=== PATIENT | male | born 1970 | race African-American/Black ===

== ENCOUNTER 2021-02-01 13:49 | Inpatient (IN) | payer MEDICARE, SELFPAY ==
[2021-02-01 13:54] VITALS: BP 164/94; PULSE 62; RESP 18; TEMP 36.7; O2SAT 99; BMI 28.0
--- NOTE | 2021-02-01 14:12 | ED_ITS ---
HPI - Psych General Chief Complaint: Psychiatric Symptoms Stated Complaint: Crisis Time Seen by Provider: 02/01/21 14:10 Source: patient Mode of arrival: ambulatory Limitations: no limitations History of Present Illness HPI Narrative: 50 y/o male with history of anxiety, depression and PTSD who is presenting to the ED from home with suicidal thoughts. He states for the last 2+ weeks his depression has been worsening and he has not been taking any of his medications. He is overwhelmed at home and has been declining. He has been seeing his therapist and told her today about his decline and suicidal thoughts. He was thinking about slitting his wrists. He reports prior hospitalization for similar about 3 years ago. He has been stable but remains on disability for his mental health and cannot hold a 9-5 job. His is as supportive as she can be. He denies substnace use and only very occasionally drinks small amounts of alcohol. No hallucinations or delusions. MD complaint: suicidal ideation and feels depressed Onset (ago): week(s) (2) Duration: constant History of same: Yes Relieving factors: none Exacerbating factors: none Context: not taking psychiatric medications Associated psychiatric symptoms: depression and suicidal ideation Associated symptoms: denies other symptoms Treatments prior to arrival: none If self harm: admits thoughts of self harm and has plan Details of plan: slit wrists Related Data Home Medications Medication Instructions Recorded Confirmed amlodipine 1 tab PO DAILY 02/01/21 02/01/21 benazepril 1 tab PO DAILY 02/01/21 02/01/21 dapagliflozin [Farxiga] 1 tab PO DAILY 02/01/21 02/01/21 doxazosin 1 tab PO DAILY 02/01/21 02/01/21 insulin glargine [Lantus Solostar 25 unit SUBCUT DAILY 02/01/21 02/01/21 U-100 Insulin] lorazepam 1 tab PO BID PRN 02/01/21 02/01/21 rosuvastatin 1 tab PO BEDTIME 02/01/21 02/01/21 Allergies Allergy/AdvReac Type Severity Reaction Status Date / Time bupropion [From WELLBUTRIN] Allergy Severe Seizure Verified 02/01/21 13:53 aripiprazole [From ABILIFY] Allergy Intermediate FACIAL Unverified 02/01/21 13:53 TREMORS honey [HONEY] Allergy Intermediate HEADACHES Unverified 02/01/21 13:53 lurasidone [From LATUDA] AdvReac Intermediate GETS Unverified 02/01/21 13:53 REALLY SICK mirtazapine [MIRTAZAPINE] AdvReac Intermediate BP GOES Unverified 02/01/21 13:53 HIGH Review of Systems Review of Systems: Constitutional: No Fever, No Chills Cardiovascular: No Chest Pain, No SOB Respiratory: No Cough, No Sputum Gastrointestinal: No Nausea, No Vomiting, No Diarrhea, No abdominal Pain Musculoskeletal: + joint pain, No Myalgias Skin: No Skin Lesions, No rash Neuro: No Weakness, No Numbness, No Dizziness, No Headache Psych: + Anxiety/Panic, + Depression, +SI, No HI, No AH, No VH Heme/Lymph: No Bruising, No Lymphadenopathy Endocrine: No Polyuria, No Polydipsia PMFSH Past Medical History Attestation statement: The following information was validated with the patient. Medical History Anxiety Depression Diabetes Hypertension PTSD (post-traumatic stress disorder) Social History Social History Smoked in Last 30 Days: No Use of substances other than those prescribed or required for medical reasons: No Advance Directives: No Advance Directives Information Provided: No Physical Exam Vital Signs: Vital Signs: Last Vital Signs Temp 98.0 F 02/01/21 13:54 Pulse 62 02/01/21 13:54 Resp 16 02/01/21 16:00 BP 164/94 H 02/01/21 13:54 Pulse Ox 99 02/01/21 13:54 Body Mass Index 28.0 Appearance: Alert. Oriented X3. No acute distress. Eyes: Pupils equal, round and reactive to light. ENT: Pharynx normal. Neck: Normal inspection. Neck supple. CVS: Normal heart rate and rhythm. Pulses normal. Respiratory: No respiratory distress. Breath sounds normal. Abdomen: Soft and nontender. +BS x4 Skin: Skin warm and dry. Normal skin color. Normal skin turgor. No rashes. Extremities: No lower extremity edema. Neuro: Oriented X 3. No motor deficit. No sensory deficit. Speaks in complete sentences, normal thought process with good insight +SI Course Course Course Narrative: 50 y/o male presenting with SI in the setting of worsening depression and non-compliance with medication. Will get metabolic workup and BHN evaluation. Reevaluation(s) Reevaluation #1: 16:30 - Lab workup and Utox are normal. Medically cleared at this time. Physician observation started at 4:30pm. Patient placed in physician observation because patient is awaiting BHN evaluation for the possible need of inpatient psych admission. At the time observation was started patient's vital signs were stable. Patient is alert and oriented. Neuro exam is non-focal. CV: RRR and lungs are clear. Will continue to monitor. Reevaluation #2: CARE team recommending inpatient psych admission - hopeful to place on M5 today/ Home meds restarted. MDM - Psych Lab Data Result diagrams: 02/01/21 14:50 02/01/21 14:50 Labs: Lab Results 02/01/21 02/01/21 02/01/21 Range/Units 14:29 14:29 14:50 WBC 3.8 L (4.8-10.8) X10*3/uL RBC 4.67 (4.60-5.80) X10*6/uL Hgb 13.0 L (14.0-18.0) g/dl Hct 39.0 L (42-52) % MCV 83.5 (80-98) fL MCH 27.8 (27.0-33.0) pg MCHC 33.3 (31.0-36.0) g/dl RDW 12.3 (11.0-16.0) % Plt Count 267 (160-400) X10*3/uL MPV 9.3 L (9.4-12.4) fL Immature Gran % (Auto) 0.3 (0.0-0.4) % Neut % (Auto) 46.2 (45-73) % Lymph % (Auto) 42.3 H (20-40) % [place] % (Auto) 9.7 (2-11) % Eos % (Auto) 1.0 (0-4) % Baso % (Auto) 0.5 (0-2) % Lymph # (Auto) 1.6 (1.2-4.9) X10*3/uL [place] # (Auto) 0.4 (0.1-1.2) X10*3/uL Eos # (Auto) 0.0 (0.0-0.4) X10*3/uL Baso # (Auto) 0.0 (0.0-0.2) X10*3/uL Abs Immat Gran (auto) 0.01 (0.00-0.03) X10*3/uL Absolute Neuts (auto) 1.8 L (2.0-8.3) X10*3/uL Absolute Nucleated RBC 0.000 (0.0-0.012) X10*3/uL Nucleated RBC % (auto) 0.0 (0.0-0.2) /100WBC Sodium (135-145) mmol/L Potassium (3.3-5.1) mmol/L Chloride (96-108) mmol/L Carbon Dioxide (22-29) mmol/L Anion Gap (12-20) BUN (9-16) mg/dL Creatinine (0.5-1.4) mg/dL Estim Creat Clear Calc Estimated GFR Random Glucose (60-115) mg/dL Calcium (8.4-10.2) mg/dL Magnesium (1.6-2.6) mg/dL Total Bilirubin (0.0-1.0) mg/dL Direct Bilirubin (0.0-0.5) mg/dL AST (5-37) U/L ALT (0-40) U/L Alkaline Phosphatase (39-117) U/L Total Protein (6.5-8.0) g/dL Albumin (3.5-5.0) g/dL Urine Color YELLOW Urine Appearance CLEAR Urine pH 6.0 (5.0-8.0) Ur Specific [place] >= 1.030 H (1.005-1.025) Urine Protein NEG (NEG-TRACE) MG/DL Urine Glucose (UA) NEG (NEG) MG/DL Urine Ketones NEG (NEG) MG/DL Urine Blood NEG (NEG) Urine Nitrite NEG (NEG) Ur Leukocyte Esterase NEG (NEG) Salicylates (15-30) mg/dL Urine Opiates Screen Not Detected (Not Detect) Acetaminophen (<30) mcg/mL Ur Barbiturates Screen Not Detected (Not Detect) Ur Phencyclidine Scrn Not Detected (Not Detect) Ur Amphetamines Screen Not Detected (Not Detect) U Benzodiazepines Scrn Not Detected (Not Detect) Urine Cocaine Screen Not Detected (Not Detect) U Marijuana (THC) Screen Not Detected (Not Detect) Ethyl Alcohol mg/dL COVID-19 (PAUL) (Negative) COVID-19 Clin Com 02/01/21 02/01/21 02/01/21 Range/Units 14:50 14:50 14:51 WBC (4.8-10.8) X10*3/uL RBC (4.60-5.80) X10*6/uL Hgb (14.0-18.0) g/dl Hct (42-52) % MCV (80-98) fL MCH (27.0-33.0) pg MCHC (31.0-36.0) g/dl RDW (11.0-16.0) % Plt Count (160-400) X10*3/uL MPV (9.4-12.4) fL Immature Gran % (Auto) (0.0-0.4) % Neut % (Auto) (45-73) % Lymph % (Auto) (20-40) % [place] % (Auto) (2-11) % Eos % (Auto) (0-4) % Baso % (Auto) (0-2) % Lymph # (Auto) (1.2-4.9) X10*3/uL [place] # (Auto) (0.1-1.2) X10*3/uL Eos # (Auto) (0.0-0.4) X10*3/uL Baso # (Auto) (0.0-0.2) X10*3/uL Abs Immat Gran (auto) (0.00-0.03) X10*3/uL Absolute Neuts (auto) (2.0-8.3) X10*3/uL Absolute Nucleated RBC (0.0-0.012) X10*3/uL Nucleated RBC % (auto) (0.0-0.2) /100WBC Sodium 139 (135-145) mmol/L Potassium 4.2 (3.3-5.1) mmol/L Chloride 105 (96-108) mmol/L Carbon Dioxide 27 (22-29) mmol/L Anion Gap 11 L (12-20) BUN 16 (9-16) mg/dL Creatinine 0.90 (0.5-1.4) mg/dL Estim Creat Clear Calc 119.4 Estimated GFR > 60 Random Glucose 87 (60-115) mg/dL Calcium 9.7 (8.4-10.2) mg/dL Magnesium 2.0 (1.6-2.6) mg/dL Total Bilirubin 0.5 (0.0-1.0) mg/dL Direct Bilirubin < 0.2 (0.0-0.5) mg/dL AST 23 (5-37) U/L ALT 25 (0-40) U/L Alkaline Phosphatase 111 (39-117) U/L Total Protein 7.4 (6.5-8.0) g/dL Albumin 4.5 (3.5-5.0) g/dL Urine Color Urine Appearance Urine pH (5.0-8.0) Ur Specific [place] (1.005-1.025) Urine Protein (NEG-TRACE) MG/DL Urine Glucose (UA) (NEG) MG/DL Urine Ketones (NEG) MG/DL Urine Blood (NEG) Urine Nitrite (NEG) Ur Leukocyte Esterase (NEG) Salicylates < 5.0 L (15-30) mg/dL Urine Opiates Screen (Not Detect) Acetaminophen < 1 (<30) mcg/mL Ur Barbiturates Screen (Not Detect) Ur Phencyclidine Scrn (Not Detect) Ur Amphetamines Screen (Not Detect) U Benzodiazepines Scrn (Not Detect) Urine Cocaine Screen (Not Detect) U Marijuana (THC) Screen (Not Detect) Ethyl Alcohol < 10 mg/dL COVID-19 (PAUL) Negative (Negative) COVID-19 Clin Com See Note Discharge Plan Discharge Clinical Impression: PTSD (post-traumatic stress disorder), Depression, Suicidal ideation Patient Disposition: Admitted As Inpatient Prescriptions: No Action lorazepam 0.5 mg tablet 1 tab PO BID PRN (Reason: Anxiety) RF: 0 amlodipine 10 mg tablet 1 tab PO DAILY RF: 0 doxazosin 4 mg tablet 1 tab PO DAILY RF: 0 benazepril 40 mg tablet 1 tab PO DAILY RF: 0 rosuvastatin 40 mg tablet 1 tab PO BEDTIME RF: 0 Lantus Solostar U-100 Insulin 100 unit/mL (3 mL) insulin pen 25 unit subcut DAILY RF: 0 Farxiga 10 mg tablet 1 tab PO DAILY RF: 0
[2021-02-01 14:36] LABS: Appearance Urine CLEAR; Color Urine YELLOW; Glucose Urine UA NEG (NEG); Leukocyte Esterase Urine NEG (NEG); Nitrite Urine NEG (NEG); Specific Gravity - Urine >= 1.030 (1.005-1.025); Urine Blood NEG (NEG); Urine Ketones NEG (NEG); Urine Protein NEG (NEG-TRACE)
[2021-02-01 14:56] LABS: MANUAL DIFF FLAG NO
[2021-02-01 14:59] LABS: Amphetamine Screen Urine Not Detected (Not Detect); Barbiturates, Urine Not Detected (Not Detect); Benzodiazepines Screen Urine Not Detected (Not Detect); Cannabinoid Screen Urine Not Detected (Not Detect); Cocaine Screen Urine Not Detected (Not Detect); Opiate Screen Urine Not Detected (Not Detect); Phencyclidine Screen Urine Not Detected (Not Detect)
[2021-02-01 14:59] LABS: Basophils Percent Auto 0.5 % (0-2); Imm Gran Abs Auto 0.01 X10*3/uL (0.00-0.03); Imm Gran Pct Auto 0.3 % (0.0-0.4); Lymphocytes Absolute Auto 1.6 X10*3/uL (1.2-4.9); Lymphocytes Percent Auto 42.3 % (20-40); Mean Corpuscular HGB Conc 33.3 g/dl (31.0-36.0); Mean Corpuscular Hemoglobin 27.8 pg (27.0-33.0); Mean Corpuscular Volume 83.5 fL (80-98); Mean Platelet Volume 9.3 fL (9.4-12.4); Monocytes Absolute Auto 0.4 X10*3/uL (0.1-1.2); Monocytes Percent Auto 9.7 % (2-11); Neutrophils Absolute Auto 1.8 X10*3/uL (2.0-8.3); Neutrophils Percent Auto 46.2 % (45-73); Platelet Count 267 X10*3/uL (160-400); Red Blood Count 4.67 X10*6/uL (4.60-5.80); Red Cell Distribution Width 12.3 % (11.0-16.0); White Blood Count 3.8 X10*3/uL (4.8-10.8)
[2021-02-01 15:12] LABS: COVID-19 Test Negative (Negative); IDNOW Serial# 9DD0AD1C
--- NOTE | 2021-02-01 15:13 | PC.NURSE ---
per at bedside-pt has not been med compliant in two weeks.
[2021-02-01 15:18] LABS: Ethanol < 10 mg/dL
[2021-02-01 15:23] LABS: Acetaminophen LAB < 1 mcg/mL (<30); Alanine Aminotransferase 25 U/L (0-40); Albumin Level 4.5 g/dL (3.5-5.0); Alkaline Phosphatase 111 U/L (39-117); Anion Gap 11 (12-20); Aspartate Amino Transferase 23 U/L (5-37); Bilirubin Direct < 0.2 mg/dL (0.0-0.5); Bilirubin Total 0.5 mg/dL (0.0-1.0); Blood Urea Nitrogen 16 mg/dL (9-16); Calcium 9.7 mg/dL (8.4-10.2); Carbon Dioxide 27 mmol/L (22-29); Chloride 105 mmol/L (96-108); Creatinine Clr Calc Pharmacy 119.4; Estimated Glomerular Filt Rate > 60; Glucose Random 87 mg/dL (60-115); Potassium 4.2 mmol/L (3.3-5.1); Salicylate < 5.0 mg/dL (15-30); Sodium 139 mmol/L (135-145); Total Protein 7.4 g/dL (6.5-8.0)
[2021-02-01 16:00] VITALS: RESP 16
[2021-02-01 18:31] VITALS: BP 149/92
[2021-02-01] MEDS: Doxazosin Mesylate 2 MG TABLET 4 MG PO (18:31)
[2021-02-01 18:32] VITALS: BP 149/92; PULSE 68
[2021-02-01] MEDS: amLODIPine Besylate 10 MG TABLET PO (18:32)
[2021-02-01] MEDS: Insulin Glargine,Hum.rec.anlog 100 UNIT/ML 10 ML VIAL 25 UNIT SUBCUT (20:19)
[2021-02-01] MEDS: Atorvastatin Calcium 80 MG TABLET PO (20:20)
[2021-02-01 20:21] LABS: Glucose, Whole Blood 170 mg/dL (60-115)
[2021-02-01 21:53] VITALS: BP 139/77; PULSE 60; TEMP 36.3
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
[2021-02-01] MEDS: LORazepam 0.5 MG TABLET PO (23:05)
[2021-02-02 06:00] VITALS: BP 134/76; PULSE 86; RESP 18; TEMP 36.2; O2SAT 97
[2021-02-02 06:23] LABS: Glucose, Whole Blood 116 mg/dL (60-115)
[2021-02-02 07:00] VITALS: BMI 28.0
[2021-02-02 08:19] VITALS: BP 127/85; PULSE 63
[2021-02-02] MEDS: lisinopriL 40 MG TABLET PO (08:19)
[2021-02-02 08:20] VITALS: BP 127/85; PULSE 63
[2021-02-02] MEDS: amLODIPine Besylate 10 MG TABLET PO (08:20)
[2021-02-02] MEDS: Insulin Glargine,Hum.rec.anlog 100 UNIT/ML 10 ML VIAL 25 UNIT SUBCUT (08:22)
[2021-02-02 08:47] LABS: Cholesterol 165 mg/dL; HDL Cholesterol 45 mg/dL; LDL Cholesterol Calculated 105 mg/dl; Triglycerides 79 mg/dL
[2021-02-02 08:51] LABS: Estimated Average Glucose 143 mg/dL; Hemoglobin A1c % 6.6 %
[2021-02-02 09:07] LABS: Thyroid Stimulating Hormone 0.41 uIU/mL (0.32-4.0)
[2021-02-02 09:59] LABS: Folate 10.2 ng/mL (> or = 4.0); Vitamin B12 294 pg/mL (200-900)
[2021-02-02] MEDS: Acetaminophen 325 MG TABLET 650 MG PO (10:41)
--- NOTE | 2021-02-02 12:25 | HO.PSYADMNOT ---
HPI Chief Complaint: SI, Depression, Anxiety, PTSD Sources of Information: patient interviewed, chart reviewed and crisis/core team assessment reviewed Additional Sources of Information: Valeria Bey [phone]. longterm pt who is very cautious about meds and changes. Dx. Depn, PTSD, Insomnia. Main sx are poor concentraion, motivation and focus. Hx of ? seizure on Wellbutrin, Prazosin just changed to Doxazocin, just stopped Nortriptyline low dose, Buspirone caused intense dreams, night sweats and had no real benefits. Pt is quite medication sensitive. 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 Reports a hx of trauma and related sx. Describes sx a poor focus, recall, poor task performance, several environmental triggers, loss of elements of time and often going back to the past. This has precipitated poor self care and increased sx of depression. States he has felt decompensated for several months with varying levels of triggers. Past Psychiatric History: IP: at least 6 -[facility] [place] OP: [facility]- EMDR and psychotherapy. Valeria Bey-psychopharm PHP: several admits Trials: Abilify-facial tremor Latuda-made pt ill Wellbutrin-seizure Remeron-increase in blood sugar, anxiety Medical Evaluation Reviewed: Yes [facility] Medical History (Updated 02/02/21 @ 18:34 by Melissa Ngo, RODOLFO) Anxiety Depression Diabetes Hypertension DALE (obstructive sleep apnea) PTSD (post-traumatic stress disorder) Seizure Narrative: Seizure s/p Wellbutrin dosing, no epilepsy per pt. Family History: Yes, not documented. 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 One dog, a Jaime Poodle Mix, age 15. Substance History: Alcohol use is rare. Denies nicotine, cannabis, drug use Caffeine-iced tea on occasion Trauma History: Affirms. Struggles from his youth are still present, states he has a good reputation as an adult but is somehow stuck in childhood. Diagnostics Vital Signs (24Hr): Vital Signs - 24 hr 02/01/21 13:54 02/01/21 16:00 02/01/21 18:31 Temperature 98.0 F Pulse Rate 62 Respiratory Rate 18 16 Blood Pressure 164/94 H 149/92 H Pulse Oximetry 99 02/01/21 18:32 02/01/21 21:53 02/02/21 06:00 Temperature 97.3 F 97.1 F Pulse Rate 68 60 86 Respiratory Rate 18 Blood Pressure 149/92 H 139/77 134/76 Pulse Oximetry 97 02/02/21 08:19 02/02/21 08:20 Temperature Pulse Rate 63 63 Respiratory Rate Blood Pressure 127/85 127/85 Pulse Oximetry Body Mass Index 28.0 Labs Results: 02/01/21 14:50 02/01/21 14:50 Labs: Laboratory Results - last 48 hr 02/01/21 02/01/21 02/01/21 14:29 14:29 14:50 WBC 3.8 L RBC 4.67 Hgb 13.0 L Hct 39.0 L MCV 83.5 MCH 27.8 MCHC 33.3 RDW 12.3 Plt Count 267 MPV 9.3 L Immature Gran % (Auto) 0.3 Neut % (Auto) 46.2 Lymph % (Auto) 42.3 H [place] % (Auto) 9.7 Eos % (Auto) 1.0 Baso % (Auto) 0.5 Lymph # (Auto) 1.6 [place] # (Auto) 0.4 Eos # (Auto) 0.0 Baso # (Auto) 0.0 Abs Immat Gran (auto) 0.01 Absolute Neuts (auto) 1.8 L Absolute Nucleated RBC 0.000 Nucleated RBC % (auto) 0.0 Sodium Potassium Chloride Carbon Dioxide Anion Gap BUN Creatinine Estim Creat Clear Calc Estimated GFR POC Glucose Random Glucose Estimat Average Glucose Hemoglobin A1c % Calcium Magnesium Total Bilirubin Direct Bilirubin AST ALT Alkaline Phosphatase Total Protein Albumin Triglycerides Cholesterol LDL Cholesterol, Calc HDL Cholesterol Vitamin B12 Folate TSH Urine Color YELLOW Urine Appearance CLEAR Urine pH 6.0 Ur Specific [place] >= 1.030 H Urine Protein NEG Urine Glucose (UA) NEG Urine Ketones NEG Urine Blood NEG Urine Nitrite NEG Ur Leukocyte Esterase NEG Salicylates Urine Opiates Screen Not Detected Acetaminophen Ur Barbiturates Screen Not Detected Ur Phencyclidine Scrn Not Detected Ur Amphetamines Screen Not Detected U Benzodiazepines Scrn Not Detected Urine Cocaine Screen Not Detected U Marijuana (THC) Screen Not Detected Ethyl Alcohol COVID-19 (PAUL) COVID-19 Clin Com 02/01/21 02/01/21 02/01/21 14:50 14:50 14:51 WBC RBC Hgb Hct MCV MCH MCHC RDW Plt Count MPV Immature Gran % (Auto) Neut % (Auto) Lymph % (Auto) [place] % (Auto) Eos % (Auto) Baso % (Auto) Lymph # (Auto) [place] # (Auto) Eos # (Auto) Baso # (Auto) Abs Immat Gran (auto) Absolute Neuts (auto) Absolute Nucleated RBC Nucleated RBC % (auto) Sodium 139 Potassium 4.2 Chloride 105 Carbon Dioxide 27 Anion Gap 11 L BUN 16 Creatinine 0.90 Estim Creat Clear Calc 119.4 Estimated GFR > 60 POC Glucose Random Glucose 87 Estimat Average Glucose Hemoglobin A1c % Calcium 9.7 Magnesium 2.0 Total Bilirubin 0.5 Direct Bilirubin < 0.2 AST 23 ALT 25 Alkaline Phosphatase 111 Total Protein 7.4 Albumin 4.5 Triglycerides Cholesterol LDL Cholesterol, Calc HDL Cholesterol Vitamin B12 Folate TSH Urine Color Urine Appearance Urine pH Ur Specific [place] Urine Protein Urine Glucose (UA) Urine Ketones Urine Blood Urine Nitrite Ur Leukocyte Esterase Salicylates < 5.0 L Urine Opiates Screen Acetaminophen < 1 Ur Barbiturates Screen Ur Phencyclidine Scrn Ur Amphetamines Screen U Benzodiazepines Scrn Urine Cocaine Screen U Marijuana (THC) Screen Ethyl Alcohol < 10 COVID-19 (PAUL) Negative COVID-19 Clin Com See Note 02/01/21 02/02/21 02/02/21 20:16 06:09 08:00 WBC RBC Hgb Hct MCV MCH MCHC RDW Plt Count MPV Immature Gran % (Auto) Neut % (Auto) Lymph % (Auto) [place] % (Auto) Eos % (Auto) Baso % (Auto) Lymph # (Auto) [place] # (Auto) Eos # (Auto) Baso # (Auto) Abs Immat Gran (auto) Absolute Neuts (auto) Absolute Nucleated RBC Nucleated RBC % (auto) Sodium Potassium Chloride Carbon Dioxide Anion Gap BUN Creatinine Estim Creat Clear Calc Estimated GFR POC Glucose 170 H 116 H Random Glucose Estimat Average Glucose 143 Hemoglobin A1c % 6.6 Calcium Magnesium Total Bilirubin Direct Bilirubin AST ALT Alkaline Phosphatase Total Protein Albumin Triglycerides Cholesterol LDL Cholesterol, Calc HDL Cholesterol Vitamin B12 Folate TSH Urine Color Urine Appearance Urine pH Ur Specific [place] Urine Protein Urine Glucose (UA) Urine Ketones Urine Blood Urine Nitrite Ur Leukocyte Esterase Salicylates Urine Opiates Screen Acetaminophen Ur Barbiturates Screen Ur Phencyclidine Scrn Ur Amphetamines Screen U Benzodiazepines Scrn Urine Cocaine Screen U Marijuana (THC) Screen Ethyl Alcohol COVID-19 (PAUL) COVID-19 Clin Com 02/02/21 02/02/21 08:00 08:00 WBC RBC Hgb Hct MCV MCH MCHC RDW Plt Count MPV Immature Gran % (Auto) Neut % (Auto) Lymph % (Auto) [place] % (Auto) Eos % (Auto) Baso % (Auto) Lymph # (Auto) [place] # (Auto) Eos # (Auto) Baso # (Auto) Abs Immat Gran (auto) Absolute Neuts (auto) Absolute Nucleated RBC Nucleated RBC % (auto) Sodium Potassium Chloride Carbon Dioxide Anion Gap BUN Creatinine Estim Creat Clear Calc Estimated GFR POC Glucose Random Glucose Estimat Average Glucose Hemoglobin A1c % Calcium Magnesium Total Bilirubin Direct Bilirubin AST ALT Alkaline Phosphatase Total Protein Albumin Triglycerides 79 Cholesterol 165 LDL Cholesterol, Calc 105 HDL Cholesterol 45 Vitamin B12 294 Folate 10.2 TSH 0.41 Urine Color Urine Appearance Urine pH Ur Specific [place] Urine Protein Urine Glucose (UA) Urine Ketones Urine Blood Urine Nitrite Ur Leukocyte Esterase Salicylates Urine Opiates Screen Acetaminophen Ur Barbiturates Screen Ur Phencyclidine Scrn Ur Amphetamines Screen U Benzodiazepines Scrn Urine Cocaine Screen U Marijuana (THC) Screen Ethyl Alcohol COVID-19 (PAUL) COVID-19 Clin Com Meds/Allergies Meds Home Medications Acetaminophen (Acetaminophen 325 Mg Tablet) 650 mg PO Q6H PRN PRN Reason: Headache/Pain Mild Scale (1-3) Last Admin: 02/02/21 10:41 Dose: 650 mg Documented by: Al Hydroxide/Mg Hydroxide (Magnesium Hydrox/Alum Hydrox 30 Ml Oral.Susp) 30 ml PO Q6H PRN PRN Reason: Heartburn/Nausea Amlodipine Besylate (Amlodipine Besylate 10 Mg Tablet) 10 mg PO DAILY [facility]; Protocol Last Admin: 02/02/21 08:20 Dose: 10 mg Documented by: Atorvastatin Calcium (Atorvastatin Calcium 80 Mg Tablet) 80 mg PO BEDTIME MIGEL Last Admin: 02/01/21 20:20 Dose: 80 mg Documented by: Doxazosin Mesylate (Doxazosin Mesylate 2 Mg Tablet) 4 mg PO BEDTIME MIGEL; Protocol Hydroxyzine HCl (Hydroxyzine Hcl 25 Mg Tablet) 25 mg PO BEDTIME PRN PRN Reason: Anxiety Insulin Glargine (Insulin Glargine,Hum.Rec.Anlog 100 Unit/Ml 10 Ml Vial) 25 unit SUBCUT DAILY [facility] Last Admin: 02/02/21 08:22 Dose: 25 unit Documented by: Lisinopril (Lisinopril 40 Mg Tablet) 40 mg PO DAILY [facility] Last Admin: 02/02/21 08:19 Dose: 40 mg Documented by: Lorazepam (Lorazepam 0.5 Mg Tablet) 0.5 mg PO BID PRN PRN Reason: Anxiety Last Admin: 02/01/21 23:05 Dose: 0.5 mg Documented by: Magnesium Hydroxide (Milk Of Magnesia 30 Ml Oral.Susp) 30 ml PO DAILY PRN PRN Reason: Constipation Non-Formulary Medication (Dapagliflozin [Farxiga]) 1 tab PO DAILY [facility] Pharmacy Consult (Consult Rx Perform Med Rec) 1 each MISCELLANE ONCE PRN PRN Reason: Consult order Trazodone HCl (Trazodone Hcl 50 Mg Tablet) 50 mg PO BEDTIME PRN PRN Reason: Insomnia Allergies Allergies Allergy/AdvReac Type Severity Reaction Status Date / Time bupropion [From WELLBUTRIN] Allergy Severe Seizure Verified 02/01/21 13:53 aripiprazole [From ABILIFY] Allergy Intermediate FACIAL Unverified 02/01/21 13:53 TREMORS honey [HONEY] Allergy Intermediate HEADACHES Unverified 02/01/21 13:53 lurasidone [From LATUDA] AdvReac Intermediate GETS Unverified 02/01/21 13:53 REALLY SICK mirtazapine [MIRTAZAPINE] AdvReac Intermediate BP GOES Unverified 02/01/21 13:53 HIGH Mental Status Exam Mental Status Exam Patient Appearance: Appropriate Patient Orientation: Person, Place, Time and Situation Level of Consciousness: Alert Patient Behavior: Appropriate, Talkative, Fatigued and Good Eye Contact Mood Description: Depressed and Anxious Affect Description: Flat Patient Cognition Impaired: No Ability to Follow Directions: Good Speech Pattern: Clear, Appropriate, Spontaneous Speech and Coherent Memory Description: Remote Impaired and Episodic Impaired Hallucinations: None Delusions: Not Present Thought Process: Distracted and Rumination Thought Content: positive for Perseveration and positive for Suicidal Ideation Depressive Symptoms: Increased Anxiety, Insomnia, Diff. Making Decisions, Increased Irritability, Difficulty Sleeping, Changes in Appetite, Loss of Int. in Activity, Feelings of Worthlessness, Hopelessness, Isolating-Friends/Family, Unhappiness, Increased Fatigue, Thoughts of /Suicide, Low Self Esteem, Loss of Energy and Difficulty Concentrating Judgement: Fair Assessment & Plan Assessment & Plan (1) PTSD (post-traumatic stress disorder): Status: Acute Code(s): F43.10 - Post-traumatic stress disorder, unspecified Assessment and Plan: 50 yo male with a hx of trauma beginning in childhood. Pt reports sx of SI, poor focus, recall, task performance, easily triggered and often triggered with several months of decompensation. Plan: Collateral contact. Continue med review with pt. consider possible lexapro trial, risperdal to assist in grounding. will discuss further with pt. (2) Recurrent major depression-severe: Status: Acute Code(s): F33.2 - Major depressive disorder, recurrent severe without psychotic features Informed Consent: further education needed Reason for continued inpatient stay Substantial Risk for: harm to self, inability to function, rapid decompensation and med/psych decompensation
[2021-02-02 18:00] VITALS: BP 128/77; PULSE 66; TEMP 36.2
[2021-02-02 21:10] VITALS: BP 128/77; PULSE 66
[2021-02-02] MEDS: Atorvastatin Calcium 80 MG TABLET PO (21:10)
[2021-02-02] MEDS: Doxazosin Mesylate 2 MG TABLET 4 MG PO (21:10)
[2021-02-03 06:00] VITALS: BP 123/81; PULSE 107; RESP 16; TEMP 36.3; O2SAT 98
[2021-02-03 06:30] LABS: Glucose, Whole Blood 99 mg/dL (60-115)
[2021-02-03 08:29] VITALS: BP 110/71; PULSE 71; RESP 16; TEMP 36.2
[2021-02-03 08:40] VITALS: BP 110/71; PULSE 71
[2021-02-03] MEDS: lisinopriL 40 MG TABLET PO (08:40)
[2021-02-03] MEDS: amLODIPine Besylate 10 MG TABLET PO (08:40)
[2021-02-03] MEDS: Insulin Glargine,Hum.rec.anlog 100 UNIT/ML 10 ML VIAL 25 UNIT SUBCUT (08:41)
--- NOTE | 2021-02-03 16:32 | HO.PSYCHPN ---
Subjective Subjective Date of Service: 02/03/21 Reason For Visit: SI, Depression, Anxiety, PTSD Subjective Notes: Conditional Voluntary Healthcare Proxy: No Guardianship: No Medical Problems Affecting Mental Status: No Interim History: Discussed TW message from prescriber Valeria Bey and her noting pt's sensitivity to medication and hx of adverse effects. Pt concurs. Review of current sx, appearing PTSD-like in origin and options to address them. Discussed current mood. Pt believes there is a hx of hypomania in his sx presentation, with current periods of feeling not grounded, very dissociative. Review of previous trials along with Celexa, Lexapro, Sertraline, Prozac, Luvox, Rexulti, Olanzapine, Invega, Geodon. Recalls gynecomastia from Risperdal. Agreed to trial low dose Olanzapine to target dissociative periods, mood lability, assist in grounding. Feels he needs an agent with some sedative properties to asssit with anxiety mgt. Discussed concerns about marriage, sx and moving forward. Medication Compliance: Yes Side effects from medications: No Attending Groups: Yes Review of Systems Reports behavioral changes Psychiatric: Reports abnormal sleep pattern, Reports anxiety, Reports behavioral changes, Reports change in appetite, Reports depression, Reports difficulty concentrating, Reports hopelessness, Reports irritability, Reports anhedonia and Reports suicidal ideation Mental Status Exam Mental Status Exam Patient Appearance: Appropriate Patient Orientation: Person, Place, Time and Situation Level of Consciousness: Alert Patient Behavior: Appropriate, Talkative, Cooperative, Anxious, Fatigued and Good Eye Contact Diagnostics Vital Signs (24Hr): Vital Signs - 24 hr 02/02/21 18:00 02/02/21 21:10 02/03/21 06:00 Temperature 97.2 F 97.3 F Pulse Rate 66 66 107 H Respiratory Rate 16 Blood Pressure 128/77 128/77 123/81 Pulse Oximetry 98 02/03/21 08:29 02/03/21 08:40 Temperature 97.2 F Pulse Rate 71 71 Respiratory Rate 16 Blood Pressure 110/71 110/71 Pulse Oximetry Body Mass Index 28.0 Labs Results: 02/01/21 14:50 02/01/21 14:50 Labs: Laboratory Results - last 48 hr 02/01/21 02/02/21 02/02/21 20:16 06:09 08:00 POC Glucose 170 H 116 H Estimat Average Glucose 143 Hemoglobin A1c % 6.6 Triglycerides Cholesterol LDL Cholesterol, Calc HDL Cholesterol Vitamin B12 Folate TSH 02/02/21 02/02/21 02/03/21 08:00 08:00 06:16 POC Glucose 99 Estimat Average Glucose Hemoglobin A1c % Triglycerides 79 Cholesterol 165 LDL Cholesterol, Calc 105 HDL Cholesterol 45 Vitamin B12 294 Folate 10.2 TSH 0.41 Medications Medications Current Medications Generic Name Dose Route Start Last Admin Trade Name Freq PRN Reason Stop Dose Admin Acetaminophen 650 mg 02/01/21 20:02 02/02/21 10:41 Acetaminophen 325 Mg Tablet PO 650 mg Q6H PRN Administration Headache/Pain Mild Scale (1-3) Al Hydroxide/Mg Hydroxide 30 ml 02/01/21 20:02 Magnesium Hydrox/Alum Hydrox 30 Ml Oral.Susp PO Q6H PRN Heartburn/Nausea Amlodipine Besylate 10 mg 02/01/21 17:30 02/03/21 08:40 Amlodipine Besylate 10 Mg Tablet PO 10 mg DAILY MIGEL Administration Protocol Atorvastatin Calcium 80 mg 02/01/21 21:00 02/02/21 21:10 Atorvastatin Calcium 80 Mg Tablet PO 80 mg BEDTIME MIGEL Administration Doxazosin Mesylate 4 mg 02/02/21 21:00 02/02/21 21:10 Doxazosin Mesylate 2 Mg Tablet PO 4 mg BEDTIME MIGEL Administration Protocol Hydroxyzine HCl 25 mg 02/01/21 20:02 Hydroxyzine Hcl 25 Mg Tablet PO BEDTIME PRN Anxiety Insulin Glargine 25 unit 02/01/21 20:00 02/03/21 08:41 Insulin Glargine,Hum.Rec.Anlog 100 Unit/Ml 10 Ml Vial SUBCUT 25 unit DAILY MIGEL Administration Lisinopril 40 mg 02/02/21 09:00 02/03/21 08:40 Lisinopril 40 Mg Tablet PO 40 mg DAILY MIGEL Administration Lorazepam 0.5 mg 02/01/21 17:25 02/01/21 23:05 Lorazepam 0.5 Mg Tablet PO 0.5 mg BID PRN Administration Anxiety Magnesium Hydroxide 30 ml 02/01/21 20:02 Milk Of Magnesia 30 Ml Oral.Susp PO DAILY PRN Constipation Non-Formulary Medication 1 tab 02/01/21 17:30 Dapagliflozin [Farxiga] PO DAILY [facility] Pharmacy Consult 1 each 02/01/21 14:11 Consult Rx Perform Med Rec MISCELLANE ONCE PRN Consult order Trazodone HCl 50 mg 02/01/21 20:02 Trazodone Hcl 50 Mg Tablet PO BEDTIME PRN Insomnia Allergies Allergies Allergy/AdvReac Type Severity Reaction Status Date / Time bupropion [From WELLBUTRIN] Allergy Severe Seizure Verified 02/01/21 13:53 aripiprazole [From ABILIFY] Allergy Intermediate FACIAL Unverified 02/01/21 13:53 TREMORS honey [HONEY] Allergy Intermediate HEADACHES Unverified 02/01/21 13:53 lurasidone [From LATUDA] AdvReac Intermediate GETS Unverified 02/01/21 13:53 REALLY SICK mirtazapine [MIRTAZAPINE] AdvReac Intermediate BP GOES Unverified 02/01/21 13:53 HIGH Assessment & Plan Assessment & Plan (1) PTSD (post-traumatic stress disorder): Status: Acute Code(s): F43.10 - Post-traumatic stress disorder, unspecified Assessment and Plan: 50 yo male with a hx of trauma beginning in childhood. Pt reports sx of SI, poor focus, recall, task performance, easily triggered and often triggered with several months of decompensation. Plan: Olanzapine 1.25 mg hs and 1.25 mg bid prn sx of dissociation, agitation. Very low doses as by hx pt is very prone to adverse effects. If tolerated, possible Sertraline trial on 02/06. Discussed referral to DBT, return to [facility] which he will consider. (2) Recurrent major depression-severe: Status: Acute Code(s): F33.2 - Major depressive disorder, recurrent severe without psychotic features Greater than 50% of the session was spent on counseling and/or coordination of care Reason for contiued inpatient stay Substantial Risk for: harm to self, inability to function and rapid decompensation
[2021-02-03 18:00] VITALS: BP 124/74; PULSE 65; TEMP 35.8
[2021-02-03 20:14] VITALS: BP 124/74; PULSE 65
[2021-02-03] MEDS: Atorvastatin Calcium 80 MG TABLET PO (20:14)
[2021-02-03] MEDS: Doxazosin Mesylate 2 MG TABLET 4 MG PO (20:14)
[2021-02-03] MEDS: OLANZapine 2.5 MG TABLET 1.25 MG PO (20:14)
[2021-02-04 06:00] VITALS: BP 127/77; PULSE 64; RESP 12; TEMP 36.3; O2SAT 99
[2021-02-04 07:20] LABS: Glucose, Whole Blood 106 mg/dL (60-115)
[2021-02-04 08:01] VITALS: BP 121/75; PULSE 75; RESP 18; TEMP 36.3; O2SAT 100
[2021-02-04 08:04] VITALS: BP 121/75; PULSE 75
[2021-02-04] MEDS: amLODIPine Besylate 10 MG TABLET PO (08:04)
[2021-02-04] MEDS: lisinopriL 40 MG TABLET PO (08:04)
[2021-02-04] MEDS: Insulin Glargine,Hum.rec.anlog 100 UNIT/ML 10 ML VIAL 25 UNIT SUBCUT (08:05)
--- NOTE | 2021-02-04 08:13 | HO.PSYCHPN ---
Subjective Subjective Date of Service: 02/04/21 Reason For Visit: SI, Depression, Anxiety, PTSD Subjective Notes: Conditional Voluntary Medical Problems Affecting Mental Status: No Interim History: Patient was seen in rounds today. He is slowly settling in. He has been started on low-dose olanzapine which he is tolerating. He denies any side effects. Eating and sleeping adequately. No complaints. No changes were made today. Antidepressants are going to be considered on 02/06. Medication Compliance: Yes Side effects from medications: No Attending Groups: Yes Review of Systems Reports behavioral changes Psychiatric: Reports abnormal sleep pattern, Reports anxiety, Reports behavioral changes, Reports change in appetite, Reports depression, Reports difficulty concentrating, Reports hopelessness, Reports irritability, Reports anhedonia and Reports suicidal ideation Mental Status Exam Mental Status Exam Narrative: In today's visit patient was seen in rounds. He is alert, oriented and pleasant. He was sitting comfortably in his room. Normal speech. Good eye contact. Affect is appropriate and contained. No signs of psychosis. No SI. Cognitively he is intact. Judgment is intact Diagnostics Vital Signs (24Hr): Vital Signs - 24 hr 02/03/21 08:29 02/03/21 08:40 02/03/21 18:00 Temperature 97.2 F 96.5 F L Pulse Rate 71 71 65 Respiratory Rate 16 Blood Pressure 110/71 110/71 124/74 Pulse Oximetry 02/03/21 20:14 02/04/21 06:00 02/04/21 08:01 Temperature 97.4 F 97.3 F Pulse Rate 65 64 75 Respiratory Rate 12 18 Blood Pressure 124/74 127/77 121/75 Pulse Oximetry 99 100 02/04/21 08:04 Temperature Pulse Rate 75 Respiratory Rate Blood Pressure 121/75 Pulse Oximetry Body Mass Index 28.0 Labs Results: 02/01/21 14:50 02/01/21 14:50 Labs: Laboratory Results - last 48 hr 02/02/21 02/02/21 02/02/21 08:00 08:00 08:00 POC Glucose Estimat Average Glucose 143 Hemoglobin A1c % 6.6 Triglycerides 79 Cholesterol 165 LDL Cholesterol, Calc 105 HDL Cholesterol 45 Vitamin B12 294 Folate 10.2 TSH 0.41 02/03/21 02/04/21 06:16 06:36 POC Glucose 99 106 Estimat Average Glucose Hemoglobin A1c % Triglycerides Cholesterol LDL Cholesterol, Calc HDL Cholesterol Vitamin B12 Folate TSH Medications Medications Current Medications Generic Name Dose Route Start Last Admin Trade Name Freq PRN Reason Stop Dose Admin Acetaminophen 650 mg 02/01/21 20:02 02/02/21 10:41 Acetaminophen 325 Mg Tablet PO 650 mg Q6H PRN Administration Headache/Pain Mild Scale (1-3) Al Hydroxide/Mg Hydroxide 30 ml 02/01/21 20:02 Magnesium Hydrox/Alum Hydrox 30 Ml Oral.Susp PO Q6H PRN Heartburn/Nausea Amlodipine Besylate 10 mg 02/01/21 17:30 02/04/21 08:04 Amlodipine Besylate 10 Mg Tablet PO 10 mg DAILY MIGEL Administration Protocol Atorvastatin Calcium 80 mg 02/01/21 21:00 02/03/21 20:14 Atorvastatin Calcium 80 Mg Tablet PO 80 mg BEDTIME MIGEL Administration Doxazosin Mesylate 4 mg 02/02/21 21:00 02/03/21 20:14 Doxazosin Mesylate 2 Mg Tablet PO 4 mg BEDTIME MIGEL Administration Protocol Hydroxyzine HCl 25 mg 02/01/21 20:02 Hydroxyzine Hcl 25 Mg Tablet PO BEDTIME PRN Anxiety Insulin Glargine 25 unit 02/01/21 20:00 02/04/21 08:05 Insulin Glargine,Hum.Rec.Anlog 100 Unit/Ml 10 Ml Vial SUBCUT 25 unit DAILY MIGEL Administration Lisinopril 40 mg 02/02/21 09:00 02/04/21 08:04 Lisinopril 40 Mg Tablet PO 40 mg DAILY MIGEL Administration Lorazepam 0.5 mg 02/01/21 17:25 02/01/21 23:05 Lorazepam 0.5 Mg Tablet PO 0.5 mg BID PRN Administration Anxiety Magnesium Hydroxide 30 ml 02/01/21 20:02 Milk Of Magnesia 30 Ml Oral.Susp PO DAILY PRN Constipation Non-Formulary Medication 1 tab 02/01/21 17:30 Dapagliflozin [Farxiga] PO DAILY MIGEL Olanzapine 1.25 mg 02/03/21 21:00 02/03/21 20:14 Olanzapine 2.5 Mg Tablet PO 1.25 mg BEDTIME MIGEL Administration Olanzapine 1.25 mg 02/03/21 16:30 Olanzapine 2.5 Mg Tablet PO BID PRN dissociation, agitation Pharmacy Consult 1 each 02/01/21 14:11 Consult Rx Perform Med Rec MISCELLANE ONCE PRN Consult order Trazodone HCl 50 mg 02/01/21 20:02 Trazodone Hcl 50 Mg Tablet PO BEDTIME PRN Insomnia Allergies Allergies Allergy/AdvReac Type Severity Reaction Status Date / Time bupropion [From WELLBUTRIN] Allergy Severe Seizure Verified 02/01/21 13:53 aripiprazole [From ABILIFY] Allergy Intermediate FACIAL Unverified 02/01/21 13:53 TREMORS honey [HONEY] Allergy Intermediate HEADACHES Unverified 02/01/21 13:53 lurasidone [From LATUDA] AdvReac Intermediate GETS Unverified 02/01/21 13:53 REALLY SICK mirtazapine [MIRTAZAPINE] AdvReac Intermediate BP GOES Unverified 02/01/21 13:53 HIGH Assessment & Plan Assessment & Plan (1) PTSD (post-traumatic stress disorder): Status: Acute Code(s): F43.10 - Post-traumatic stress disorder, unspecified Assessment and Plan: 50 yo male with a hx of trauma beginning in childhood. Pt reports sx of SI, poor focus, recall, task performance, easily triggered and often triggered with several months of decompensation. Plan: Olanzapine 1.25 mg hs and 1.25 mg bid prn sx of dissociation, agitation. Very low doses as by hx pt is very prone to adverse effects. If tolerated, possible Sertraline trial on 02/06. Discussed referral to DBT, return to [facility] which he will consider. (2) Recurrent major depression-severe: Status: Acute Code(s): F33.2 - Major depressive disorder, recurrent severe without psychotic features Greater than 50% of the session was spent on counseling and/or coordination of care Reason for contiued inpatient stay Substantial Risk for: harm to self
[2021-02-04 12:55] LABS: Glucose, Whole Blood 78 mg/dL (60-115)
[2021-02-04 13:33] LABS: Glucose, Whole Blood 118 mg/dL (60-115)
[2021-02-04] MEDS: OLANZapine 2.5 MG TABLET 1.25 MG PO (20:44)
[2021-02-04] MEDS: Atorvastatin Calcium 80 MG TABLET PO (20:44)
[2021-02-04 20:45] VITALS: BP 128/85; PULSE 63
[2021-02-04] MEDS: Doxazosin Mesylate 2 MG TABLET 4 MG PO (20:45)
[2021-02-05 06:00] VITALS: BP 121/86; PULSE 83; TEMP 36.8
[2021-02-05 06:27] LABS: Glucose, Whole Blood 102 mg/dL (60-115)
--- NOTE | 2021-02-05 08:00 | HO.PSYCHPN ---
Subjective Subjective Date of Service: 02/05/21 Reason For Visit: SI, Depression, Anxiety, PTSD Interim History: Patient was seen and discussed in rounds today. He has been having some anxiety. He states that his blood sugars have been much more stable. He denies any side effects to the Zyprexa. I did increase it to 2.5 mg. He also continues to complain of having night terrors even though he cannot remember the details. He is on doxazosin 4 mg. No other changes were made. Eating and sleeping adequately except for the night terrors or Medication Compliance: Yes Side effects from medications: No Attending Groups: Yes Mental Status Exam Mental Status Exam Narrative: In today's visit patient was seen in rounds. He is alert, oriented and pleasant. He was sitting comfortably in his room. Normal speech. Good eye contact. Affect is appropriate and contained. No signs of psychosis. No SI. Cognitively he is intact. Judgment is intact Diagnostics Vital Signs (24Hr): Vital Signs - 24 hr 02/04/21 08:01 02/04/21 08:04 02/04/21 20:45 Temperature 97.3 F Pulse Rate 75 75 63 Respiratory Rate 18 Blood Pressure 121/75 121/75 128/85 Pulse Oximetry 100 02/05/21 06:00 Temperature 98.3 F Pulse Rate 83 Respiratory Rate Blood Pressure 121/86 Pulse Oximetry Body Mass Index 28.0 Labs Results: 02/01/21 14:50 02/01/21 14:50 Labs: Laboratory Results - last 48 hr 02/04/21 02/04/21 02/04/21 06:36 12:52 13:29 POC Glucose 106 78 118 H 02/05/21 06:15 POC Glucose 102 Medications Medications Current Medications Generic Name Dose Route Start Last Admin Trade Name Freq PRN Reason Stop Dose Admin Acetaminophen 650 mg 02/01/21 20:02 02/02/21 10:41 Acetaminophen 325 Mg Tablet PO 650 mg Q6H PRN Administration Headache/Pain Mild Scale (1-3) Al Hydroxide/Mg Hydroxide 30 ml 02/01/21 20:02 Magnesium Hydrox/Alum Hydrox 30 Ml Oral.Susp PO Q6H PRN Heartburn/Nausea Amlodipine Besylate 10 mg 02/01/21 17:30 02/04/21 08:04 Amlodipine Besylate 10 Mg Tablet PO 10 mg DAILY MIGEL Administration Protocol Atorvastatin Calcium 80 mg 02/01/21 21:00 02/04/21 20:44 Atorvastatin Calcium 80 Mg Tablet PO 80 mg BEDTIME MIGEL Administration Doxazosin Mesylate 4 mg 02/02/21 21:00 02/04/21 20:45 Doxazosin Mesylate 2 Mg Tablet PO 4 mg BEDTIME MIGEL Administration Protocol Hydroxyzine HCl 25 mg 02/01/21 20:02 Hydroxyzine Hcl 25 Mg Tablet PO BEDTIME PRN Anxiety Insulin Glargine 25 unit 02/01/21 20:00 02/04/21 08:05 Insulin Glargine,Hum.Rec.Anlog 100 Unit/Ml 10 Ml Vial SUBCUT 25 unit DAILY MIGEL Administration Lisinopril 40 mg 02/02/21 09:00 02/04/21 08:04 Lisinopril 40 Mg Tablet PO 40 mg DAILY MIGEL Administration Lorazepam 0.5 mg 02/01/21 17:25 02/01/21 23:05 Lorazepam 0.5 Mg Tablet PO 0.5 mg BID PRN Administration Anxiety Magnesium Hydroxide 30 ml 02/01/21 20:02 Milk Of Magnesia 30 Ml Oral.Susp PO DAILY PRN Constipation Non-Formulary Medication 1 tab 02/01/21 17:30 Dapagliflozin [Farxiga] PO DAILY MIGEL Olanzapine 1.25 mg 02/03/21 21:00 02/04/21 20:44 Olanzapine 2.5 Mg Tablet PO 1.25 mg BEDTIME MIGEL Administration Olanzapine 1.25 mg 02/03/21 16:30 Olanzapine 2.5 Mg Tablet PO BID PRN dissociation, agitation Pharmacy Consult 1 each 02/01/21 14:11 Consult Rx Perform Med Rec MISCELLANE ONCE PRN Consult order Trazodone HCl 50 mg 02/01/21 20:02 Trazodone Hcl 50 Mg Tablet PO BEDTIME PRN Insomnia Allergies Allergies Allergy/AdvReac Type Severity Reaction Status Date / Time bupropion [From WELLBUTRIN] Allergy Severe Seizure Verified 02/01/21 13:53 aripiprazole [From ABILIFY] Allergy Intermediate FACIAL Unverified 02/01/21 13:53 TREMORS honey [HONEY] Allergy Intermediate HEADACHES Unverified 02/01/21 13:53 lurasidone [From LATUDA] AdvReac Intermediate GETS Unverified 02/01/21 13:53 REALLY SICK mirtazapine [MIRTAZAPINE] AdvReac Intermediate BP GOES Unverified 02/01/21 13:53 HIGH Assessment & Plan Assessment & Plan (1) PTSD (post-traumatic stress disorder): Status: Acute Code(s): F43.10 - Post-traumatic stress disorder, unspecified Assessment and Plan: 50 yo male with a hx of trauma beginning in childhood. Pt reports sx of SI, poor focus, recall, task performance, easily triggered and often triggered with several months of decompensation. Plan: Olanzapine 1.25 mg hs and 1.25 mg bid prn sx of dissociation, agitation. Very low doses as by hx pt is very prone to adverse effects. If tolerated, possible Sertraline trial on 02/06. Discussed referral to DBT, return to [facility] which he will consider. (2) Recurrent major depression-severe: Status: Acute Code(s): F33.2 - Major depressive disorder, recurrent severe without psychotic features Greater than 50% of the session was spent on counseling and/or coordination of care Reason for contiued inpatient stay Substantial Risk for: other
[2021-02-05] MEDS: Insulin Glargine,Hum.rec.anlog 100 UNIT/ML 10 ML VIAL 25 UNIT SUBCUT (08:46)
[2021-02-05 08:53] VITALS: BP 129/78; PULSE 68
[2021-02-05] MEDS: amLODIPine Besylate 10 MG TABLET PO (08:53)
[2021-02-05 08:54] VITALS: BP 129/78; PULSE 68
[2021-02-05] MEDS: lisinopriL 40 MG TABLET PO (08:54)
[2021-02-05] MEDS: LORazepam 0.5 MG TABLET PO (11:43)
[2021-02-05] MEDS: Acetaminophen 325 MG TABLET 650 MG PO (11:43)
[2021-02-05 11:55] LABS: Glucose, Whole Blood 154 mg/dL (60-115)
[2021-02-05 18:00] VITALS: BP 114/80; PULSE 82; RESP 16; O2SAT 98
[2021-02-05] MEDS: OLANZapine 2.5 MG TABLET PO (20:31)
[2021-02-05] MEDS: Atorvastatin Calcium 80 MG TABLET PO (20:31)
[2021-02-05] MEDS: Doxazosin Mesylate 2 MG TABLET 4 MG PO (20:31)
[2021-02-06 06:00] VITALS: BP 112/75; PULSE 80; RESP 16; TEMP 36.6; O2SAT 99
[2021-02-06 07:39] LABS: Glucose, Whole Blood 120 mg/dL (60-115)
[2021-02-06 08:28] VITALS: BP 117/79; PULSE 74
[2021-02-06] MEDS: amLODIPine Besylate 10 MG TABLET PO (08:28)
[2021-02-06 08:29] VITALS: BP 117/79; PULSE 74
[2021-02-06] MEDS: lisinopriL 40 MG TABLET PO (08:29)
[2021-02-06] MEDS: Insulin Glargine,Hum.rec.anlog 100 UNIT/ML 10 ML VIAL 25 UNIT SUBCUT (08:29)
--- NOTE | 2021-02-06 12:48 | HO.PSYCHPN ---
Subjective Subjective Date of Service: 02/06/21 Reason For Visit: SI, Depression, Anxiety, PTSD Subjective Notes: Conditional Voluntary Healthcare Proxy: No Guardianship: No Medical Problems Affecting Mental Status: No Interim History: Reports improving sleep as the weekend progressed. Some mid-day weakness on Saturday-BS was low~78 at lunchtime. Pt asks if anxiety may have contributed to this. Recall is inconsistent. Pt continues to feel anxious and depressed. Did increase Olanzapine to 2.5 mg and believes he is tolerating this. Medication Compliance: Yes Side effects from medications: No Attending Groups: Yes Review of Systems Reports behavioral changes and Reports memory loss Psychiatric: Reports abnormal sleep pattern, Reports anxiety, Reports behavioral changes, Reports depression, Reports difficulty concentrating and Reports memory loss Mental Status Exam Mental Status Exam Patient Appearance: Appropriate Patient Orientation: Person, Place, Time and Situation Level of Consciousness: Alert Patient Behavior: Appropriate, Talkative, Cooperative, Anxious, Fearful and Good Eye Contact Mood Description: Depressed and Anxious Affect Description: Flat Patient Cognition Impaired: No Ability to Follow Directions: Good Speech Pattern: Spontaneous Speech Memory Description: Remote Impaired and Episodic Impaired Hallucinations: None Delusions: Not Present Perceptual Disturbances: Depersonalization Thought Process: Distracted Thought Content: positive for Perseveration and positive for Preoccupation Depressive Symptoms: Increased Anxiety, Diff. Making Decisions, Difficulty Sleeping and Loss of Int. in Activity Judgement: Good Diagnostics Vital Signs (24Hr): Vital Signs - 24 hr 02/05/21 18:00 02/06/21 06:00 02/06/21 08:28 Temperature 98 F Pulse Rate 82 80 74 Respiratory Rate 16 16 Blood Pressure 114/80 112/75 117/79 Pulse Oximetry 98 99 02/06/21 08:29 Temperature Pulse Rate 74 Respiratory Rate Blood Pressure 117/79 Pulse Oximetry Body Mass Index 28.0 Labs Results: 02/01/21 14:50 02/01/21 14:50 Labs: Laboratory Results - last 48 hr 02/04/21 02/04/21 02/05/21 12:52 13:29 06:15 POC Glucose 78 118 H 102 02/05/21 02/06/21 11:37 06:33 POC Glucose 154 H 120 H Medications Medications Current Medications Generic Name Dose Route Start Last Admin Trade Name Freq PRN Reason Stop Dose Admin Acetaminophen 650 mg 02/01/21 20:02 02/05/21 11:43 Acetaminophen 325 Mg Tablet PO 650 mg Q6H PRN Administration Headache/Pain Mild Scale (1-3) Al Hydroxide/Mg Hydroxide 30 ml 02/01/21 20:02 Magnesium Hydrox/Alum Hydrox 30 Ml Oral.Susp PO Q6H PRN Heartburn/Nausea Amlodipine Besylate 10 mg 02/01/21 17:30 02/06/21 08:28 Amlodipine Besylate 10 Mg Tablet PO 10 mg DAILY MIGEL Administration Protocol Atorvastatin Calcium 80 mg 02/01/21 21:00 02/05/21 20:31 Atorvastatin Calcium 80 Mg Tablet PO 80 mg BEDTIME MIGEL Administration Doxazosin Mesylate 4 mg 02/02/21 21:00 02/05/21 20:31 Doxazosin Mesylate 2 Mg Tablet PO 4 mg BEDTIME MIGEL Administration Protocol Hydroxyzine HCl 25 mg 02/01/21 20:02 Hydroxyzine Hcl 25 Mg Tablet PO BEDTIME PRN Anxiety Insulin Glargine 25 unit 02/01/21 20:00 02/06/21 08:29 Insulin Glargine,Hum.Rec.Anlog 100 Unit/Ml 10 Ml Vial SUBCUT 25 unit DAILY MIGEL Administration Lisinopril 40 mg 02/02/21 09:00 02/06/21 08:29 Lisinopril 40 Mg Tablet PO 40 mg DAILY MIGEL Administration Lorazepam 0.5 mg 02/01/21 17:25 02/05/21 11:43 Lorazepam 0.5 Mg Tablet PO 0.5 mg BID PRN Administration Anxiety Magnesium Hydroxide 30 ml 02/01/21 20:02 Milk Of Magnesia 30 Ml Oral.Susp PO DAILY PRN Constipation Non-Formulary Medication 1 tab 02/01/21 17:30 Dapagliflozin [Farxiga] PO DAILY MIGEL Olanzapine 1.25 mg 02/03/21 16:30 Olanzapine 2.5 Mg Tablet PO BID PRN dissociation, agitation Olanzapine 2.5 mg 02/05/21 21:00 02/05/21 20:31 Olanzapine 2.5 Mg Tablet PO 2.5 mg BEDTIME MIGEL Administration Pharmacy Consult 1 each 02/01/21 14:11 Consult Rx Perform Med Rec MISCELLANE ONCE PRN Consult order Trazodone HCl 50 mg 02/01/21 20:02 Trazodone Hcl 50 Mg Tablet PO BEDTIME PRN Insomnia Allergies Allergies Allergy/AdvReac Type Severity Reaction Status Date / Time bupropion [From WELLBUTRIN] Allergy Severe Seizure Verified 02/01/21 13:53 aripiprazole [From ABILIFY] Allergy Intermediate FACIAL Unverified 02/01/21 13:53 TREMORS honey [HONEY] Allergy Intermediate HEADACHES Unverified 02/01/21 13:53 lurasidone [From LATUDA] AdvReac Intermediate GETS Unverified 02/01/21 13:53 REALLY SICK mirtazapine [MIRTAZAPINE] AdvReac Intermediate BP GOES Unverified 02/01/21 13:53 HIGH Assessment & Plan Assessment & Plan (1) PTSD (post-traumatic stress disorder): Status: Acute Code(s): F43.10 - Post-traumatic stress disorder, unspecified Assessment and Plan: 50 yo male with a hx of trauma beginning in childhood. Pt reports sx of SI, poor focus, recall, task performance, easily triggered and often triggered with several months of decompensation. Plan: Continue Olanzapine at 2.5 mg HS Discussed referral to DBT, return to [facility] which he will consider. (2) Recurrent major depression-severe: Status: Acute Code(s): F33.2 - Major depressive disorder, recurrent severe without psychotic features Greater than 50% of the session was spent on counseling and/or coordination of care Reason for contiued inpatient stay Substantial Risk for: harm to self, inability to function, rapid decompensation and med/psych decompensation
[2021-02-06 14:42] LABS: Glucose, Whole Blood 145 mg/dL (60-115)
[2021-02-06] MEDS: LORazepam 0.5 MG TABLET PO (14:47)
[2021-02-06 18:00] VITALS: BP 138/79; PULSE 78; RESP 18; TEMP 36.6; O2SAT 98
[2021-02-06] MEDS: Atorvastatin Calcium 80 MG TABLET PO (21:08)
[2021-02-06 21:09] VITALS: BP 146/92; PULSE 79
[2021-02-06] MEDS: OLANZapine 2.5 MG TABLET PO (21:09)
[2021-02-06] MEDS: Doxazosin Mesylate 2 MG TABLET 4 MG PO (21:09)
[2021-02-06 21:33] LABS: Glucose, Whole Blood 93 mg/dL (60-115)
[2021-02-06 22:00] VITALS: BP 146/92; PULSE 79; RESP 18; TEMP 36.9
[2021-02-07 06:00] VITALS: BP 122/68; PULSE 80; RESP 16; TEMP 36.2; O2SAT 97
[2021-02-07 06:13] LABS: Glucose, Whole Blood 107 mg/dL (60-115)
[2021-02-07 08:27] VITALS: BP 136/85; PULSE 79
[2021-02-07] MEDS: amLODIPine Besylate 10 MG TABLET PO (08:27)
[2021-02-07 08:28] VITALS: BP 136/85; PULSE 75
[2021-02-07] MEDS: Insulin Glargine,Hum.rec.anlog 100 UNIT/ML 10 ML VIAL 25 UNIT SUBCUT (08:28)
[2021-02-07] MEDS: lisinopriL 40 MG TABLET PO (08:28)
--- NOTE | 2021-02-07 09:48 | HE.PHANOTE ---
Spoke to Armani taking care of the patient and he said he will see if someone can bring in the Farxiga. I will follow up later today to see when the family plans on bringing in the medication. -Gisel Stevens, PharmD [phone]
[2021-02-07] MEDS: Magnesium Hydrox/Alum Hydrox 30 ML ORAL.SUSP PO (11:54)
[2021-02-07] MEDS: Loperamide HCl 2 MG CAPSULE 4 MG PO (13:54)
--- NOTE | 2021-02-07 16:43 | HO.PSYCHPN ---
Subjective Subjective Date of Service: 02/07/21 Reason For Visit: SI, Depression, Anxiety, PTSD Subjective Notes: Conditional Voluntary Healthcare Proxy: No Guardianship: No Medical Problems Affecting Mental Status: Yes (GI sx) Interim History: Pt reports experiencing diarrhea, GI sx today. Possible med SE vs gastroenteritis. Reports anxiety is 5/10, depression 4/10. Brief discussion of antidepressants. Given literature on profiles of Olanzapine and Escitalopram. Pt will review, however, wanted to rest as GI sx are predominent. Medication Compliance: Yes Side effects from medications: Yes (possibly) Attending Groups: Yes Review of Systems Gastrointestinal: Reports heartburn (GERD by history) and Reports diarrhea Psychiatric: Reports anxiety, Reports depression, Reports difficulty concentrating, Reports hopelessness, Reports anhedonia and Reports suicidal ideation Mental Status Exam Mental Status Exam Patient Appearance: Appropriate Patient Orientation: Person, Place, Time and Situation Level of Consciousness: Alert Patient Behavior: Appropriate, Talkative, Cooperative, Anxious, Fatigued, Distractible and Good Eye Contact Mood Description: Depressed Affect Description: Flat Patient Cognition Impaired: No Ability to Follow Directions: Good Speech Pattern: Clear, Appropriate, Spontaneous Speech and Soft-Spoken Memory Description: Intact Hallucinations: None Delusions: Not Present Perceptual Disturbances: Depersonalization Thought Process: Intact and Goal Oriented Thought Content: positive for Intact, positive for Goal Oriented and positive for Suicidal Ideation Depressive Symptoms: Increased Anxiety, Diff. Making Decisions, Feelings of Worthlessness, Hopelessness, Feelings of Guilt, Unhappiness, Increased Fatigue, Thoughts of /Suicide, Low Self Esteem, Loss of Energy and Difficulty Concentrating Judgement: Fair Diagnostics Vital Signs (24Hr): Vital Signs - 24 hr 02/06/21 18:00 02/06/21 21:09 02/06/21 22:00 Temperature 98 F 98.5 F Pulse Rate 78 79 79 Respiratory Rate 18 18 Blood Pressure 138/79 146/92 H 146/92 H Pulse Oximetry 98 02/07/21 06:00 02/07/21 08:27 02/07/21 08:28 Temperature 97.1 F Pulse Rate 80 79 75 Respiratory Rate 16 Blood Pressure 122/68 136/85 136/85 Pulse Oximetry 97 Body Mass Index 28.0 Labs Results: 02/01/21 14:50 02/01/21 14:50 Labs: Laboratory Results - last 48 hr 02/06/21 02/06/2121 06:33 14:38 20:59 POC Glucose 120 H 145 H 93 02/07/21 06:05 POC Glucose 107 Medications Medications Current Medications Generic Name Dose Route Start Last Admin Trade Name Freq PRN Reason Stop Dose Admin Acetaminophen 650 mg 02/01/21 20:02 02/05/21 11:43 Acetaminophen 325 Mg Tablet PO 650 mg Q6H PRN Administration Headache/Pain Mild Scale (1-3) Al Hydroxide/Mg Hydroxide 30 ml 02/01/21 20:02 02/07/21 11:54 Magnesium Hydrox/Alum Hydrox 30 Ml Oral.Susp PO 30 ml Q6H PRN Administration Heartburn/Nausea Amlodipine Besylate 10 mg 02/01/21 17:30 02/07/21 08:27 Amlodipine Besylate 10 Mg Tablet PO 10 mg DAILY MIGEL Administration Protocol Atorvastatin Calcium 80 mg 02/01/21 21:00 02/06/21 21:08 Atorvastatin Calcium 80 Mg Tablet PO 80 mg BEDTIME MIGEL Administration Doxazosin Mesylate 4 mg 02/02/21 21:00 02/06/21 21:09 Doxazosin Mesylate 2 Mg Tablet PO 4 mg BEDTIME MIGEL Administration Protocol Hydroxyzine HCl 25 mg 02/01/21 20:02 Hydroxyzine Hcl 25 Mg Tablet PO BEDTIME PRN Anxiety Insulin Glargine 25 unit 02/01/21 20:00 02/07/21 08:28 Insulin Glargine,Hum.Rec.Anlog 100 Unit/Ml 10 Ml Vial SUBCUT 25 unit DAILY MIGEL Administration Lisinopril 40 mg 02/02/21 09:00 02/07/21 08:28 Lisinopril 40 Mg Tablet PO 40 mg DAILY MIGEL Administration Loperamide HCl 4 mg 02/07/21 13:36 02/07/21 13:54 Loperamide Hcl 2 Mg Capsule PO 4 mg Q6H PRN Administration Diarrhea Lorazepam 0.5 mg 02/01/21 17:25 02/06/21 14:47 Lorazepam 0.5 Mg Tablet PO 0.5 mg BID PRN Administration Anxiety Magnesium Hydroxide 30 ml 02/01/21 20:02 Milk Of Magnesia 30 Ml Oral.Susp PO DAILY PRN Constipation Non-Formulary Medication 1 tab 02/01/21 17:30 Dapagliflozin [Farxiga] PO DAILY MIGEL Olanzapine 1.25 mg 02/03/21 16:30 Olanzapine 2.5 Mg Tablet PO BID PRN dissociation, agitation Olanzapine 2.5 mg 02/05/21 21:00 02/06/21 21:09 Olanzapine 2.5 Mg Tablet PO 2.5 mg BEDTIME MIGEL Administration Pharmacy Consult 1 each 02/01/21 14:11 Consult Rx Perform Med Rec MISCELLANE ONCE PRN Consult order Trazodone HCl 50 mg 02/01/21 20:02 Trazodone Hcl 50 Mg Tablet PO BEDTIME PRN Insomnia Allergies Allergies Allergy/AdvReac Type Severity Reaction Status Date / Time bupropion [From WELLBUTRIN] Allergy Severe Seizure Verified 02/01/21 13:53 aripiprazole [From ABILIFY] Allergy Intermediate FACIAL Unverified 02/01/21 13:53 TREMORS honey [HONEY] Allergy Intermediate HEADACHES Unverified 02/01/21 13:53 lurasidone [From LATUDA] AdvReac Intermediate GETS Unverified 02/01/21 13:53 REALLY SICK mirtazapine [MIRTAZAPINE] AdvReac Intermediate BP GOES Unverified 02/01/21 13:53 HIGH Assessment & Plan Assessment & Plan (1) PTSD (post-traumatic stress disorder): Status: Acute Code(s): F43.10 - Post-traumatic stress disorder, unspecified Assessment and Plan: 50 yo male with a hx of trauma beginning in childhood. Pt reports sx of SI, poor focus, recall, task performance, easily triggered and often triggered with several months of decompensation. Plan: Continue Olanzapine at 2.5 mg HS Discussed referral to DBT, return to [facility] which he will consider. Provided literature for review on Olanzapine and Escitalopram. (2) Recurrent major depression-severe: Status: Acute Code(s): F33.2 - Major depressive disorder, recurrent severe without psychotic features Greater than 50% of the session was spent on counseling and/or coordination of care Reason for contiued inpatient stay Substantial Risk for: harm to self, inability to function and rapid decompensation
[2021-02-07 16:50] LABS: Glucose, Whole Blood 88 mg/dL (60-115)
[2021-02-07 18:00] VITALS: BP 139/72; PULSE 85; TEMP 37.2
[2021-02-07] MEDS: Atorvastatin Calcium 80 MG TABLET PO (20:45)
[2021-02-07 20:46] VITALS: BP 135/78; PULSE 85
[2021-02-07] MEDS: OLANZapine 2.5 MG TABLET PO (20:46)
[2021-02-07] MEDS: Doxazosin Mesylate 2 MG TABLET 4 MG PO (20:46)
[2021-02-08 06:00] VITALS: BP 116/66; PULSE 110; RESP 18; TEMP 36.3; O2SAT 97
[2021-02-08 06:52] LABS: Glucose, Whole Blood 107 mg/dL (60-115)
[2021-02-08] MEDS: Insulin Glargine,Hum.rec.anlog 100 UNIT/ML 10 ML VIAL 25 UNIT SUBCUT (08:09)
[2021-02-08 08:10] VITALS: BP 120/78; PULSE 85
[2021-02-08] MEDS: lisinopriL 40 MG TABLET PO (08:10)
[2021-02-08] MEDS: amLODIPine Besylate 10 MG TABLET PO (08:10)
--- NOTE | 2021-02-08 14:30 | P.PNPSI_ITS ---
Subjective Subjective Date of Service: 02/08/21 Reason For Visit: SI, Depression, Anxiety, PTSD Subjective Notes: Conditional Voluntary Healthcare Proxy: No Guardianship: No Medical Problems Affecting Mental Status: No Interim History: Reports GI sx are improved today. Discussed PTSD sx, pt's evaluation of sx and actions in childhood. Discussed evaluating based upon his age then vs what he knows/believes today. Discussed his feelings of being not adequate when around others-especially 's peers and his feeling that they attempt to create conflict in their relationship. The couple are taking steps to make their partnership more protected and solidified he reports. Discussed process of healing, contributions of medication, group and individual treatment and living in community. Medication Compliance: Yes Side effects from medications: No Attending Groups: Yes Review of Systems Reports behavioral changes and Reports memory loss Psychiatric: Reports behavioral changes, Reports depression, Reports difficulty concentrating, Reports hopelessness, Reports anhedonia, Reports memory loss, Reports panic attacks and Reports suicidal ideation Mental Status Exam Mental Status Exam Patient Appearance: Appropriate Patient Orientation: Person, Place, Time and Situation Level of Consciousness: Alert Patient Behavior: Appropriate, Talkative, Cooperative, Anxious, Fearful, Fatigued, Distractible and Good Eye Contact Mood Description: Depressed and Anxious Affect Description: Flat Patient Cognition Impaired: No Ability to Follow Directions: Good Speech Pattern: Spontaneous Speech and Soft-Spoken Memory Description: Temporary 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 Making Decisions, Loss of Int. in Activity, Feelings of Worthlessness, Hopelessness, Isolating-Friends/Family, Feelings of Guilt, Unhappiness, Increased Fatigue, Thoughts of /Suicide, Low Self Esteem, Loss of Energy and Difficulty Concentrating Judgement: Fair Diagnostics Vital Signs (24Hr): Vital Signs - 24 hr 02/07/21 18:00 02/07/21 20:46 02/08/21 06:00 Temperature 98.9 F 97.3 F Pulse Rate 85 85 110 H Respiratory Rate 18 Blood Pressure 139/72 135/78 116/66 Pulse Oximetry 97 02/08/21 08:10 Temperature Pulse Rate 85 Respiratory Rate Blood Pressure 120/78 Pulse Oximetry Body Mass Index 28.0 Labs Results: 02/01/21 14:50 02/01/21 14:50 Labs: Laboratory Results - last 48 hr 02/06/21 02/06/21 02/07/21 14:38 20:59 06:05 POC Glucose 145 H 93 107 02/07/21 02/08/21 16:46 05:40 POC Glucose 88 107 Medications Medications Current Medications Generic Name Dose Route Start Last Admin Trade Name Alexey PRN Reason Stop Dose Admin Acetaminophen 650 mg 02/01/21 20:02 02/05/21 11:43 Acetaminophen 325 Mg Tablet PO 650 mg Q6H PRN Administration Headache/Pain Mild Scale (1-3) Al Hydroxide/Mg Hydroxide 30 ml 02/01/21 20:02 02/07/21 11:54 Magnesium Hydrox/Alum Hydrox 30 Ml Oral.Susp PO 30 ml Q6H PRN Administration Heartburn/Nausea Amlodipine Besylate 10 mg 02/01/21 17:30 02/08/21 08:10 Amlodipine Besylate 10 Mg Tablet PO 10 mg DAILY MIGEL Administration Protocol Atorvastatin Calcium 80 mg 02/01/21 21:00 02/07/21 20:45 Atorvastatin Calcium 80 Mg Tablet PO 80 mg BEDTIME MIGEL Administration Doxazosin Mesylate 4 mg 02/02/21 21:00 02/07/21 20:46 Doxazosin Mesylate 2 Mg Tablet PO 4 mg BEDTIME MIGEL Administration Protocol Hydroxyzine HCl 25 mg 02/01/21 20:02 Hydroxyzine Hcl 25 Mg Tablet PO BEDTIME PRN Anxiety Insulin Glargine 25 unit 02/01/21 20:00 02/08/21 08:09 Insulin Glargine,Hum.Rec.Anlog 100 Unit/Ml 10 Ml Vial SUBCUT 25 unit DAILY MIGEL Administration Lisinopril 40 mg 02/02/21 09:00 02/08/21 08:10 Lisinopril 40 Mg Tablet PO 40 mg DAILY MIGEL Administration Loperamide HCl 4 mg 02/07/21 13:36 02/07/21 13:54 Loperamide Hcl 2 Mg Capsule PO 4 mg Q6H PRN Administration Diarrhea Lorazepam 0.5 mg 02/01/21 17:25 02/06/21 14:47 Lorazepam 0.5 Mg Tablet PO 0.5 mg BID PRN Administration Anxiety Magnesium Hydroxide 30 ml 02/01/21 20:02 Milk Of Magnesia 30 Ml Oral.Susp PO DAILY PRN Constipation Non-Formulary Medication 1 tab 02/01/21 17:30 Dapagliflozin [Farxiga] PO DAILY MIGEL Olanzapine 1.25 mg 02/03/21 16:30 Olanzapine 2.5 Mg Tablet PO BID PRN dissociation, agitation Olanzapine 2.5 mg 02/05/21 21:00 02/07/21 20:46 Olanzapine 2.5 Mg Tablet PO 2.5 mg BEDTIME [facility] Administration Pharmacy Consult 1 each 02/01/21 14:11 Consult Rx Perform Med Rec MISCELLANE ONCE PRN Consult order Trazodone HCl 50 mg 02/01/21 20:02 Trazodone Hcl 50 Mg Tablet PO BEDTIME PRN Insomnia Allergies Allergies Allergy/AdvReac Type Severity Reaction Status Date / Time bupropion [From WELLBUTRIN] Allergy Severe Seizure Verified 02/01/21 13:53 aripiprazole [From ABILIFY] Allergy Intermediate FACIAL Unverified 02/01/21 13:53 TREMORS honey [HONEY] Allergy Intermediate HEADACHES Unverified 02/01/21 13:53 lurasidone [From LATUDA] AdvReac Intermediate GETS Unverified 02/01/21 13:53 REALLY SICK mirtazapine [MIRTAZAPINE] AdvReac Intermediate BP GOES Unverified 02/01/21 13:53 HIGH Assessment & Plan Assessment & Plan (1) PTSD (post-traumatic stress disorder): Status: Acute Code(s): F43.10 - Post-traumatic stress disorder, unspecified Assessment and Plan: 50 yo male with a hx of trauma beginning in childhood. Pt reports sx of SI, poor focus, recall, task performance, easily triggered and often triggered with several months of decompensation. Plan: Continue Olanzapine at 2.5 mg HS Discussed referral to DBT, return to [facility] which he will consider. Provided literature for review on Olanzapine and Escitalopram. (2) Recurrent major depression-severe: Status: Acute Code(s): F33.2 - Major depressive disorder, recurrent severe without psychotic features Greater than 50% of the session was spent on counseling and/or coordination of care Reason for contiued inpatient stay Substantial Risk for: harm to self, inability to function, rapid decompensation and med/psych decompensation
[2021-02-08] MEDS: Acetaminophen 325 MG TABLET 650 MG PO (17:17)
[2021-02-08 21:45] VITALS: BP 140/86; PULSE 65; TEMP 36.5
[2021-02-08] MEDS: Atorvastatin Calcium 80 MG TABLET PO (22:24)
[2021-02-08 22:25] VITALS: BP 140/86; PULSE 65
[2021-02-08] MEDS: Doxazosin Mesylate 2 MG TABLET 4 MG PO (22:25)
[2021-02-08] MEDS: OLANZapine 2.5 MG TABLET PO (22:25)
[2021-02-08 22:50] LABS: Glucose, Whole Blood 115 mg/dL (60-115)
--- NOTE | 2021-02-09 | ECG_ITS ---
Test Reason : ANXIETY Blood Pressure : / mmHG Vent. Rate : 059 BPM Atrial Rate : 059 BPM P-R Int : 180 ms QRS Dur : 090 ms QT Int : 418 ms P-R-T Axes : 014 -24 042 degrees QTc Int : 413 ms Sinus bradycardia Otherwise normal ECG When compared with ECG of 29-FEB-2016 09:37, No significant change was found Referred By: Melissa Ngo Electronically Signed By:ASHLI MENDOZA MD
[2021-02-09 06:39] LABS: Glucose, Whole Blood 114 mg/dL (60-115)
[2021-02-09 07:00] VITALS: BMI 27.8
[2021-02-09 08:02] VITALS: BP 120/66; PULSE 86
[2021-02-09] MEDS: lisinopriL 40 MG TABLET PO (08:02)
[2021-02-09] MEDS: amLODIPine Besylate 10 MG TABLET PO (08:02)
[2021-02-09] MEDS: Insulin Glargine,Hum.rec.anlog 100 UNIT/ML 10 ML VIAL 25 UNIT SUBCUT (08:03)
[2021-02-09] MEDS: OLANZapine 2.5 MG TABLET 1.25 MG PO (09:06)
--- NOTE | 2021-02-09 15:38 | P.PNPSI_ITS ---
Subjective Subjective Date of Service: 02/09/21 Reason For Visit: SI, Depression, Anxiety, PTSD Subjective Notes: Conditional Voluntary Healthcare Proxy: No Guardianship: No Medical Problems Affecting Mental Status: No Interim History: GI sx resolved. Reports anxiety in the a.m. prior to breakfast. Used prn Olanzapine today with good effect. Discussed overall experience of anxiety-a heavy weight on his chest. Discussed very low dose Lexapro and Klonopin trials Medication Compliance: Yes Side effects from medications: No Attending Groups: Yes Review of Systems Psychiatric: Reports anxiety, Reports depression, Reports difficulty concentrating, Reports hopelessness, Reports anhedonia and Reports suicidal ideation Mental Status Exam Mental Status Exam Patient Appearance: Appropriate Patient Orientation: Person, Place, Time and Situation Level of Consciousness: Alert Patient Behavior: Appropriate, Talkative and Cooperative Mood Description: Withdrawn, Depressed and Anxious Affect Description: Flat Patient Cognition Impaired: No Ability to Follow Directions: Good Speech Pattern: Spontaneous Speech Memory Description: Intact Hallucinations: None Delusions: Not Present Perceptual Disturbances: Depersonalization Thought Process: Rumination Thought Content: positive for Circumstantial, positive for Perseveration and positive for Suicidal Ideation Depressive Symptoms: Increased Anxiety, Isolating-Friends/Family, Unhappiness, Increased Fatigue, Thoughts of /Suicide, Low Self Esteem and Difficulty Concentrating Judgement: Fair Diagnostics Vital Signs (24Hr): Vital Signs - 24 hr 02/08/21 21:45 02/08/21 22:25 02/09/21 08:02 Temperature 97.7 F Pulse Rate 65 65 86 Blood Pressure 140/86 H 140/86 H 120/66 Body Mass Index 27.8 Labs Results: 02/01/21 14:50 02/01/21 14:50 Labs: Laboratory Results - last 48 hr 02/07/21 02/08/21 02/08/21 16:46 05:40 21:38 POC Glucose 88 107 115 02/09/21 06:22 POC Glucose 114 Medications Medications Current Medications Generic Name Dose Route Start Last Admin Trade Name Freq PRN Reason Stop Dose Admin Acetaminophen 650 mg 02/01/21 20:02 02/08/21 17:17 Acetaminophen 325 Mg Tablet PO 650 mg Q6H PRN Administration Headache/Pain Mild Scale (1-3) Al Hydroxide/Mg Hydroxide 30 ml 02/01/21 20:02 02/07/21 11:54 Magnesium Hydrox/Alum Hydrox 30 Ml Oral.Susp PO 30 ml Q6H PRN Administration Heartburn/Nausea Amlodipine Besylate 10 mg 02/01/21 17:30 02/09/21 08:02 Amlodipine Besylate 10 Mg Tablet PO 10 mg DAILY MIGEL Administration Protocol Atorvastatin Calcium 80 mg 02/01/21 21:00 02/08/21 22:24 Atorvastatin Calcium 80 Mg Tablet PO 80 mg BEDTIME MIGEL Administration Clonazepam 0.25 mg 02/09/21 21:00 Clonazepam 0.5 Mg Tablet PO BEDTIME MIGEL Doxazosin Mesylate 4 mg 02/02/21 21:00 02/08/21 22:25 Doxazosin Mesylate 2 Mg Tablet PO 4 mg BEDTIME MIGEL Administration Protocol Escitalopram Oxalate 2.5 mg 02/10/21 09:00 Escitalopram Oxalate 5 Mg Tablet PO DAILY MIGEL Hydroxyzine HCl 25 mg 02/01/21 20:02 Hydroxyzine Hcl 25 Mg Tablet PO BEDTIME PRN Anxiety Insulin Glargine 25 unit 02/01/21 20:00 02/09/21 08:03 Insulin Glargine,Hum.Rec.Anlog 100 Unit/Ml 10 Ml Vial SUBCUT 25 unit DAILY MIGEL Administration Lisinopril 40 mg 02/02/21 09:00 02/09/21 08:02 Lisinopril 40 Mg Tablet PO 40 mg DAILY MIGEL Administration Loperamide HCl 4 mg 02/07/21 13:36 02/07/21 13:54 Loperamide Hcl 2 Mg Capsule PO 4 mg Q6H PRN Administration Diarrhea Magnesium Hydroxide 30 ml 02/01/21 20:02 Milk Of Magnesia 30 Ml Oral.Susp PO DAILY PRN Constipation Non-Formulary Medication 1 tab 02/01/21 17:30 Dapagliflozin [Farxiga] PO DAILY MIGEL Olanzapine 1.25 mg 02/03/21 16:30 02/09/21 09:06 Olanzapine 2.5 Mg Tablet PO 1.25 mg BID PRN Administration dissociation, agitation Olanzapine 2.5 mg 02/05/21 21:00 02/08/21 22:25 Olanzapine 2.5 Mg Tablet PO 2.5 mg BEDTIME MIGEL Administration Pharmacy Consult 1 each 02/01/21 14:11 Consult Rx Perform Med Rec MISCELLANE ONCE PRN Consult order Trazodone HCl 50 mg 02/01/21 20:02 Trazodone Hcl 50 Mg Tablet PO BEDTIME PRN Insomnia Allergies Allergies Allergy/AdvReac Type Severity Reaction Status Date / Time bupropion [From WELLBUTRIN] Allergy Severe Seizure Verified 02/01/21 13:53 aripiprazole [From ABILIFY] Allergy Intermediate FACIAL Unverified 02/01/21 13:53 TREMORS honey [HONEY] Allergy Intermediate HEADACHES Unverified 02/01/21 13:53 lurasidone [From LATUDA] AdvReac Intermediate GETS Unverified 02/01/21 13:53 REALLY SICK mirtazapine [MIRTAZAPINE] AdvReac Intermediate BP GOES Unverified 02/01/21 13:53 HIGH Assessment & Plan Assessment & Plan (1) PTSD (post-traumatic stress disorder): Status: Acute Code(s): F43.10 - Post-traumatic stress disorder, unspecified Assessment and Plan: 50 yo male with a hx of trauma beginning in childhood. Pt reports sx of SI, poor focus, recall, task performance, easily triggered and often triggered with several months of decompensation. Plan: Continue Olanzapine at 2.5 mg HS Klonopin 0.25 mg HS Lexapro 2.5 mg daily EKG Discussed referral to DBT, return to [facility] which he agrees with. (2) Recurrent major depression-severe: Status: Acute Code(s): F33.2 - Major depressive disorder, recurrent severe without psychotic features Greater than 50% of the session was spent on counseling and/or coordination of care Reason for contiued inpatient stay Substantial Risk for: harm to self, inability to function and rapid d ecompensation
[2021-02-09 20:42] LABS: Glucose, Whole Blood 186 mg/dL (60-115)
[2021-02-09 21:00] VITALS: BP 134/62; PULSE 77; TEMP 36
[2021-02-09] MEDS: clonazePAM 0.5 MG TABLET 0.25 MG PO (21:01)
[2021-02-09] MEDS: Acetaminophen 325 MG TABLET 650 MG PO (21:05)
[2021-02-09 21:06] VITALS: BP 134/62; PULSE 77
[2021-02-09] MEDS: OLANZapine 2.5 MG TABLET PO (21:06)
[2021-02-09] MEDS: Atorvastatin Calcium 80 MG TABLET PO (21:06)
[2021-02-09] MEDS: Doxazosin Mesylate 2 MG TABLET 4 MG PO (21:06)
[2021-02-10 06:00] VITALS: BP 108/69; PULSE 69; TEMP 36.7
[2021-02-10 06:25] LABS: Glucose, Whole Blood 94 mg/dL (60-115)
[2021-02-10 08:22] VITALS: BP 113/75; PULSE 73; RESP 18; TEMP 35.7; O2SAT 98
[2021-02-10] MEDS: Insulin Glargine,Hum.rec.anlog 100 UNIT/ML 10 ML VIAL 25 UNIT SUBCUT (08:38)
[2021-02-10 08:39] VITALS: BP 113/75; PULSE 73
[2021-02-10] MEDS: amLODIPine Besylate 10 MG TABLET PO (08:39)
[2021-02-10] MEDS: lisinopriL 40 MG TABLET PO (08:39)
[2021-02-10] MEDS: Escitalopram Oxalate 5 MG TABLET 2.5 MG PO (08:40)
[2021-02-10 16:26] LABS: Glucose, Whole Blood 107 mg/dL (60-115)
--- NOTE | 2021-02-10 17:21 | HO.PSYCHPN ---
Subjective Subjective Date of Service: 02/10/21 Reason For Visit: SI, Depression, Anxiety, PTSD Subjective Notes: Conditional Voluntary Healthcare Proxy: No Guardianship: No Medical Problems Affecting Mental Status: No Interim History: Continues with sx of depression, anxiety, SI Lexapro initiated today, Klonopin initiated 02/09. Tolerated Olanzapine to 3.75 mg started on admission. Prepared for PHP intake on 02/17/21 and to begin. Probable discharge 02/15/21. Reports some disturbing dreams with minimal memories Reports no GI sx today. Medication Compliance: Yes Side effects from medications: No Attending Groups: Yes Review of Systems Psychiatric: Reports anxiety, Reports depression, Reports difficulty concentrating, Reports hopelessness, Reports anhedonia and Reports suicidal ideation Mental Status Exam Mental Status Exam Patient Appearance: Appropriate Patient Orientation: Person, Place, Time and Situation Level of Consciousness: Awake and Alert Patient Behavior: Talkative Mood Description: Depressed and Anxious Affect Description: Flat Patient Cognition Impaired: No Ability to Follow Directions: Good Speech Pattern: Spontaneous Speech Memory Description: Intact and Episodic Impaired Hallucinations: None Delusions: Not Present Perceptual Disturbances: Depersonalization and Derealization Thought Process: Intact Thought Content: positive for Perseveration and positive for Suicidal Ideation Depressive Symptoms: Increased Anxiety, Difficulty Sleeping, Feelings of Worthlessness, Hopelessness, Feelings of Guilt, Unhappiness, Increased Fatigue, Thoughts of /Suicide, Unexplained Stomach Pain, Low Self Esteem, Loss of Energy and Difficulty Concentrating Judgement: Fair Diagnostics Vital Signs (24Hr): Vital Signs - 24 hr 02/09/21 21:00 02/09/21 21:06 02/10/21 06:00 Temperature 96.8 F 98.1 F Pulse Rate 77 77 69 Respiratory Rate Blood Pressure 134/62 134/62 108/69 Pulse Oximetry 02/10/21 08:22 02/10/21 08:39 Temperature 96.3 F L Pulse Rate 73 73 Respiratory Rate 18 Blood Pressure 113/75 113/75 Pulse Oximetry 98 Body Mass Index 27.8 Labs Results: 02/01/21 14:50 02/01/21 14:50 Labs: Laboratory Results - last 48 hr 02/08/21 02/09/21 02/09/21 21:38 06:22 20:38 POC Glucose 115 114 186 H 02/10/21 02/10/21 06:14 16:18 POC Glucose 94 107 Medications Medications Current Medications Generic Name Dose Route Start Last Admin Trade Name Freq PRN Reason Stop Dose Admin Acetaminophen 650 mg 02/01/21 20:02 02/09/21 21:05 Acetaminophen 325 Mg Tablet PO 650 mg Q6H PRN Administration Headache/Pain Mild Scale (1-3) Al Hydroxide/Mg Hydroxide 30 ml 02/01/21 20:02 02/07/21 11:54 Magnesium Hydrox/Alum Hydrox 30 Ml Oral.Susp PO 30 ml Q6H PRN Administration Heartburn/Nausea Amlodipine Besylate 10 mg 02/01/21 17:30 02/10/21 08:39 Amlodipine Besylate 10 Mg Tablet PO 10 mg DAILY MIGEL Administration Protocol Atorvastatin Calcium 80 mg 02/01/21 21:00 02/09/21 21:06 Atorvastatin Calcium 80 Mg Tablet PO 80 mg BEDTIME MIGEL Administration Clonazepam 0.25 mg 02/09/21 21:00 02/09/21 21:01 Clonazepam 0.5 Mg Tablet PO 0.25 mg BEDTIME MIGEL Administration Doxazosin Mesylate 4 mg 02/02/21 21:00 02/09/21 21:06 Doxazosin Mesylate 2 Mg Tablet PO 4 mg BEDTIME MIGEL Administration Protocol Escitalopram Oxalate 2.5 mg 02/10/21 09:00 02/10/21 08:40 Escitalopram Oxalate 5 Mg Tablet PO 2.5 mg DAILY MIGEL Administration Hydroxyzine HCl 25 mg 02/01/21 20:02 Hydroxyzine Hcl 25 Mg Tablet PO BEDTIME PRN Anxiety Insulin Glargine 25 unit 02/01/21 20:00 02/10/21 08:38 Insulin Glargine,Hum.Rec.Anlog 100 Unit/Ml 10 Ml Vial SUBCUT 25 unit DAILY MIGEL Administration Lisinopril 40 mg 02/02/21 09:00 02/10/21 08:39 Lisinopril 40 Mg Tablet PO 40 mg DAILY MIGEL Administration Loperamide HCl 4 mg 02/07/21 13:36 02/07/21 13:54 Loperamide Hcl 2 Mg Capsule PO 4 mg Q6H PRN Administration Diarrhea Magnesium Hydroxide 30 ml 02/01/21 20:02 Milk Of Magnesia 30 Ml Oral.Susp PO DAILY PRN Constipation Non-Formulary Medication 1 tab 02/01/21 17:30 Dapagliflozin [Farxiga] PO DAILY MIGEL Olanzapine 1.25 mg 02/03/21 16:30 02/09/21 09:06 Olanzapine 2.5 Mg Tablet PO 1.25 mg BID PRN Administration dissociation, agitation Olanzapine 2.5 mg 02/05/21 21:00 02/09/21 21:06 Olanzapine 2.5 Mg Tablet PO 2.5 mg BEDTIME MIGEL Administration Pharmacy Consult 1 each 02/01/21 14:11 Consult Rx Perform Med Rec MISCELLANE ONCE PRN Consult order Trazodone HCl 50 mg 02/01/21 20:02 Trazodone Hcl 50 Mg Tablet PO BEDTIME PRN Insomnia Allergies Allergies Allergy/AdvReac Type Severity Reaction Status Date / Time bupropion [From WELLBUTRIN] Allergy Severe Seizure Verified 02/01/21 13:53 aripiprazole [From ABILIFY] Allergy Intermediate FACIAL Unverified 02/01/21 13:53 TREMORS honey [HONEY] Allergy Intermediate HEADACHES Unverified 02/01/21 13:53 lurasidone [From LATUDA] AdvReac Intermediate GETS Unverified 02/01/21 13:53 REALLY SICK mirtazapine [MIRTAZAPINE] AdvReac Intermediate BP GOES Unverified 02/01/21 13:53 HIGH Assessment & Plan Assessment & Plan (1) PTSD (post-traumatic stress disorder): Status: Acute Code(s): F43.10 - Post-traumatic stress disorder, unspecified Assessment and Plan: 50 yo male with a hx of trauma beginning in childhood. Pt reports sx of SI, poor focus, recall, task performance, easily triggered and often triggered with several months of decompensation. Plan: Continue Olanzapine at 2.5 mg HS Klonopin 0.25 mg HS Lexapro 2.5 mg daily EKG WNL Discussed referral to DBT, return to [facility] which he agrees with. (2) Recurrent major depression-severe: Status: Acute Code(s): F33.2 - Major depressive disorder, recurrent severe without psychotic features Greater than 50% of the session was spent on counseling and/or coordination of care Reason for contiued inpatient stay Substantial Risk for: harm to self, inability to function and rapid decompensation
[2021-02-10 18:00] VITALS: BP 135/74; PULSE 66; TEMP 36.6
[2021-02-10] MEDS: clonazePAM 0.5 MG TABLET 0.25 MG PO (20:37)
[2021-02-10 20:39] VITALS: BP 135/74; PULSE 66
[2021-02-10] MEDS: Doxazosin Mesylate 2 MG TABLET 4 MG PO (20:39)
[2021-02-10] MEDS: Atorvastatin Calcium 80 MG TABLET PO (20:40)
[2021-02-10] MEDS: OLANZapine 2.5 MG TABLET PO (20:40)
[2021-02-11 06:26] LABS: Glucose, Whole Blood 104 mg/dL (60-115)
[2021-02-11 06:44] VITALS: BP 123/69; PULSE 75; RESP 14; TEMP 36.6; O2SAT 95
[2021-02-11] MEDS: Insulin Glargine,Hum.rec.anlog 100 UNIT/ML 10 ML VIAL 25 UNIT SUBCUT (07:56)
[2021-02-11] MEDS: Escitalopram Oxalate 5 MG TABLET 2.5 MG PO (07:57)
[2021-02-11 07:58] VITALS: BP 124/76; PULSE 70
[2021-02-11] MEDS: amLODIPine Besylate 10 MG TABLET PO (07:58)
[2021-02-11 07:59] VITALS: BP 104/76; PULSE 70
[2021-02-11] MEDS: lisinopriL 40 MG TABLET PO (07:59)
[2021-02-11] MEDS: Acetaminophen 325 MG TABLET 650 MG PO (08:08)
--- NOTE | 2021-02-11 11:00 | HO.PSYCHPN ---
Subjective Subjective Date of Service: 02/11/21 Reason For Visit: SI, Depression, Anxiety, PTSD Subjective Notes: Conditional Voluntary Interim History: pt deies side effects from meds; reports he's still depressed and anxious but feels he is makig progress. NO SI or HI Medication Compliance: Yes Side effects from medications: No Review of Systems Review of Systems No changes Mental Status Exam Mental Status Exam Patient Appearance: Well Grooomed Patient Orientation: Person, Place, Time and Situation Level of Consciousness: Appropriate and Alert Patient Behavior: Appropriate and Cooperative Mood Description: Calm, Flat and Sad Affect Description: Calm, Flat and Sad Patient Cognition Impaired: No Ability to Follow Directions: Good Speech Pattern: Clear Hallucinations: None Delusions: Not Present Thought Process: Goal Oriented Thought Content: positive for Goal Oriented Judgement: Good Diagnostics Vital Signs (24Hr): Vital Signs - 24 hr 02/10/21 18:00 02/10/21 20:39 02/11/21 06:44 Temperature 97.8 F 97.8 F Pulse Rate 66 66 75 Respiratory Rate 14 Blood Pressure 135/74 135/74 123/69 Pulse Oximetry 95 02/11/21 07:58 02/11/21 07:59 Temperature Pulse Rate 70 70 Respiratory Rate Blood Pressure 124/76 104/76 Pulse Oximetry Body Mass Index 27.8 Labs Results: 02/01/21 14:50 02/01/21 14:50 Labs: Laboratory Results - last 48 hr 02/09/21 02/10/21 02/10/21 20:38 06:14 16:18 POC Glucose 186 H 94 107 02/11/21 06:12 POC Glucose 104 Medications Medications Current Medications Generic Name Dose Route Start Last Admin Trade Name Alexey PRN Reason Stop Dose Admin Acetaminophen 650 mg 02/01/21 20:02 02/11/21 08:08 Acetaminophen 325 Mg Tablet PO 650 mg Q6H PRN Administration Headache/Pain Mild Scale (1-3) Al Hydroxide/Mg Hydroxide 30 ml 02/01/21 20:02 02/07/21 11:54 Magnesium Hydrox/Alum Hydrox 30 Ml Oral.Susp PO 30 ml Q6H PRN Administration Heartburn/Nausea Amlodipine Besylate 10 mg 02/01/21 17:30 02/11/21 07:58 Amlodipine Besylate 10 Mg Tablet PO 10 mg DAILY MIGEL Administration Protocol Atorvastatin Calcium 80 mg 02/01/21 21:00 02/10/21 20:40 Atorvastatin Calcium 80 Mg Tablet PO 80 mg BEDTIME MIGEL Administration Clonazepam 0.25 mg 02/09/21 21:00 02/10/21 20:37 Clonazepam 0.5 Mg Tablet PO 0.25 mg BEDTIME MIGEL Administration Doxazosin Mesylate 4 mg 02/02/21 21:00 02/10/21 20:39 Doxazosin Mesylate 2 Mg Tablet PO 4 mg BEDTIME MIGEL Administration Protocol Escitalopram Oxalate 2.5 mg 02/10/21 09:00 02/11/21 07:57 Escitalopram Oxalate 5 Mg Tablet PO 2.5 mg DAILY MIGEL Administration Hydroxyzine HCl 25 mg 02/01/21 20:02 Hydroxyzine Hcl 25 Mg Tablet PO BEDTIME PRN Anxiety Insulin Glargine 25 unit 02/01/21 20:00 02/11/21 07:56 Insulin Glargine,Hum.Rec.Anlog 100 Unit/Ml 10 Ml Vial SUBCUT 25 unit DAILY MIGEL Administration Lisinopril 40 mg 02/02/21 09:00 02/11/21 07:59 Lisinopril 40 Mg Tablet PO 40 mg DAILY MIGEL Administration Loperamide HCl 4 mg 02/07/21 13:36 02/07/21 13:54 Loperamide Hcl 2 Mg Capsule PO 4 mg Q6H PRN Administration Diarrhea Magnesium Hydroxide 30 ml 02/01/21 20:02 Milk Of Magnesia 30 Ml Oral.Susp PO DAILY PRN Constipation Non-Formulary Medication 1 tab 02/01/21 17:30 Dapagliflozin [Farxiga] PO DAILY MIGEL Olanzapine 1.25 mg 02/03/21 16:30 02/09/21 09:06 Olanzapine 2.5 Mg Tablet PO 1.25 mg BID PRN Administration dissociation, agitation Olanzapine 2.5 mg 02/05/21 21:00 02/10/21 20:40 Olanzapine 2.5 Mg Tablet PO 2.5 mg BEDTIME MIGEL Administration Pharmacy Consult 1 each 02/01/21 14:11 Consult Rx Perform Med Rec MISCELLANE ONCE PRN Consult order Trazodone HCl 50 mg 02/01/21 20:02 Trazodone Hcl 50 Mg Tablet PO BEDTIME PRN Insomnia Allergies Allergies Allergy/AdvReac Type Severity Reaction Status Date / Time bupropion [From WELLBUTRIN] Allergy Severe Seizure Verified 02/01/21 13:53 aripiprazole [From ABILIFY] Allergy Intermediate FACIAL Unverified 02/01/21 13:53 TREMORS honey [HONEY] Allergy Intermediate HEADACHES Unverified 02/01/21 13:53 lurasidone [From LATUDA] AdvReac Intermediate GETS Unverified 02/01/21 13:53 REALLY SICK mirtazapine [MIRTAZAPINE] AdvReac Intermediate BP GOES Unverified 02/01/21 13:53 HIGH Assessment & Plan Assessment & Plan (1) PTSD (post-traumatic stress disorder): Status: Acute Code(s): F43.10 - Post-traumatic stress disorder, unspecified Assessment and Plan: 50 yo male with a hx of trauma beginning in childhood. Pt reports sx of SI, poor focus, recall, task performance, easily triggered and often triggered with several months of decompensation. Plan: Continue Olanzapine at 2.5 mg HS Klonopin 0.25 mg HS Lexapro 2.5 mg daily EKG WNL Planned referral to DBT, return to [facility] which he agrees with. (2) Recurrent major depression-severe: Status: Acute Code(s): F33.2 - Major depressive disorder, recurrent severe without psychotic features Greater than 50% of the session was spent on counseling and/or coordination of care Reason for contiued inpatient stay Substantial Risk for: harm to self and med/psych decompensation
[2021-02-11 18:00] VITALS: BP 131/80; PULSE 88; TEMP 36.6; O2SAT 97
[2021-02-11] MEDS: OLANZapine 2.5 MG TABLET PO (20:35)
[2021-02-11 21:00] VITALS: BP 133/71; PULSE 94
[2021-02-11] MEDS: Doxazosin Mesylate 2 MG TABLET 4 MG PO (21:00)
[2021-02-11] MEDS: Atorvastatin Calcium 80 MG TABLET PO (21:04)
[2021-02-11] MEDS: clonazePAM 0.5 MG TABLET 0.25 MG PO (21:04)
[2021-02-12 06:00] VITALS: BP 129/71; PULSE 70; RESP 16; TEMP 36.6; O2SAT 98
[2021-02-12 06:28] LABS: Glucose, Whole Blood 112 mg/dL (60-115)
[2021-02-12 07:48] VITALS: BP 129/71; PULSE 70
[2021-02-12] MEDS: lisinopriL 40 MG TABLET PO (07:48)
[2021-02-12 07:49] VITALS: BP 129/71; PULSE 70
[2021-02-12] MEDS: Escitalopram Oxalate 5 MG TABLET 2.5 MG PO (07:49)
[2021-02-12] MEDS: amLODIPine Besylate 10 MG TABLET PO (07:49)
[2021-02-12] MEDS: Insulin Glargine,Hum.rec.anlog 100 UNIT/ML 10 ML VIAL 25 UNIT SUBCUT (07:50)
--- NOTE | 2021-02-12 11:10 | P.PNPSI_ITS ---
Subjective Subjective Date of Service: 02/12/21 Reason For Visit: SI, Depression, Anxiety, PTSD Interim History: pt denies side effects from meds; reports he's still depressed and a little more anxious. NO SI or HI Review of Systems Review of Systems No changes Gastrointestinal: Reports heartburn (GERD by history) and Reports diarrhea Reports behavioral changes, Reports confusion and Reports memory loss Psychiatric: Reports abnormal sleep pattern, Reports anxiety, Reports behavioral changes, Reports change in appetite, Reports confusion, Reports depression, Reports difficulty concentrating, Reports hopelessness, Reports irritability, Reports anhedonia, Reports memory loss, Reports mood swings, Reports panic terence cks, Reports paranoia and Reports suicidal ideation Mental Status Exam Mental Status Exam Patient Appearance: Well Grooomed Patient Orientation: Person, Place, Time and Situation Level of Consciousness: Appropriate and Alert Patient Behavior: Appropriate and Cooperative Mood Description: Calm, Anxious, Flat and Sad Affect Description: Calm, Flat and Sad Patient Cognition Impaired: No Ability to Follow Directions: Good Speech Pattern: Clear Memory Description: Intact and Episodic Impaired Thought Content: positive for Intact Depressive Symptoms: Increased Anxiety Judgement: Good Diagnostics Vital Signs (24Hr): Vital Signs - 24 hr 02/11/21 18:00 02/11/21 21:00 02/12/21 06:00 Temperature 97.8 F 97.8 F Pulse Rate 88 94 70 Respiratory Rate 16 Blood Pressure 131/80 133/71 129/71 Pulse Oximetry 97 98 02/12/21 07:48 02/12/21 07:49 Temperature Pulse Rate 70 70 Respiratory Rate Blood Pressure 129/71 129/71 Pulse Oximetry Body Mass Index 27.8 Labs Results: 02/01/21 14:50 02/01/21 14:50 Labs: Laboratory Results - last 48 hr 02/10/21 02/11/21 02/12/21 16:18 06:12 06:21 POC Glucose 107 104 112 Medications Medications Current Medications Generic Name Dose Route Start Last Admin Trade Name Freq PRN Reason Stop Dose Admin Acetaminophen 650 mg 02/01/21 20:02 02/11/21 08:08 Acetaminophen 325 Mg Tablet PO 650 mg Q6H PRN Administration Headache/Pain Mild Scale (1-3) Al Hydroxide/Mg Hydroxide 30 ml 02/01/21 20:02 02/07/21 11:54 Magnesium Hydrox/Alum Hydrox 30 Ml Oral.Susp PO 30 ml Q6H PRN Administration Heartburn/Nausea Amlodipine Besylate 10 mg 02/01/21 17:30 02/12/21 07:49 Amlodipine Besylate 10 Mg Tablet PO 10 mg DAILY MIGEL Administration Protocol Atorvastatin Calcium 80 mg 02/01/21 21:00 02/11/21 21:04 Atorvastatin Calcium 80 Mg Tablet PO 80 mg BEDTIME MIGEL Administration Clonazepam 0.25 mg 02/09/21 21:00 02/11/21 21:04 Clonazepam 0.5 Mg Tablet PO 0.25 mg BEDTIME MIGEL Administration Doxazosin Mesylate 4 mg 02/02/21 21:00 02/11/21 21:00 Doxazosin Mesylate 2 Mg Tablet PO 4 mg BEDTIME MIGEL Administration Protocol Escitalopram Oxalate 2.5 mg 02/10/21 09:00 02/12/21 07:49 Escitalopram Oxalate 5 Mg Tablet PO 2.5 mg DAILY MIGEL Administration Hydroxyzine HCl 25 mg 02/01/21 20:02 Hydroxyzine Hcl 25 Mg Tablet PO BEDTIME PRN Anxiety Insulin Glargine 25 unit 02/01/21 20:00 02/12/21 07:50 Insulin Glargine,Hum.Rec.Anlog 100 Unit/Ml 10 Ml Vial SUBCUT 25 unit DAILY MIGEL Administration Lisinopril 40 mg 02/02/21 09:00 02/12/21 07:48 Lisinopril 40 Mg Tablet PO 40 mg DAILY MIGEL Administration Loperamide HCl 4 mg 02/07/21 13:36 02/07/21 13:54 Loperamide Hcl 2 Mg Capsule PO 4 mg Q6H PRN Administration Diarrhea Magnesium Hydroxide 30 ml 02/01/21 20:02 Milk Of Magnesia 30 Ml Oral.Susp PO DAILY PRN Constipation Non-Formulary Medication 1 tab 02/01/21 17:30 Dapagliflozin [Farxiga] PO DAILY MIGEL Olanzapine 1.25 mg 02/03/21 16:30 02/09/21 09:06 Olanzapine 2.5 Mg Tablet PO 1.25 mg BID PRN Administration dissociation, agitation Olanzapine 2.5 mg 02/05/21 21:00 02/11/21 20:35 Olanzapine 2.5 Mg Tablet PO 2.5 mg BEDTIME MIGEL Administration Pharmacy Consult 1 each 02/01/21 14:11 Consult Rx Perform Med Rec MISCELLANE ONCE PRN Consult order Trazodone HCl 50 mg 02/01/21 20:02 Trazodone Hcl 50 Mg Tablet PO BEDTIME PRN Insomnia Allergies Allergies Allergy/AdvReac Type Severity Reaction Status Date / Time bupropion [From WELLBUTRIN] Allergy Severe Seizure Verified 02/01/21 13:53 aripiprazole [From ABILIFY] Allergy Intermediate FACIAL Unverified 02/01/21 13:53 TREMORS honey [HONEY] Allergy Intermediate HEADACHES Unverified 02/01/21 13:53 lurasidone [From LATUDA] AdvReac Intermediate GETS Unverified 02/01/21 13:53 REALLY SICK mirtazapine [MIRTAZAPINE] AdvReac Intermediate BP GOES Unverified 02/01/21 13:53 HIGH Assessment & Plan Assessment & Plan (1) PTSD (post-traumatic stress disorder): Status: Acute Code(s): F43.10 - Post-traumatic stress disorder, unspecified (2) Recurrent major depression-severe: Status: Acute Code(s): F33.2 - Major depressive disorder, recurrent severe without psychotic features Assessment and Plan: 50 yo male with a hx of trauma beginning in childhood. Pt reports sx of SI, poor focus, recall, task performance, easily triggered and often triggered with several months of decompensation. Plan: Continue Olanzapine at 2.5 mg HS Klonopin 0.25 mg HS Lexapro 2.5 mg daily EKG WNL Planned referral to DBT, return to [facility] Program which he agrees with. Greater than 50% of the session was spent on counseling and/or coordination of care Reason for contiued inpatient stay Substantial Risk for: med/psych decompensation
[2021-02-12 16:36] LABS: Glucose, Whole Blood 125 mg/dL (60-115)
[2021-02-12 16:50] VITALS: BP 131/92; PULSE 70; TEMP 36.7; O2SAT 99
[2021-02-12] MEDS: clonazePAM 0.5 MG TABLET 0.25 MG PO (20:49)
[2021-02-12] MEDS: OLANZapine 2.5 MG TABLET PO (20:49)
[2021-02-12 20:50] VITALS: BP 131/92; PULSE 70
[2021-02-12] MEDS: Doxazosin Mesylate 2 MG TABLET 4 MG PO (20:50)
[2021-02-12] MEDS: Atorvastatin Calcium 80 MG TABLET PO (20:51)
[2021-02-13 06:00] VITALS: BP 121/79; PULSE 86; TEMP 36.3; O2SAT 96
[2021-02-13 06:23] LABS: Glucose, Whole Blood 128 mg/dL (60-115)
[2021-02-13 08:12] VITALS: BP 128/78; PULSE 75
[2021-02-13] MEDS: amLODIPine Besylate 10 MG TABLET PO (08:12)
[2021-02-13] MEDS: Escitalopram Oxalate 5 MG TABLET 2.5 MG PO (08:12)
[2021-02-13 08:13] VITALS: BP 128/78; PULSE 75
[2021-02-13] MEDS: Insulin Glargine,Hum.rec.anlog 100 UNIT/ML 10 ML VIAL 25 UNIT SUBCUT (08:13)
[2021-02-13] MEDS: lisinopriL 40 MG TABLET PO (08:13)
[2021-02-13 11:17] LABS: Glucose, Whole Blood 122 mg/dL (60-115)
[2021-02-13] MEDS: OLANZapine 2.5 MG TABLET 1.25 MG PO (11:18)
--- NOTE | 2021-02-13 12:22 | HO.PSYCHPN ---
Subjective Subjective Date of Service: 02/13/21 Reason For Visit: SI, Depression, Anxiety, PTSD Interim History: Pt denies side effects from meds; continues with depressed mood but feeling a little better. Continues with anxiety. NO SI or HI Review of Systems Review of Systems No changes Gastrointestinal: Reports heartburn (GERD by history) and Reports diarrhea Reports behavioral changes, Reports confusion and Reports memory loss Psychiatric: Reports abnormal sleep pattern, Reports anxiety, Reports behavioral changes, Reports change in appetite, Reports confusion, Reports depression, Reports difficulty concentrating, Reports hopelessness, Reports irritability, Reports anhedonia, Reports memory loss, Reports mood swings, Reports panic attacks, Reports paranoia and Reports suicidal ideation Mental Status Exam Mental Status Exam Patient Appearance: Well Grooomed Patient Orientation: Person, Place, Time and Situation Level of Consciousness: Appropriate and Alert Patient Behavior: Appropriate and Cooperative Mood Description: Calm, Anxious, Flat and Sad Affect Description: Calm, Flat and Sad Patient Cognition Impaired: No Ability to Follow Directions: Good Speech Pattern: Clear Memory Description: Intact and Episodic Impaired Thought Process: Goal Oriented Thought Content: positive for Goal Oriented and positive for Linear Judgement: Good Diagnostics Vital Signs (24Hr): Vital Signs - 24 hr 02/12/21 16:50 02/12/21 20:50 02/13/21 06:00 Temperature 98.0 F 97.4 F Pulse Rate 70 70 86 Blood Pressure 131/92 H 131/92 H 121/79 Pulse Oximetry 99 96 02/13/21 08:12 02/13/21 08:13 Temperature Pulse Rate 75 75 Blood Pressure 128/78 128/78 Pulse Oximetry Body Mass Index 27.8 Labs Results: 02/01/21 14:50 02/01/21 14:50 Labs: Laboratory Results - last 48 hr 02/12/21 02/12/21 02/13/21 06:21 16:29 06:08 POC Glucose 112 125 H 128 H 02/13/21 11:13 POC Glucose 122 H Medications Medications Current Medications Generic Name Dose Route Start Last Admin Trade Name Freq PRN Reason Stop Dose Admin Acetaminophen 650 mg 02/01/21 20:02 02/11/21 08:08 Acetaminophen 325 Mg Tablet PO 650 mg Q6H PRN Administration Headache/Pain Mild Scale (1-3) Al Hydroxide/Mg Hydroxide 30 ml 02/01/21 20:02 02/07/21 11:54 Magnesium Hydrox/Alum Hydrox 30 Ml Oral.Susp PO 30 ml Q6H PRN Administration Heartburn/Nausea Amlodipine Besylate 10 mg 02/01/21 17:30 02/13/21 08:12 Amlodipine Besylate 10 Mg Tablet PO 10 mg DAILY MIGEL Administration Protocol Atorvastatin Calcium 80 mg 02/01/21 21:00 02/12/21 20:51 Atorvastatin Calcium 80 Mg Tablet PO 80 mg BEDTIME MIGEL Administration Clonazepam 0.25 mg 02/09/21 21:00 02/12/21 20:49 Clonazepam 0.5 Mg Tablet PO 0.25 mg BEDTIME MIGEL Administration Doxazosin Mesylate 4 mg 02/02/21 21:00 02/12/21 20:50 Doxazosin Mesylate 2 Mg Tablet PO 4 mg BEDTIME MIGEL Administration Protocol Escitalopram Oxalate 2.5 mg 02/10/21 09:00 02/13/21 08:12 Escitalopram Oxalate 5 Mg Tablet PO 2.5 mg DAILY MIGEL Administration Hydroxyzine HCl 25 mg 02/01/21 20:02 Hydroxyzine Hcl 25 Mg Tablet PO BEDTIME PRN Anxiety Insulin Glargine 25 unit 02/01/21 20:00 02/13/21 08:13 Insulin Glargine,Hum.Rec.Anlog 100 Unit/Ml 10 Ml Vial SUBCUT 25 unit DAILY MIGEL Administration Lisinopril 40 mg 02/02/21 09:00 02/13/21 08:13 Lisinopril 40 Mg Tablet PO 40 mg DAILY MIGEL Administration Loperamide HCl 4 mg 02/07/21 13:36 02/07/21 13:54 Loperamide Hcl 2 Mg Capsule PO 4 mg Q6H PRN Administration Diarrhea Magnesium Hydroxide 30 ml 02/01/21 20:02 Milk Of Magnesia 30 Ml Oral.Susp PO DAILY PRN Constipation Non-Formulary Medication 1 tab 02/01/21 17:30 Dapagliflozin [Farxiga] PO DAILY MIGEL Olanzapine 1.25 mg 02/03/21 16:30 02/13/21 11:18 Olanzapine 2.5 Mg Tablet PO 1.25 mg BID PRN Administration dissociation, agitation Olanzapine 2.5 mg 02/05/21 21:00 02/12/21 20:49 Olanzapine 2.5 Mg Tablet PO 2.5 mg BEDTIME MIGEL Administration Pharmacy Consult 1 each 02/01/21 14:11 Consult Rx Perform Med Rec MISCELLANE ONCE PRN Consult order Trazodone HCl 50 mg 02/01/21 20:02 Trazodone Hcl 50 Mg Tablet PO BEDTIME PRN Insomnia Allergies Allergies Allergy/AdvReac Type Severity Reaction Status Date / Time bupropion [From WELLBUTRIN] Allergy Severe Seizure Verified 02/01/21 13:53 aripiprazole [From ABILIFY] Allergy Intermediate FACIAL Unverified 02/01/21 13:53 TREMORS honey [HONEY] Allergy Intermediate HEADACHES Unverified 02/01/21 13:53 lurasidone [From LATUDA] AdvReac Intermediate GETS Unverified 02/01/21 13:53 REALLY SICK mirtazapine [MIRTAZAPINE] AdvReac Intermediate BP GOES Unverified 02/01/21 13:53 HIGH Assessment & Plan Assessment & Plan (1) PTSD (post-traumatic stress disorder): Status: Acute Code(s): F43.10 - Post-traumatic stress disorder, unspecified (2) Recurrent major depression-severe: Status: Acute Code(s): F33.2 - Major depressive disorder, recurrent severe without psychotic features Assessment and Plan: 50 yo male with a hx of trauma beginning in childhood. Pt reports sx of SI, poor focus, recall, task performance, easily triggered and often triggered with several months of decompensation. Plan: Continue Olanzapine at 2.5 mg HS Klonopin 0.25 mg HS Lexapro 2.5 mg daily EKG WNL Planned referral to DBT, return to [facility] which he agrees with. Greater than 50% of the session was spent on counseling and/or coordination of care Reason for contiued inpatient stay Substantial Risk for: harm to self, rapid decompensation and med/psych decompensation
[2021-02-13 18:00] VITALS: BP 123/67; PULSE 99; TEMP 36.8
[2021-02-13] MEDS: OLANZapine 2.5 MG TABLET PO (20:45)
[2021-02-13] MEDS: clonazePAM 0.5 MG TABLET 0.25 MG PO (20:46)
[2021-02-13] MEDS: Atorvastatin Calcium 80 MG TABLET PO (20:46)
[2021-02-13 20:48] VITALS: BP 127/75; PULSE 101
[2021-02-13] MEDS: Doxazosin Mesylate 2 MG TABLET 4 MG PO (20:48)
[2021-02-13 21:20] LABS: Glucose, Whole Blood 203 mg/dL (60-115)
[2021-02-14 06:00] VITALS: BP 128/79; PULSE 82; RESP 18; TEMP 36.2; O2SAT 99
[2021-02-14 06:38] LABS: Glucose, Whole Blood 141 mg/dL (60-115)
[2021-02-14 08:12] VITALS: BP 117/77; PULSE 66; TEMP 36; O2SAT 100
[2021-02-14 08:13] VITALS: BP 117/77; PULSE 66
[2021-02-14] MEDS: lisinopriL 40 MG TABLET PO (08:13)
[2021-02-14] MEDS: Escitalopram Oxalate 5 MG TABLET 2.5 MG PO (08:13)
[2021-02-14 08:14] VITALS: BP 117/77; PULSE 66
[2021-02-14] MEDS: Insulin Glargine,Hum.rec.anlog 100 UNIT/ML 10 ML VIAL 25 UNIT SUBCUT (08:14)
[2021-02-14] MEDS: amLODIPine Besylate 10 MG TABLET PO (08:14)
[2021-02-14] MEDS: Acetaminophen 325 MG TABLET 650 MG PO (13:34)
--- NOTE | 2021-02-14 15:52 | PM.PSYDC ---
DS: Providers Provider Date of Service: 02/14/21 Date of admission: 02/01/21 20:03 Date of discharge: 02/14/21 Primary care physician: Unknown Physician Admitting clinician: Melsisa Ngo Attending physician on admission: Mark Colvin Attending physician on discharge: Makr Colvin Discharging clinician: Melissa Ngo DS: Diagnosis Discharge Diagnosis (1) PTSD (post-traumatic stress disorder): Start date: 02/02/21 Status: Acute (2) Recurrent major depression-severe: Start date: 02/02/21 Status: Acute DS: Medications Discharge Medications Home Medications: Home Medications Medication Instructions Recorded Confirmed Farxiga 1 tab PO DAILY 02/01/21 02/01/21 Lantus Solostar U-100 Insulin 25 unit SUBCUT DAILY 02/01/21 02/01/21 amlodipine 1 tab PO DAILY 02/01/21 02/01/21 benazepril 1 tab PO DAILY 02/01/21 02/01/21 doxazosin 1 tab PO DAILY 02/01/21 02/01/21 Previous Rx's Medication Instructions Recorded atorvastatin 80 mg PO BEDTIME #30 tab 02/14/21 clonazepam 0.25 mg PO BEDTIME #15 tab 02/14/21 escitalopram oxalate 2.5 mg PO DAILY #15 tab 02/14/21 olanzapine 1.25 mg PO BID PRN #15 tab 02/14/21 olanzapine 2.5 mg PO BEDTIME #30 tab 02/14/21 Mental Status Exam Mental Status Exam Patient Appearance: Appropriate Patient Orientation: Person, Place, Time and Situation Level of Consciousness: Alert Patient Behavior: Appropriate and Talkative Mood Description: Calm Affect Description: Calm Patient Cognition Impaired: No Ability to Follow Directions: Good Speech Pattern: Spontaneous Speech Memory Description: Intact Hallucinations: None Delusions: Not Present Thought Process: Intact and Goal Oriented Thought Content: positive for Intact and positive for Goal Oriented Depressive Symptoms: Low Self Esteem Judgement: Good Data Data Completed and Pending Completed studies during hospitalization [Text1]: 02/07/21 02/08/21 02/08/21 16:46 05:40 21:38 POC Glucose 88 107 115 02/09/21 02/09/21 02/10/21 06:22 20:38 06:14 POC Glucose 114 186 H 94 0702/11/21 02/12/21 16:18 06:12 06:21 POC Glucose 107 104 112 02/12/21 02/13/21 02/13/21 16:29 06:08 11:13 POC Glucose 125 H 128 H 122 H 02/13/21 02/14/21 21:15 06:34 POC Glucose 203 H 141 H DS: Summary Hospital Course Hospital Course: 51 yo male presenting with increase in depressive symptoms with suicidal ideation. Reports intrusive PTSD sx including dissociative episodes with decreased ability to focus, poor recall, poor task managment, loss of time- I return to the past and am there for periods of time and I lose track of things and nightmares. Also reports disturbances in sleep and appetite. Reports he has noticed a decline for the past several months. Reported several medication trials with adverse effects including abilify with facial tremor, latuda with GI distress, wellbutrin with seizure, Mirtazapine with elevations in blood glucose. Pt reports thinking life may be easier without him and describes feeling like he has been living in catastrophic modes for several months and now feels exhausted. Described problems from his childhood still being with him and finding it difficult to move forward with these issues on his mind. Described a very strong supportive marriage and having a strong isabel based relationship. Pt signed in on a conditional voluntary. He participated in the milieu and with the team to address symptoms and learn coping skills. He was open to medication trials and with consideration to his sensitivities small doses of Olanzapine were started for assistance with PTSD sx managment, Lexapro for dperessive/anxious sx and low dose Klonopin for anxiety mgt. These were tolerated and Partha understands that he will need to continue to work with medications/dosages as his healing progresses. He agreed that a referral to Partial Hospital Program would be beneficial for learning more coping skills and will attend after discharge. He will also return to his therapist and prescriber for ongoing work. Time spent discussing smoking cessation with patient: 3 to 10 minutes Status at Discharge Cognitive/behavioral status at discharge: Alert, oriented, denies SI, HI. non-psychotic, mood stable-pt pleased to be going home he reports and to begin partial hospital program. Functional status at discharge: independent ambulation Overall status at discharge: patient is progressing back to baseline Time Spent with Patient Time attestation: Total time spent providing and/or coordinating discharge services: Time spent: Greater than 30 minutes Discharge Plan Discharge Anticipated Discharge Date/Time: 02/14/21 15:00 Patient Disposition: Home, Self-Care Discharge Diagnosis: PTSD Severe Recurrent Major Depression Referrals: [facility] [Other] - 02/17/21 7:30 am (The PHP will be conducted virtually) Shaina Whelan MD [Physician] - 02/17/21 4:15 pm (IN OFFICE) Discharge Medications: New clonazepam 0.5 mg Tablet 0.25 mg PO BEDTIME Qty: 15 RF: 0 Continued amlodipine 10 mg tablet 1 tab PO DAILY RF: 0 doxazosin 4 mg tablet 1 tab PO BEDTIME RF: 0 benazepril 40 mg tablet 1 tab PO DAILY RF: 0 Lantus Solostar U-100 Insulin 100 unit/mL (3 mL) insulin pen 25 unit subcut BEDTIME RF: 0 Farxiga 10 mg tablet 1 tab PO DAILY RF: 0 Discontinued lorazepam 0.5 mg tablet 1 tab PO BID PRN (Reason: Anxiety) RF: 0 rosuvastatin 40 mg tablet 1 tab PO BEDTIME RF: 0 No Action rosuvastatin 40 mg Tablet 40 mg PO BEDTIME RF: 0 olanzapine 2.5 mg tablet 1.25 mg PO BID PRN (Reason: anxiety, intrusive thoughts) 14 Days Qty: 7 RF: 0 escitalopram oxalate [Lexapro] 5 mg tablet 5 mg PO DAILY 30 Days Qty: 30 RF: 0 olanzapine 2.5 mg tablet 2.5 mg PO BEDTIME 30 Days Qty: 30 RF: 0 Discharge Orders: Discharge Order (Routine); Ordered 02/14/21 Ordered By: Melissa Ngo Diet: diabetic diet Activity on Discharge: As tolerated Stand Alone Forms: Patient Portal Discharge page, Community Support Care Plan Goals: Mood stabilization Health Concerns: PTSD Depression DALE Anemia CKD DM HTN Plan of Treatment: Take medications as directed Attend appointments as scheduled Attend Partial Hospital Program Assessment: Partha reports he is prepared to go home. He denies SI, HI, mood and affect are calm, he presents no symptoms of psychosis Discharge Date/Time: 02/14/21 14:16
== END 2021-02-14 14:16 | disposition home or self-care (01) | DRG 885 ==
LOC: HO.ED 17:34 → HO.PM5 20:21
PROVIDERS: Physician Assistant; Admitting Provider Social Worker; Emergency Provider Emergency Medicine; Visit Provider Clinical Nurse Specialist Psychiatric/Mental Health, Adult
DX: F33.2 Major depressive disorder, recurrent severe without psychotic features (principal); R45.851 Suicidal ideations; F43.10 Post-traumatic stress disorder, unspecified; Z20.822 Contact with and (suspected) exposure to COVID-19; Z79.4 Long term (current) use of insulin; Z79.899 Other long term (current) drug therapy
CPT/HCPCS: 36415; 80048; 80061; 80076; 80143; 80179; 80307; 81003; 82077; 82607; 82746; 82947; 83036; 83735; 84443; 85025; 87635; 93005; 99285

== ENCOUNTER 2021-03-09 09:00 | Outpatient (RCR) | payer MEDICARE, SELFPAY ==
[2021-02-17 13:14] VITALS: BMI 28.0
--- NOTE | 2021-02-17 13:30 | PC.ADMIT ---
Patient is a 51 year old male who was referred to [facility] by / inpatient unit where patient was admitted d/t increased depression with SI and plan to cut his wrists. Prior to hospitalization patient stopped his psychiatric medications as he believed they were not working. Patient was discharged from the unit on 02/14/21. Patient reports PTSD sxs and a history of trauma. Patient is alert and oriented x4. Calm and cooperative. Denied SI at present. gave verbal permission to email him a copy of his safety plan. Patient has the crisis number if needed. Medications reconciled with patient and / D/c medication list. Patient reports taking medications as prescribed. Patient did not recieve prn olanzapine at the pharmacy. I called the pharmacy to f/u and they stated that it could not fill as insurance would not authorize as he also has scheduled Olanzapine. Ambar Wright NP aware and will talk to patient.
--- NOTE | 2021-02-17 16:15 | P.HPPSP_ITS ---
HPI Chief Complaint: MDD Sources of Information: patient interviewed, chart reviewed and crisis/core team assessment reviewed Additional Sources of Information: [employer] search revealed longstanding scripts of lorazepam over the past 2 years. Patient recently switched to clonazepam 0.25 mg tablets while recently inpatient. HPI Subjective Notes: Mackey Warning Guardianship: No Medical Problems Affecting Mental Status: No Narrative: Partha is a 51-year-old , black male who was referred to [facility] by the clinical team on M5 as a step-down from [facility]. He was admitted 02/01/2021- 02/14/2021 due to increased depression, anxiety, and SI with a plan to cut his wrists. Prior to this admission, he had stopped taking his psychotropic medications because he felt they were not helpful. Patient reports he had been experiencing increased stressors in symptoms for several months, and after stopping the medication the symptoms worsened, with ultimately being admitted into the hospital. Patient does continue to report anhedonia, lack of motivation, tearfulness, fluctuating appetite, feelings of hopelessness, helplessness, and guilt. Does report passive SI, no plan, no intent. Reports poor sleep. Reports PTSD symptoms, including nightmares, flashbacks, intrusive memories, and disassociation. Patient appears to be sensitive to medications and side effects. Patient has had multiple medication trials with adverse reactions / various side effects. Medications trialed and now listed as allergies include Wellbutrin, aripiprazole, lurasidone, mirtazapine. Patient recently was changed from prazosin to doxazosin, stopped nortriptyline, taken off BuSpar. Further medication changes took place while inpatient on M5. Patient reports working with a therapist for 8 years. Patient also has medication prescriber for the past 5 years. Patient also has a primary care provider. He does report at least 4-5 inpatient level of care admission, in addition to the most recent hospitalization here. He has attended [facility] 3 times in the past, most recently in 2018. He denies any detox admissions. Patient is , and lives with . He has no children. He does describe his relationship with his as supportive. He grew up with his parents and 5 brothers. Met developmental milestones as expected. He states that 3 older brothers were from father's previous marriage. He does have 2 younger brothers. Both parents are . Describes relationship with his mother when alive as very close, describes relationship with father as ?strained?. Patient graduated high school, did not attend college. He is currently disabled and is not working. Patient endorses passive SI, no plan, no intent. Reports more than 2 previous SI attempts. Denies HI. Past Psychiatric History: IP: at least 6 -[facility] [place] [facility]: [facility]- EMDR and psychotherapy. [facility]-psychopharm PHP: several admits Trials: Abilify-facial tremor Latuda-made pt ill Wellbutrin-seizure Remeron-increase in blood sugar, anxiety Medical Evaluation Reviewed: Yes [facility] Medical History Anxiety Depression Diabetes Hypertension DALE (obstructive sleep apnea) PTSD (post-traumatic stress disorder) Raynauds syndrome Seizure Urethral stricture Family History: Yes, not documented. Father and mother with symptoms. Reports family history of substance use disorder. 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 One dog, a Egyptian Poodle Mix, age 15. Substance History: Reports rarely drinks. Denies any other substance use. Trauma History: Affirms. Struggles from his youth are still present, states he has a good reputation as an adult but is somehow stuck in childhood. Diagnostics Vital Signs (24Hr): Body Mass Index 28.0 Meds/Allergies Allergies Allergies Allergy/AdvReac Type Severity Reaction Status Date / Time bupropion [From WELLBUTRIN] Allergy Severe Seizure Verified 02/01/21 13:53 aripiprazole [From ABILIFY] Allergy Intermediate FACIAL Verified 02/17/21 15:16 TREMORS honey [HONEY] Allergy Intermediate HEADACHES Verified 02/17/21 15:16 lurasidone [From LATUDA] AdvReac Intermediate GETS Verified 02/17/21 15:16 REALLY SICK mirtazapine [MIRTAZAPINE] AdvReac Intermediate BP GOES Verified 02/17/21 15:16 HIGH Mental Status Exam Mental Status Exam Narrative: Well-groomed, well-nourished male. Alert and oriented x4, appropriately groomed. No apparent distress. Patient Appearance: Well Grooomed and Appropriate Patient Orientation: Person, Place, Time and Situation Level of Consciousness: Awake, Appropriate and Alert Patient Behavior: Appropriate, Cooperative, Timid, Anxious, Fearful and Good Eye Contact Mood Description: Appropriate, Depressed and Anxious Affect Description: Appropriate, Depressed, Anxious, Blunted, Flat and Sad Patient Cognition Impaired: Yes Ability to Follow Directions: Excellent Speech Pattern: Clear, Appropriate and Soft-Spoken Memory Description: Intact Hallucinations: None Delusions: Not Present Perceptual Disturbances: Depersonalization Thought Process: Intact and Distracted (reports feeling detached. ) Thought Content: positive for Intact and positive for Suicidal Ideation (passive, no plan or intent at this time. ) Depressive Symptoms: Increased Anxiety, Feelings of Worthlessness, Hopelessness, Feelings of Guilt, Thoughts of /Suicide and Difficulty Concentrating Judgement: Fair Judgement and Insight: Insight and judgment fair at this time. Assessment & Plan Assessment & Plan (1) Recurrent major depression-severe: Status: Acute Code(s): F33.2 - Major depressive disorder, recurrent severe without psychotic features Assessment and Plan: Patient reports symptoms of depression, denies any safety concerns at this. Does acknowledge passive SI, but states he has no plan or intent at this time. Does report that he lives with his , who is supportive. Patient also has crisis information available, and states that he will use this if needed. Current medications reviewed, including dosing and schedule. Patient was encouraged to buy a pill splitter, as several of his medications require half tablet dosing. He stated that he would do so. He does report he feels that the med changes that occurred while he was recently inpatient were positive, and he does feel his symptoms beginning to improve. PLAN: No medication changes at this time. Refill of p.r.n. olanzapine 1.25mg b.i.d. sent to pharmacy. Patient reports he does not need any refills of other medications at this time. Certification I certify that partial hospital treatment is medically necessary due to the symptoms and problems resulting from the patient's mental illness and the failure to treat the patient at the partial hospital level of care would likely result in the patient requiring inpatient psychiatric care which could not be prevented at a less intensive level of care. Telehealth Telehealth Location of provider rendering services: practice address Location of patient: address on file Patient Identification confirmed using: Name, : Yes Telehealth method: video Patient verbally consented to treatment: Yes Patient verbally consented to billing insurance company: Yes Patient informed of any privacy concerns related to visit: Yes Time spent with patient (mins): 45
--- NOTE | 2021-02-20 16:33 | PC.NURSE ---
Case opened in treatment team
--- NOTE | 2021-02-21 14:33 | HO.PHPPROGNO ---
Subjective Subjective Date of Service: 02/21/21 Reason For Visit: MDD Subjective Notes: Mackey Warning Guardianship: No Medical Problems Affecting Mental Status: No Interim History: Partha report that he is feeling ?tired ?today. When asked about his depression, he stated that it was hard for him to say, although he ?feels like I am dragging a little bit ?. He does acknowledge that he continues with dysphoric mood. He does report that several nights ago he took a p.r.n. lorazepam with good effect. He then stated that although he is not feeling ?emotionally great ?, he is not thinking of self-harm in any way whatsoever at this time. We discussed current medications. We also discussed TMS as as a possibility. Partha reports he is tolerating the escitalopram well, with no side effects. Patient reports he is willing to increase the current escitalopram from 2.5 daily to 5 mg daily. He stated that he will look up TMS as an alternative for treatment of depression, and will consider it. I did inform him that if he decides he would like an appointment to discuss the treatment further, that our program could help schedule a consult / intake appointment with [facility] Psychiatry. He stated that he think about this as an option. Medication Compliance: Yes Side effects from medications: No Attending Groups: Yes Review of Systems Acute medical concerns: No Medical Review of Systems: unchanged Review of Systems Review of Systems Yes all other systems are reviewed and are negative Constitutional: Reports headache(s) Reports headache(s) Reports headache(s) Mental Status Exam Mental Status Exam Narrative: Well-developed, well-nourished male, no apparent distress. Patient Appearance: Well Grooomed and Appropriate Patient Orientation: Person, Place, Time and Situation Level of Consciousness: Awake, Appropriate and Alert Patient Behavior: Appropriate, Cooperative and Good Eye Contact Mood Description: Appropriate, Depressed and Anxious Patient Cognition Impaired: No Ability to Follow Directions: Excellent Speech Pattern: Clear, Appropriate and Coherent Memory Description: Intact Hallucinations: None Delusions: Not Present Thought Process: Intact, Goal Oriented and Linear Thought Content: positive for Intact, positive for Goal Oriented, positive for Linear and positive for Suicidal Ideation (Patient reports he is not experiencing any SI at this time.) Depressive Symptoms: Increased Anxiety, Loss of Int. in Activity, Unexplained Headaches and Loss of Energy Judgement: Fair Diagnostics Vital Signs (24Hr): Body Mass Index 28.0 Assessment & Plan Assessment & Plan (1) Suicidal ideation: Status: Acute Code(s): R45.851 - Suicidal ideations Assessment and Plan: Patient reports that he is not experiencing any suicidal ideation at this time, and that he feels safe. PLAN: Will continue to monitor for safety. Patient actively participates in groups daily. Will follow-up with patient as per protocol. (2) Recurrent major depression-severe: Status: Acute Code(s): F33.2 - Major depressive disorder, recurrent severe without psychotic features Assessment and Plan: Patient does report that he is continuing to experience symptoms of depression. Medications discussed, as well as option of TMS referral. Patient willing to increase escitalopram dose to 5 mg daily starting tomorrow morning. Patient states he will consider TMS referral. PLAN: Increase escitalopram to 5 mg daily, start tomorrow a.m.. Prescription sent to pharmacy. Plan to follow up with patient as per protocol. Patient educated on: diagnosis, medication risk/benefits and therapeutic strategies Informed Consent: understands Reason for contiued partial hosp. stay Substantial Risk for: harm to self, inability to function and med/psych decompensation Certification I certify that partial hospital treatment is medically necessary due to the symptoms and problems resulting from the patient's mental illness and the failure to treat the patient at the partial hospital level of care would likely result in the patient requiring inpatient psychiatric care which could not be prevented at a less intensive level of care. Greater than 50% of the session was spent on counseling and/or coordination of care Discharge Plan Discharge Attending provider: Earnest Rincon Medications: New olanzapine 2.5 mg tablet 1.25 mg PO BID PRN (Reason: anxiety, intrusive thoughts) 14 Days Qty: 7 RF: 0 escitalopram oxalate [Lexapro] 5 mg tablet 5 mg PO DAILY 14 Days Qty: 14 RF: 0 Discontinued escitalopram oxalate 5 mg Tablet 2.5 mg PO DAILY Qty: 15 RF: 0 No Action amlodipine 10 mg tablet 1 tab PO DAILY RF: 0 doxazosin 4 mg tablet 1 tab PO BEDTIME RF: 0 benazepril 40 mg tablet 1 tab PO DAILY RF: 0 Lantus Solostar U-100 Insulin 100 unit/mL (3 mL) insulin pen 25 unit subcut BEDTIME RF: 0 Farxiga 10 mg tablet 1 tab PO DAILY RF: 0 clonazepam 0.5 mg Tablet 0.25 mg PO BEDTIME Qty: 15 RF: 0 olanzapine 2.5 mg Tablet 1.25 mg PO BID PRN (Reason: dissociation, agitation) Qty: 15 RF: 0 olanzapine 2.5 mg Tablet 2.5 mg PO BEDTIME Qty: 30 RF: 0 rosuvastatin 40 mg Tablet 40 mg PO BEDTIME RF: 0 Telehealth Telehealth Location of provider rendering services: practice address Location of patient: address on file Patient Identification confirmed using: Name, : Yes Telehealth method: video Patient verbally consented to treatment: Yes Patient verbally consented to billing insurance company: Yes Patient informed of any privacy concerns related to visit: Yes Time spent with patient (mins): 15
--- NOTE | 2021-02-28 14:50 | P.PNPSP_ITS ---
Subjective Subjective Date of Service: 02/28/21 Reason For Visit: MDD Subjective Notes: Mackey Warning Guardianship: No Medical Problems Affecting Mental Status: No Interim History: Partha reports that he is feeling tired, ?I feel drained ?. He then explains that he feels recur every is a long process. He does deny any thoughts of self-harm. He says that he is still feeling anxious and depressed, and that he believes the rainy weather has not helped to improve his mood. He has described having several headaches over the past week, alleviated with Tylenol. He does have other somatic symptoms as well, such as reporting sleeping but still feeling tired once he wakes up. He states that he is feeling that the groups in [facility] are helping him, and he is specially appreciates the feedback he is receiving. He states that he has not been utilizing the p.r.n. olanzapine, as that he forgets he has it as an option. Strategies for medications were discussed, such as leaving a p.r.n. dose on his desk within his line of vision with a note stating that he can use this if needed during the day if needed. We discussed medications. Lexapro was increased last week from 2.5 mg daily to 5 mg daily. Patient states that he has not experienced any type of side effects from this increase dose. He would like to remain at this dose, and is not interested in increasing it further at this time. We discussed the Klonopin, as he takes 0.25 mg at bedtime. He is not interested in increasing this dose at this time. He reports that he is taking the olanzapine 2.5 mg at bedtime, and that is helping. No safety concerns. Medication Compliance: Yes Side effects from medications: No Attending Groups: Yes Review of Systems Review of Systems Reports feeling tired. Constitutional: Reports fatigue and Reports headache(s) Eyes: Reports no additional eye complaints Reports system reviewed and no additional complaints, except as documented and Reports headache(s) Cardiovascular: Reports no additional cardiovascular complaints Musculoskeletal: Reports no additional musculoskeletal complaints Reports headache(s) Endocrine: Reports fatigue Mental Status Exam Mental Status Exam Narrative: Well-developed, well-nourished male, in no apparent distress. Patient Appearance: Well Grooomed, Fatigued and Appropriate Patient Orientation: Person, Place, Time and Situation Level of Consciousness: Awake, Appropriate and Alert Patient Behavior: Appropriate, Cooperative, Anxious, Fatigued and Good Eye Contact Mood Description: Appropriate, Depressed and Anxious Affect Description: Appropriate, Depressed and Anxious Patient Cognition Impaired: No Ability to Follow Directions: Excellent Speech Pattern: Clear, Appropriate and Soft-Spoken Memory Description: Intact Hallucinations: None Delusions: Not Present Thought Process: Intact, Goal Oriented and Linear Thought Content: positive for Intact, positive for Goal Oriented and positive for Linear Depressive Symptoms: Increased Anxiety, Difficulty Sleeping, Hopelessness, Feelings of Guilt, Unexplained Headaches, Low Self Esteem, Loss of Energy and Difficulty Concentrating Judgement: Fair Diagnostics Vital Signs (24Hr): Body Mass Index 28.0 Assessment & Plan Assessment & Plan (1) Recurrent major depression-severe: Qualifiers: Psychotic features: without psychotic features Qualified Code(s): F33.2 - Major depressive disorder, recurrent severe without psychotic features Status: Acute Code(s): F33.2 - Major depressive disorder, recurrent severe without psychotic features Assessment and Plan: Patient reports he continues with depressive symptoms, although he feels he is slowly improving. Denies any thoughts of harm to self or others, no safety concerns at this time. Symptoms include somatic complaints of feeling drained, fatigued, and headaches. PLAN: Continue current medications without changes. Follow-up as per protocol. (2) Anxiety: Status: Acute Code(s): F41.9 - Anxiety disorder, unspecified Assessment and Plan: Patient continues with symptoms of anxiety, although he states he is slowly improving. Patient is prescribed medications and is taking them as prescribed. He will consider using prescribed PRNs more frequently if needed. Plan: Continue current medication regimen. No refills needed. Follow-up as per protocol. (3) PTSD (post-traumatic stress disorder): Status: Acute Code(s): F43.10 - Post-traumatic stress disorder, unspecified Patient educated on: diagnosis, medication risk/benefits and therapeutic strategies Informed Consent: understands Reason for contiued partial hosp. stay Substantial Risk for: inability to function and med/psych decompensation Certification I certify that partial hospital treatment is medically necessary due to the symptoms and problems resulting from the patient's mental illness and the failure to treat the patient at the partial hospital level of care would likely result in the patient requiring inpatient psychiatric care which could not be prevented at a less intensive level of care. Greater than 50% of the session was spent on counseling and/or coordination of care Discharge Plan Discharge Attending provider: Earnest Rincon Medications: New olanzapine 2.5 mg tablet 1.25 mg PO BID PRN (Reason: anxiety, intrusive thoughts) 14 Days Qty: 7 RF: 0 escitalopram oxalate [Lexapro] 5 mg tablet 5 mg PO DAILY 14 Days Qty: 14 RF: 0 Discontinued escitalopram oxalate 5 mg Tablet 2.5 mg PO DAILY Qty: 15 RF: 0 No Action amlodipine 10 mg tablet 1 tab PO DAILY RF: 0 doxazosin 4 mg tablet 1 tab PO BEDTIME RF: 0 benazepril 40 mg tablet 1 tab PO DAILY RF: 0 Lantus Solostar U-100 Insulin 100 unit/mL (3 mL) insulin pen 25 unit subcut BEDTIME RF: 0 Farxiga 10 mg tablet 1 tab PO DAILY RF: 0 clonazepam 0.5 mg Tablet 0.25 mg PO BEDTIME Qty: 15 RF: 0 olanzapine 2.5 mg Tablet 1.25 mg PO BID PRN (Reason: dissociation, agitation) Qty: 15 RF: 0 olanzapine 2.5 mg Tablet 2.5 mg PO BEDTIME Qty: 30 RF: 0 rosuvastatin 40 mg Tablet 40 mg PO BEDTIME RF: 0 Telehealth Telehealth Location of provider rendering services: practice address Location of patient: address on file Patient Identification confirmed using: Name, : Yes Telehealth method: video Patient verbally consented to treatment: Yes Patient verbally consented to billing insurance company: Yes Patient informed of any privacy concerns related to visit: Yes Time spent with patient (mins): 15
--- NOTE | 2021-03-06 11:12 | P.PNPSP_ITS ---
Subjective Subjective Date of Service: 03/06/21 Reason For Visit: MDD Subjective Notes: Mackey Warning Guardianship: No Medical Problems Affecting Mental Status: No Interim History: Partha reports that he is still experiencing depressive symptoms, but that they are less intense. Reports he feels the lexapro 5mg is helping, does not wish to increase dose at this time. He reports the olanzapine 2.5mg at bedtime is helping, does not want the dose increased at this time. Requests refills for both medications. He will contact his outpatient provider today to verify when his next appointment is scheduled. Reports he has been experiencing some PTSD symptoms at times, when he is triggered, and then experiences anxiety. He is utilizing coping skills first, such as mindfulness, grounding techniques, distraction, and walking his dog daily. If these do not address the symptoms adequately, he will then turn to using a prn. Denies any thought of harm to self or others. No safety concerns. Medication Compliance: Yes Side effects from medications: No Attending Groups: Yes Review of Systems Review of Systems occasional headaches, relates this to when he skips breakfast. Yes all other systems are reviewed and are negative Constitutional: Reports headache(s) (occasional) Reports headache(s) (occasional) Reports headache(s) (occasional) Mental Status Exam Mental Status Exam Narrative: Well developed, well nourished male, appropriate grooming, in no apparent distress. Patient Appearance: Well Grooomed and Appropriate Patient Orientation: Person, Place, Time and Situation Level of Consciousness: Awake, Appropriate and Alert Patient Behavior: Appropriate, Cooperative and Good Eye Contact Mood Description: Appropriate, Depressed and Anxious Affect Description: Appropriate, Depressed and Anxious Patient Cognition Impaired: No Ability to Follow Directions: Excellent Speech Pattern: Clear, Appropriate and Coherent Memory Description: Intact Delusions: Not Present Thought Process: Intact, Goal Oriented and Linear Thought Content: positive for Intact, positive for Goal Oriented and positive for Linear Depressive Symptoms: Increased Anxiety, Changes in Appetite, Feelings of Guilt, Unexplained Headaches and Low Self Esteem Judgement: Fair Diagnostics Vital Signs (24Hr): Body Mass Index 28.0 Assessment & Plan Assessment & Plan (1) Recurrent major depression-severe: Qualifiers: Psychotic features: without psychotic features Qualified Code(s): F33.2 - Major depressive disorder, recurrent severe without psychotic features Status: Acute Code(s): F33.2 - Major depressive disorder, recurrent severe without psychotic features Assessment and Plan: Patient reports that he feels ?okay? today. He states that he is still getting occasional headaches, but that he thinks it is more related to if he forgets to eat breakfast. He reports that his depression is ?still there?, but that he feels symptoms are ?less intense?. Denies any thoughts of harm to himself. No safety concerns at this time. Denies any side effects from Lexapro or any other medications. He is not interested in any increase of doses at this time. Is requesting a refill of lexapro and olanzapine. PLAN: Refills sent for 30-day supply of lexapro 5mg daily, zyprexa 2.5mg at bedtime. will continue to see as per protocol. (2) PTSD (post-traumatic stress disorder): Status: Acute Code(s): F43.10 - Post-traumatic stress disorder, unspecified Assessment and Plan: Patient reports that he is experiencing PTSD/anxiety symptoms at times, when s omething triggers it. He states he is using coping skills such as walking his dog daily, grounding techniques, distracting techniques, and mind fullness. He states that sometimes these are effective, and that when they are not fully effective, he will use a p.r.n. medication. He reports that currently he needs an olanzapine 2.5 mg refill. Patient is also concerned because he does not know when his outpatient provider appointment is, is asking for inadequate bridge until that time of medications. (3) Anxiety: Status: Acute Code(s): F41.9 - Anxiety disorder, unspecified Certification I certify that partial hospital treatment is medically necessary due to the symptoms and problems resulting from the patient's mental illness and the failure to treat the patient at the partial hospital level of care would likely result in the patient requiring inpatient psychiatric care which could not be prevented at a less intensive level of care. Greater than 50% of the session was spent on counseling and/or coordination of care Discharge Plan Discharge Attending provider: Earnest Rincon Medications: New olanzapine 2.5 mg tablet 1.25 mg PO BID PRN (Reason: anxiety, intrusive thoughts) 14 Days Qty: 7 RF: 0 escitalopram oxalate [Lexapro] 5 mg tablet 5 mg PO DAILY 30 Days Qty: 30 RF: 0 olanzapine 2.5 mg tablet 2.5 mg PO BEDTIME 30 Days Qty: 30 RF: 0 Discontinued olanzapine 2.5 mg Tablet 2.5 mg PO BEDTIME Qty: 30 RF: 0 escitalopram oxalate 5 mg Tablet 2.5 mg PO DAILY Qty: 15 RF: 0 No Action amlodipine 10 mg tablet 1 tab PO DAILY RF: 0 doxazosin 4 mg tablet 1 tab PO BEDTIME RF: 0 benazepril 40 mg tablet 1 tab PO DAILY RF: 0 Lantus Solostar U-100 Insulin 100 unit/mL (3 mL) insulin pen 25 unit subcut BEDTIME RF: 0 Farxiga 10 mg tablet 1 tab PO DAILY RF: 0 clonazepam 0.5 mg Tablet 0.25 mg PO BEDTIME Qty: 15 RF: 0 olanzapine 2.5 mg Tablet 1.25 mg PO BID PRN (Reason: dissociation, agitation) Qty: 15 RF: 0 rosuvastatin 40 mg Tablet 40 mg PO BEDTIME RF: 0 Telehealth Telehealth Location of provider rendering services: practice address Location of patient: address on file Patient Identification confirmed using: Name, : Yes Telehealth method: video Patient verbally consented to treatment: Yes Patient verbally consented to billing insurance company: Yes Patient informed of any privacy concerns related to visit: Yes Time spent with patient (mins): 15
--- NOTE | 2021-03-09 11:55 | PC.NURSE ---
Patient is scheduled for discharge from the [facility] today. Denied SI or thoughts to harm himself. Feels ready for d/c. No safety concerns. Reviewed patient medications with patient. Patient reports taking medications as prescribed. Medication education provided verbally.
--- NOTE | 2021-03-09 15:53 | PC.NURSE ---
I called and LM for pt's therapist, Sol Joe ([phone]), informing her of pt's successful discharge from [facility] today.
== END 2021-03-10 07:29 | disposition home or self-care (01) ==
LOC: HO.PHPA 09:00
PROVIDERS: Visit Provider Psychiatry & Neurology Psychiatry
DX: F33.2 Major depressive disorder, recurrent severe without psychotic features (principal); Z79.899 Other long term (current) drug therapy
CPT/HCPCS: 90791; 90853

== ENCOUNTER 2021-09-07 16:13 | Inpatient (IN) | payer MEDICARE, SELFPAY ==
--- NOTE | 2021-09-07 16:22 | ED_ITS ---
HPI - Psych General Chief Complaint: Psychiatric Symptoms Stated Complaint: Crisis Time Seen by Provider: 09/07/21 16:19 Source: patient Mode of arrival: ambulatory Limitations: no limitations History of Present Illness HPI Narrative: 51 y/o male with history of depression, PTSD, admission to in February for SI who presents to the ER With increased depression. He has been having increased depression since shortly after he got discharged from an inpatient standpoint. He has been seeing his therapist, who we saw today in the office with his . His therapist referred him to the hospital because he felt like he needed inpatient treatment at this time. His symptoms have been worsening over time. He reports not getting out of bed most days unless he has to. He has no motivation, no enjoyment, no drive. He reports compliance to all of his meds but they just stop working. He wakes up and just wants to check out but denies ever having plan to kill him and has never attempted. No drug or ETOH use. No new significant lift stressors. He is unemployed, on disability. MD complaint: feels depressed Onset (ago): month(s) Duration: constant and getting worse History of same: Yes Relieving factors: none Exacerbating factors: none Associated psychiatric symptoms: depression and racing thoughts Associated symptoms: denies other symptoms Treatments prior to arrival: none Related Data Home Medications Medication Instructions Recorded Confirmed amlodipine 10 mg tablet 1 tab PO DAILY 02/01/21 02/17/21 benazepril 40 mg tablet 1 tab PO DAILY 02/01/21 02/17/21 dapagliflozin 10 mg tablet 1 tab PO DAILY 02/01/21 [facility] doxazosin 4 mg tablet 1 tab PO BEDTIME 02/01/21 02/17/21 insulin glargine 100 unit/mL (3 25 unit SUBCUT BEDTIME 02/01/21 02/17/21 mL) subcutaneous pen (Lantus Solostar U-100 Insulin) rosuvastatin 40 mg tablet 40 mg PO BEDTIME 02/17/21 02/17/21 Previous Rx's Medication Instructions Recorded clonazepam 0.5 mg tablet 0.25 mg PO BEDTIME #15 tab 02/14/21 olanzapine 2.5 mg tablet 1.25 mg PO BID PRN 14 Days #7 tab 02/17/21 escitalopram oxalate 5 mg tablet 5 mg PO DAILY 30 Days #30 tab 03/06/21 (Lexapro) olanzapine 2.5 mg tablet 2.5 mg PO BEDTIME 30 Days #30 tab 03/06/21 Allergies Allergy/AdvReac Type Severity Reaction Status Date / Time bupropion [From Allergy Severe Seizure Verified 02/01/21 13:53 WELLBUTRIN] aripiprazole [From Allergy Intermediate FACIAL Verified 02/17/21 15:16 ABILIFY] TREMORS honey [HONEY] Allergy Intermediate HEADACHES Verified 02/17/21 15:16 lurasidone [From AdvReac Intermediate GETS Verified 02/17/21 15:16 LATUDA] REALLY SICK mirtazapine AdvReac Intermediate BP GOES Verified 02/17/21 15:16 [MIRTAZAPINE] HIGH Review of Systems Verdana 4l Review of Systems: Verdana 4d Verdana 4d Constitutional: No Fever, No Chills ENT/Mouth: No sore throat, No Rhinorrhea Cardiovascular: No Chest Pain, No SOB Respiratory: No Cough, No Sputum Gastrointestinal: No Nausea, No Vomiting, No Diarrhea, No abdominal Pain Musculoskeletal: No joint pain, No Myalgias Skin: No Skin Lesions, No rash Neuro: No Weakness, No Numbness, No Dizziness, No Headache Psych: + Anxiety/Panic, + Depression, No AH/VH, No delusions Heme/Lymph: No Bruising, No Lymphadenopathy PMFSH Past Medical History Medical History Anxiety Depression Diabetes Hypertension DALE (obstructive sleep apnea) PTSD (post-traumatic stress disorder) Raynauds syndrome Seizure Urethral stricture Social History Social History Household Members: Spouse Housing: Condominium Do you presently have visiting nurse or other home services: No Patient Tobacco Use Status: Never used Tobacco Second Hand Smoke Exposure: No service: No Sexual orientation: Straight/Heterosexual Physical Exam Verdana 4l Vital Signs: Verdana 4d Verdana 4d Vital Signs: Verdana 4d Verdana 4Bd Last Vital Signs Verdana 4d Kiln Stacker New 4d Kiln Stacker New 4d Temp 98.6 F 09/07/21 16:47 Kiln Stacker New 4d Pulse 83 09/07/21 16:47 Kiln Stacker New 4d Resp 16 09/07/21 16:47 Pulse Ox 98 09/07/21 16:47 BMI result Body Mass Index 29.5 Appearance: Alert. Oriented X3. No acute distress. Eyes: Pupils equal, round and reactive to light. ENT: Pharynx normal. Neck: Normal inspection. Neck supple. CVS: Normal heart rate and rhythm. Pulses normal. Respiratory: No respiratory distress. Breath sounds normal. Abdomen: Soft and nontender. +BS x4 Skin: Skin warm and dry. Normal skin color. Normal skin turgor. No rashes. Extremities: No lower extremity edema. Neuro/psych: Oriented X 3. No motor deficit. No sensory deficit. CN II-XII intact. polite, cooperative, appreciative, makes appropriate eye contact, depressed, good insight. No AH/VH Course Course Course Narrative: 51-year-old male with a history of depression, anxiety, PTSD, DALE, anemia, CKD, fatty liver who presents to the ER with worsening depression over the last several months. He was recently admitted here over the summer for suicidal ideation, depression, PTSD/anxiety. He isn't following up with this therapist who referred him to the ER today for possible inpatient psychiatric care. Will get metabolic, basic lab workup and have N evaluate him once he is medically cleared. Reevaluation(s) Reevaluation #1: Physician observation started at 5:30pm. Patient placed in physician observation because patient is awaiting N evaluation for the possible need of inpatient psych admission. At the time observation was started patient's vital signs were stable. Patient is alert and oriented. Neuro exam is non-focal. CV: RRR and lungs are clear. Will continue to monitor. Critical Care Time Critical Care Time Critical Care Time: No Discharge Plan Discharge Clinical Impression: Depression Patient Disposition: Still a Patient Prescriptions: No Action amlodipine 10 mg tablet 1 tab PO DAILY 0RF doxazosin 4 mg tablet 1 tab PO BEDTIME 0RF Label Comments: Per patient he takes at HS for nightmares. benazepril 40 mg tablet 1 tab PO DAILY 0RF Lantus Solostar U-100 Insulin 100 unit/mL (3 mL) insulin pen 25 unit subcut BEDTIME 0RF Label Comments: Patient stated he takes at HS Farxiga 10 mg tablet 1 tab PO DAILY 0RF clonazepam 0.5 mg Tablet 0.25 mg PO BEDTIME Qty: 15 0RF rosuvastatin 40 mg Tablet 40 mg PO BEDTIME 0RF Label Comments: Interchange in the hospital per patient from Rosuvastatin, which patient reports he was taking prior to hospitalization and what he is currently taking, to Atorvastatin. Patient back on Rosuvastatin. olanzapine 2.5 mg tablet 1.25 mg PO BID PRN (Reason: anxiety, intrusive thoughts) 14 Days Qty: 7 0RF Rx Instructions: Please take 1/2 tablet twice daily as needed for anxiety, intrusive thoughts. This is in ADDITION to the scheduled 2.5mg dose that is scheduled at BEDTIME escitalopram oxalate [Lexapro] 5 mg tablet 5 mg PO DAILY 30 Days Qty: 30 0RF olanzapine 2.5 mg tablet 2.5 mg PO BEDTIME 30 Days Qty: 30 0RF
[2021-09-07 16:47] VITALS: PULSE 83; RESP 16; TEMP 37; O2SAT 98; BMI 29.5
--- NOTE | 2021-09-07 16:53 | ECG_ITS ---
Test Reason : MED CLEARANCE Blood Pressure : / mmHG Vent. Rate : 059 BPM Atrial Rate : 059 BPM P-R Int : 180 ms QRS Dur : 102 ms QT Int : 424 ms P-R-T Axes : 015 007 035 degrees QTc Int : 419 ms Sinus bradycardia Otherwise normal ECG When compared with ECG of 09-FEB-2021 15:20, T wave amplitude has increased in Lateral leads Referred By: Gisel Crump Electronically Signed By:ASHLI MENDOZA MD
[2021-09-07 17:17] LABS: Appearance Urine CLEAR; Color Urine YELLOW; Glucose Urine UA >=1000 MG/DL (NEG); Leukocyte Esterase Urine NEG (NEG); Nitrite Urine NEG (NEG); PH 5.5 (5.0-8.0); Specific Gravity - Urine >= 1.030 (1.005-1.025); UACC Culture Trigger NO; Urine Blood NEG (NEG); Urine Ketones NEG (NEG); Urine Protein 1+ MG/DL (NEG-TRACE)
[2021-09-07 17:27] LABS: COVID-19 Test Negative (Negative); IDNOW Serial# 9DD0AD1C
[2021-09-07 17:27] LABS: Amphetamine Screen Urine Not Detected (Not Detect); Barbiturates, Urine Not Detected (Not Detect); Benzodiazepines Screen Urine Not Detected (Not Detect); Cannabinoid Screen Urine Not Detected (Not Detect); Cocaine Screen Urine Not Detected (Not Detect); Fentanyl, urine Not Detected (Not Detect); Opiate Screen Urine Not Detected (Not Detect); Phencyclidine Screen Urine Not Detected (Not Detect)
[2021-09-07 17:40] LABS: RBC Urine 0-2 /HPF (0); Squamous Epithelial Cell Urine TRACE /LPF; WBC Urine 0 /HPF (0-4)
[2021-09-07 18:04] LABS: MANUAL DIFF FLAG NO
[2021-09-07 18:07] LABS: Basophils Percent Auto 0.5 % (0-2); Eosinophils Absolute Auto 0.1 X10*3/uL (0.0-0.4); Eosinophils Percent Auto 1.3 % (0-4); Hematocrit 40.7 % (42.0-52.0); Hemoglobin 13.6 g/dl (14.0-18.0); Imm Gran Abs Auto 0.01 X10*3/uL (0.00-0.03); Imm Gran Pct Auto 0.2 % (0.0-0.4); Lymphocytes Absolute Auto 1.7 X10*3/uL (1.2-4.9); Lymphocytes Percent Auto 30.4 % (20-40); Mean Corpuscular HGB Conc 33.4 g/dl (31.0-36.0); Mean Corpuscular Hemoglobin 27.9 pg (27.0-33.0); Mean Corpuscular Volume 83.6 fL (80.0-98.0); Mean Platelet Volume 9.7 fL (9.4-12.4); Monocytes Absolute Auto 0.4 X10*3/uL (0.1-1.2); Monocytes Percent Auto 7.7 % (2-11); Neutrophils Absolute Auto 3.3 x10*3/uL (2.0-8.3); Neutrophils Percent Auto 59.9 % (45-73); Platelet Count 265 X10*3/uL (160-400); Red Blood Count 4.87 X10*6/uL (4.60-5.80); Red Cell Distribution Width 11.9 % (11.0-16.0); White Blood Count 5.5 X10*3/uL (4.8-10.8)
[2021-09-07 18:20] LABS: Anion Gap 15 (12-20); Blood Urea Nitrogen 13 mg/dL (9-16); Calcium 9.6 mg/dL (8.4-10.2); Carbon Dioxide 24 mmol/L (22-29); Chloride 102 mmol/L (96-108); Creatinine Clr Calc Pharmacy 94.6; Estimated Glomerular Filt Rate > 60; Glucose Random 160 mg/dL (60-115); Potassium 3.9 mmol/L (3.3-5.1); Sodium 137 mmol/L (135-145)
[2021-09-08 00:06] VITALS: BP 144/96; PULSE 65; RESP 20; TEMP 36; O2SAT 99
[2021-09-08 00:26] LABS: Glucose, Whole Blood 132 mg/dL (60-115)
[2021-09-08 01:22] VITALS: BP 133/84; PULSE 64; RESP 14; TEMP 35.8; O2SAT 99
[2021-09-08] MEDS: Acetaminophen 325 MG TABLET 650 MG PO ×2 (02:25→10:29)
--- NOTE | 2021-09-08 02:29 | PC.ADMIT ---
PT is a 51 year old, , non smoking, male, admitted to unit at 0110 on a CV from [facility]. PT had prior admission to in February. 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 PT has past medical history of DM, HTN, DALE, urethral stricture, and Raynauds syndrome. PT had EKG done in ER, PT COVID negative. PT declined use of CPAP while inpatient. PT declined flu vaccine due to being vaccinated. PT has allergies to honey, buprion, aripiprazole, mirtazapine and lurasidone. Upon arrival to unit VSS, T 96.4. P 64, BP 133/84, O2 99/RA, POC 132 @ 0022 in POD prior to arrival.PT orders put in and reviewed by DR Cuenca. PT oriented to unit, staff, and routine.
[2021-09-08 08:20] LABS: Glucose, Whole Blood 146 mg/dL (60-115)
[2021-09-08] MEDS: Escitalopram Oxalate 5 MG TABLET PO (09:07)
[2021-09-08] MEDS: lisinopriL 40 MG TABLET PO (09:07)
[2021-09-08] MEDS: amLODIPine Besylate 10 MG TABLET PO (09:07)
[2021-09-08] MEDS: Doxazosin Mesylate 2 MG TABLET 4 MG PO (09:07)
[2021-09-08 09:09] VITALS: BP 136/88; PULSE 71; RESP 16; TEMP 36.2; O2SAT 97
--- NOTE | 2021-09-08 12:13 | MHC.CLN ---
NUTRITION INCREASED KCALS IN DIET ORDER. CHANGED TO DIABETIC 2200 KCAL. PROVIDES 27.2 KCAL/KG IBW.
[2021-09-08 12:47] LABS: Glucose, Whole Blood 156 mg/dL (60-115)
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
--- NOTE | 2021-09-08 18:25 | PC.NURSE ---
Pt's home medication Farxiga 10mg was dropped off today. Instructions: take 1 tab by mouth every day.
[2021-09-08 20:39] VITALS: BP 136/70; PULSE 85; RESP 18; TEMP 36.7; O2SAT 98
[2021-09-08] MEDS: clonazePAM 0.5 MG TABLET PO (20:53)
[2021-09-08] MEDS: Insulin Glargine,Hum.rec.anlog 100 UNIT/ML 10 ML VIAL 25 UNIT SUBCUT (20:53)
[2021-09-08 21:00] LABS: Glucose, Whole Blood 232 mg/dL (60-115)
[2021-09-09 07:49] LABS: Estimated Average Glucose 200 mg/dL; Hemoglobin A1c % 8.6 %
[2021-09-09 08:08] LABS: Cholesterol 130 mg/dL; HDL Cholesterol 36 mg/dL; LDL Cholesterol Calculated 81 mg/dl; Triglycerides 67 mg/dL
[2021-09-09 08:28] LABS: Thyroid Stimulating Hormone 0.59 uIU/mL (0.32-4.0)
[2021-09-09 08:45] VITALS: BP 118/72; PULSE 81; RESP 16; TEMP 36.2; O2SAT 99
[2021-09-09 08:49] LABS: Glucose, Whole Blood 116 mg/dL (60-115)
[2021-09-09] MEDS: amLODIPine Besylate 10 MG TABLET PO (09:20)
[2021-09-09] MEDS: Methylphenidate HCl 5 MG TABLET PO (09:20)
[2021-09-09] MEDS: Escitalopram Oxalate 5 MG TABLET PO (09:20)
[2021-09-09] MEDS: Doxazosin Mesylate 2 MG TABLET 4 MG PO (09:20)
[2021-09-09] MEDS: lisinopriL 40 MG TABLET PO (09:20)
--- NOTE | 2021-09-09 13:13 | HO.PSYCHPN ---
Subjective Subjective Date of Service: 09/09/21 Reason For Visit: si Interim History: The nursing staff reported that the patient was been tired, depressed with flat affect. He is compliant with treatment and his FBS are OK. On interview, he explained that he takes Farxinga for DM and his brought a bottle. No new symtpoms Mental Status Exam Mental Status Exam Patient Appearance: Well Grooomed Patient Orientation: Person Level of Consciousness: Awake Patient Behavior: Cooperative and Passive Mood Description: Depressed Affect Description: Constricted Patient Cognition Impaired: No Ability to Follow Directions: Good Speech Pattern: Appropriate Hallucinations: None Delusions: Not Present Thought Process: Linear Thought Content: positive for Circumstantial Judgement: Fair Diagnostics Vital Signs (24Hr): Vital Signs - 24 hr 09/08/21 20:39 Temperature 98.1 F Pulse Rate 85 Respiratory Rate 18 Blood Pressure 136/70 Pulse Oximetry 98 BMI result Body Mass Index 29.5 Labs Results: 09/07/21 17:41 09/07/21 17:41 Labs: Laboratory Results - last 48 hr 09/07/21 09/07/21 09/07/21 17:02 17:03 17:03 WBC RBC Hgb Hct MCV MCH MCHC RDW Plt Count MPV Immature Gran % (Auto) Neut % (Auto) Lymph % (Auto) [place] % (Auto) Eos % (Auto) Baso % (Auto) Lymph # (Auto) [place] # (Auto) Eos # (Auto) Baso # (Auto) Abs Immat Gran (auto) Absolute Neuts (auto) Absolute Nucleated RBC Nucleated RBC % (auto) Sodium Potassium Chloride Carbon Dioxide Anion Gap BUN Creatinine Estim Creat Clear Calc Estimated GFR POC Glucose Random Glucose Estimat Average Glucose Hemoglobin A1c % Calcium Triglycerides Cholesterol LDL Cholesterol, Calc HDL Cholesterol TSH Urine Color YELLOW Urine Appearance CLEAR Urine pH 5.5 Ur Specific [place] >= 1.030 H Urine Protein 1+ H Urine Glucose (UA) >=1000 H Urine Ketones NEG Urine Blood NEG Urine Nitrite NEG Ur Leukocyte Esterase NEG Urine RBC 0-2 Urine WBC 0 Ur Squamous Epith Cells TRACE Urine Bacteria NONE Urine Opiates Screen Not Detected Urine Fentanyl Screen Not Detected Ur Barbiturates Screen Not Detected Ur Phencyclidine Scrn Not Detected Ur Amphetamines Screen Not Detected U Benzodiazepines Scrn Not Detected Urine Cocaine Screen Not Detected U Marijuana (THC) Screen Not Detected COVID-19 (PAUL) Negative COVID-19 Clin Com See Note 09/07/21 09/07/21 09/08/21 17:41 17:41 00:22 WBC 5.5 RBC 4.87 Hgb 13.6 L Hct 40.7 L MCV 83.6 MCH 27.9 MCHC 33.4 RDW 11.9 Plt Count 265 MPV 9.7 Immature Gran % (Auto) 0.2 Neut % (Auto) 59.9 Lymph % (Auto) 30.4 [place] % (Auto) 7.7 Eos % (Auto) 1.3 Baso % (Auto) 0.5 Lymph # (Auto) 1.7 [place] # (Auto) 0.4 Eos # (Auto) 0.1 Baso # (Auto) 0.0 Abs Immat Gran (auto) 0.01 Absolute Neuts (auto) 3.3 Absolute Nucleated RBC 0.000 Nucleated RBC % (auto) 0.0 Sodium 137 Potassium 3.9 Chloride 102 Carbon Dioxide 24 Anion Gap 15 BUN 13 Creatinine 1.15 Estim Creat Clear Calc 94.6 Estimated GFR > 60 POC Glucose 132 H Random Glucose 160 H D Estimat Average Glucose Hemoglobin A1c % Calcium 9.6 Triglycerides Cholesterol LDL Cholesterol, Calc HDL Cholesterol TSH Urine Color Urine Appearance Urine pH Ur Specific [place]rum Urine Protein Urine Glucose (UA) Urine Ketones Urine Blood Urine Nitrite Ur Leukocyte Esterase Urine RBC Urine WBC Ur Squamous Epith Cells Urine Bacteria Urine Opiates Screen Urine Fentanyl Screen Ur Barbiturates Screen Ur Phencyclidine Scrn Ur Amphetamines Screen U Benzodiazepines Scrn Urine Cocaine Screen U Marijuana (THC) Screen COVID-19 (PAUL) COVID-19 Clin Com 09/08/21 09/08/21 09/08/21 08:13 12:40 20:51 WBC RBC Hgb Hct MCV MCH MCHC RDW Plt Count MPV Immature Gran % (Auto) Neut % (Auto) Lymph % (Auto) [place] % (Auto) Eos % (Auto) Baso % (Auto) Lymph # (Auto) [place] # (Auto) Eos # (Auto) Baso # (Auto) Abs Immat Gran (auto) Absolute Neuts (auto) Absolute Nucleated RBC Nucleated RBC % (auto) Sodium Potassium Chloride Carbon Dioxide Anion Gap BUN Creatinine Estim Creat Clear Calc Estimated GFR POC Glucose 146 H 156 H 232 H Random Glucose Estimat Average Glucose Hemoglobin A1c % Calcium Triglycerides Cholesterol LDL Cholesterol, Calc HDL Cholesterol TSH Urine Color Urine Appearance Urine pH Ur Specific [place]rum Urine Protein Urine Glucose (UA) Urine Ketones Urine Blood Urine Nitrite Ur Leukocyte Esterase Urine RBC Urine WBC Ur Squamous Epith Cells Urine Bacteria Urine Opiates Screen Urine Fentanyl Screen Ur Barbiturates Screen Ur Phencyclidine Scrn Ur Amphetamines Screen U Benzodiazepines Scrn Urine Cocaine Screen U Marijuana (THC) Screen COVID-19 ([facility]UL) COVID-19 [facility] Com 09/09/21 09/09/21 09/09/21 07:13 07:13 08:45 WBC RBC Hgb Hct MCV MCH MCHC RDW Plt Count MPV Immature Gran % (Auto) Neut % (Auto) Lymph % (Auto) [place] % (Auto) Eos % (Auto) Baso % (Auto) Lymph # (Auto) [place] # (Auto) Eos # (Auto) Baso # (Auto) Abs Immat Gran (auto) Absolute Neuts (auto) Absolute Nucleated RBC Nucleated RBC % (auto) Sodium Potassium Chloride Carbon Dioxide Anion Gap BUN Creatinine Estim Creat Clear Calc Estimated GFR POC Glucose 116 H Random Glucose Estimat Average Glucose 200 Hemoglobin A1c % 8.6 Calcium Triglycerides 67 Cholesterol 130 D LDL Cholesterol, Calc 81 HDL Cholesterol 36 TSH 0.59 Urine Color Urine Appearance Urine pH Ur Specific Crum Urine Protein Urine Glucose (UA) Urine Ketones Urine Blood Urine Nitrite Ur Leukocyte Esterase Urine RBC Urine WBC Ur Squamous Epith Cells Urine Bacteria Urine Opiates Screen Urine Fentanyl Screen Ur Barbiturates Screen Ur Phencyclidine Scrn Ur Amphetamines Screen U Benzodiazepines Scrn Urine Cocaine Screen U Marijuana (THC) Screen COVID-19 (PAUL) COVID-19 Clin Com Medications Medications Current Medications Acetaminophen (Acetaminophen 325 Mg Tablet) 650 mg PO Q6H PRN PRN Reason: Headache/Pain Mild Scale (1-3) Last Admin: 09/08/21 10:29 Dose: 650 mg Documented by: Al Hydroxide/Mg Hydroxide (Magnesium Hydrox/Alum Hydrox 30 Ml Oral.Susp) 30 ml PO Q6H PRN PRN Reason: Heartburn/Nausea Amlodipine Besylate (Amlodipine Besylate 10 Mg Tablet) 10 mg PO DAILY [facility]; Protocol Last Admin: 09/09/21 09:20 Dose: 10 mg Documented by: Clonazepam (Clonazepam 0.5 Mg Tablet) 0.5 mg PO BEDTIME [facility] Last Admin: 09/08/21 20:53 Dose: 0.5 mg Documented by: Doxazosin Mesylate (Doxazosin Mesylate 2 Mg Tablet) 4 mg PO DAILY [facility]; Protocol Last Admin: 09/09/21 09:20 Dose: 4 mg Documented by: Escitalopram Oxalate (Escitalopram Oxalate 5 Mg Tablet) 5 mg PO DAILY [facility] Last Admin: 09/09/21 09:20 Dose: 5 mg Documented by: Hydroxyzine HCl (Hydroxyzine Hcl 25 Mg Tablet) 25 mg PO Q6H PRN PRN Reason: Anxiety Insulin Glargine (Insulin Glargine,Hum.Rec.Anlog 100 Unit/Ml 10 Ml Vial) 25 unit SUBCUT BEDTIME [facility] Last Admin: 09/08/21 20:53 Dose: 25 unit Documented by: Lisinopril (Lisinopril 40 Mg Tablet) 40 mg PO DAILY [facility] Last Admin: 09/09/21 09:20 Dose: 40 mg Documented by: Magnesium Hydroxide (Milk Of Magnesia 30 Ml Oral.Susp) 30 ml PO DAILY PRN PRN Reason: Constipation Methylphenidate HCl (Methylphenidate Hcl 5 Mg Tablet) 5 mg PO DAILY [facility] Last Admin: 09/09/21 09:20 Dose: 5 mg Documented by: Patient Own Medication (Farxiga 10 Mg) 1 each PO DAILY [facility] Trazodone HCl (Trazodone Hcl 50 Mg Tablet) 50 mg PO BEDTIME PRN PRN Reason: Insomnia Allergies Allergies Allergy/AdvReac Type Severity Reaction Status Date / Time bupropion [From WELLBUTRIN] Allergy Severe Seizure Verified 02/01/21 13:53 aripiprazole [From ABILIFY] Allergy Intermediate FACIAL Verified 02/17/21 15:16 TREMORS honey [HONEY] Allergy Intermediate HEADACHES Verified 02/17/21 15:16 lurasidone [From LATUDA] AdvReac Intermediate GETS Verified 02/17/21 15:16 REALLY SICK mirtazapine [MIRTAZAPINE] AdvReac Intermediate BP GOES Verified 02/17/21 15:16 HIGH Assessment & Plan Assessment & Plan (1) Recurrent major depression-severe: Qualifiers: Psychotic features: without psychotic features Qualified Code(s): F33.2 - Major depressive disorder, recurrent severe without psychotic features Status: Acute Code(s): F33.2 - Major depressive disorder, recurrent severe without psychotic features Assessment and Plan: start trial of methylphenidate 5 mg daily as of 09/09. otherwise continue outpt regimen. (2) PTSD (post-traumatic stress disorder): Status: Acute Code(s): F43.10 - Post-traumatic stress disorder, unspecified Assessment and Plan: doxazosin - t/c dose increase. (3) Hypertension: Status: Acute Code(s): I10 - Essential (primary) hypertension Assessment and Plan: continue home regimen (4) Diabetes: Status: Acute Code(s): E11.9 - Type 2 diabetes mellitus without complications Assessment and Plan: continue home regimen (5) DALE (obstructive sleep apnea): Status: Acute Code(s): G47.33 - Obstructive sleep apnea (adult) (pediatric) Assessment and Plan: encourage use of CPAP. Plan as above I spent minutes with the patient and/or on the patient floor today, greater than?50% of which was spent counseling/coordinating care. Reason for contiued inpatient stay Substantial Risk for: inability to function, rapid decompensation and med/psych decompensation
[2021-09-09 20:30] VITALS: BP 109/62; PULSE 63; RESP 16; TEMP 36.6; O2SAT 99
[2021-09-09] MEDS: Insulin Glargine,Hum.rec.anlog 100 UNIT/ML 10 ML VIAL 25 UNIT SUBCUT (20:53)
[2021-09-09] MEDS: Atorvastatin Calcium 40 MG TABLET PO (20:55)
[2021-09-09] MEDS: clonazePAM 0.5 MG TABLET PO (20:55)
[2021-09-09 21:34] LABS: Glucose, Whole Blood 219 mg/dL (60-115)
[2021-09-10 09:00] VITALS: BP 129/74; PULSE 63; RESP 16; TEMP 36.6; O2SAT 98
[2021-09-10 09:01] LABS: Glucose, Whole Blood 116 mg/dL (60-115)
[2021-09-10] MEDS: Escitalopram Oxalate 5 MG TABLET PO (09:47)
[2021-09-10] MEDS: Doxazosin Mesylate 2 MG TABLET 4 MG PO (09:47)
[2021-09-10] MEDS: amLODIPine Besylate 10 MG TABLET PO (09:47)
[2021-09-10] MEDS: Methylphenidate HCl 5 MG TABLET PO (09:47)
[2021-09-10] MEDS: lisinopriL 40 MG TABLET PO (09:47)
[2021-09-10] MEDS: Acetaminophen 325 MG TABLET 650 MG PO (09:50)
--- NOTE | 2021-09-10 13:50 | HO.PSYCHPN ---
Subjective Subjective Date of Service: 09/10/21 Reason For Visit: si Interim History: The nursing staff reported that he stated that he cant feel anything , staying most of the time in his room, denies hallucinations or delusions. On interview, he denied new symptoms Mental Status Exam Mental Status Exam Patient Appearance: Well Grooomed Patient Orientation: Person and Situation Level of Consciousness: Awake and Alert Patient Behavior: Guarded and Cooperative Mood Description: Constricted Affect Description: Constricted Ability to Follow Directions: Good Speech Pattern: Clear Hallucinations: None Delusions: Not Present Judgement: Fair Diagnostics Vital Signs (24Hr): Vital Signs - 24 hr 09/09/21 20:30 09/10/21 09:00 Temperature 98 F 97.9 F Pulse Rate 63 63 Respiratory Rate 16 16 Blood Pressure 109/62 129/74 Pulse Oximetry 99 98 BMI result Body Mass Index 29.5 Labs Results: 09/07/21 17:41 09/07/21 17:41 Labs: Laboratory Results - last 48 hr 09/08/21 09/09/21 09/09/21 20:51 07:13 07:13 POC Glucose 232 H Estimat Average Glucose 200 Hemoglobin A1c % 8.6 Triglycerides 67 Cholesterol 130 D LDL Cholesterol, Calc 81 HDL Cholesterol 36 TSH 0.59 09/09/21 09/09/21 09/10/21 08:45 20:52 08:54 POC Glucose 116 H 219 H 116 H Estimat Average Glucose Hemoglobin A1c % Triglycerides Cholesterol LDL Cholesterol, Calc HDL Cholesterol TSH Medications Medications Current Medications Acetaminophen (Acetaminophen 325 Mg Tablet) 650 mg PO Q6H PRN PRN Reason: Headache/Pain Mild Scale (1-3) Last Admin: 09/10/21 09:50 Dose: 650 mg Documented by: Al Hydroxide/Mg Hydroxide (Magnesium Hydrox/Alum Hydrox 30 Ml Oral.Susp) 30 ml PO Q6H PRN PRN Reason: Heartburn/Nausea Amlodipine Besylate (Amlodipine Besylate 10 Mg Tablet) 10 mg PO DAILY [facility]; Protocol Last Admin: 09/10/21 09:47 Dose: 10 mg Documented by: Atorvastatin Calcium (Atorvastatin Calcium 40 Mg Tablet) 40 mg PO BEDTIME [facility] Last Admin: 09/09/21 20:55 Dose: 40 mg Documented by: Clonazepam (Clonazepam 0.5 Mg Tablet) 0.5 mg PO BEDTIME [facility] Last Admin: 09/09/21 20:55 Dose: 0.5 mg Documented by: Doxazosin Mesylate (Doxazosin Mesylate 2 Mg Tablet) 4 mg PO DAILY [facility]; Protocol Last Admin: 09/10/21 09:47 Dose: 4 mg Documented by: Escitalopram Oxalate (Escitalopram Oxalate 5 Mg Tablet) 5 mg PO DAILY [facility] Last Admin: 09/10/21 09:47 Dose: 5 mg Documented by: Hydroxyzine HCl (Hydroxyzine Hcl 25 Mg Tablet) 25 mg PO Q6H PRN PRN Reason: Anxiety Insulin Glargine (Insulin Glargine,Hum.Rec.Anlog 100 Unit/Ml 10 Ml Vial) 25 unit SUBCUT BEDTIME [facility] Last Admin: 09/09/21 20:53 Dose: 25 unit Documented by: Lisinopril (Lisinopril 40 Mg Tablet) 40 mg PO DAILY [facility] Last Admin: 09/10/21 09:47 Dose: 40 mg Documented by: Magnesium Hydroxide (Milk Of Magnesia 30 Ml Oral.Susp) 30 ml PO DAILY PRN PRN Reason: Constipation Methylphenidate HCl (Methylphenidate Hcl 5 Mg Tablet) 5 mg PO DAILY [facility] Last Admin: 09/10/21 09:47 Dose: 5 mg Documented by: Patient Own Medication (Farxiga 10 Mg) 1 each PO DAILY [facility] Last Admin: 09/10/21 09:50 Dose: 1 each Documented by: Trazodone HCl (Trazodone Hcl 50 Mg Tablet) 50 mg PO BEDTIME PRN PRN Reason: Insomnia Allergies Allergies Allergy/AdvReac Type Severity Reaction Status Date / Time bupropion [From WELLBUTRIN] Allergy Severe Seizure Verified 02/01/21 13:53 aripiprazole [From ABILIFY] Allergy Intermediate FACIAL Verified 02/17/21 15:16 TREMORS honey [HONEY] Allergy Intermediate HEADACHES Verified 02/17/21 15:16 lurasidone [From LATUDA] AdvReac Intermediate GETS Verified 02/17/21 15:16 REALLY SICK mirtazapine [MIRTAZAPINE] AdvReac Intermediate BP GOES Verified 02/17/21 15:16 HIGH Assessment & Plan Assessment & Plan (1) Recurrent major depression-severe: Qualifiers: Psychotic features: without psychotic features Qualified Code(s): F33.2 - Major depressive disorder, recurrent severe without psychotic features Status: Acute Code(s): F33.2 - Major depressive disorder, recurrent severe without psychotic features Assessment and Plan: start trial of methylphenidate 5 mg daily as of 09/09. otherwise continue outpt regimen. (2) PTSD (post-traumatic stress disorder): Status: Acute Code(s): F43.10 - Post-traumatic stress disorder, unspecified Assessment and Plan: doxazosin - t/c dose increase. (3) Hypertension: Status: Acute Code(s): I10 - Essential (primary) hypertension Assessment and Plan: continue home regimen (4) Diabetes: Status: Acute Code(s): E11.9 - Type 2 diabetes mellitus without complications Assessment and Plan: continue home regimen (5) DALE (obstructive sleep apnea): Status: Acute Code(s): G47.33 - Obstructive sleep apnea (adult) (pediatric) Assessment and Plan: encourage use of CPAP. Plan as above I spent minutes with the patient and/or on the patient floor today, greater than?50% of which was spent counseling/coordinating care. Reason for contiued inpatient stay Substantial Risk for: inability to function, rapid decompensation and med/psych decompensation
[2021-09-10 18:00] VITALS: BP 142/82; PULSE 70; RESP 16; TEMP 36.7; O2SAT 98
[2021-09-10 20:52] LABS: Glucose, Whole Blood 152 mg/dL (60-115)
[2021-09-10] MEDS: Insulin Glargine,Hum.rec.anlog 100 UNIT/ML 10 ML VIAL 25 UNIT SUBCUT (21:11)
[2021-09-10] MEDS: clonazePAM 0.5 MG TABLET PO (21:11)
[2021-09-10] MEDS: Atorvastatin Calcium 40 MG TABLET PO (21:11)
[2021-09-11 04:40] LABS: Folate 11.8 ng/mL (> or = 4.0); Vitamin B12 376 pg/mL (200-900)
[2021-09-11 08:50] LABS: Glucose, Whole Blood 118 mg/dL (60-115)
[2021-09-11] MEDS: Doxazosin Mesylate 2 MG TABLET 4 MG PO (08:51)
[2021-09-11] MEDS: Methylphenidate HCl 5 MG TABLET PO (08:51)
[2021-09-11] MEDS: lisinopriL 40 MG TABLET PO (08:52)
[2021-09-11] MEDS: Escitalopram Oxalate 5 MG TABLET PO (08:52)
[2021-09-11] MEDS: amLODIPine Besylate 10 MG TABLET PO (08:52)
[2021-09-11 09:00] VITALS: BP 129/80; PULSE 80; RESP 16; TEMP 36.4; O2SAT 98
[2021-09-11] MEDS: Acetaminophen 325 MG TABLET 650 MG PO (11:53)
--- NOTE | 2021-09-11 14:42 | P.PNPSI_ITS ---
Subjective Subjective Date of Service: 09/11/21 Reason For Visit: si Interim History: pt reports he continues to feel rather tired, yet at the same time has been out and about and more active than in quite a while, over the weekend. mood is detached. agreeable to increase methylphenidate to 10 mg daily as of tomorrow, however, and to increase doxazosin to 5 mg as of tonight. per staff, very tired, poor concentration. attending groups. polite, kind. no SI. denies anx/dep, but states he is the last to notice. eating OK. sleeping poorly. FSBS 118, 116. Mental Status Exam Mental Status Exam Narrative: adequately dressed and groomed. cooperative with interview. PMR. speech nml in amount and loudness, somewhat slowed and monotone. thoughts linear and logical, no thought blocking today. affect blunted. mood detached. no SI/HI/AVH expressed. Diagnostics Vital Signs (24Hr): Vital Signs - 24 hr 09/10/21 18:00 09/11/21 09:00 Temperature 98.0 F 97.5 F Pulse Rate 70 80 Respiratory Rate 16 16 Blood Pressure 142/82 H 129/80 Pulse Oximetry 98 98 BMI result Verdana 4 Body Mass Index Verdana 4 29.5 Verdana 4 Verdana 4 Labs Results: 09/07/21 17:41 09/07/21 17:41 Labs: Laboratory Results - last 48 hr 09/09/21 09/09/21 09/10/21 07:13 20:52 08:54 POC Glucose 219 H 116 H Vitamin B12 376 Folate 11.8 09/10/21 09/11/21 20:48 08:47 POC Glucose 152 H 118 H Vitamin B12 Folate Medications Medications Current Medications Acetaminophen (Acetaminophen 325 Mg Tablet) 650 mg PO Q6H PRN PRN Reason: Headache/Pain Mild Scale (1-3) Last Admin: 09/11/21 11:53 Dose: 650 mg Documented by: Al Hydroxide/Mg Hydroxide (Magnesium Hydrox/Alum Hydrox 30 Ml Oral.Susp) 30 ml PO Q6H PRN PRN Reason: Heartburn/Nausea Amlodipine Besylate (Amlodipine Besylate 10 Mg Tablet) 10 mg PO DAILY [facility]; Protocol Last Admin: 09/11/21 08:52 Dose: 10 mg Documented by: Atorvastatin Calcium (Atorvastatin Calcium 40 Mg Tablet) 40 mg PO BEDTIME [facility] Last Admin: 09/10/21 21:11 Dose: 40 mg Documented by: Clonazepam (Clonazepam 0.5 Mg Tablet) 0.5 mg PO BEDTIME [facility] Last Admin: 09/10/21 21:11 Dose: 0.5 mg Documented by: Doxazosin Mesylate (Doxazosin Mesylate 1 Mg Tablet) 5 mg PO DAILY [facility]; Protocol Escitalopram Oxalate (Escitalopram Oxalate 5 Mg Tablet) 5 mg PO DAILY [facility] Last Admin: 09/11/21 08:52 Dose: 5 mg Documented by: Hydroxyzine HCl (Hydroxyzine Hcl 25 Mg Tablet) 25 mg PO Q6H PRN PRN Reason: Anxiety Insulin Glargine (Insulin Glargine,Hum.Rec.Anlog 100 Unit/Ml 10 Ml Vial) 25 unit SUBCUT BEDTIME [facility] Last Admin: 09/10/21 21:11 Dose: 25 unit Documented by: Lisinopril (Lisinopril 40 Mg Tablet) 40 mg PO DAILY [facility] Last Admin: 09/11/21 08:52 Dose: 40 mg Documented by: Magnesium Hydroxide (Milk Of Magnesia 30 Ml Oral.Susp) 30 ml PO DAILY PRN PRN Reason: Constipation Methylphenidate HCl (Methylphenidate Hcl 5 Mg Tablet) 10 mg PO DAILY [facility] Patient Own Medication (Farxiga 10 Mg) 1 each PO DAILY [facility] Last Admin: 09/11/21 08:55 Dose: 1 each Documented by: Trazodone HCl (Trazodone Hcl 50 Mg Tablet) 50 mg PO BEDTIME PRN PRN Reason: Insomnia Allergies Allergies Allergy/AdvReac Type Severity Reaction Status Date / Time bupropion [From Allergy Severe Seizure Verified 02/01/21 13:53 WELLBUTRIN] aripiprazole [From Allergy Intermediate FACIAL Verified 02/17/21 15:16 ABILIFY] TREMORS honey [HONEY] Allergy Intermediate HEADACHES Verified 02/17/21 15:16 lurasidone [From AdvReac Intermediate GETS Verified 02/17/21 15:16 LATUDA] REALLY SICK mirtazapine AdvReac Intermediate BP GOES Verified 02/17/21 15:16 [MIRTAZAPINE] HIGH Assessment & Plan Assessment & Plan (1) Recurrent major depression-severe: Qualifiers: Psychotic features: without psychotic features Qualified Code(s): F33.2 - Major depressive disorder, recurrent severe without psychotic features Status: Acute Code(s): F33.2 - Major depressive disorder, recurrent severe without psychotic features Assessment and Plan: started trial of methylphenidate 5 mg daily as of 09/09, increased to 10 mg daily as of 09/12. otherwise continued outpt regimen. (2) PTSD (post-traumatic stress disorder): Status: Acute Code(s): F43.10 - Post-traumatic stress disorder, unspecified Assessment and Plan: doxazosin dosing increased to 5 mg at bedtime as of 09/11. (3) Hypertension: Status: Acute Code(s): I10 - Essential (primary) hypertension Assessment and Plan: continue home regimen aside from doxazosin change. (4) Diabetes: Status: Acute Code(s): E11.9 - Type 2 diabetes mellitus without complications Assessment and Plan: continue home regimen (5) DAEL (obstructive sleep apnea): Status: Acute Code(s): G47.33 - Obstructive sleep apnea (adult) (pediatric) Assessment and Plan: encourage use of CPAP. Plan as above I spent minutes with the patient and/or on the patient floor today, greater than?50% of which was spent counseling/coordinating care. Reason for contiued inpatient stay Substantial Risk for: harm to self, inability to function and rapid decompensation
[2021-09-11 18:00] VITALS: BP 119/74; PULSE 88; RESP 18; TEMP 36.8; O2SAT 98
[2021-09-11 20:57] LABS: Glucose, Whole Blood 257 mg/dL (60-115)
[2021-09-11] MEDS: clonazePAM 0.5 MG TABLET PO (21:08)
[2021-09-11] MEDS: Insulin Glargine,Hum.rec.anlog 100 UNIT/ML 10 ML VIAL 25 UNIT SUBCUT (21:08)
[2021-09-11] MEDS: Atorvastatin Calcium 40 MG TABLET PO (21:08)
[2021-09-12 08:42] LABS: Glucose, Whole Blood 131 mg/dL (60-115)
[2021-09-12] MEDS: Acetaminophen 325 MG TABLET 650 MG PO ×2 (08:43→14:13)
[2021-09-12] MEDS: lisinopriL 40 MG TABLET PO (08:44)
[2021-09-12] MEDS: Escitalopram Oxalate 5 MG TABLET PO (08:45)
[2021-09-12] MEDS: amLODIPine Besylate 10 MG TABLET PO (08:45)
[2021-09-12] MEDS: Methylphenidate HCl 5 MG TABLET 10 MG PO (08:45)
[2021-09-12 09:00] VITALS: BP 128/79; PULSE 76; RESP 18; TEMP 36.6; O2SAT 97
--- NOTE | 2021-09-12 14:10 | HO.PSYCHPN ---
Subjective Subjective Date of Service: 09/12/21 Reason For Visit: si Interim History: pt seen drawing in the milieu, amenable to come with MD for interview. states he remains without effective insight into his mood states and relies on others for their assessments. speaks with his several times a day. c/o slight METZGER, 3-11/19. doing OK. attending groups. eating well, slept well last night. will move doxazosin to HS, which is when he normally takes it in any case. first day on higher dose of methylphenidate. no other changes endorsed by patient. per staff, pleasant, calm, cooperative. doing art. Mental Status Exam Mental Status Exam Narrative: adequately dressed and groomed. cooperative with interview. moderate PMR. speech nml in amount and loudness, somewhat slowed and monotone. thoughts linear and logical, no thought blocking. affect constricted. mood doing OK. no SI. no HI/AVH expressed. Diagnostics Vital Signs (24Hr): Vital Signs - 24 hr 09/11/21 18:00 Temperature 98.2 F Pulse Rate 88 Respiratory Rate 18 Blood Pressure 119/74 Pulse Oximetry 98 BMI result Body Mass Index 29.5 Labs Results: 09/07/21 17:41 09/07/21 17:41 Labs: Laboratory Results - last 48 hr 09/09/21 09/10/21 09/11/21 07:13 20:48 08:47 POC Glucose 152 H 118 H Vitamin B12 376 Folate 11.8 09/11/21 09/12/21 20:53 08:06 POC Glucose 257 H 131 H Vitamin B12 Folate Medications Medications Current Medications Acetaminophen (Acetaminophen 325 Mg Tablet) 650 mg PO Q6H PRN PRN Reason: Headache/Pain Mild Scale (1-3) Last Admin: 09/12/21 08:43 Dose: 650 mg Documented by: Al Hydroxide/Mg Hydroxide (Magnesium Hydrox/Alum Hydrox 30 Ml Oral.Susp) 30 ml PO Q6H PRN PRN Reason: Heartburn/Nausea Amlodipine Besylate (Amlodipine Besylate 10 Mg Tablet) 10 mg PO DAILY [facility]; Protocol Last Admin: 09/12/21 08:45 Dose: 10 mg Documented by: Atorvastatin Calcium (Atorvastatin Calcium 40 Mg Tablet) 40 mg PO BEDTIME [facility] Last Admin: 09/11/21 21:08 Dose: 40 mg Documented by: Clonazepam (Clonazepam 0.5 Mg Tablet) 0.5 mg PO BEDTIME [facility] Last Admin: 09/11/21 21:08 Dose: 0.5 mg Documented by: Doxazosin Mesylate (Doxazosin Mesylate 1 Mg Tablet) 5 mg PO BEDTIME [facility]; Protocol Escitalopram Oxalate (Escitalopram Oxalate 5 Mg Tablet) 5 mg PO DAILY [facility] Last Admin: 09/12/21 08:45 Dose: 5 mg Documented by: Hydroxyzine HCl (Hydroxyzine Hcl 25 Mg Tablet) 25 mg PO Q6H PRN PRN Reason: Anxiety Insulin Glargine (Insulin Glargine,Hum.Rec.Anlog 100 Unit/Ml 10 Ml Vial) 25 unit SUBCUT BEDTIME [facility] Last Admin: 09/11/21 21:08 Dose: 25 unit Documented by: Lisinopril (Lisinopril 40 Mg Tablet) 40 mg PO DAILY [facility] Last Admin: 09/12/21 08:44 Dose: 40 mg Documented by: Magnesium Hydroxide (Milk Of Magnesia 30 Ml Oral.Susp) 30 ml PO DAILY PRN PRN Reason: Constipation Methylphenidate HCl (Methylphenidate Hcl 5 Mg Tablet) 10 mg PO DAILY [facility] Last Admin: 09/12/21 08:45 Dose: 10 mg Documented by: Patient Own Medication (Farxiga 10 Mg) 1 each PO DAILY [facility] Last Admin: 09/12/21 08:43 Dose: 1 each Documented by: Trazodone HCl (Trazodone Hcl 50 Mg Tablet) 50 mg PO BEDTIME PRN PRN Reason: Insomnia Allergies Allergies Allergy/AdvReac Type Severity Reaction Status Date / Time bupropion [From WELLBUTRIN] Allergy Severe Seizure Verified 02/01/21 13:53 aripiprazole [From ABILIFY] Allergy Intermediate FACIAL Verified 02/17/21 15:16 TREMORS honey [HONEY] Allergy Intermediate HEADACHES Verified 02/17/21 15:16 lurasidone [From LATUDA] AdvReac Intermediate GETS Verified 02/17/21 15:16 REALLY SICK mirtazapine [MIRTAZAPINE] AdvReac Intermediate BP GOES Verified 02/17/21 15:16 HIGH Assessment & Plan Assessment & Plan (1) Recurrent major depression-severe: Qualifiers: Psychotic features: without psychotic features Qualified Code(s): F33.2 - Major depressive disorder, recurrent severe without psychotic features Status: Acute Code(s): F33.2 - Major depressive disorder, recurrent severe without psychotic features Assessment and Plan: started trial of methylphenidate 5 mg daily as of 09/09, increased to 10 mg daily as of 09/12. otherwise continued outpt regimen. (2) PTSD (post-traumatic stress disorder): Status: Acute Code(s): F43.10 - Post-traumatic stress disorder, unspecified Assessment and Plan: doxazosin dosing increased to 5 mg at bedtime as of 09/12. (3) Hypertension: Status: Acute Code(s): I10 - Essential (primary) hypertension Assessment and Plan: continue home regimen aside from doxazosin change. (4) Diabetes: Status: Acute Code(s): E11.9 - Type 2 diabetes mellitus without complications Assessment and Plan: continue home regimen (5) DALE (obstructive sleep apnea): Status: Acute Code(s): G47.33 - Obstructive sleep apnea (adult) (pediatric) Assessment and Plan: encourage use of CPAP. Plan as above I spent minutes with the patient and/or on the patient floor today, greater than?50% of which was spent counseling/coordinating care. Reason for contiued inpatient stay Substantial Risk for: inability to function and rapid decompensation
[2021-09-12 18:00] VITALS: BP 132/75; PULSE 76; RESP 18; TEMP 36.3; O2SAT 97
[2021-09-12 21:04] LABS: Glucose, Whole Blood 183 mg/dL (60-115)
[2021-09-12] MEDS: Atorvastatin Calcium 40 MG TABLET PO (21:50)
[2021-09-12] MEDS: clonazePAM 0.5 MG TABLET PO (21:50)
[2021-09-12] MEDS: Insulin Glargine,Hum.rec.anlog 100 UNIT/ML 10 ML VIAL 25 UNIT SUBCUT (21:50)
[2021-09-12] MEDS: Doxazosin Mesylate 1 MG TABLET 5 MG PO (21:50)
[2021-09-13 07:45] LABS: Glucose, Whole Blood 133 mg/dL (60-115)
[2021-09-13] MEDS: Methylphenidate HCl 5 MG TABLET 10 MG PO (07:59)
[2021-09-13 08:00] VITALS: BP 128/85; PULSE 67; RESP 16; TEMP 36.9; O2SAT 98
[2021-09-13] MEDS: Escitalopram Oxalate 5 MG TABLET PO (08:00)
[2021-09-13] MEDS: lisinopriL 40 MG TABLET PO (08:00)
[2021-09-13] MEDS: amLODIPine Besylate 10 MG TABLET PO (08:00)
[2021-09-13] MEDS: Acetaminophen 325 MG TABLET 650 MG PO (08:02)
[2021-09-13 18:00] VITALS: BP 135/82; PULSE 65; RESP 18; TEMP 36.8; O2SAT 97
[2021-09-13 21:55] LABS: Glucose, Whole Blood 190 mg/dL (60-115)
[2021-09-13] MEDS: Atorvastatin Calcium 40 MG TABLET PO (22:03)
[2021-09-13] MEDS: Doxazosin Mesylate 1 MG TABLET 5 MG PO (22:03)
[2021-09-13] MEDS: Insulin Glargine,Hum.rec.anlog 100 UNIT/ML 10 ML VIAL 25 UNIT SUBCUT (22:03)
--- NOTE | 2021-09-13 22:17 | P.PNPSI_ITS ---
Subjective Subjective Date of Service: 09/13/21 Reason For Visit: si Interim History: pt c/o headache. agree to try ibuprofen one dose to see if METZGER can be resolved. it is noted methylphenidate can cause METZGER as a side effect and that split dosing is recommended in general. pt agrees to split doses as of tomorrow. no plan made to advance medication dosing until METZGER question is resolved. pt acknowledges he seems to be more active than he was at home. suggests he is essentially suitable to continue treatment in the outpatient realm. will split doses, observe METZGER progress, and tentatively plan for saturday discharge. per staff, attending groups. napped in afternoon. had difficulty sleeping at night. FSBS 143. Mental Status Exam Mental Status Exam Narrative: adequately dressed and groomed. cooperative with interview. moderate PMR. speech nml in amount and loudness, somewhat slowed and monotone. thoughts linear and logical, no thought blocking. affect constricted. no SI/HI/AVH expressed. Diagnostics Vital Signs (24Hr): Vital Signs - 24 hr 09/13/21 08:00 09/13/21 18:00 Temperature 98.4 F 98.3 F Pulse Rate 67 65 Respiratory Rate 16 18 Blood Pressure 128/85 135/82 Pulse Oximetry 98 97 BMI result Verdana 4 Body Mass Index Verdana 4 29.5 Verdana 4 Verdana 4 Labs Results: 09/07/21 17:41 09/07/21 17:41 Labs: Laboratory Results - last 48 hr 09/12/21 09/12/21 09/13/21 08:06 20:59 07:36 POC Glucose 131 H 183 H 133 H 09/13/21 21:50 POC Glucose 190 H Medications Medications Current Medications Acetaminophen (Acetaminophen 325 Mg Tablet) 650 mg PO Q6H PRN PRN Reason: Headache/Pain Mild Scale (1-3) Last Admin: 09/13/21 08:02 Dose: 650 mg Documented by: Al Hydroxide/Mg Hydroxide (Magnesium Hydrox/Alum Hydrox 30 Ml Oral.Susp) 30 ml PO Q6H PRN PRN Reason: Heartburn/Nausea Amlodipine Besylate (Amlodipine Besylate 10 Mg Tablet) 10 mg PO DAILY [facility]; Protocol Last Admin: 09/13/21 08:00 Dose: 10 mg Documented by: Atorvastatin Calcium (Atorvastatin Calcium 40 Mg Tablet) 40 mg PO BEDTIME [facility] Last Admin: 09/13/21 22:03 Dose: 40 mg Documented by: Doxazosin Mesylate (Doxazosin Mesylate 1 Mg Tablet) 5 mg PO BEDTIME [facility]; Protocol Last Admin: 09/13/21 22:03 Dose: 5 mg Documented by: Escitalopram Oxalate (Escitalopram Oxalate 5 Mg Tablet) 5 mg PO DAILY [facility] Last Admin: 09/13/21 08:00 Dose: 5 mg Documented by: Hydroxyzine HCl (Hydroxyzine Hcl 25 Mg Tablet) 25 mg PO Q6H PRN PRN Reason: Anxiety Ibuprofen (Ibuprofen 800 Mg Tablet) 800 mg PO Q6H PRN PRN Reason: Headache Insulin Glargine (Insulin Glargine,Hum.Rec.Anlog 100 Unit/Ml 10 Ml Vial) 25 unit SUBCUT BEDTIME [facility] Last Admin: 09/13/21 22:03 Dose: 25 unit Documented by: Lisinopril (Lisinopril 40 Mg Tablet) 40 mg PO DAILY [facility] Last Admin: 09/13/21 08:00 Dose: 40 mg Documented by: Magnesium Hydroxide (Milk Of Magnesia 30 Ml Oral.Susp) 30 ml PO DAILY PRN PRN Reason: Constipation Methylphenidate HCl (Methylphenidate Hcl 5 Mg Tablet) 10 mg PO DAILY [facility] Last Admin: 09/13/21 07:59 Dose: 10 mg Documented by: Patient Own Medication (Farxiga 10 Mg) 1 each PO DAILY [facility] Last Admin: 09/13/21 07:59 Dose: 1 each Documented by: Trazodone HCl (Trazodone Hcl 50 Mg Tablet) 50 mg PO BEDTIME PRN PRN Reason: Insomnia Allergies Allergies Allergy/AdvReac Type Severity Reaction Status Date / Time bupropion [From Allergy Severe Seizure Verified 02/01/21 13:53 WELLBUTRIN] aripiprazole [From Allergy Intermediate FACIAL Verified 02/17/21 15:16 ABILIFY] TREMORS honey [HONEY] Allergy Intermediate HEADACHES Verified 02/17/21 15:16 lurasidone [From AdvReac Intermediate GETS Verified 02/17/21 15:16 LATUDA] REALLY SICK mirtazapine AdvReac Intermediate BP GOES Verified 02/17/21 15:16 [MIRTAZAPINE] HIGH Assessment & Plan Assessment & Plan (1) Recurrent major depression-severe: Qualifiers: Psychotic features: without psychotic features Qualified Code(s): F33.2 - Major depressive disorder, recurrent severe without psychotic features Status: Acute Code(s): F33.2 - Major depressive disorder, recurrent severe without psychotic features Assessment and Plan: started trial of methylphenidate 5 mg daily as of 09/09, increased to 10 mg daily as of 09/12. dosing split into 5 QAM and 5 QNOON as of 09/14. (2) PTSD (post-traumatic stress disorder): Status: Acute Code(s): F43.10 - Post-traumatic stress disorder, unspecified Assessment and Plan: doxazosin dosing increased to 5 mg at bedtime as of 09/12. (3) Hypertension: Status: Acute Code(s): I10 - Essential (primary) hypertension Assessment and Plan: continue home regimen aside from doxazosin change. (4) Diabetes: Status: Acute Code(s): E11.9 - Type 2 diabetes mellitus without complications Assessment and Plan: continue home regimen (5) DALE (obstructive sleep apnea): Status: Acute Code(s): G47.33 - Obstructive sleep apnea (adult) (pediatric) Assessment and Plan: encourage use of CPAP. Plan as above I spent minutes with the patient and/or on the patient floor today, greater than?50% of which was spent counseling/coordinating care. Reason for contiued inpatient stay Substantial Risk for: inability to function and rapid decompensation
[2021-09-14 07:00] VITALS: BMI 29.1
[2021-09-14 08:30] LABS: Glucose, Whole Blood 120 mg/dL (60-115)
[2021-09-14] MEDS: amLODIPine Besylate 10 MG TABLET PO (08:48)
[2021-09-14] MEDS: Methylphenidate HCl 5 MG TABLET PO ×2 (08:48→12:56)
[2021-09-14] MEDS: lisinopriL 40 MG TABLET PO (08:48)
[2021-09-14] MEDS: Escitalopram Oxalate 5 MG TABLET PO (08:48)
[2021-09-14 09:00] VITALS: BP 116/79; PULSE 73; RESP 16; TEMP 36.7; O2SAT 98
--- NOTE | 2021-09-14 14:44 | HO.PSYCHPN ---
Subjective Subjective Date of Service: 09/14/21 Reason For Visit: si Interim History: pt presents as per yesterday. dressed in lurid colors, soft-spoken. acknowledges some incrfeased energy and more rapid cognition. reports he slept well and without nightmares last night. mood OK. still has 1/10 METZGER, will keep an eye on it. planning for DC tomorrow. per staff, numb on being asked about his depression. impaired concentration. METZGER. visible, sketching in the milieu. can't rate his anx/dep. METZGER slightly better yesterday epifanio. FSBS 133, 190 yesterday. 120 today. slept well overnight. Mental Status Exam Mental Status Exam Narrative: adequately dressed and groomed. cooperative with interview. moderate PMR. speech nml in amount and loudness, somewhat slowed and monotone. thoughts linear and logical, no thought blocking. affect constricted. mood OK. no SI/HI/AVH expressed. Diagnostics Vital Signs (24Hr): Vital Signs - 24 hr 09/13/21 18:00 09/14/21 09:00 Temperature 98.3 F 98.0 F Pulse Rate 65 73 Respiratory Rate 18 16 Blood Pressure 135/82 116/79 Pulse Oximetry 97 98 BMI result Body Mass Index 29.1 Labs Results: 09/07/21 17:41 09/07/21 17:41 Labs: Laboratory Results - last 48 hr 09/12/21 09/13/21 09/13/21 20:59 07:36 21:50 POC Glucose 183 H 133 H 190 H 09/14/21 08:27 POC Glucose 120 H Medications Medications Current Medications Acetaminophen (Acetaminophen 325 Mg Tablet) 650 mg PO Q6H PRN PRN Reason: Headache/Pain Mild Scale (1-3) Last Admin: 09/13/21 08:02 Dose: 650 mg Documented by: Al Hydroxide/Mg Hydroxide (Magnesium Hydrox/Alum Hydrox 30 Ml Oral.Susp) 30 ml PO Q6H PRN PRN Reason: Heartburn/Nausea Amlodipine Besylate (Amlodipine Besylate 10 Mg Tablet) 10 mg PO DAILY [facility]; Protocol Last Admin: 09/14/21 08:48 Dose: 10 mg Documented by: Atorvastatin Calcium (Atorvastatin Calcium 40 Mg Tablet) 40 mg PO BEDTIME [facility] Last Admin: 09/13/21 22:03 Dose: 40 mg Documented by: Doxazosin Mesylate (Doxazosin Mesylate 1 Mg Tablet) 5 mg PO BEDTIME [facility]; Protocol Last Admin: 09/13/21 22:03 Dose: 5 mg Documented by: Escitalopram Oxalate (Escitalopram Oxalate 5 Mg Tablet) 5 mg PO DAILY [facility] Last Admin: 09/14/21 08:48 Dose: 5 mg Documented by: Hydroxyzine HCl (Hydroxyzine Hcl 25 Mg Tablet) 25 mg PO Q6H PRN PRN Reason: Anxiety Ibuprofen (Ibuprofen 800 Mg Tablet) 800 mg PO Q6H PRN PRN Reason: Headache Insulin Glargine (Insulin Glargine,Hum.Rec.Anlog 100 Unit/Ml 10 Ml Vial) 25 unit SUBCUT BEDTIME [facility] Last Admin: 09/13/21 22:03 Dose: 25 unit Documented by: Lisinopril (Lisinopril 40 Mg Tablet) 40 mg PO DAILY [facility] Last Admin: 09/14/21 08:48 Dose: 40 mg Documented by: Magnesium Hydroxide (Milk Of Magnesia 30 Ml Oral.Susp) 30 ml PO DAILY PRN PRN Reason: Constipation Methylphenidate HCl (Methylphenidate Hcl 5 Mg Tablet) 5 mg PO BID@0700,1200 [facility] Last Admin: 09/14/21 12:56 Dose: 5 mg Documented by: Patient Own Medication (Farxiga 10 Mg) 1 each PO DAILY [facility] Last Admin: 09/14/21 08:48 Dose: 1 each Documented by: Trazodone HCl (Trazodone Hcl 50 Mg Tablet) 50 mg PO BEDTIME PRN PRN Reason: Insomnia Allergies Allergies Allergy/AdvReac Type Severity Reaction Status Date / Time bupropion [From WELLBUTRIN] Allergy Severe Seizure Verified 02/01/21 13:53 aripiprazole [From ABILIFY] Allergy Intermediate FACIAL Verified 02/17/21 15:16 TREMORS honey [HONEY] Allergy Intermediate HEADACHES Verified 02/17/21 15:16 lurasidone [From LATUDA] AdvReac Intermediate GETS Verified 02/17/21 15:16 REALLY SICK mirtazapine [MIRTAZAPINE] AdvReac Intermediate BP GOES Verified 02/17/21 15:16 HIGH Assessment & Plan Assessment & Plan (1) Recurrent major depression-severe: Qualifiers: Psychotic features: without psychotic features Qualified Code(s): F33.2 - Major depressive disorder, recurrent severe without psychotic features Status: Acute Code(s): F33.2 - Major depressive disorder, recurrent severe without psychotic features Assessment and Plan: started trial of methylphenidate 5 mg daily as of 09/09, increased to 10 mg daily as of 09/12. dosing split into 5 QAM and 5 QNOON as of 09/14. (2) PTSD (post-traumatic stress disorder): Status: Acute Code(s): F43.10 - Post-traumatic stress disorder, unspecified Assessment and Plan: doxazosin dosing increased to 5 mg at bedtime as of 09/12. (3) Hypertension: Status: Acute Code(s): I10 - Essential (primary) hypertension Assessment and Plan: continue home regimen aside from doxazosin change. (4) Diabetes: Status: Acute Code(s): E11.9 - Type 2 diabetes mellitus without complications Assessment and Plan: continue home regimen (5) DALE (obstructive sleep apnea): Status: Acute Code(s): G47.33 - Obstructive sleep apnea (adult) (pediatric) Assessment and Plan: encourage use of CPAP. Plan as above I spent minutes with the patient and/or on the patient floor today, greater than?50% of which was spent counseling/coordinating care. Reason for contiued inpatient stay Substantial Risk for: inability to function and rapid decompensation
[2021-09-14 18:00] VITALS: BP 127/60; PULSE 72; RESP 14; TEMP 36.5; O2SAT 96
[2021-09-14] MEDS: Doxazosin Mesylate 1 MG TABLET 5 MG PO (21:33)
[2021-09-14] MEDS: Atorvastatin Calcium 40 MG TABLET PO (21:35)
[2021-09-14] MEDS: Insulin Glargine,Hum.rec.anlog 100 UNIT/ML 10 ML VIAL 25 UNIT SUBCUT (22:32)
[2021-09-14 22:39] LABS: Glucose, Whole Blood 216 mg/dL (60-115)
[2021-09-15] MEDS: Methylphenidate HCl 5 MG TABLET PO ×2 (08:27→12:44)
[2021-09-15] MEDS: lisinopriL 40 MG TABLET PO (08:27)
[2021-09-15] MEDS: Escitalopram Oxalate 5 MG TABLET PO (08:27)
[2021-09-15] MEDS: amLODIPine Besylate 10 MG TABLET PO (08:28)
[2021-09-15 09:02] VITALS: BP 118/67; PULSE 64; RESP 14; TEMP 36.3; O2SAT 96
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
== END 2021-09-15 13:45 | disposition home or self-care (01) | DRG 885 ==
LOC: HO.ED 17:30 → HO.PADLT16 09-08 01:05
PROVIDERS: Physician Assistant; Social Worker; Admitting Provider Psychiatry & Neurology Psychiatry; Emergency Provider Emergency Medicine Emergency Medical Services; PCP Hospitalist; Visit Provider Psychiatry & Neurology Psychiatry
DX: F33.2 Major depressive disorder, recurrent severe without psychotic features (principal); G47.33 Obstructive sleep apnea (adult) (pediatric); F43.10 Post-traumatic stress disorder, unspecified; I12.9 Hypertensive chronic kidney disease with stage 1 through stage 4 chronic kidney disease, or unspecified chronic kidney disease; N18.9 Chronic kidney disease, unspecified; D63.1 Anemia in chronic kidney disease; E11.22 Type 2 diabetes mellitus with diabetic chronic kidney disease; Z20.822 Contact with and (suspected) exposure to COVID-19; Z79.4 Long term (current) use of insulin; Z79.899 Other long term (current) drug therapy
CPT/HCPCS: 36415; 80048; 80061; 80307; 81001; 82607; 82746; 82947; 83036; 84443; 85025; 87635; 93005; 99285

== ENCOUNTER 2021-10-18 11:00 | Outpatient (RCR) | payer MEDICARE, SELFPAY ==
[2021-09-26 11:47] VITALS: BMI 28.8
--- NOTE | 2021-09-26 12:00 | PC.ADMIT ---
Patient is a 51 year old male who was referred to [facility] by inpatient [facility] behavioral health unit as step down to treatment. Patient reported increased depression with passive SI no plan or intent, and increased PTSD sxs. Feelings of helplessness and hopelessness. Patient has a dx of MDD recurrent, severe. He has a history of inpatient and [facility] admissions and a history of SA. Patient denied any history of current of past substance use issues. Patient reports his is supportive. Denied SI currently. Patient is alert and oriented x4. calm and cooperative. Presents with depressed mood and affect. Medications reconciled with patient and patient's d/c medication list from inpatient unit. Patient reports taking as prescribed. Reports he is also taking Farxiga 10 mg daily which he received in the hospital as his brought in the medication.
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
--- NOTE | 2021-09-28 15:28 | PC.NURSE ---
Case opened in treatment team.
--- NOTE | 2021-10-03 15:26 | PC.NURSE ---
case opened in treatment team.
--- NOTE | 2021-10-04 08:26 | PC.NURSE ---
Case opened in treatment team.
--- NOTE | 2021-10-04 10:56 | P.PNPSP_ITS ---
Subjective Subjective Date of Service: 10/04/21 Reason For Visit: MDD, Severe, recurrent PTSD Guardianship: No Medical Problems Affecting Mental Status: No Interim History: Partha reports he continues with depressed mood. Denies an SI. Says becomes more anxious toward end of day. Feels groups are helping improve symptoms. Had intake for a new therapist yesterday. Medication Compliance: Yes Side effects from medications: No Attending Groups: Yes Review of Systems Acute medical concerns: No Medical Review of Systems: unchanged Review of Systems Review of Systems Yes all other systems are reviewed and are negative Constitutional: Reports no additional constitutional complaints Mental Status Exam Mental Status Exam Narrative: Well developed, well nourished male, in NAD. Sitting up in chair, fully attentive during encounter. Patient Appearance: Well Grooomed and Appropriate Patient Orientation: Person, Place, Time and Situation Level of Consciousness: Awake, Appropriate and Alert Patient Behavior: Appropriate, Cooperative and Good Eye Contact Mood Description: Depressed and Anxious Affect Description: Depressed, Blunted and Flat Patient Cognition Impaired: No Ability to Follow Directions: Good Speech Pattern: Clear, Appropriate and Coherent Memory Description: Intact Hallucinations: None Delusions: Not Present Thought Process: Intact, Goal Oriented and Linear Thought Content: positive for Intact, positive for Goal Oriented and positive for Linear Depressive Symptoms: Increased Anxiety, Loss of Int. in Activity, Hopelessness, Feelings of Guilt and Increased Fatigue Judgement: Fair Diagnostics Vital Signs (24Hr): BMI result Body Mass Index 28.8 Assessment & Plan Assessment & Plan (1) Recurrent major depression-severe: Qualifiers: Psychotic features: without psychotic features Qualified Code(s): F33.2 - Major depressive disorder, recurrent severe without psychotic features Status: Acute Code(s): F33.2 - Major depressive disorder, recurrent severe without psychotic features Assessment and Plan: Client denies any SI at this time, and then states ?plus I do not have the energy to do it ?. States that he is here trying to work on some issues while in groups. Reports that he is finding them helpful. Partha is interested in TMS, as he feels his medications are not fully addressing his depression. Discussed his current medications, he reports he is only taking Lexapro 3 mg a day, and that his insulin is down to 15 units. He is seeing his primary care provider later today. He says that he takes small doses of medications as he is extremely sensitive, and experiences excessive side effects when the dose or higher. He is hoping that TMS would be wonderful if it is effective. Education provided. (2) PTSD (post-traumatic stress disorder): Status: Acute Code(s): F43.10 - Post-traumatic stress disorder, unspecified (3) Anxiety: Status: Acute Code(s): F41.9 - Anxiety disorder, unspecified Plan 1. Continue with current medication regimen as prescribed. 2. Continue with current [facility] plan of care. 3. Dr. Colvin and Joanna Brown contacted regarding client's desire to continue with process of TMS referral. 4. Follow-up as per protocol. Patient educated on: diagnosis, medication risk/benefits, TMS and therapeutic strategies Informed Consent: understands Reason for contiued partial hosp. stay Substantial Risk for: inability to function and med/psych decompensation Certification I certify that partial hospital treatment is medically necessary due to the symptoms and problems resulting from the patient's mental illness and the failure to treat the patient at the partial hospital level of care would likely result in the patient requiring inpatient psychiatric care which could not be prevented at a less intensive level of care. I spent minutes with the patient and/or on the patient floor today, greater than?50% of which was spent counseling/coordinating care. Discharge Plan Discharge Attending provider: Earnest Rincon Medications: No Action clonazepam 0.5 mg tablet 0.25 mg PO BEDTIME 0RF escitalopram oxalate 5 mg/5 mL solution 5 mg PO DAILY 0RF amlodipine 10 mg tablet 1 tab PO DAILY 0RF benazepril 40 mg tablet 1 tab PO DAILY 0RF Lantus Solostar U-100 Insulin 100 unit/mL (3 mL) insulin pen 25 unit subcut BEDTIME 0RF doxazosin 1 mg Tablet 5 mg PO BEDTIME 30 Days Qty: 150 0RF Protocol: Hold for SBP< HOLD for SBP < : 90 methylphenidate HCl 5 mg Tablet 5 mg PO BID@0700,1200 30 Days Qty: 60 0RF Farxiga 10 mg Tablet 10 mg PO DAILY 0RF Label Comments: Patient stated he is also on Farxiga 10 mg daily and was given this in the hospital. Stated his brought the medication in the hospital so he could take it. Stand Alone Forms: Patient Portal Discharge page Telehealth Telehealth Location of provider rendering services: practice address Location of patient: address on file Patient Identification confirmed using: Name, : Yes Telehealth method: video Patient verbally consented to treatment: Yes Patient verbally consented to billing insurance company: Yes Patient informed of any privacy concerns related to visit: Yes Time spent with patient (mins): 15
--- NOTE | 2021-10-12 13:08 | P.PNPSP_ITS ---
Subjective Subjective Date of Service: 10/12/21 Reason For Visit: MDD, Severe, recurrent PTSD Guardianship: No Medical Problems Affecting Mental Status: No Interim History: Describes mood as okay . Reports that ?last group was a little tough ?. Denies thoughts of SI. Reports ?I am having difficulty dealing with my issues ?. Continues with depressed mood/affect. Reports recent medication change by outpatient provider. Medication Compliance: Yes Side effects from medications: No Attending Groups: Yes Review of Systems Acute medical concerns: No Medical Review of Systems: unchanged Review of Systems Review of Systems Yes all other systems are reviewed and are negative Constitutional: Reports no additional constitutional complaints Mental Status Exam Mental Status Exam Narrative: Well developed, well nourished male, in NAD. Sitting up in chair, fully attentive during encounter. Denies SI, no safety concern. Patient Appearance: Well Grooomed and Appropriate Patient Orientation: Person, Place, Time and Situation Level of Consciousness: Awake, Appropriate and Alert Patient Behavior: Appropriate, Cooperative and Good Eye Contact Mood Description: Depressed and Anxious Affect Description: Depressed, Blunted and Flat Patient Cognition Impaired: No Ability to Follow Directions: Good Speech Pattern: Clear, Appropriate and Coherent Memory Description: Intact Hallucinations: None Delusions: Not Present Thought Process: Intact, Goal Oriented and Linear Thought Content: positive for Intact, positive for Goal Oriented and positive for Linear Depressive Symptoms: Increased Anxiety, Loss of Int. in Activity, Hopelessness, Feelings of Guilt, Unhappiness, Increased Fatigue and Loss of Energy Judgement: Fair Diagnostics Vital Signs (24Hr): BMI result Body Mass Index 28.8 Assessment & Plan Assessment & Plan (1) Recurrent major depression-severe: Qualifiers: Psychotic features: without psychotic features Qualified Code(s): F33.2 - Major depressive disorder, recurrent severe without psychotic features Status: Acute Code(s): F33.2 - Major depressive disorder, recurrent severe without psychotic features Assessment and Plan: Continues with anxious, depressed mood an affect. Reports that Lexapro was lowered to 2 mg daily yesterday, by psychiatric outpatient provider, Valeria Bey. Reports he is having difficulty in groups at times, states that ?I am having difficulty dealing with my issues . Then stated, I do not want to deal with them, it has been hard ?. Denies any thoughts of self-harm or harm to others, denies SI, no safety concern at this time. Reports he is finding groups helpful. (2) PTSD (post-traumatic stress disorder): Status: Acute Code(s): F43.10 - Post-traumatic stress disorder, unspecified Plan 1. Continue with current medication regimen as prescribed by outpatient provider. 2. Continue with current [facility] plan of care. 3. Follow-up as per protocol. Patient educated on: diagnosis, medication risk/benefits and therapeutic strategies Informed Consent: understands Reason for contiued partial hosp. stay Substantial Risk for: harm to self, inability to function and med/psych decompensation Certification I certify that partial hospital treatment is medically necessary due to the symptoms and problems resulting from the patient's mental illness and the failure to treat the patient at the partial hospital level of care would likely result in the patient requiring inpatient psychiatric care which could not be prevented at a less intensive level of care. I spent ___20___ minutes with the patient and/or on the patient floor today, greater than?50% of which was spent counseling/coordinating care. Discharge Plan Discharge Attending provider: Earnest Rincon Medications: Changed escitalopram oxalate 5 mg/5 mL solution 2 mg PO DAILY Qty: 0 0RF No Action clonazepam 0.5 mg tablet 0.25 mg PO BEDTIME 0RF amlodipine 10 mg tablet 1 tab PO DAILY 0RF benazepril 40 mg tablet 1 tab PO DAILY 0RF Lantus Solostar U-100 Insulin 100 unit/mL (3 mL) insulin pen 25 unit subcut BEDTIME 0RF doxazosin 1 mg Tablet 5 mg PO BEDTIME 30 Days Qty: 150 0RF Protocol: Hold for SBP< HOLD for SBP < : 90 methylphenidate HCl 5 mg Tablet 5 mg PO BID@0700,1200 30 Days Qty: 60 0RF Farxiga 10 mg Tablet 10 mg PO DAILY 0RF Label Comments: Patient stated he is also on Farxiga 10 mg daily and was given this in the hospital. Stated his brought the medication in the hospital so he could take it. Stand Alone Forms: Patient Portal Discharge page Telehealth Telehealth Location of provider rendering services: practice address Location of patient: address on file Patient Identification confirmed using: Name, : Yes Telehealth method: video Patient verbally consented to treatment: Yes Patient verbally consented to billing insurance company: Yes Patient informed of any privacy concerns related to visit: Yes Time spent with patient (mins): 20
--- NOTE | 2021-10-18 12:20 | PC.NURSE ---
Patient discharged from the [facility] today. Denied SI. Feeling better overall. Reviewed patient medications with patient. Patient reports taking medications as prescribed. Stated he is not taking 18 units of Lantus Solostar daily and Clonazepam 0.5 mg Q HS and additional Clonazepam 0.25 mg as needed Daily for anxiety.
--- NOTE | 2021-10-18 13:31 | HO.PHPPROGNO ---
Subjective Subjective Date of Service: 10/18/21 Reason For Visit: MDD, Severe, recurrent PTSD Guardianship: No Medical Problems Affecting Mental Status: No Interim History: Reports that he has a slight headache, but states ?I am otherwise okay ?. Describes mood further as I'm working on it, I'm a little anxious . Denies SI, HI, no thoughts of harm to self or others, no safety concerns. Reports he has found PHP helpful. Continues working on obtaining a new therapist, as his is retiring in 2 months. Medication Compliance: Yes Side effects from medications: No Attending Groups: Yes Review of Systems Acute medical concerns: No Medical Review of Systems: unchanged Review of Systems Review of Systems Yes all other systems are reviewed and are negative Constitutional: Reports no additional constitutional complaints Mental Status Exam Mental Status Exam Narrative: Well developed, well nourished male, in NAD. Anxious mood and affect, although improved. SI, no safety concern. Patient Appearance: Well Grooomed and Appropriate Patient Orientation: Person, Place, Time and Situation Level of Consciousness: Awake, Appropriate and Alert Patient Behavior: Appropriate, Cooperative and Good Eye Contact Mood Description: Depressed (still present, although improved. ) and Anxious Affect Description: Depressed and Anxious Patient Cognition Impaired: No Ability to Follow Directions: Excellent Speech Pattern: Clear, Appropriate, Coherent and Soft-Spoken Memory Description: Intact Hallucinations: None Delusions: Not Present Thought Process: Intact, Goal Oriented and Linear Thought Content: positive for Intact, positive for Goal Oriented and positive for Linear Depressive Symptoms: Increased Anxiety, Loss of Int. in Activity and Feelings of Guilt Judgement: Good Diagnostics Vital Signs (24Hr): BMI result Body Mass Index 28.8 Assessment & Plan Assessment & Plan (1) Recurrent major depression-severe: Qualifiers: Psychotic features: without psychotic features Qualified Code(s): F33.2 - Major depressive disorder, recurrent severe without psychotic features Status: Acute Code(s): F33.2 - Major depressive disorder, recurrent severe without psychotic features Assessment and Plan: Patient continues with some dysphoric mood, although reports he feels it is improving. Anxious mood and affect. He states that he knows he will need to decompress after participation in partial, as being here involved in group process brings up a lot of work for him to focus on. He states overall he feels improved, and that PHP has been helpful. Reports current medications are working at current doses, no med changes requested at this time. Denies any thought of harm to self or others, no safety concern at this time. He continues to look for new therapist, as his is retiring in 2 months. He reports that this is causing some level of anxiety, but that he continues to work finding one, and has obtained a list of therapists from his insurance company. (2) PTSD (post-traumatic stress disorder): Status: Acute Code(s): F43.10 - Post-traumatic stress disorder, unspecified Plan 1. Continue with current medications as prescribed by outpatient provider. 2. Patient appears stable for discharge from [facility]. 3. Patient will follow-up with outpatient providers going forward. Patient educated on: diagnosis, medication risk/benefits and therapeutic strategies Informed Consent: understands Reason for contiued partial hosp. stay Substantial Risk for: stable for discharge Certification I certify that partial hospital treatment is medically necessary due to the symptoms and problems resulting from the patient's mental illness and the failure to treat the patient at the partial hospital level of care would likely result in the patient requiring inpatient psychiatric care which could not be prevented at a less intensive level of care. I spent minutes with the patient and/or on the patient floor today, greater than?50% of which was spent counseling/coordinating care. Discharge Plan Discharge Attending provider: Earnest Rincon Medications: Changed escitalopram oxalate 5 mg/5 mL solution 2 mg PO DAILY Qty: 0 0RF No Action clonazepam 0.5 mg tablet 0.25 mg PO DAILY PRN (Reason: Anxiety) 0RF Label Comments: Filled 10/02/21 amlodipine 10 mg tablet 1 tab PO DAILY 0RF benazepril 40 mg tablet 1 tab PO DAILY 0RF Lantus Solostar U-100 Insulin 100 unit/mL (3 mL) insulin pen 18 unit subcut BEDTIME 0RF Label Comments: Patient stated Lantus was decreased from 25 units to 18 units at HS. doxazosin 1 mg Tablet 5 mg PO BEDTIME 30 Days Qty: 150 0RF Protocol: Hold for SBP< HOLD for SBP < : 90 methylphenidate HCl 5 mg Tablet 5 mg PO BID@0700,1200 30 Days Qty: 60 0RF Farxiga 10 mg Tablet 10 mg PO DAILY 0RF Label Comments: Patient stated he is also on Farxiga 10 mg daily and was given this in the hospital. Stated his brought the medication in the hospital so he could take it. clonazepam 0.5 mg Tablet 0.5 mg PO BEDTIME 0RF Label Comments: Filled 10/02/21. Rx Instructions: administer 30 minutes before bedtime Stand Alone Forms: Patient Portal Discharge page Telehealth Telehealth Location of provider rendering services: practice address Location of patient: address on file Patient Identification confirmed using: Name, : Yes Telehealth method: video Patient verbally consented to treatment: Yes Patient verbally consented to billing insurance company: Yes Patient informed of any privacy concerns related to visit: Yes Time spent with patient (mins): 20
--- NOTE | 2021-10-18 15:58 | PC.NURSE ---
I called and left a message for pt's therapist, Sol Joe ([phone]). I informed her about pt's successful discharge from [facility] today.
== END 2021-10-18 23:59 | disposition home or self-care (01) ==
LOC: HO.PHPA 11:00
PROVIDERS: Visit Provider Psychiatry & Neurology Psychiatry
DX: F33.2 Major depressive disorder, recurrent severe without psychotic features (principal); F43.10 Post-traumatic stress disorder, unspecified; F41.9 Anxiety disorder, unspecified; Z79.899 Other long term (current) drug therapy
CPT/HCPCS: 90791; 90853

== ENCOUNTER 2021-10-31 08:01 | Outpatient (REF) | payer MEDICARE, SELFPAY ==
--- NOTE | 2021-10-31 08:00 | EEG_ITS ---
This is a 16-channel EEG with an EKG lead. The patient is reported awake and alert during the tracing. Background EEG rhythm is low amplitude fast with no obvious asymmetry or paroxysmal tendency. Some frontal muscle artifacts are noted. Photic stimulation does not produce any significant abnormality. Cardiac lead revealed sinus bradycardia with a rate of about 55 to 60 per minute. Hyperventilation was not performed. No sharp wave spikes or paroxysmal tendency noted. IMPRESSION: 1. Unremarkable electroencephalogram. 2. Sinus bradycardia. MD CARMEN Moulton/LACEY / [id number]
== END 2021-10-31 08:02 | disposition home or self-care (01) ==
LOC: HO.NEURO 08:01
PROVIDERS: Visit Provider Psychiatry & Neurology Psychiatry
DX: Z86.69 Personal history of other diseases of the nervous system and sense organs (principal)
CPT/HCPCS: 95816

== ENCOUNTER → 2023-01-21 17:16 | Outpatient (RCR) | payer MEDICARE, SELFPAY ==
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
--- NOTE | 2021-11-10 21:01 | HO.TMSDAILY2 ---
TMS Daily Progress Note Daily TMS Progress Note Date of Service: 11/10/21 Week #: 1 Treatment #(09-10): 2 PHQ-9 Pre-Treatment (09-07): 22 PHQ-9 Most Recent (09-07): 22 Reviewed: TMS Tech Note Reviewed Verification: I have reviewed the TMS Flight Communications Specialist Note and agree with the contents. The patient remains a candidate to continue TMS treatment per protocol. Pt tolerating procedure no alt sensorium
--- NOTE | 2021-11-13 10:04 | HO.TMSDAILY2 ---
TMS Daily Progress Note Daily TMS Progress Note Date of Service: 11/13/21 Week #: 1 Treatment #(09-10): 3 PHQ-9 Pre-Treatment (09-07): 22 PHQ-9 Most Recent (09-07): 22 Reviewed: TMS Tech Note Reviewed Verification: I have reviewed the TMS Cuprous Chloride Helper Note and agree with the contents. The patient remains a candidate to continue TMS treatment per protocol. Patient remains depressed no adverse effects continue treatment plan
--- NOTE | 2021-11-14 13:23 | P.PNPS_ITS ---
TMS Daily Progress Note Daily TMS Progress Note Date of Service: 11/14/21 Week #: 1 Treatment #(09-10): 4 PHQ-9 Pre-Treatment (09-07): 22 PHQ-9 Most Recent (09-07): 22 Reviewed: TMS Tech Note Reviewed Verification: I have reviewed the TMS Business Law Teacher Note and agree with the contents. The patient remains a candidate to continue TMS treatment per protocol.
--- NOTE | 2021-11-17 20:03 | HO.TMSDAILY2 ---
TMS Daily Progress Note Daily TMS Progress Note Date of Service: 11/15/21 Week #: 1 Treatment #(09-10): 5 PHQ-9 Pre-Treatment (09-07): 22 PHQ-9 Most Recent (09-07): 18 Reviewed: TMS Tech Note Reviewed Verification: I have reviewed the TMS Shield Installer Note and agree with the contents. The patient remains a candidate to continue TMS treatment per protocol. Assessment and Plan (1) Recurrent major depression-severe: Qualifiers: Psychotic features: without psychotic features Qualified Code(s): F33.2 - Major depressive disorder, recurrent severe without psychotic features Status: Acute Plan cont tx plan pt beginning to adj to tx for 11/15/21
--- NOTE | 2021-11-17 20:07 | HO.TMSDAILY2 ---
TMS Daily Progress Note Daily TMS Progress Note Date of Service: 11/16/21 Week #: 2 Treatment #(09-10): 6 PHQ-9 Pre-Treatment (09-07): 22 PHQ-9 Most Recent (09-07): 18 Reviewed: TMS Tech Note Reviewed (for 11/16/21) Verification: I have reviewed the TMS Insurance Consultant Note and agree with the contents. The patient remains a candidate to continue TMS treatment per protocol.
--- NOTE | 2021-11-17 20:16 | HO.TMSDAILY2 ---
TMS Daily Progress Note Daily TMS Progress Note Date of Service: 11/17/21 Week #: 2 Treatment #(09-10): 7 PHQ-9 Pre-Treatment (09-07): 22 PHQ-9 Most Recent (09-07): 18 Reviewed: TMS Tech Note Reviewed Verification: I have reviewed the TMS Turbine Measurements Engineer Note and agree with the contents. The patient remains a candidate to continue TMS treatment per protocol. Assessment and Plan (1) Recurrent major depression-severe: Qualifiers: Psychotic features: without psychotic features Qualified Code(s): F33.2 - Major depressive disorder, recurrent severe without psychotic features Status: Acute Plan cont tx plan
--- NOTE | 2021-11-20 17:17 | P.PNPS_ITS ---
TMS Daily Progress Note Daily TMS Progress Note Date of Service: 11/20/21 Week #: 2 Treatment #(09-10): 8 PHQ-9 Pre-Treatment (09-07): 22 PHQ-9 Most Recent (09-07): 18 Reviewed: TMS Tech Note Reviewed Verification: I have reviewed the TMS Commercial Real Estate Associate Note and agree with the contents. The patient remains a candidate to continue TMS treatment per protocol.
--- NOTE | 2021-11-21 21:38 | P.PNPS_ITS ---
TMS Daily Progress Note Daily TMS Progress Note Date of Service: 11/21/21 Week #: 2 Treatment #(09-10): 9 PHQ-9 Pre-Treatment (09-07): 22 PHQ-9 Most Recent (09-07): 18 Reviewed: TMS Tech Note Reviewed Verification: I have reviewed the TMS Packing And Stamping Machine Operator Note and agree with the contents. The patient remains a candidate to continue TMS treatment per protocol. Assessment and Plan (1) Recurrent major depression-severe: Qualifiers: Psychotic features: without psychotic features Qualified Code(s): F33.2 - Major depressive disorder, recurrent severe without psychotic features Status: Acute Plan cont tx plan
--- NOTE | 2021-11-22 22:52 | P.PNPS_ITS ---
TMS Daily Progress Note Daily TMS Progress Note Date of Service: 11/22/21 Week #: 2 Treatment #(09-10): 10 PHQ-9 Pre-Treatment (09-07): 22 PHQ-9 Most Recent (09-07): 18 Reviewed: TMS Tech Note Reviewed Verification: I have reviewed the TMS Landscape Drafter Note and agree with the contents. The patient remains a candidate to continue TMS treatment per protocol.
--- NOTE | 2021-11-28 22:09 | P.PNPS_ITS ---
TMS Daily Progress Note Daily TMS Progress Note Date of Service: 11/28/21 Week #: 3 Treatment #(09-10): 13 PHQ-9 Pre-Treatment (09-07): 22 PHQ-9 Most Recent (09-07): 18 Reviewed: TMS Tech Note Reviewed Verification: I have reviewed the TMS Junior Business Analyst Note and agree with the contents. The patient remains a candidate to continue TMS treatment per protocol.
--- NOTE | 2021-11-29 23:39 | HO.TMSDAILY2 ---
TMS Daily Progress Note Daily TMS Progress Note Date of Service: 11/30/21 Week #: 3 Treatment #(09-10): 14 PHQ-9 Pre-Treatment (09-07): 22 PHQ-9 Most Recent (09-07): 18 Reviewed: TMS Tech Note Reviewed Verification: I have reviewed the TMS Chemical Laboratory Tester Note and agree with the contents. The patient remains a candidate to continue TMS treatment per protocol.
--- NOTE | 2021-12-01 23:47 | HO.TMSDAILY2 ---
TMS Daily Progress Note Daily TMS Progress Note Date of Service: 12/01/21 Treatment #(09-10): 14 PHQ-9 Pre-Treatment (09-07): 22 PHQ-9 Most Recent (09-07): 18 Verification: I have reviewed the TMS Wholesale Diamond Broker Note and agree with the contents. The patient remains a candidate to continue TMS treatment per protocol.
--- NOTE | 2021-12-05 10:28 | P.PNPS_ITS ---
TMS Daily Progress Note Daily TMS Progress Note Date of Service: 12/04/21 Week #: 3 Treatment #(130): 15 Verification: I have reviewed the TMS Airport Operations Coordinator Note and agree with the contents. The patient remains a candidate to continue TMS treatment per protocol.
--- NOTE | 2021-12-05 10:32 | HO.TMSDAILY2 ---
TMS Daily Progress Note Daily TMS Progress Note Date of Service: 12/04/21 Week #: 3 Treatment #(09-10): 15 PHQ-9 Pre-Treatment (09-07): 22 PHQ-9 Most Recent (09-07): 12 Reviewed: TMS Tech Note Reviewed Verification: I have reviewed the TMS Director Human Services Note and agree with the contents. The patient remains a candidate to continue TMS treatment per protocol.
--- NOTE | 2021-12-05 21:28 | P.PNPS_ITS ---
TMS Daily Progress Note Daily TMS Progress Note Date of Service: 12/05/21 Week #: 4 Treatment #(09-10): 16 PHQ-9 Pre-Treatment (09-07): 22 PHQ-9 Most Recent (09-07): 12 Reviewed: TMS Tech Note Reviewed Verification: I have reviewed the TMS Climate Change Analyst Note and agree with the contents. The patient remains a candidate to continue TMS treatment per protocol.
--- NOTE | 2021-12-07 13:38 | HO.TMSDAILY2 ---
TMS Daily Progress Note Daily TMS Progress Note Date of Service: 12/07/21 Week #: 4 Treatment #(09-10): 18 PHQ-9 Pre-Treatment (09-07): 22 PHQ-9 Most Recent (09-07): 12 Reviewed: TMS Tech Note Reviewed Verification: I have reviewed the TMS Customer Experience Analyst Note and agree with the contents. The patient remains a candidate to continue TMS treatment per protocol. Assessment and Plan (1) Recurrent major depression-severe: Qualifiers: Psychotic features: without psychotic features Qualified Code(s): F33.2 - Major depressive disorder, recurrent severe without psychotic features Status: Acute Plan cont tx plan
--- NOTE | 2021-12-11 22:20 | HO.TMSDAILY2 ---
TMS Daily Progress Note Daily TMS Progress Note Date of Service: 12/11/21 Week #: 4 Treatment #(09-10): 20 PHQ-9 Pre-Treatment (09-07): 22 PHQ-9 Most Recent (09-07): 12 Reviewed: TMS Tech Note Reviewed Verification: I have reviewed the TMS Camp Dining Room Attendant Note and agree with the contents. The patient remains a candidate to continue TMS treatment per protocol.
--- NOTE | 2021-12-12 15:10 | HO.TMSDAILY2 ---
TMS Daily Progress Note Daily TMS Progress Note Date of Service: 11/23/21 Week #: 3 (11) Treatment #(09-10): 20 PHQ-9 Pre-Treatment (09-07): 22 PHQ-9 Most Recent (09-07): 12 Reviewed: TMS Tech Note Reviewed Verification: I have reviewed the TMS Host/Hostess Restaurant Note and agree with the contents. The patient remains a candidate to continue TMS treatment per protocol.
--- NOTE | 2021-12-12 15:12 | P.PNPS_ITS ---
TMS Daily Progress Note Daily TMS Progress Note Date of Service: 11/24/21 Week #: 3 (12) Treatment #(09-10): 20 PHQ-9 Pre-Treatment (09-07): 22 PHQ-9 Most Recent (09-07): 12 Reviewed: TMS Tech Note Reviewed Verification: I have reviewed the TMS Sack Sewer Machine Note and agree with the contents. The patient remains a candidate to continue TMS treatment per protocol.
--- NOTE | 2021-12-12 23:11 | HO.TMSDAILY2 ---
TMS Daily Progress Note Daily TMS Progress Note Date of Service: 12/12/21 Week #: 5 Treatment #(09-10): 21 PHQ-9 Pre-Treatment (09-07): 22 PHQ-9 Most Recent (09-07): 12 Reviewed: TMS Tech Note Reviewed Verification: I have reviewed the TMS Personnel Recruiter Note and agree with the contents. The patient remains a candidate to continue TMS treatment per protocol.
--- NOTE | 2021-12-14 23:58 | HO.TMSDAILY2 ---
TMS Daily Progress Note Daily TMS Progress Note Date of Service: 12/13/21 Week #: 5 Treatment #(09-10): 22 PHQ-9 Pre-Treatment (09-07): 22 PHQ-9 Most Recent (09-07): 12 Reviewed: TMS Tech Note Reviewed (12/13/21) Verification: I have reviewed the TMS Building Maintenance Mechanic Note and agree with the contents. The patient remains a candidate to continue TMS treatment per protocol.
--- NOTE | 2021-12-14 23:58 | HO.TMSDAILY2 ---
TMS Daily Progress Note Daily TMS Progress Note Date of Service: 12/14/21 Week #: 5 Treatment #(09-10): 23 PHQ-9 Pre-Treatment (09-07): 22 PHQ-9 Most Recent (09-07): 12 Reviewed: TMS Tech Note Reviewed Verification: I have reviewed the TMS Graphite Pan Drier Tender Note and agree with the contents. The patient remains a candidate to continue TMS treatment per protocol.
--- NOTE | 2021-12-16 00:26 | HO.TMSDAILY2 ---
TMS Daily Progress Note Daily TMS Progress Note Date of Service: 12/16/21 Week #: 5 Treatment #(09-10): 24 PHQ-9 Pre-Treatment (09-07): 22 PHQ-9 Most Recent (09-07): 12 Reviewed: TMS Tech Note Reviewed Verification: I have reviewed the TMS Executive Business Coach Note and agree with the contents. The patient remains a candidate to continue TMS treatment per protocol. Assessment and Plan (1) Recurrent major depression-severe: Qualifiers: Psychotic features: without psychotic features Qualified Code(s): F33.2 - Major depressive disorder, recurrent severe without psychotic features Status: Acute Plan rl tx for dep anxiety
--- NOTE | 2021-12-18 22:19 | HO.TMSDAILY2 ---
TMS Daily Progress Note Daily TMS Progress Note Date of Service: 12/18/21 Week #: 5 Treatment #(09-10): 25 PHQ-9 Pre-Treatment (09-07): 22 PHQ-9 Most Recent (09-07): 12 Reviewed: TMS Tech Note Reviewed Verification: I have reviewed the TMS Spline Rolling Machine Job Setter Note and agree with the contents. The patient remains a candidate to continue TMS treatment per protocol. Assessment and Plan (1) Recurrent major depression-severe: Qualifiers: Psychotic features: without psychotic features Qualified Code(s): F33.2 - Major depressive disorder, recurrent severe without psychotic features Status: Acute Plan l and r sided tx seems improved
--- NOTE | 2021-12-21 21:54 | HO.TMSDAILY2 ---
TMS Daily Progress Note Daily TMS Progress Note Date of Service: 12/19/21 Week #: 6 Treatment #(09-10): 26 PHQ-9 Pre-Treatment (09-07): 22 PHQ-9 Most Recent (09-07): 12 Reviewed: TMS Tech Note Reviewed Verification: I have reviewed the TMS Digital Advertising Specialist Note and agree with the contents. The patient remains a candidate to continue TMS treatment per protocol.
--- NOTE | 2021-12-21 21:57 | P.PNPS_ITS ---
TMS Daily Progress Note Daily TMS Progress Note Date of Service: 12/20/21 Week #: 6 Treatment #(09-10): 27 PHQ-9 Pre-Treatment (09-07): 22 PHQ-9 Most Recent (09-07): 12 Reviewed: TMS Tech Note Reviewed Verification: I have reviewed the TMS Supervisor Natural Gas Plant Note and agree with the contents. The patient remains a candidate to continue TMS treatment per protocol.
--- NOTE | 2021-12-21 21:58 | HO.TMSDAILY2 ---
TMS Daily Progress Note Daily TMS Progress Note Date of Service: 12/21/21 Week #: 6 Treatment #(09-10): 28 PHQ-9 Pre-Treatment (09-07): 22 PHQ-9 Most Recent (09-07): 12 Reviewed: TMS Tech Note Reviewed Verification: I have reviewed the TMS Manufacturing Associate Note and agree with the contents. The patient remains a candidate to continue TMS treatment per protocol.
--- NOTE | 2021-12-22 23:59 | P.PNPS_ITS ---
TMS Daily Progress Note Daily TMS Progress Note Date of Service: 12/22/21 Week #: 6 Treatment #(09-10): 29 PHQ-9 Pre-Treatment (09-07): 22 PHQ-9 Most Recent (09-07): 12 Reviewed: TMS Tech Note Reviewed Verification: I have reviewed the TMS Electrical Research Engineer Note and agree with the contents. The patient remains a candidate to continue TMS treatment per protocol.
--- NOTE | 2021-12-25 22:32 | P.PNPS_ITS ---
TMS Daily Progress Note Daily TMS Progress Note Date of Service: 12/25/21 Week #: 6 Treatment #(09-10): 30 PHQ-9 Pre-Treatment (09-07): 22 PHQ-9 Most Recent (09-07): 12 Reviewed: TMS Tech Note Reviewed Verification: I have reviewed the TMS Propagator Laborer Note and agree with the contents. The patient remains a candidate to continue TMS treatment per protocol.
--- NOTE | 2021-12-26 22:24 | P.PNPS_ITS ---
TMS Daily Progress Note Daily TMS Progress Note Date of Service: 12/26/21 Week #: 7 Treatment #(09-10): 31 PHQ-9 Pre-Treatment (09-07): 22 PHQ-9 Most Recent (09-07): 12 Reviewed: TMS Tech Note Reviewed Verification: I have reviewed the TMS Family Services Assistant Note and agree with the contents. The patient remains a candidate to continue TMS treatment per protocol.
--- NOTE | 2021-12-26 22:27 | HO.TMSDAILY2 ---
TMS Daily Progress Note Daily TMS Progress Note Date of Service: 12/26/21 Week #: 7 Treatment #(09-10): 31 PHQ-9 Pre-Treatment (09-07): 22 PHQ-9 Most Recent (09-07): 12 Reviewed: TMS Tech Note Reviewed Verification: I have reviewed the TMS Head Silverman Note and agree with the contents. The patient remains a candidate to continue TMS treatment per protocol.
--- NOTE | 2021-12-27 16:58 | HO.TMSDAILY2 ---
TMS Daily Progress Note Daily TMS Progress Note Date of Service: 12/27/21 Week #: 7 Treatment #(09-10): 32 PHQ-9 Pre-Treatment (09-07): 22 PHQ-9 Most Recent (09-07): 12 Reviewed: TMS Tech Note Reviewed Verification: I have reviewed the TMS Dry Ice Machine Operator Note and agree with the contents. The patient remains a candidate to continue TMS treatment per protocol.
--- NOTE | 2021-12-29 23:31 | HO.TMSDAILY2 ---
TMS Daily Progress Note Daily TMS Progress Note Date of Service: 12/28/21 Week #: 7 Treatment #(09-10): 33 PHQ-9 Pre-Treatment (09-07): 22 PHQ-9 Most Recent (09-07): 12 Reviewed: TMS Tech Note Reviewed Verification: I have reviewed the TMS Datawarehouse Developer Note and agree with the contents. The patient remains a candidate to continue TMS treatment per protocol. Assessment and Plan (1) PTSD (post-traumatic stress disorder): Status: Acute Plan pt shows clear improvement for 12/28/21
--- NOTE | 2021-12-29 23:42 | HO.TMSDAILY2 ---
TMS Daily Progress Note Daily TMS Progress Note Date of Service: 12/29/21 Week #: 8 Treatment #(09-10): 34 PHQ-9 Pre-Treatment (09-07): 22 PHQ-9 Most Recent (09-07): 12 Reviewed: TMS Tech Note Reviewed Verification: I have reviewed the TMS Carburizing Furnace Operator Note and agree with the contents. The patient remains a candidate to continue TMS treatment per protocol. Assessment and Plan (1) Recurrent major depression-severe: Qualifiers: Psychotic features: without psychotic features Qualified Code(s): F33.2 - Major depressive disorder, recurrent severe without psychotic features Status: Acute Plan pt seen feels improved improved spirits has done well left /r tx
--- NOTE | 2022-01-01 23:29 | P.PNPS_ITS ---
TMS Daily Progress Note Daily TMS Progress Note Date of Service: 01/01/22 Week #: 8 Treatment #(09-10): 35 PHQ-9 Pre-Treatment (09-07): 22 PHQ-9 Most Recent (09-07): 12 Reviewed: TMS Tech Note Reviewed Verification: I have reviewed the TMS Distance Education Faculty Liaison Note and agree with the contents. The patient remains a candidate to continue TMS treatment per protocol.
--- NOTE | 2022-01-02 22:59 | P.PNPS_ITS ---
TMS Daily Progress Note Daily TMS Progress Note Date of Service: 01/02/22 Week #: 8 Treatment #(09-10): 36 PHQ-9 Pre-Treatment (09-07): 22 PHQ-9 Most Recent (09-07): 12 Reviewed: TMS Tech Note Reviewed Verification: I have reviewed the TMS Longwall Shearer Operator Note and agree with the contents. The patient remains a candidate to continue TMS treatment per protocol. Assessment and Plan (1) Recurrent major depression-severe: Qualifiers: Psychotic features: without psychotic features Qualified Code(s): F33.2 - Major depressive disorder, recurrent severe without psychotic features Status: Acute Plan Patient has completed treatment patient seen come much improved no complaints of side effects feels greatly appreciative feels treatment quite helpful
--- NOTE | 2022-04-13 11:49 | P.PNPS_ITS ---
TMS Daily Progress Note Daily TMS Progress Note Date of Service: 10/12/21 Week #: 1 Treatment #(09-10): 1 PHQ-9 Pre-Treatment (09-07): 22 PHQ-9 Most Recent (09-07): 22 Reviewed: TMS Mapping/Re-mapping completed Verification: I have reviewed the TMS Irrigation Service Technician Note and agree with the contents. The patient remains a candidate to continue TMS treatment per protocol. Assessment and Plan (1) Recurrent major depression-severe: Qualifiers: Psychotic features: without psychotic features Qualified Code(s): F33.2 - Major depressive disorder, recurrent severe without psychotic features Status: Acute (2) PTSD (post-traumatic stress disorder): Status: Acute Plan Initial mapping completed without difficulty Late entry for 11/09/21
--- NOTE | 2022-06-18 16:49 | HO.TMSDAILY2 ---
TMS Daily Progress Note Daily TMS Progress Note Date of Service: 11/09/21 Week #: 1 Treatment #(09-10): 1 PHQ-9 Pre-Treatment (09-07): 22 PHQ-9 Most Recent (09-07): 22 Reviewed: TMS Mapping/Re-mapping completed Verification: I have reviewed the TMS Geophysical Laboratory Supervisor Note and agree with the contents. The patient remains a candidate to continue TMS treatment per protocol. Assessment and Plan (1) Recurrent major depression-severe: Qualifiers: Psychotic features: without psychotic features Qualified Code(s): F33.2 - Major depressive disorder, recurrent severe without psychotic features Status: Acute (2) PTSD (post-traumatic stress disorder): Status: Acute Plan Patient seen initial mapping completed without difficulty tolerated late entry pt seen
== END | disposition home or self-care (01) ==
LOC: HO.PTMS 11-09 10:58
PROVIDERS: Visit Provider Psychiatry & Neurology Psychiatry
DX: F33.2 Major depressive disorder, recurrent severe without psychotic features (principal); F43.10 Post-traumatic stress disorder, unspecified
CPT/HCPCS: 90868; 99213

== ENCOUNTER 2023-06-28 11:49 | Outpatient (REF) | payer MEDICARE, SELFPAY ==
--- NOTE | ~2023-06-28 | XR_ITS ---
EXAMINATION: XR HIP, RIGHT CLINICAL INFORMATION: Right hip joint pain. COMPARISON: None available. TECHNIQUE: AP and frog-leg lateral views of the right hip. FINDINGS: Bony alignment and mineralization are normal. The right acetabular joint space is well-maintained. There is slight subchondral sclerosis and peripheral osteophyte formation of the right acetabular roof. No fracture or dislocation is seen. The right femoral head appears smooth. There are right pelvic phleboliths. No foreign body is seen. XR/XR hip RT min 2V IMPRESSION: Very mild osteoarthritic change is seen of the right hip. No fracture or dislocation is seen.
== END 2023-06-28 11:50 | disposition home or self-care (01) ==
LOC: HO.XRAY 11:49
PROVIDERS: PCP Hospitalist; Visit Provider Hospitalist
DX: M79.604 Pain in right leg (principal)
CPT/HCPCS: 73502

== ENCOUNTER 2024-04-22 14:39 | Emergency (ER) | payer MEDICARE, SELFPAY ==
[2024-04-22 15:07] VITALS: BP 144/91; PULSE 63; RESP 18; TEMP 36.6; O2SAT 99; BMI 27.1
--- NOTE | 2024-04-22 15:09 | ED.PSYCH ---
HPI - Psych General Chief Complaint: Psychiatric Symptoms Stated Complaint: crisis Time Seen by Provider: 04/22/24 14:58 History of Present Illness HPI Narrative: Patient is a 54-year-old male with a history of depression anxiety. Presented today with having suicidal thoughts. Patient has had thoughts about wanting to cut himself and also to jump off a bridge in the past. Patient has 2 puppies at home has a at home. On no new medications. Medications been about the same. Patient denies any recreational drug use. Denies any alcohol use. Came in for help. Related Data Home Medications ?Medication ?Instructions ?Recorded ?Confirmed amlodipine 10 mg tablet 1 tab PO DAILY 09/08/21 09/26/21 benazepril 40 mg tablet 1 tab PO DAILY 09/08/21 09/26/21 clonazepam 0.5 mg tablet 0.25 mg PO DAILY PRN Anxiety 09/08/21 10/18/21 insulin glargine 100 unit/mL (3 18 unit subcut BEDTIME 09/08/21 10/18/21 mL) subcutaneous pen (Lantus Solostar U-100 Insulin) dapagliflozin propanediol 10 mg 10 mg PO DAILY 09/26/21 04/22/24 tablet (Farxiga) clonazepam 0.5 mg tablet 0.5 mg PO BEDTIME 10/18/21 10/18/21 amlodipine 10 mg tablet 1 tab PO DAILY 11/09/21 11/09/21 doxazosin 1 mg tablet 4 mg PO BEDTIME 04/22/24 04/22/24 Previous Rx's ?Medication ?Instructions ?Recorded methylphenidate HCl 5 mg tablet 5 mg PO BID@0700,1200 30 days #60 09/15/21 tabs escitalopram oxalate 5 mg/5 mL 2 mg (2 mL) PO DAILY #0 mL 10/12/21 oral solution Allergies Allergy/AdvReac Type Severity Reaction Status Date / Time bupropion [From WELLBUTRIN] Allergy Severe Seizure Verified 04/22/24 15:10 aripiprazole [From ABILIFY] Allergy Intermediate FACIAL Verified 04/22/24 15:10 TREMORS honey [HONEY] Allergy Intermediate HEADACHES Verified 04/22/24 15:10 lurasidone [From LATUDA] AdvReac Intermediate GETS Verified 04/22/24 15:10 REALLY SICK mirtazapine [MIRTAZAPINE] AdvReac Intermediate BP GOES Verified 04/22/24 15:10 HIGH Review of Systems Review of Systems: Positive suicidal ideation Yes all other systems are reviewed and are negative [facility] Past Medical History Attestation statement: The following information was validated with the patient. Medical History Type II diabetes mellitus Fatty liver Hyperlipemia Urethral stricture Raynauds syndrome DALE (obstructive sleep apnea) Seizure Hypertension Anxiety PTSD (post-traumatic stress disorder) Social History Social History Household Members: Spouse Household Members Other:: N/A Housing: Condominium Do you presently have visiting nurse or other home services: No Patient Tobacco Use Status: Never used Tobacco e-Cigarette/Vaping Use: Never Used Second Hand Smoke Exposure: Yes Do you have a plan to hurt others: No Plan service: No Sexual orientation: Straight/Heterosexual Physical Exam Vital Signs: Vital Signs: Last Vital Signs Temp 98 F 04/22/24 15:07 Pulse 63 04/22/24 15:07 Resp 18 04/22/24 15:07 BP 144/91 H 04/22/24 15:07 Pulse Ox 99 04/22/24 15:07 O2 Del Method Room Air 04/22/24 15:07 BMI result Body Mass Index 27.1 Appearance: Alert. Oriented X3. No acute distress. Eyes: Pupils equal, round and reactive to light. ENT: Pharynx normal. Neck: Normal inspection. Neck supple. No lymph nodes noted. No crepitus CVS: Normal heart rate and rhythm. Pulses normal. Normal S1 and S2 Respiratory: No respiratory distress. Breath sounds normal. No Wheezing. No rales Abdomen: Soft and nontender. No rigidity. No distention. good BS x4 Skin: Skin warm and dry. Normal skin color. Normal skin turgor. Extremities: No lower extremity edema. Neurovascular intact to all extremities. No Lacerations. No Rash Neuro: Oriented X 3. No motor deficit. No sensory deficit. Moving all extermities. No slurred speech. Cranial nerves grossly intact Medical Decision Making Medical Decision Making MDM Narrative: Well-appearing no acute distress. Will get crisis evaluate patient. Baseline labs ordered. Differential Diagnosis Differential Diagnoses: The differential diagnosis associated with the presentation includes Suicidal ideation, depression, anxiety, stress Admission/Observation Consideration of admission/observation: Escalation of care including admission/observation considered Consult Healthcare Provider Management of the patient was discussed with: Emergency Services Dispatcher (Care team) Chronic Conditions Patient?s care impacted by: Diabetes and Hypertension Social Determinants Patient?s care significantly limited by Social Determinants of Health including: Problems related to primary support group Discharge Plan Discharge Clinical Impression: Suicidal ideation, Depression Patient Disposition: Still a Patient Prescriptions: No Action amlodipine 10 mg tablet 1 tab PO DAILY clonazepam 0.5 mg tablet 0.25 mg PO DAILY PRN (Reason: Anxiety) Patient Comments: Filled 10/02/21 amlodipine 10 mg tablet 1 tab PO DAILY benazepril 40 mg tablet 1 tab PO DAILY Lantus Solostar U-100 Insulin 100 unit/mL (3 mL) insulin pen 18 unit subcut BEDTIME Patient Comments: Patient stated Lantus was decreased from 25 units to 18 units at HS. methylphenidate HCl 5 mg Tablet 5 mg PO BID@0700,1200 30 Days Qty: 60 0RF dapagliflozin propanediol [Farxiga] 10 mg Tablet 10 mg PO DAILY Patient Comments: Patient stated he is also on Farxiga 10 mg daily and was given this in the hospital. Stated his brought the medication in the hospital so he could take it. escitalopram oxalate 5 mg/5 mL solution 2 mg PO DAILY Qty: 0 0RF clonazepam 0.5 mg Tablet 0.5 mg PO BEDTIME Patient Comments: Filled 10/02/21. Rx Instructions: administer 30 minutes before bedtime doxazosin 1 mg tablet 4 mg PO BEDTIME Protocol: Hold for SBP< HOLD for SBP < : 90 Print Language: Greek
--- NOTE | 2024-04-22 15:24 | PC.NURSE ---
patient presents through external triage with cc of increasing depression and suicidal thoughts for the last week or so, patient states that he recently has been having these thoughts after a few stressors in his life, states about 2.5 weeks ago patient went to go see a friend and found them at home, states this was the second time this year he found a friend and this has since caused him to have increasing depressive episodes. patient admits to this RN that about a week ago he had some thoughts to end his life with a knife, has had similar thoughts in the past to jump off a bridge but never followed through. patient contracts to safety while on unit, denies current suicidal thoughts or plans, states he has just had overwhelming thoughts and he gets hyperfixated on ideas and thoughts he knows are not true. patient at bedside for support, patient interacting appropriately with this RN, does not seem to be responding to any internal or external stimuli, appears somnolent and depressed mood, but hopeful to receive care he needs
--- OUTSIDE RECORDS SUMMARY | 2024-04-22 15:31 | XMS_ITS ---
Author Organization [facility] Address [address] [address] Care Team Providers Care Truck Assembler Name Role Phone JUSTICE VENTURA Primary Care Provider [phone] MEDICATIONS Medication SIG (Take, Route, Frequency, Duration) Notes Start Date End Date Status Farxiga 10 MG TAKE 1 TABLET BY DAVID TH EVERY DAY for 30 Active Encounters Encounter Location Date Provider Diagnosis [facility] [address] [address] 01/02/2024 RENDON GUL 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 E08.21 ASSESSMENTS Encounter Date Diagnosis Assessment Notes Treatment Notes Treatment Clinical Notes 01/02/2024 Diabetes mellitus due to underlying condition with diabetic nephropathy (ICD-10 - E08.21) PLAN OF TREATMENT Medication Medication Name Sig Start Date Stop Date Notes Farxiga 10 MG TAKE 1 TABLET BY MOUTH EVERY DAY for 30 Next Appt Details Provider Name:JUSTICE VENTURA , 05/21/2024 09:45:00 AM, [address] [address], [place], [address], Progress Notes * Partha KHANDOB:1970 (53 yo M)Acc No.[id number]:01/02/2024 Patient:??Partha KHAN :1970?Age:53 Y?Sex:Josette marte Address:[address] [place] [address], [place] [address] * Refills?? Refill Farxiga Tablet, 10 MG, 30 Tablet, TAKE 1 TABLET BY MOUTH EVERY DAY, 30, Refills=7 * true * Date:??
--- OUTSIDE RECORDS SUMMARY | 2024-04-22 15:31 | XMS_ITS ---
Author Organization [facility] Address [address] [facility] [address] [place] [address] Care Team Providers Care Cdl Truck Driver Name Role Phone JUSTICE VENTURA Primary Care Provider [phone] REASON FOR VISIT [facility] Referral Encounters Encounter Location Date Provider Diagnosis [facility] [address] [facility] [address] [place] [address] 01/22/2024 JUSTICE VENTURA PLAN OF TREATMENT Next Appt Details Provider Name:JUSTICE VENTURA , 05/21/2024 09:45:00 AM, [address] [facility] [address], [place], [address], Progress Notes * Partha KHANDOB:1970 (53 yo M)Acc No.[id number]:01/22/2024 Patient:??Partha KHAN :1970?Age:53 Y?Sex:Josette marte Address:[place] [address] * true * Date:??
--- OUTSIDE RECORDS SUMMARY | 2024-04-22 15:31 | XMS_ITS ---
Author Organization [facility] Address [address] [facility] [address] [place] [address] Care Team Providers Care Tariff Compiler Name Role Phone JUSTICE VENTURA Primary Care Provider [phone] Blanca Doty Unavailable [phone] ALLERGIES Allergen (clinical drug ingredient) Drug/Non Drug Allergy documented on EMR Reaction Allergy Type Onset Date Status honey (uncoded) Unknown Allergy Acti ve aripiprazole Abilify Unknown Drug Allergy Acti ve metformin Metformin HCl diarrhea Drug Allergy Act lizz mirtazapine Mirtazapine Unknown Drug Allergy Act lizz risperidone Risperidone Unknown Drug Allergy Act lizz Wellbutrin Unknown Drug Allergy Active lurasidone Latuda Unknown Drug Allergy Active REASON FOR VISIT lump on neck MEDICATIONS Medication SIG (Take, Route, Frequency, Duration) Notes Start Date End Date Status Farxiga 10 MG TAKE 1 TABLET BY DAVID TH EVERY DAY for 30 Active OneTouch Verio - TEST BLOOD SUGARS 3 TIMES A DAY for 90 Active Milk Thistle As needed Active one touch verio test strips - test blood sugars 3 times daily dx: E11.9 in vitro TID for 90 Active Doxazosin Mesylate 4 MG 1 tablet Orally qhs Active clonazePAM 0.5 MG 1 tablet at bedtime Orally Once a day Tor Bey Active BD Pen Mini - as directed oral emeterio ly for 30 days 10/02/2019 Active lamoTRIgine 25 MG 1 tablet Orally twic e a day Active Clotrimazole 1 % 1 application Externally Twice a day as needed for 28 days 06/24/2019 Active Rosuvastatin Calcium 40 MG TAKE 1 TABLET BY MOUTH EVERYDAY AT BEDTIME for 90 Active Benazepril HCl 40 MG TAKE 1 TABLET BY MO UTH EVERY DAY for 90 Active Clotrimazole 3 2 % 1 application at bedtime Vaginal Once a day for 30 days 04/05/2023 Active amLODIPine Besylate 10 MG TAKE 1 TABLET BY MOUTH EVERY DAY for 90 Active Lantus SoloStar 100 UNIT/ML 20 units Subcutaneous once a day for 90 days Active VITAL SIGNS Temperature 97.5 degrees Fahrenheit 01/02/20 24 Blood pressure systolic 112 mm Hg 01/02/20 24 Blood pressure diastolic 76 mm Hg 024 Heart Rate 78 /min 01/02/2024 Height 72 in 01/02/2024 Weight 205 lbs 01/02/2024 BMI 27.8 kg/m2 01/02/2024 Oximetry 97 % 01/02/2024 Encounters Encounter Location Date Provider Diagnosis [facility] [address] [address] 01/02/2024 Blanca Doty 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 E08.21 and Neck nodule R22.1 ASSESSMENTS Encounter Date Diagnosis Assessment Notes Treatment Notes Treatment Clinical Notes 01/02/2024 Diabetes mellitus due to underlying condition with diabetic nephropathy (ICD-10 - E08.21) 01/02/2024 Neck nodule (ICD-10 - R22.1) PLAN OF TREATMENT Medication Medication Name Sig Start Date Stop Date Notes Farxiga 10 MG TAKE 1 TABLET BY MOUTH EVERY DAY for 30 Next Appt Details Follow Up: next appt- AW, Re ason: Provider Name:JUSTICE VENTURA , 05/21/2024 09:45:00 AM, [address] [facility] [address], [place], [address], Progress Notes * Partha KHANDOB:1970 (53 yo M)Acc No.[id number]:01/02/2024 Patient:??Partha KHAN Provider:??Blanca Doty :1970?Age:53 Y?Sex:Ma le Date:01/02/2024 Address:[place], [id number] Pcp:JUSTICE VENTURA Subjective: * Chief Complaints: * ?Lump on neck * HPI: ?Internal Medicine:? Mr. Khan is a 53-year-old gentleman with hypertension, hyperlipidemia, DM2, DALE, major depression, PTSD, fatty liver and Raynaud's syndrome here for lump on neck. Partha states that his noticed a lump on his neck on Saturday. He denies any recent illness but allergies which he took OTC medications and improved his symptoms. Otherwise, he admits to chronic fatigue and physical pain. Denies any unintentional weight loss, exposure to radiation, family history of thyroid cancer, fever, chills, tender to palpate, hoarseness, dysphagia. ?He denies any other active issues or concerns. * ROS:?General/Constitutional:?Overall health??Good.??Change in appetite??denies.??Chills??denies.??Fatigue??denies.??Fever??denies.??Night sweats??denies.??Sleep disturbance??denies.??Weight gain??denies.??Weight loss??admits to intentional weight loss. He lost around 11 lbs since last visit..?Neurologic:?Difficulty speaking??denies.??Dizziness??denies.??Gait abnormality??denies.??Headache??denies.??Loss of strength??denies.??Memory loss??denies.??Seizures??denies.??Tingling/Numbness??denies ?.?Ophthalmologic:?Blurred vision??denies.??Discharge??denies.??Dry eye??denies.??Red eye??denies.?ENT:?Change in Voice??Denies.??Cold Symptoms??Denies.??Cough??Denies.??Dizziness??Denies.??Nasal Congestion??Denies.??Otalgia??Denies.??postnasal drip??Denies.??Blocked ear??denies.??Nosebleed??denies.??Snoring??denies.?Cardiovascular:?Diaphoresis??Denies.??Pedal Edema??Denies.??PND (Paroxsymal nocturnal dyspnea)??Denies.??Chest pain??denies.??Difficulty laying flat??denies.??Dyspnea on exertion??denies.??Heart murmur??denies.??Orthopnea??denies.?Respiratory:?Snoring??denies.??Asthma??denies.??Cough??denies.??Shortness of breath with exertion??denies.??Sputum production??denies.??Wheezing??denies.?Gastrointestinal:?Change in bowel habits??denies.??Constipation??denies.??Decreased appetite??denies.??Diarrhea??denies.??Heartburn??denies.??Nausea??denies.??Vomit ing??denies.?Musculoskeletal:?tingling/numbness??Denies.??myalgias??Denies.??Joint Swelling??Denies.??extremeties??normal.??Arthritis??denies.??Back problems??denies.??Carpal tunnel??denies.??Joint stiffness??denies.??Muscle aches??,admits.?Endocrine:?Bowel Changes??Denies.??Breast Discharge??Denies.??poor libido??Denies.??Cold intolerance??denies.??Excessive sweating??denies.??Excessive thirst??denies.??Frequent urination??denies.??Thyroid problems??denies.?Skin:?Bruising??Denies.??Eczema??denies.??Hair changes??denies.??Rash??denies.??Skin lesion(s)??denies.?Psychiatric:?Anxiety??denies.??Depressed mood??denies.??Difficulty sleeping??denies.??Nervous breakdown??denies.??Substance abuse??denies.? * Medical History:?? * Medications:??TakinglamoTRIg ine 25 MG Tablet 1 tablet Orally twice a day clonazePAM 0.5 MG Tablet 1 tablet at bedtime Orally Once a day , Notes to Pharmacist: Tor BeyDoxazosin Mesylate 4 MG Tablet [address] [facility] Milk Thistle , Notes to Pharmacist: As neededone touch verio test strips - Miscellaneous test blood sugars 3 times daily dx: E11.9 in vitro TID OneTouch Verio - Strip TEST BLOOD SUGARS 3 TIMES A DAY Benazepril HCl 40 MG Tablet TAKE 1 TABLET BY MOUTH EVERY DAY Rosuvastatin Calcium 40 MG Tablet TAKE 1 TABLET BY MOUTH EVERYDAY AT BEDTIME amLODIPine Besylate 10 MG Tablet TAKE 1 TABLET BY MOUTH EVERY DAY Lantus SoloStar 100 UNIT/ML Solution Pen-injector 20 units Subcutaneous once a day Clotrimazole 3 2 % Cream 1 application at bedtime Vaginal Once a day Clotrimazole 1 % Cream 1 application Externally Twice a day as needed Farxiga 10 MG Tablet TAKE 1 TABLET BY MOUTH EVERY DAY BD Pen Mini - Miscellaneous as directed oral daily Taking lamoTRIgine 25 MG Tablet 1 tablet Orally twice a day Taking clonazePAM 0.5 MG Tablet 1 tablet at bedtime Orally Once a day , Notes to Pharmacist: Tor Greenberg Doxazosin Mesylate 4 MG Tablet 1 tablet Orally qhs Taking Milk Thistle , Notes to Pharmacist: As neededTaking one touch verio test strips - Miscellaneous test blood sugars 3 times daily dx: E11.9 in vitro TID Taking OneTouch Verio - Strip TEST BLOOD SUGARS 3 TIMES A DAY Taking Benazepril HCl 40 MG Tablet TAKE 1 TABLET BY MOUTH EVERY DAY Taking Rosuvastatin Calcium 40 MG Tablet TAKE 1 TABLET BY MOUTH EVERYDAY AT BEDTIME Taking amLODIPine Besylate 10 MG Tablet TAKE 1 TABLET BY MOUTH EVERY DAY Taking Lantus SoloStar 100 UNIT/ML Solution Pen- injector 20 units Subcutaneous once a day Taking Clotrimazole 3 2 % Cream 1 application at bedtime Vaginal Once a day Taking Clotrimazole 1 % Cream 1 application Externally Twice a day as needed Taking Farxiga 10 MG Tablet TAKE 1 TABLET BY MOUTH EVERY DAY Taking BD Pen Mini - Miscellaneous as directed oral daily DiscontinuedLaMICtal 5 MG Tablet Chewable 5 mg in the morning; 1 1/2 25 mg in the evening Orally Daily , Notes to Pharmacist: LUCIO Bey WEIGHT INSPECTOR-AmherstMedication List reviewed and reconciled with the patientDiscontinued LaMICtal 5 MG Tablet Chewable 5 mg in the morning; 1 1/2 25 mg in the evening Orally Daily , Notes to Pharmacist: LUCIO Bey WEIGHT INSPECTOR-AmherstMedication List reviewed and reconciled with the patient * Allergies:??Mirtazapine: All ergyAbilify: AllergyLatuda: AllergyRisperidone: AllergyWellbutrin: Allergyhoney: AllergyMetformin HCl: diarrhea - Side Effectsno[Allergies Verified] Objective: * Vitals:??Temp:97.5F, Oxygen sat %:97%, HR:78/min, BP:112/76mm Hg, Wt:205lbs, BMI:27.8Index, Ht: 72 in. * Examination: ?General Examination: ?Psychiatry??Normal.?GENERAL APPEARANCE:??Well developed, well nourished, in no acute distress.?MUSCULOSKELETAL:??normal.?HEAD:??Normocephalic, atraumatic.?EYES:??Pupils equal, round, reactive to light and accommodation, sclera non-icteric.?EARS:??Normal.?THROAT:??Clear.?OROPHARYNX??Normal.?SINUSES??Normal.?NECK/THYROID:??Neck supple, full range of motion, no lymph nodes, no cervical lymphadenopathy?.?HEART:??S1, S2 normalregular rate and rhythmgrade 1/6 systolic murmur at left sternal border.?LUNGS:??Normal.?BREASTS:??__.?ABDOMEN:??Soft, nontender, nondistended, bowel sounds present, normal.?EXTREMITIES:??reticular?veins,?worse?on?the?right.?PERIPHERAL PULSES:??Normal.?NEUROLOGIC:??Nonfocal,? appropriate?motor strength normal upper and lower extremities, sensory exam intact.?FEMALE GENITOURINARY:??__.?MALE GENITOURINARY:??not examined .?PODIATRIC:??tinea?pedis/unguium.?Digital Sales Executive?? .? Assessment: * Assessment: 1.??Neck nodule - R22.1 (Ericka casillas)??2.??Diabetes mellitus due to underlying condition with diabetic nephropathy - E08.21?? Mr. Khan is a 53-year-old gentleman with hypertension, hyperlipidemia, DM2, DALE, major depression, PTSD, fatty liver and Raynaud's syndrome here for lump on neck. Partha states that his noticed a lump on his neck on Saturday. Plan as follows: Neck Nodule: - Physical examination was unremarkable for nodules or lymph nodes. Patient seen and examined with PA. Agree with the above mentioned assessment and plan. Plan: * Treatment: * Procedure Codes:?? * Follow Up:??next appt- AW * Images: * Sign off status: Completed true * Provider:??Blanca Doty Date:??2023 History and Physical Notes * Examination Category Sub-Category Detail Notes General Examination GENERAL APPEARANCE: Well dev eloped, well nourished, in no acute distress HEAD: Normocephalic, atrau matic EYES: Pupils equal, round, reactive to light and accommodation, sclera non-icteric EARS: Normal THROAT: Clear NECK/THYROID: Neck supple, full ra nge of motion, no lymph nodes, no cervical lymphadenopathy HEART: S1, S2 normal regula r rate and rhythm grade 1/6 systolic murmur at left sternal border LUNGS: Normal ABDOMEN: Soft, nontender, non distended, bowel sounds present, normal NEUROLOGIC: Nonfocal, appropriat e motor strength normal upper and lower extremities, sensory exam intact SKIN: EXTREMITIES: reticular veins, wor se on the right PERIPHERAL PULSES: Normal BREASTS: __ MUSCULOSKELETAL: normal MALE GENITOURINARY: not examined FEMALE GENITOURINARY: __ ORAL CAVITY: PODIATRIC: tinea pedis/unguium Psychiatry Normal OROPHARYNX Normal SINUSES Normal Digital Sales Executive
--- OUTSIDE RECORDS SUMMARY | 2024-04-22 15:32 | XMS_ITS | Patient Health Record ---
Author Organization [facility] Address [address] [place] [address] Care Team Providers Care Information Technology Consultant Name Role Phone JUSTICE VENTURA Primary Care Provider Blanca Doty Unavailable [phone] ALLERGIES Allergen (clinical drug ingredient) Drug/Non Drug [...] Latuda Unknown Drug Allergy Active REASON FOR REFERRAL Reason right leg pain Diagnosis 1 Pain in right leg (M 79.604) Referral Organization [facility] Referring Provider First Name JUSTICE Referring Provider Last Name [facility] Referring Provider Speciality Internal M edicine Referred Provider Specialty Orthopedic S urgery General Notes Referral sent to [facility] - [address], [place] [address]. Sent fax through [phone](sent) phone#[phone]., Campbell Yao 06/28/2023 09:49:37 AM > Clinical Notes called [facility] was advi sed referral was received pt. Insurance [employer] needs an insurance referral prior to scheduling NPI# [id number] , DX- right leg pain for 6 visits please fax approval to fax# [phone]., Campbell Yao 07/09/2023 10:54:52 AM >, called [facility] scheduled pt. on 09/03/2023 3:30pm at [address], [place] [address]. Called pt. lvm provided date and time of appt. Also provided , [facility]-[address], [place] [address] phone# [phone]., Campbell Yao 08/01/2023 03:49:13 PM > Referral Priority Routine Reason Please evaluate for right hip pain Diagnosis 1 Pain in right hip (M 25.551) Referral Organization [facility] Referring Provider First Name JUSTICE Referring Provider Last Name LORENZO Referring Provider Speciality Internal M edicine Referred Provider Specialty Orthopedic S urgery General Notes Referral sent to [facility] - [address] [place], [place] [address]. Sent fax through [phone](sent) phone#[phone]., Campbell Yao 07/18/2023 04:02:08 PM > Clinical Notes called Pt. lvm advis ed referral was sent to [facility] advised [facility] require pt. to call them to set up appt. And he can just give them a call to book an appt. Also provided [facility] - [address] [place], [place] [address] phone#[phone]., Campbell Yao 07/23/2023 10:02:46 AM > Referral Priority Routine MEDICATIONS Medication SIG (Take, Route, Frequency, Duration) Notes Start Date End Date Status Milk Thistle As needed Active one touch verio test strips - test blood sugars 3 times daily dx: E11.9 in vitro TID for 90 Active Farxiga 10 MG TAKE 1 TABLET BY DAVID TH EVERY DAY for 30 Active clonazePAM 0.5 MG 1 tablet at bedtime Orally Once a day Tor Bey Active Doxazosin Mesylate 4 MG 1 tablet Orally qhs Active BD Pen Mini - as directed oral emeterio ly for 30 days 10/02/2019 Active Clotrimazole 3 2 % 1 application at bedtime Vaginal Once a day for 30 days 04/05/2023 Active lamoTRIgine 25 MG 1 tablet Orally twic e a day Active Clotrimazole 1 % 1 application Externally Twice a day as needed for 28 days 06/24/2019 Active amLODIPine Besylate 10 MG TAKE 1 TABLET BY MOUTH EVERY DAY for 90 Active Lantus SoloStar 100 UNIT/ML 20 units Subcutaneous once a day for 90 days Active Rosuvastatin Calcium 40 MG TAKE 1 TABLET BY MOUTH EVERYDAY AT BEDTIME for 90 Active OneTouch Verio - TEST BLOOD SUGARS 3 TIMES A DAY for 90 Active Benazepril HCl 40 MG TAKE 1 TABLET BY MO UT EVERY DAY for 90 Active IMMUNIZATIONS Vaccine Route Administration Date Status Comme nts COVID Unknown 11/13/2020 Administered j&J COVID Unknown 07/18/2021 Administered SOCIAL HISTORY Tobacco Use: Social History Observation Description Date Details (start date - stop date) Never Smoker NA - NA Sex Assigned At : Social History Observation Description Sex Assigned At Unknown Tobacco Use/Smoking Question Answer Notes Are you a nonsmoker Alcohol Screen (Audit-C) Question Answer Notes Did you have a drink contain ing alcohol in the past year? Yes How often did you have a dri nk containing alcohol in the past year? Monthly or less (1 point) Points 1 Interpretation Negative PROBLEMS Problem Type ICD Code Onset Dates Problem Status W/U Status Risk SNOMED Code Notes Problem Tinea unguium (B35.1) Active confirmed Tinea unguium (053183117) Problem Diabetes mellitus due to underlying condition with diabetic nephropathy (E08.21) Active confirmed Diabetic nephropathy (523080255) Problem Type 2 diabetes mellitus with unspecified complications (E11.8) Active confirmed Disorder due to type 2 diabetes mellitus (070284196) Problem Mixed hyperlipidemia (E78.2) Active confirmed Mixed hyperlipidemia (134529282) Problem Major depressive disorder, recurrent, moderate (F33.1) Active confirmed Moderate recurrent major depression (41198988) Problem Post-traumatic stress disorder, unspecified (F43.10) Active confirmed Post-traumatic stress disorder (97948826) Problem Obstructive sleep apnea (adult) (pediatric) (G47.33) Active confirmed Obstructive sle ep apnea syndrome (disorder) (60167449) Problem Raynaud's syndrome without gangrene (I73.00) Active confirmed Raynaud's disease (278981551) Problem Fatty (change of) liver, not elsewhere classified (K76.0) Active confirmed Fatty liver (446393559) Problem Chronic fatigue, unspecified (R53.82) Active confirmed Chronic fatigue syndrome (disorder) (95090198) Problem Encounter for general adult medical examination without abnormal findings (Z00.00) Active confirmed Adult heal th examination (747256564) Problem Essential (primary) hypertension (I10) Active confirmed Essential hypertension (45884898) Problem Benign prostatic hyperplasia with lower urinary tract symptoms (N40.1) Active confirmed Lower urinary tract symptoms due to benign prostatic hypertrophy (59145865643600) VITAL SIGNS Heart Rate 78 /min 01/02/2024 Temperature 97.5 degrees Fahrenheit 01/02/2024 Blood pressure diastolic 76 mm Hg 01/02/2024 Oximetry 97 % 01/02/2024 Height 72 in 01/02/2024 Blood pressure systolic 112 mm Hg 01/02/2024 Weight 205 lbs 01/02/2024 BMI 27.8 kg/m2 01/02/2024 Encounters Encounter Location Date Provider Diagnosis [address] [place] [address] 06/27/2023 RENDON GUL Pain in right leg M79.[address] [place] [address] 01/02/2024 Blanca Doty 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 E08.21 and Neck nodule R22.[address] [place] [address] 06/26/[address] [place] [address] 07/01/[address] [place] [address] 07/03/[address] [place] [address] 07/09/[address] [place] [address] 07/10/[address] [place] [address] 07/24/2023 [facility] [address] [place] [address] 07/30/2023 [facility] [address] [place] [address] 07/31/2023 [facility] [address] [place] [address] 08/30/2023 [facility] [address] [place] [address] 09/18/2023 [facility] [address] [place] [address] 09/20/2023 [facility] [address] [place] [address] 10/04/2023 [facility] [address] [place] [address] 10/11/[address] [place] [address] 01/02/2024 [facility] 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 E08.21 [facility] [address] [place] [address] 01/22/2024 [facility] Encounter Date Diagnosis Assessment Notes Treatment Notes Treatment Clinical Notes 01/02/2024 Diabetes mellitus due to underlying condition with diabetic nephropathy (ICD-10 - E08.21) 01/02/2024 Diabetes mellitus due to underlying condition with diabetic nephropathy (ICD-10 - E08.21) 01/02/2024 Neck nodule (ICD-10 - R22.1) 06/27/2023 Pain in right leg (ICD-10 - M79.604) PLAN OF TREATMENT Pending Test Test Name Order Date Electrocardiogram (EKG) 06/23/2019 HEMOGLOBIN A1C WITH EST GLUCOSE 05/30/20 22 LIPID PANEL 05/30/2022 Xray: Hip Lkvkn-Jhsstetq-Cog 2 Vws 06/27 Future Test Test Name Order Date HEMOGLOBIN A1C WITH EST GLUCOSE 10/02/19 23 HEMOGLOBIN A1C WITH EST GLUCOSE 04/05/20 23 LIPID PANEL 04/05/2023 Next Appt Details Provider Name:JUSTICE VENTURA , 05/21/2024 09:45:00 AM, [address] [place] [address], [phone], Insurance Providers Payer Name Payer Address Payer Phone Subscriber Number Group Number Insured Name Patient Relationship to Insured Coverage Start Date Coverage End Date [employer] [address] [place] [address] [id number] Partha Khan Self - patient is the insured 9 MEDICAL (GENERAL) HISTORY Medical History History ICD Code hypertension, benign hyperlipidemia IDDM Type 2 sleep apnea Major depression Fatty liver PTSD Raynaud's syndrome, sees rheumatology Depression see Valeria Amado works with [facility] and see Sol Joe for therapy BPH and sees urology Surgical History Surgery Date(Month/Year) urethral stricture 2005 cystoscopy, urethral strictures 2021 Hospitalization History Reason Date(Month/Year) seizure due to wellbutrin 2016
[2024-04-22 15:33] LABS: MANUAL DIFF FLAG NO
[2024-04-22 15:35] LABS: Basophils Percent Auto 0.2 % (0-2); Eosinophils Absolute Auto 0.1 X10*3/uL (0.0-0.4); Eosinophils Percent Auto 1.4 % (0-4); Hematocrit 36.8 % (42.0-52.0); Hemoglobin 12.9 g/dl (14.0-18.0); Imm Gran Abs Auto 0.01 X10*3/uL (0.00-0.03); Imm Gran Pct Auto 0.2 % (0.0-0.4); Lymphocytes Absolute Auto 1.6 X10*3/uL (1.2-4.9); Lymphocytes Percent Auto 38.8 % (20-40); Mean Corpuscular HGB Conc 35.1 g/dl (31.0-36.0); Mean Corpuscular Hemoglobin 28.4 pg (27.0-33.0); Mean Corpuscular Volume 80.9 fL (80.0-98.0); Mean Platelet Volume 8.8 fL (9.4-12.4); Monocytes Absolute Auto 0.3 X10*3/uL (0.1-1.2); Monocytes Percent Auto 6.7 % (2-11); Neutrophils Absolute Auto 2.2 x10*3/uL (2.0-8.3); Neutrophils Percent Auto 52.7 % (45-73); Platelet Count 290 X10*3/uL (160-400); Red Blood Count 4.55 X10*6/uL (4.60-5.80); Red Cell Distribution Width 11.9 % (11.0-16.0); White Blood Count 4.2 X10*3/uL (4.8-10.8)
[2024-04-22 15:36] LABS: Appearance Urine Clear; Color Urine Yellow; Glucose Urine UA Negative (Negative); Leukocyte Esterase Urine Negative (Negative); Nitrite Urine Negative (Negative); PH 5.5 (5.0-9.0); Specific Gravity - Urine >= 1.030 (1.005-1.025); UMIC TRIGGER UACC YES; Urine Blood Negative (Negative); Urine Ketones Trace mg/dL (Negative); Urine Protein 30 (1+) mg/dL (Neg-Trace)
[2024-04-22 15:38] LABS: Bacteria Urine None Seen (None Seen); Hyaline Casts Urine 0-2 /LPF (0-2); RBC Urine 0-2 /HPF (0-2); Squamous Epithelial Cell Urine 0-2 /HPF (0-2); WBC Urine 0-5 /HPF (0-5)
[2024-04-22 15:49] LABS: Alanine Aminotransferase 38 U/L (0-40); Albumin Level 4.1 g/dL (3.5-5.0); Alkaline Phosphatase 103 U/L (39-117); Anion Gap 8 (12-20); Aspartate Amino Transferase 32 U/L (5-37); Bilirubin Total 0.3 mg/dL (0.0-1.0); Blood Urea Nitrogen 14 mg/dL (9-16); Calcium 9.7 mg/dL (8.4-10.2); Carbon Dioxide 32 mmol/L (22-29); Chloride 105 mmol/L (96-108); Creatinine Clr Calc Pharmacy 84.6; Estimated Glomerular Filt Rate > 60; Ethanol < 10 mg/dL; Glucose Random 133 mg/dL (60-115); Potassium 3.6 mmol/L (3.3-5.1); Sodium 141 mmol/L (135-145); Total Protein 7.3 g/dL (6.5-8.0)
--- NOTE | 2024-04-22 16:13 | PC.NURSE ---
patient resting comfortably on stretcher, remains at bedside, awaiting care team consult at this time
[2024-04-22 16:34] LABS: Amphetamine Screen Urine Not Detected (Not Detect); Barbiturates, Urine Not Detected (Not Detect); Benzodiazepines Screen Urine Not Detected (Not Detect); Buprenorphine Scr Not Detected (Not Detect); Cannabinoid Screen Urine Not Detected (Not Detect); Cocaine Screen Urine Not Detected (Not Detect); Fentanyl, urine Not Detected (Not Detect); Methadone Screen, Urine Not Detected (Not Detect); Opiate Screen Urine Not Detected (Not Detect); Oxycodone Screen Urine Not Detected (Not Detect); Phencyclidine Screen Urine Not Detected (Not Detect)
[2024-04-22 17:00] LABS: Acetaminophen LAB < 3 mcg/mL (<30); Salicylate < 5.0 mg/dL (15-30)
--- NOTE | 2024-04-22 18:10 | PC.NURSE ---
care team at bedside
--- NOTE | 2024-04-23 00:10 | PC.NURSE ---
Assumed care of pt at 1900. PT a/o, calm and cooperative, walking with a steady gait. Consumed 100% of dinner with at bedside. Visit was positive. PT now appears to be asleep, respirations even and unlabored. safety checks remain in place. Plan is for inpatient bed search on a section 12.
[2024-04-23 03:30] VITALS: BP 151/104; PULSE 89; RESP 18; TEMP 36.1; O2SAT 97
[2024-04-23 04:33] VITALS: BP 151/104
[2024-04-23] MEDS: clonazePAM 0.5 MG TABLET PO (04:33)
[2024-04-23] MEDS: Doxazosin Mesylate 2 MG TABLET 4 MG PO (04:33)
[2024-04-23] MEDS: lamoTRIgine 100 MG TABLET PO (04:33)
[2024-04-23] MEDS: Insulin Glargine,Hum.rec.anlog 100 UNIT/ML 10 ML VIAL 20 UNIT SUBCUT (04:33)
[2024-04-23 07:39] LABS: Glucose, Whole Blood 168 mg/dL (60-115)
--- NOTE | 2024-04-23 07:54 | PC.NURSE ---
Assumed care of patient at 0645, patient appears to be in no apparent distress this am, up eating breakfast and ambulating with steady gait. patient offers no complaints to this RN. Continue plan of care for inpatient bedsearch at this time
[2024-04-23 08:33] VITALS: BP 144/86; PULSE 56; RESP 16; TEMP 525; TEMP 977; O2SAT 100
[2024-04-23] MEDS: Empagliflozin 10 MG TABLET PO (08:49)
[2024-04-23] MEDS: Atorvastatin Calcium 80 MG TABLET PO (08:49)
--- NOTE | 2024-04-23 12:47 | MHC.CARE ---
Pt was accepted to [facility] for today 04/23/24. JANET MENON. The accepting provider is Domitila Andino. The address is [address] [place] [address]. Rn to rn report number is [phone]. [facility] RN was transferred to POD RN to complete report. CARE team notified of placement and section 12 complete.
[2024-04-23 13:01] VITALS: BP 149/101
[2024-04-23] MEDS: NIFEdipine ER 30 MG TAB.ER.24 PO (13:01)
[2024-04-23 13:02] VITALS: BP 149/101; PULSE 58; RESP 20; TEMP 36.7; O2SAT 100
[2024-04-23 13:15] LABS: COVID-19 Test Negative (Negative); IDNOW Serial# 152EDE1D
--- NOTE | 2024-04-23 18:54 | MHC.EDTECH ---
Called [facility] to check on ETA for this pt. as expected crop picker time was 1630. Per Sally at [place] the trip was never booked. Trip was originally supposed to be booked by [facility] key bed installer prior to my shift. I went ahead and booked the trip through dispatch @[phone]. ETA 30mins
[2024-04-23 20:03] VITALS: BP 126/70; PULSE 88; RESP 16; TEMP 37; O2SAT 97
== END 2024-04-23 19:10 ==
PROVIDERS: Emergency Provider Emergency Medicine Emergency Medical Services; PCP Hospitalist
DX: R45.851 Suicidal ideations (principal); F32.A Depression, unspecified; E11.9 Type 2 diabetes mellitus without complications; I10 Essential (primary) hypertension; K76.0 Fatty (change of) liver, not elsewhere classified; I73.00 Raynaud's syndrome without gangrene; Z79.899 Other long term (current) drug therapy
CPT/HCPCS: 36415; 80053; 80143; 80179; 80307; 81001; 82947; 85025; 87635; 93005; 99285; S9485

== ENCOUNTER → 2024-06-09 09:45 | Outpatient (BNV) | payer MEDICARE, SELFPAY | PROVIDERS: Visit Provider Psychiatry & Neurology Psychiatry | DX: F33.2 Major depressive disorder, recurrent severe without psychotic features (principal); F43.10 Post-traumatic stress disorder, unspecified | CPT/HCPCS: 99213; 99499 ==

== ENCOUNTER 2024-06-09 10:40 | Outpatient (REF) | payer MEDICARE, SELFPAY ==
[2024-06-09 11:10] LABS: MANUAL DIFF FLAG NO
--- NOTE | 2024-06-09 11:13 | ECG_ITS ---
Test Reason : qtc check Blood Pressure : / mmHG Vent. Rate : 067 BPM Atrial Rate : 067 BPM P-R Int : 166 ms QRS Dur : 082 ms QT Int : 386 ms P-R-T Axes : 052 077 050 degrees QTc Int : 407 ms Normal sinus rhythm Normal ECG When compared with ECG of 23-APR-2024 09:50, No significant changes seen Referred By: Suyapa Ayala Electronically Signed By:MATHEUS CONLEY
[2024-06-09 11:21] LABS: Basophils Percent Auto 0.7 % (0-2); Eosinophils Percent Auto 0.9 % (0-4); Hematocrit 40.6 % (42.0-52.0); Hemoglobin 13.8 g/dl (14.0-18.0); Imm Gran Abs Auto 0.02 X10*3/uL (0.00-0.03); Imm Gran Pct Auto 0.4 % (0.0-0.4); Lymphocytes Absolute Auto 1.3 X10*3/uL (1.2-4.9); Lymphocytes Percent Auto 28.8 % (20-40); Mean Corpuscular Hemoglobin 28.2 pg (27.0-33.0); Mean Platelet Volume 8.9 fL (9.4-12.4); Monocytes Absolute Auto 0.3 X10*3/uL (0.1-1.2); Monocytes Percent Auto 6.5 % (2-11); Neutrophils Absolute Auto 2.8 x10*3/uL (2.0-8.3); Neutrophils Percent Auto 62.7 % (45-73); Platelet Count 284 X10*3/uL (160-400); Red Blood Count 4.89 X10*6/uL (4.60-5.80); Red Cell Distribution Width 12.4 % (11.0-16.0); White Blood Count 4.5 X10*3/uL (4.8-10.8)
[2024-06-09 11:29] LABS: Estimated Average Glucose 163 mg/dL; Hemoglobin A1C 202.9693 umol/L; Hemoglobin A1c % 7.3 % (<6.0); Total Hemoglobin (HGBA1C) 3590.1636 umol/L
[2024-06-09 11:30] LABS: Appearance Urine Clear; Color Urine Yellow; Glucose Urine UA >=1000 mg/dL (Negative); Leukocyte Esterase Urine Negative (Negative); Nitrite Urine Negative (Negative); Specific Gravity - Urine >= 1.030 (1.005-1.025); UMIC TRIGGER UA YES; Urine Blood Negative (Negative); Urine Ketones Negative (Negative); Urine Protein Negative (Neg-Trace)
[2024-06-09 11:55] LABS: Erythrocyte Sedimentation Rate 14 MM/HR (0-15)
[2024-06-09 12:00] LABS: Bacteria Urine None Seen (None Seen); Hyaline Casts Urine 0-2 /LPF (0-2); RBC Urine 0-2 /HPF (0-2); Squamous Epithelial Cell Urine 0-2 /HPF (0-2); WBC Urine 0-5 /HPF (0-5)
[2024-06-09 12:46] LABS: Alanine Aminotransferase 40 U/L (0-40); Albumin Level 4.6 g/dL (3.5-5.0); Alkaline Phosphatase 115 U/L (39-117); Anion Gap 14 (12-20); Aspartate Amino Transferase 32 U/L (5-37); Bilirubin Total 0.3 mg/dL (0.0-1.0); Blood Urea Nitrogen 14 mg/dL (9-16); Calcium 9.5 mg/dL (8.4-10.2); Carbon Dioxide 30 mmol/L (22-29); Chloride 100 mmol/L (96-108); Estimated Glomerular Filt Rate > 60; Glucose Random 189 mg/dL (60-115); Iron 96 mcg/dL (45-160); Lactate Dehydrogenase 197 U/L (118-273); Percent Iron Saturation 28 % (15-50); Potassium 3.8 mmol/L (3.3-5.1); Sodium 140 mmol/L (135-145); Total Iron Binding Capacity 338 mcg/dL (228-428); Total Protein 7.9 g/dL (6.5-8.0); Unsaturated Iron Binding 242 ug/dL
[2024-06-09 12:46] LABS: Sodium Urine Random < 20.0 mmol/L
[2024-06-09 13:05] LABS: Beta-Hydroxybutyrate 0.07 mmol/L (0.02-0.27)
[2024-06-09 13:08] LABS: Folate 9.3 ng/mL (> or = 4.0); Vitamin B12 386 pg/mL (200-900)
[2024-06-09 13:14] LABS: Ferritin 276 ng/mL (20-250); Free T4 (Free Thyroxine) 0.81 ng/dL (0.71-1.85); Thyroid Stimulating Hormone 0.34 uIU/mL (0.32-4.0); Vitamin D 25-OH Total 13.3 ng/mL (>30)
[2024-06-09 14:05] LABS: Osmolality, Serum 302 mosm/kg (281-305)
[2024-06-09 14:06] LABS: Osmolality Urine 804 mosm/kg (373-1093)
--- NOTE | 2024-06-09 23:59 | P.PNPSP_ITS ---
Subjective Subjective Date of Service: 06/09/24 Reason For Visit: F33.2, E11.9, N18.9 Medication Compliance: Yes Side effects from medications: Yes (unclear, as noted above) Attending Groups: Yes Review of Systems Acute medical concerns: Yes worsening generalized weakness/soreness Diagnostics Labs 06/09/24 11:06 06/09/24 11:06 Labs: Laboratory Results - last 48 hr 06/09/24 06/09/24 10:58 11:06 WBC 4.5 L RBC 4.89 Hgb 13.8 L Hct 40.6 L MCV 83.0 MCH 28.2 MCHC 34.0 RDW 12.4 Plt Count 284 MPV 8.9 L Immature Gran % (Auto) 0.4 Neut % (Auto) 62.7 Lymph % (Auto) 28.8 [place] % (Auto) 6.5 Eos % (Auto) 0.9 Baso % (Auto) 0.7 Lymph # (Auto) 1.3 [place] # (Auto) 0.3 Eos # (Auto) 0.0 Baso # (Auto) 0.0 Abs Immat Gran (auto) 0.02 Absolute Neuts (auto) 2.8 Absolute Nucleated RBC 0.000 Nucleated RBC % (auto) 0.0 ESR 14 Sodium 140 Potassium 3.8 Chloride 100 Carbon Dioxide 30 H Anion Gap 14 BUN 14 Creatinine 1.13 Estim Creat Clear Calc Not Reportable Estimated GFR > 60 Random Glucose 189 H Estimat Average Glucose 163 Hemoglobin A1c % 7.3 H Osmolality 302 Calcium 9.5 Iron 96 TIBC 338 % Saturation 28 Unsat Iron Binding 242 Ferritin 276 H Total Bilirubin 0.3 AST 32 ALT 40 Alkaline Phosphatase 115 Lactate Dehydrogenase 197 Total Creatine Kinase 499 H C-Reactive Protein 0.10 Total Protein 7.9 Albumin 4.6 Vitamin B12 386 25-OH Vitamin D Total 13.3 L Folate 9.3 Beta-Hydroxybutyrate 0.07 TSH 0.34 Free T4 0.81 Urine Color Yellow Urine Appearance Clear Urine pH 6.0 Ur Specific [place] >= 1.030 H Urine Protein Negative Urine Glucose (UA) >=1000 H Urine Ketones Negative Urine Blood Negative Urine Nitrite Negative Ur Leukocyte Esterase Negative Urine RBC 0-2 Urine WBC 0-5 Ur Squamous Epith Cells 0-2 Urine Bacteria None Seen Hyaline Casts 0-2 Urine Osmolality 804 Ur Random Sodium < 20.0 Assessment & Plan Patient educated on: diagnosis and medication risk/benefits Informed Consent: understands Reason for contiued partial hosp. stay Substantial Risk for: inability to function, rapid decompensation and med/psych decompensation Certification I certify that partial hospital treatment is medically necessary due to the symptoms and problems resulting from the patient's mental illness and the failure to treat the patient at the partial hospital level of care would likely result in the patient requiring inpatient psychiatric care which could not be prevented at a less intensive level of care. Total time managing care of this patient today _40___ minutes. Discharge Plan Discharge Primary Care Provider: Shaina Whelan Patient Disposition: Home, Self-Care Referrals: Shaina Whelan MD [Primary Care Provider] - 1 Week Discharge Medications: No Action clonazepam 0.5 mg tablet 0.25 mg PO DAILY PRN (Reason: Anxiety) Patient Comments: Filled 10/02/21 insulin glargine [Lantus Solostar U-100 Insulin] 100 unit/mL (3 mL) insulin pen 24 unit subcut BEDTIME Patient Comments: Patient stated his PCP increased Lantus from 20 to 24 units at HS. dapagliflozin propanediol [Farxiga] 10 mg Tablet 10 mg PO DAILY nifedipine 90 mg Tablet Extended Release 90 mg PO DAILY duloxetine 30 mg Capsule,Delayed Release(Dr/Ec) 30 mg PO DAILY duloxetine 30 mg capsule, delayed rel sprinkle 30 mg PO BID 15 Days Qty: 30 0RF clonazepam 0.5 mg Tablet See Rx Instructions .ROUTE .COMPLEX 14 Days Qty: 21 0RF Rx Instructions: take 1/2 tablet po daily prn anxiety; take 1 tablet po daily at bedtime (administer 30 minutes before bedtime) doxazosin 1 mg tablet 4 mg PO BEDTIME Protocol: Hold for SBP< HOLD for SBP < : 90 lamotrigine 100 mg tablet 150 mg PO BEDTIME Rx Instructions: Take one and a half tabs at bedtime. rosuvastatin 40 mg Tablet 40 mg PO DAILY Patient Comments: Patient reports he is prescribed this medication. Last filled 09/2022. He stated he has plenty of this medication at home. He has history of non- compliance with medications. Rx Instructions: at bedtime Print Language: Spanish
[2024-06-15 14:13] LABS: Anti Nuclear Antibody Screen NEGATIVE (NEGATIVE)
== END 2024-06-09 10:41 | disposition home or self-care (01) ==
LOC: HO.LAB 10:40
PROVIDERS: PCP Hospitalist; Visit Provider Psychiatry & Neurology Psychiatry
DX: F33.2 Major depressive disorder, recurrent severe without psychotic features (principal); E11.9 Type 2 diabetes mellitus without complications; N18.9 Chronic kidney disease, unspecified
CPT/HCPCS: 36415; 80053; 81001; 82010; 82306; 82550; 82607; 82728; 82746; 83036; 83540; 83615; 83930; 83935; 84300; 84439; 84443; 85025; 85652; 86038; 86140; 93005

== ENCOUNTER → 2024-06-09 11:13 | Outpatient (BNV) | payer MEDICARE, SELFPAY | PROVIDERS: PCP Hospitalist; Visit Provider Internal Medicine | DX: R53.1 Weakness (principal); F33.2 Major depressive disorder, recurrent severe without psychotic features | CPT/HCPCS: 93010 ==

== ENCOUNTER 2024-06-12 08:39 | Outpatient (REF) | payer MEDICARE, SELFPAY ==
[2024-06-12 09:42] LABS: Anion Gap 14 (12-20); Carbon Dioxide 26 mmol/L (22-29); Chloride 103 mmol/L (96-108); Estimated Glomerular Filt Rate > 60; Potassium 3.7 mmol/L (3.3-5.1); Sodium 139 mmol/L (135-145)
[2024-06-15 14:35] LABS: Cholesterol 199 mg/dL (<200); HDL Cholesterol 53 mg/dL (>40); LDL Cholesterol Calculated 124 mg/dL (<100); Triglycerides 110 mg/dL (<150)
== END 2024-06-12 08:40 | disposition home or self-care (01) ==
LOC: HO.LAB 08:39
PROVIDERS: PCP Hospitalist; Visit Provider Psychiatry & Neurology Psychiatry
DX: F33.2 Major depressive disorder, recurrent severe without psychotic features (principal); E11.9 Type 2 diabetes mellitus without complications; N18.9 Chronic kidney disease, unspecified
CPT/HCPCS: 36415; 80051; 80061; 82550; 82565

== ENCOUNTER 2024-06-17 11:30 | Outpatient (RCR) | payer MEDICARE, SELFPAY ==
[2024-05-28 12:02] VITALS: BP 130/72; PULSE 72; TEMP 37; BMI 26.5
--- NOTE | 2024-05-28 13:29 | PC.ADMIT ---
Patient is a 54 year old male who was referred to [facility]. Patient initially was hospitalized at [facility] behavioral health unit after self presenting to [facility] for a crisis evaluation d/t depression with SI and multiple plans including jumping from a bridge or stab self with a knife d/t feeling overwhelmed with a difficult year. Patient was [facility] as a step down to inpatient LOC. Patient reported to this comic writer, when asked what happened prior to hospitalization, he stated , The whole year did not go well. I did a wellness check on someone and I get there and I ended up watching him being carried out in a body bag. They think he of heart attack. And then I had to take my to the ER as she had a heart attack and then we were helping somebody with hospice end stage pancreatic cancer and had a few triggering events after that. I was conducted a bible study with a gentlemen were were close and there was no response at the door and I found him under the coffee table. I still see the image. Tried to help the family through it . Went to [facility] for a crisis evaluation and was sent me to [facility] which was not therapeutic it was filthy loud and violent . Patient was discharged from [facility] 05/11/24 and admitted to respite afterwards. Patient currently is alert and oriented x4. Calm and cooperative. His thoughts are clear and logical. He presented with depressed mood and anxious affect. He denied SI or HI. He was given a copy of his safety plan if needed. Patient has a history of non adherence to prescribed medications however he reports since he was hospitalized he has been medication compliant. Medications reconciled with patient and [facility] Respite Nurse Michelle. Patient wearing a mask. He stated he is wearing a mask to protect everyone else as we are still in a pandemic. He is also wearing gloves secondary to Raynauds disease.
--- NOTE | 2024-05-28 15:02 | HO.PHP ---
Client's case has been opened and reviewed in team.
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
[2024-06-02 13:42] VITALS: BP 120/72; PULSE 84
--- NOTE | 2024-06-08 08:39 | HO.PHP ---
PHP admin, Sagrario, informed the team that Partha will not be in attendance to program today due to waking up feeling weak. Partha reported no safety concerns and will be in attendance to program tomorrow.
--- NOTE | 2024-06-10 00:55 | P.PNPSP_ITS ---
Subjective Subjective Date of Service: 06/09/24 Reason For Visit: depressive d/o Interim History: Patient seen for follow-up upon request by patient who complains of generalized weakness since moving up on the medication. He moved the dose of Cymbalta from 30 mg BID to 60 mg qhs due Definitely feeling weakness. I lost a few pounds . Difficult time standing up, mostly due to lack of strength rather than dizziness. Weakness is bilateral and generalized, muscle tenderness. Denies joint pain. Has been managing his diabetes sufficiently, reports last HbA1c at 7.5 one week prior to starting PHP. He reports having a history of on/off again generalized weakness that sometimes waxes and wanes. He says there may have been some weakness prior to the Cymbalta increase but was not noticable until after med change. Denies any other medication changes or other factors he can identify. He notes losing 8 lbs since he was in [facility] in Apr-May and perhaps 4 or 5 lbs. Medication Compliance: Yes Side effects from medications: Yes Attending Groups: Yes Review of Systems Acute medical concerns: Yes Mental Status Exam Mental Status Exam Narrative: Alert, oriented, in no acute distress. Calm, cooperative, engaged. No psychomotor agitation or neurovegetative retardation. Eye contact maintained. Mood depressed, affect constricted. Speech normal. Thought process linear, coherent. Thought content related to stressors, transient hopelessness, denies SI or HI. No paranoia or delusional content elicited. No evidence of psychosis. Insight and judgment - fair but adequate. Diagnostics Vital Signs (24Hr): BMI result Body Mass Index 26.5 Assessment & Plan Assessment & Plan (1) MDD (major depressive disorder), recurrent severe, without psychosis: Status: Acute Code(s): F33.2 - Major depressive disorder, recurrent severe without psychotic features (2) PTSD (post-traumatic stress disorder): Status: Acute Code(s): F43.10 - Post-traumatic stress disorder, unspecified Plan return to duloxetine to 30 mg/d for now continue other regular medications? Send for lab work: Lab work returned with elevated CK ~500, vit D deficiency for now will hold rosuvastatin EKG, routine today NSR 67, QTc 407 ms UDS as indicated Continue to monitor Patient educated on: diagnosis, medication risk/benefits and medical condition Informed Consent: understands Reason for contiued partial hosp. stay Substantial Risk for: inability to function, rapid decompensation and med/psych decompensation Certification I certify that partial hospital treatment is medically necessary due to the symptoms and problems resulting from the patient's mental illness and the failure to treat the patient at the partial hospital level of care would likely result in the patient requiring inpatient psychiatric care which could not be prevented at a less intensive level of care. Total time managing care of this patient today _30___ minutes. Discharge Plan Discharge Attending provider: Suyapa Ayala Medications: New duloxetine 30 mg capsule, delayed rel sprinkle 30 mg PO BID 15 Days Qty: 30 0RF ergocalciferol (vitamin D2) [Vitamin D2] 1,250 mcg (50,000 unit) capsule 1,250 mcg PO QWEEK Qty: 12 0RF Continued clonazepam 0.5 mg tablet 0.25 mg PO DAILY PRN (Reason: Anxiety) Patient Comments: Filled 10/02/21 insulin glargine [Lantus Solostar U-100 Insulin] 100 unit/mL (3 mL) insulin pen 24 unit subcut BEDTIME Patient Comments: Patient stated his PCP increased Lantus from 20 to 24 units at HS. dapagliflozin propanediol [Farxiga] 10 mg Tablet 10 mg PO DAILY nifedipine 90 mg Tablet Extended Release 90 mg PO DAILY duloxetine 30 mg Capsule,Delayed Release(Dr/Ec) 30 mg PO DAILY doxazosin 1 mg tablet 4 mg PO BEDTIME Protocol: Hold for SBP< HOLD for SBP < : 90 lamotrigine 100 mg tablet 150 mg PO BEDTIME Rx Instructions: Take one and a half tabs at bedtime. rosuvastatin 40 mg Tablet 40 mg PO DAILY Patient Comments: Patient reports he is prescribed this medication. Last filled 09/2022. He stated he has plenty of this medication at home. He has history of non- compliance with medications. Rx Instructions: at bedtime Changed clonazepam 0.5 mg Tablet See Rx Instructions .ROUTE .COMPLEX 14 Days Qty: 21 0RF Rx Instructions: take 1/2 tablet po daily prn anxiety; take 1 tablet po daily at bedtime (administer 30 minutes before bedtime) Stand Alone Forms: Patient Portal Discharge page Print Language: Czech
--- NOTE | 2024-06-10 01:01 | PM.EVENT ---
Event Note Date of Service: 06/09/24 Event Note: Phone call to patient regarding lab work. Unable to reach him but left VMx2 advising he hold the statin for the next few days in addition to duloxetine. Unless patient recently had lab work done at PCP/elsewhere, I will see if he is open to doing fasting labs, perhaps Fr AM or at some point to check lipid, recheck CK) since today he was sent in afternoon for labs (non-fasting)so did not obtain lipids. If feeling better may add back on duloxetine. Will have pt follow up with his PCP regarding Time Spent With Patient Time: Total time managing care of this patient today __5__ minutes.
--- NOTE | 2024-06-10 10:02 | PC.NURSE ---
Lab results done on 06/09/24 including CO2 30, Creat 1.13, Random Glucose 189, Ferritin 276, CK total 499, Vit D 13.3, A1C 7.3, WBC 4.5, RBC, 4.89, HCT 40.6, MPV 62.7, Ur GLU greater than 1000, Spec grav greater than 1.030. Dr Ayala is aware. Per Dr Ayala patient is to increase fluid intake. Hold statin medication, No NSAID medication, repeat fasting labs will be ordered on Saturday, and Vitamin D prescription will be given. Patient is aware.
[2024-06-16 11:42] VITALS: BP 136/82; PULSE 68
[2024-06-16 11:43] VITALS: BP 130/80; PULSE 64
--- NOTE | 2024-06-16 11:54 | PC.NURSE ---
F/U PCP appointment 06/18/24 at 10:[address] [place] [address] [address] [place], [place]. Office # [phone]. Patient c/o weakness. Lab results faxed to PCP and patient has a copy of lab results to bring to PCP appointment.
--- NOTE | 2024-06-16 23:34 | HO.PHPPROGNO ---
Subjective Subjective Date of Service: 06/16/24 Reason For Visit: depressive d/o Interim History: Patient seen for follow-up, anticipating discharge at the end of program today.? Reports no acute issues or concerns. Medication compliant, medications well-tolerated. Denies any adverse effects.? Mood is stable.? Denies any hopelessness or SI. Denies thoughts of harming self or others at this time. Denies any aggressive ideation or HI. Denies any paranoia or AH or VH. Sleep, appetite, energy stable. Alert, oriented, in no acute distress. Calm, cooperative. Mood stable, affect appropriate. Speech normal. Thought process linear, coherent, more goal-directed. Thought content related to stressors, future-oriented, denies any helplessness, hopelessness or SI.? No aggressive ideation or HI. No paranoia or delusional content elicited. No evidence of psychosis. Insight and judgment fair-good. Discharge from [facility] Continue regular medications Refills sent to pharmacy Will defer further medication management to outpatient provider *Safety plan reviewed *Discharge diagnoses, treatment course, discharge plan have been reviewed with patient (including medication regime, medication management, potential side effects) as well as treatment rationale were also revisited *Discharge paperwork signed and given to patient, copy sent for scanning to chart Diagnostics Vital Signs (24Hr): Vital Signs - 24 hr 06/16/24 11:42 06/16/24 11:43 Pulse Rate 68 64 Blood Pressure 136/82 130/80 BMI result Body Mass Index 26.5 Assessment & Plan Certification I certify that partial hospital treatment is medically necessary due to the symptoms and problems resulting from the patient's mental illness and the failure to treat the patient at the partial hospital level of care would likely result in the patient requiring inpatient psychiatric care which could not be prevented at a less intensive level of care. Total time managing care of this patient today ____ minutes. Discharge Plan Discharge Attending provider: Suyapa Ayala Additional Instructions: PCP appointment 06/18/24 at 10:[address] [place] [address] [address] [place], [place]. Office # [phone]. Medications: New ergocalciferol (vitamin D2) [Vitamin D2] 1,250 mcg (50,000 unit) capsule 1,250 mcg PO QWEEK Qty: 12 0RF duloxetine 20 mg capsule,delayed release(DR/EC) 20 mg PO DAILY Qty: 30 0RF duloxetine 30 mg capsule,delayed release(DR/EC) 30 mg PO BEDTIME Qty: 30 0RF Continued insulin glargine [Lantus Solostar U-100 Insulin] 100 unit/mL (3 mL) insulin pen 24 unit subcut BEDTIME Patient Comments: Patient stated his PCP increased Lantus from 20 to 24 units at HS. dapagliflozin propanediol [Farxiga] 10 mg Tablet 10 mg PO DAILY duloxetine 30 mg Capsule,Delayed Release(Dr/Ec) 30 mg PO DAILY doxazosin 1 mg tablet 4 mg PO BEDTIME Protocol: Hold for SBP< HOLD for SBP < : 90 lamotrigine 100 mg tablet 150 mg PO BEDTIME Rx Instructions: Take one and a half tabs at bedtime. rosuvastatin 40 mg Tablet 40 mg PO DAILY Patient Comments: Patient reports he is prescribed this medication. Last filled 09/2022. He stated he has plenty of this medication at home. He has history of non-compliance with medications. Rx Instructions: at bedtime Changed clonazepam 0.5 mg Tablet See Rx Instructions .ROUTE .COMPLEX 14 Days Qty: 21 0RF Rx Instructions: take 1/2 tablet po daily prn anxiety; take 1 tablet po daily at bedtime (administer 30 minutes before bedtime) Discontinued clonazepam 0.5 mg tablet 0.25 mg PO DAILY PRN (Reason: Anxiety) Patient Comments: Filled 10/02/21 No Action nifedipine 90 mg tablet extended release 90 mg PO DAILY Qty: 90 3RF Rx Instructions: Take 1 tablet daily Increase dose Stand Alone Forms: Patient Portal Discharge page Patient Education: Depression (DC) Print Language: Tajik
== END 2024-06-17 23:59 | disposition home or self-care (01) ==
LOC: HO.PHPA 11:30
PROVIDERS: Visit Provider Psychiatry & Neurology Psychiatry
DX: F33.2 Major depressive disorder, recurrent severe without psychotic features (principal); F43.10 Post-traumatic stress disorder, unspecified
CPT/HCPCS: 90791; 90853

== ENCOUNTER 2024-07-02 13:37 | Outpatient (AMB) | payer MEDICARE, SELFPAY ==
--- NOTE | 2024-07-02 13:43 | A.OFFVIS_ITS ---
Vital Signs 07/02/24 14:15 Height 6 ft Weight 195 lb 12.328 oz BMI 26.5 BP 130/80 Blood Pressure Location Lt brachial Position Sitting Pulse 85 Pulse Source Pulse Oximeter Pulse Oximetry (%) 98 Oxygen Delivery Method Room Air Intake Visit Reasons: Raynauds Intake Note: Patient presents today for follow up on his Raynaud's today. Patient states it's not as bad, but still wearing gloves. Allergies bupropion [From WELLBUTRIN] Allergy (Severe, Verified 04/22/24 15:10) Seizure aripiprazole [From ABILIFY] Allergy (Intermediate, Verified 04/22/24 15:10) FACIAL TREMORS honey [HONEY] Allergy (Intermediate, Verified 04/22/24 15:10) HEADACHES lurasidone [From LATUDA] Adverse Reaction (Intermediate, Verified 04/22/24 15:10) GETS REALLY SICK mirtazapine [MIRTAZAPINE] Adverse Reaction (Intermediate, Verified 04/22/24 15:10) BP GOES HIGH HPI HPI Raynauds: Details: Hands feel cold. He was admitted for psyciatric reasons then subequent developed rhabdomyolosis. He is recovering and feels well. Initially he lost weight but he has regained some weight. He had an episode of raynauds in hands where hand turned white 10 days ago resolved with gloves on. Lasted 10 minutes. Raynaud's episode occurs weekly. Since increasing nifedipine dose his hands have been warmer when at home where he does not wear gloves. He still feels that his hands are cold at room temperature. He only wears gloves when he is out of his home including in the summer. Raynaud's syndrome does not affect his feet. He reports that sometimes he has headaches but he is unsure if it is related to nifedipine. [facility] Medical History (Updated 07/02/24 @ 15:57 by Jaren Isabel MD) Kidney disease Anemia Type II diabetes mellitus Fatty liver Hyperlipemia Urethral stricture Raynauds syndrome DALE (obstructive sleep apnea) Seizure Hypertension Anxiety PTSD (post-traumatic stress disorder) Social History Household Members: Spouse Household Members Other:: Two puppies Housing: Condominium Do you presently have visiting nurse or other home services: No Patient Tobacco Use Status: Never used Tobacco e-Cigarette/Vaping Use: Never Used Second Hand Smoke Exposure: Yes service: No Sexual orientation: Straight/Heterosexual Review of Systems Const All systems reviewed & are unremarkable except as noted in HPI and below Physical Exam Vital Signs: Last Vital Signs Pulse 85 07/02/24 14:15 BP 130/80 07/02/24 14:15 Pulse Ox 98 07/02/24 14:15 Oxygen Delivery Method Room Air 07/02/24 14:15 BMI result Body Mass Index 26.5 Const Other: General: Comfortable Skin: No lesions seen. Normal capillary refill. No discoloration of f ingertips. No digital ulcers. MSK: Hands are warm to touch. No synovitis of hands. Assessment & Plan Assessment & Plan (1) Raynaud disease without gangrene: Comment: Better controlled on nifedipine 60 mg ER daily. Normotensive. We discussed increasing dose to better controlled Raynaud's episodes Code(s): I73.00 - Raynaud's syndrome without gangrene Category: Medical Plan: Increase nifedipine 90 mg daily ER Nurse visit in 2 weeks for blood pressure check. He is currently on doxazosin 4 mg at bedtime for mood disorder, which he will continue until blood pressure check. Return to clinic in 3 months (2) Other buttermaker (current) drug therapy: Code(s): Z79.899 - Other buttermaker (current) drug therapy Category: Medical Plan: See above Medications: Changed From nifedipine ER 90 mg PO DAILY To nifedipine ER Take 1 tablet daily Increase dose 90 mg PO DAILY 90 tabs 3RF Coding Level of Care Code Est Pt Level 3 (52929) Complex EM visit Add On G2211 Diagnoses Raynaud disease without gangrene I73.00 Other buttermaker (current) drug therapy Z79.899
[2024-07-02 14:15] VITALS: BP 130/80; PULSE 85; O2SAT 98; BMI 26.5
== END 2024-07-02 15:05 | disposition home or self-care (01) ==
PROVIDERS: PCP Hospitalist; Visit Provider Internal Medicine Rheumatology
DX: I73.00 Raynaud's syndrome without gangrene (principal); Z79.899 Other long term (current) drug therapy
CPT/HCPCS: 99214; G2211

== ENCOUNTER → 2024-07-02 13:37 | Outpatient (BNVA) | payer MEDICARE, SELFPAY | PROVIDERS: PCP Hospitalist; Visit Provider Internal Medicine Rheumatology | DX: I73.00 Raynaud's syndrome without gangrene (principal); Z79.899 Other long term (current) drug therapy | CPT/HCPCS: 99212 ==

== ENCOUNTER 2024-09-09 09:52 | Outpatient (AMB) | payer MEDICARE, SELFPAY ==
[2024-09-09 09:53] VITALS: BP 116/78; PULSE 67; O2SAT 98; BMI 26.4
--- NOTE | 2024-09-09 09:53 | A.OFFVIS_ITS ---
Vital Signs 09/09/24 09:53 Height 6 ft Weight 194 lb 8 oz BMI 26.4 BP 116/78 Blood Pressure Location Lt brachial Position Sitting Pulse 67 Pulse Source Pulse Oximeter Pulse Oximetry (%) 98 Oxygen Delivery Method Room Air Intake Visit Reasons: BP reading (next steps) Intake Note: Patient presents for BP check, and follow up on Raynaud's today. Allergies bupropion [From WELLBUTRIN] Allergy (Severe, Verified 04/22/24 15:10) Seizure aripiprazole [From ABILIFY] Allergy (Intermediate, Verified 04/22/24 15:10) FACIAL TREMORS honey [HONEY] Allergy (Intermediate, Verified 04/22/24 15:10) HEADACHES lurasidone [From LATUDA] Adverse Reaction (Intermediate, Verified 04/22/24 15:10) GETS REALLY SICK mirtazapine [MIRTAZAPINE] Adverse Reaction (Intermediate, Verified 04/22/24 15:10) BP GOES HIGH HPI HPI BP reading (next steps): Details: He does not wear gloves at home. He wears one layer of gloves sometimes but there are days he had to three layers of gloves. One episode of mouth ulcers, no fevers, intermittent dyspnea, rash, joint swelling, myalgias, urinary symptoms He continues to have episodes where he experiences weakness. He describes feeling that he is losing consciousness and then has a profound sense of weakness in his extremities. These symptoms have been attributed to autoimmune disease and a prior history of rhabdomyolysis. [facility] Medical History (Updated 09/09/24 @ 10:26 by Jaren Isabel MD) Kidney disease Anemia Type II diabetes mellitus Fatty liver Hyperlipemia Urethral stricture Raynauds syndrome DALE (obstructive sleep apnea) Seizure Hypertension Anxiety PTSD (post-traumatic stress disorder) Social History Household Members: Spouse Household Members Other:: Two puppies Housing: Condominium Do you presently have visiting nurse or other home services: No Patient Tobacco Use Status: Never used Tobacco e-Cigarette/Vaping Use: Never Used Second Hand Smoke Exposure: Yes service: No Sexual orientation: Straight/Heterosexual Review of Systems Const All systems reviewed & are unremarkable except as noted in HPI and below Physical Exam Vital Signs: Last Vital Signs Pulse 67 09/09/24 09:53 BP 116/78 09/09/24 09:53 Pulse Ox 98 09/09/24 09:53 Oxygen Delivery Method Room Air 09/09/24 09:53 BMI result Body Mass Index 26.4 Const Other: General: Comfortable Skin: No lesions seen. Normal capillary refill. No discoloration of fingertips. No digital ulcers. MSK: Hands are warm to touch. No synovitis of hands. Weak transportation project manager. Assessment & Plan Assessment & Plan (1) Raynaud disease without gangrene: Comment: Controlled on nifedipine 90 mg ER daily. Normotensive. 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 His symptoms do not coincide with taking nifedipine. 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
--- OUTSIDE RECORDS SUMMARY | 2024-09-09 11:37 | XMS_ITS | Data Portability ---
Author Organization [facility], [facility] Address [address] [place] [address] Assessment No assessment recorded. Plan of Treatment Reminders Order Date Submit Date Provider Last Modified By Organization Details Last Modified Time Details Appointments None record ed. Lab None record ed. Referral None record ed. Procedures None record ed. Surgeries None record ed. Imaging None record ed. Medication Orders None record ed. Patient TargetsNo targets recorded. Patient InstructionsNo instructions recorded. Reason for Referral None Reported. Medical Equipment None Reported. Allergies Allergen ID Allergen Name Allergen Category Reaction Reaction Severity Criticality Documentation Date Start Date Code Code System Note Provider Name and Address Organization Details Recorded Time 381082 honey preparati on food,medi cation Not available Not available Not available 10/29/2023 12036 9 [facility] 4 14:29:03 Medications Name Sig Start Date Stop Date Status Note LastModified by Organization Details LastModified Time clonazepam 0.5 mg tablet TAKE ONE TABLET BY MOUTH EVERY NIGHT AND HALF TABLET DAILY IF NEEDED FOR ANXIETY active Not Available Not Available No t Available amlodipine 2.5 mg tablet TAKE 1 TABLET BY MOUTH EVERY DAY active Not Available Not Available No t Available nifedipine ER 30 mg tablet,exten ded release TAKE 1 TABLET BY MOUTH DAILY active Not Available Not Available Not Available amlodipine 5 mg tablet TAKE 1 TABLET DAILY. TOTAL DOSE 15MG DAILY active Not Available Not Available N ot Available lamotrigine 25 mg tablet TAKE 1 + 1/2 TABLETS BY MOUTH EVERY DAY IN THE EVENING active Not Available Not Available No t Available lamotrigine 5 mg chewable dispersible tablet TAKE 1 TABLET BY MOUTH EVERY DAY IN THE MORNING active Not Available Not Available No t Available doxazosin 4 mg tablet TAKE 1 TABLET BY MOUTH EVERY DAY AT NIGHT active Not Available Not Available No t Available clotrimazole 1 % topical cream USE 1 APPLICATION EXTERNALLY TWICE A DAY NEEDED 28 DAYS active Not Available Not Available No t Available BD Ultra-Fine Mini Pen Needle 31 gauge x 3/16 USE DIRECTED DAILY active Not Available Not Available No t Available Lantus Solostar U-100 Insulin 100 unit/mL (3 mL) subcutaneous pen INJECT 20 UNITS SUBCUTANEOU S ONCE A DAY 90 DAYS active Not Available Not Available Not Available GaviLyte-G 236 gram-22.74 gram-6.74 gram-5.86 gram oral solution TAKE 8 OUNCE BY MOUTH DIRECTED FOLLOW PREP INSTRUCTION S GIVEN BY YOUR DOCTOR'S OFFICE active Not Available Not Available No t Available Farxiga 10 mg tablet TAKE 1 TABLET BY MOUTH EVERY DAY active Not Available Not Available No t Available desvenlafaxi ne succinate ER 25 mg tablet,exten ded release 24 hr TAKE 1 TABLET BY MOUTH EVERY DAY active Not Available Not Available No t Available Vitals Date Recorded Body height Body mass index (BMI) Body weight Provider Name and Address Organization Details Last Updated DateTime 10/29/2023 182.88 cm 28.2 kg/m2 48886.21 [facility] 10/29/2023 14:28:50 Date Recorded Body height Body mass index (BMI) Body weight Provider Name and Address Organization Details Last Updated DateTime 12/10/2023 182.88 cm 27.9 kg/m2 26464.03 [facility] 12/10/2023 15:05:27 Social History None recorded. Functional Status None recorded. Mental Status None recorded. Family History Nothing Reported. Medical History No medical history recorded. Past Encounters Encounter ID Performer Location Encounter Start Date Encounter Closed Date Diagnosis/Indication Diagnosis SNOMED-CT Code Diagnosis ICD10 Code Diagnosis Note [id number] [facility] [address] [place] [address] 10/29/2023 14:11:28 10/29/2023 14:43:32 Trochanteric bursitis of right hip 5471200020 18342 M70.61 Osteoarthr itis of right hip joint 4382255581 21583 M16.11 [id number] [facility] [address] [place], [place] [address] 12/10/2023 14:52:55 12/27/2023 06:37:04 Trochanteric bursitis of right hip [id number] 45552 M70.61 Osteoarthr itis of right hip joint [id number] 32762 M16.11 Health Concerns Section Related Observation LastModified by Organization Detai ls LastModified Time None Recorded Concern Status LastModified by Organization Details LastModified Time None Recorded Advance Directives Directive None Recorded Payers Encounter Date Sequence Insurance Name Policy Number Policy Plaza Covered Member ID Plaza Member ID Guarantor Name 10/29/2023 1 [facility] - MEDICARE PREFERRED (MEDICARE REPLACEMENT HMO) [facility] Partha Khan II [id number] Partha Khan 12/10/2023 1 [facility] - MEDICARE PREFERRED (MEDICARE REPLACEMENT HMO) [facility] Partha Khan II [id number] Partha Khan Notes Date Note Type Note Provider Name and Address Organization Details Recorded Time 10/29/2023 text/html *I am seeing the patient today under the supervision of Dr. Enamorado who was available but who did not see the patient.HPI: Partha presents to the office today for a recheck of his right hip. He Was last evaluated by myself in August. At that time he elected to hold off on a cortisone injection but agreed to participate in physical therapy. He describes his pain as being along the lateral aspect of the hip. Symptoms are worse with sleeping at night, prolonged sitting, and getting up from a seated position. He will also notice groin pain on occasion. Denies any radicular symptoms. He takes kgqs-lkz-npefwan medication intermittently for his pain. He unfortunately only had one session of physical therapy so far.PMH/PSH/MEDS/ALL/ FMH/SOC HX/ROS are reviewed in detail per my medical intake sheet. General Exam: Vital signs are as noted belowMental status: Alert and lucid. Normal insight, affect and grooming.GOAT HERDER: Gross motor coordination is intact. No spasticity or clonus noted. EXAMINATION: The patient is well appearing and in no apparent distress. Alert and oriented x3. Gait is symmetric. Right hip reveals no obvious deformity upon inspection. No edema, erythema, ecchymosis, or lesions. Neurovascularly intact. Tenderness is present over the greater trochanter. ROM full in all planes. Negative impingement sign, Ever's, Stinchfield test, and straight leg raise. No instability. 5/5 strength. Calf/leg compartments soft and compressible. X-rays performed at an outside facility include an AP and lateral view of the right hip. Images were performed on 06/28/2023. X-rays reveal mild degenerative changes and mild dysplasia. No evidence for an acute fracture or lesion.IMPRESSION: Right hip greater trochanteric bursitis and mild osteoarthritisPLAN: As noted above, the patient has only had one session of physical therapy. He would like to see how he responds to therapy over the next 6 weeks. His current hip pain is tolerable, therefore he prefers to hold off on a cortisone injection. We will tentatively schedule him an appointment in 6 weeks for recheck. If his symptoms are not improved at that time he likely will agree to receive a cortisone injection. We reviewed some hip stretches today at the office. All of his questions have been answered.[employer] speech recognition naval aircrewman avionics software was used to create portions of this document. An attempt at proofreading has been made to minimize errors. Please call for corrections. Kay Miranda PA-C [address] [place] [address] [address] [facility], [place], [address], [facility] 10/29/2023 14:43:21 12/10/2023 text/html *I am seeing the patient today under the supervision of Dr. Morrison who was available but who did not see the patient.HPI: Partha presents to the office today for a recheck of his right hip. He Was last evaluated by myself in October. At that time he elected to hold off on a cortisone injection but agreed to participate in physical therapy. He was unable to participate in therapy secondary to insurance issues. He has been performing a home exercise program which she has found to be helpful. He has minimal discomfort in his hip at this point.PMH/PSH/MEDS/AL L/FMH/SOC HX/ROS are reviewed in detail per my medical intake sheet. General Exam: Vital signs are as noted belowMental status: Alert and lucid. Normal insight, affect and grooming.GOAT HERDER: Gross motor coordination is intact. No spasticity or clonus noted. EXAMINATION: The patient is well appearing and in no apparent distress. Alert and oriented x3. Gait is symmetric. Right hip reveals no obvious deformity upon inspection. No edema, erythema, ecchymosis, or lesions. Neurovascularly intact. Minimal tenderness is present over the greater trochanter. ROM full in all planes. Negative impingement sign, Ever's, Stinchfield test, and straight leg raise. No instability. 5/5 strength. Calf/leg compartments soft and compressible. X-rays performed at an outside facility include an AP and lateral view of the right hip. Images were performed on 06/28/2023. X-rays reveal mild degenerative changes and mild dysplasia. No evidence for an acute fracture or lesion.IMPRESSION: Right hip greater trochanteric bursitis and mild osteoarthritisPLAN: The patient's symptoms continue to improve. Despite not being able to participate in physical therapy, he has been performing a home exercise program which has been helpful. He does not feel as if he needs a cortisone injection today. He will monitor his symptoms and if his pain increases will call the office to be reevaluated. Otherwise he will follow-up as needed. All of his questions have been answered.[facility] speech recognition naval aircrewman avionics software was used to create portions of this document. An attempt at proofreading has been made to minimize errors. Please call for corrections. Kay Miranda PA-C [address] [place], [place] [address]r[facility] [address], [place], [address], [facility] 12/10/2023 17:06:50
--- OUTSIDE RECORDS SUMMARY | 2024-09-09 11:37 | XMS_ITS | Clinical Summary ---
Author Organization [address] [facility] Address [address] [place] [address] Phone Care Team Providers Care Study Abroad Advisor Name Role Phone Seth Whelan MD Primary Care Provider [phone] Social History Tobacco Use Types Packs/Day Years Used Date Smoking Tobacco: Never Assessed Sex and Gender Information Value Date Recorded Sex Assigned at Not on file Gender Identity Not on file Sexual Orientation Not on file Job Start Date Occupation Industry Not on file Not on file Not on file Plan of Treatment Upcoming Encounters Date Type Department Care Team ([facility] Contact Info) Description 11/04/2024 9:15 AM EDT Office Visit Orthopedic Surgery [facility] [address] [phone] Vladimir Alvarez, DPM [address] [address] Health Maintenance Due Date Last Done Comments DTaP,Tdap,and Td Vaccines (1 - Tdap) 02/10/1991 Hepatitis B Vaccines (1 of 3 - 19+ 3-dose series) 02/10/1991 Zoster Vaccines (1 of 2) 02/10/2022 Cholesterol Screening (Lipid Panel) 07/10/2022 Colorectal Cancer Screening: Colonoscopy 07/10/2022 Depression Screening 07/10/2022 HIV Screening 07/10/2022 Hepatitis C Screening 07/10/2022 Social Influencers of Health Screening 07/10/2022 COVID-19 Vaccine (1 - 2023-2 5 season) 2024 Influenza Vaccine (#1) 2024 HIB Vaccines Aged Out No longer eligi ble based on patient's age to complete this topic HPV Vaccines Aged Out No longer eligi ble based on patient's age to complete this topic Hepatitis A Vaccines Aged Out No long er eligible based on patient's age to complete this topic IPV Vaccines Aged Out No longer eligi ble based on patient's age to complete this topic MMR Vaccines Aged Out No longer eligi ble based on patient's age to complete this topic Meningococcal ACWY Vaccine Aged Out N o longer eligible based on patient's age to complete this topic Pneumococcal Vaccine: Pediat rics (0 to 5 Years) and At-Risk Patients (6 to 64 Years) Aged Out No longer eligible b ased on patient's age to complete this topic RSV Immunization Patients Un willard 20 months Aged Out No longer eligible b ased on patient's age to complete this topic Varicella Vaccines Aged Out No longer eligible based on patient's age to complete this topic Care Teams Study Abroad Advisor Relationship Specialty Start Date End Date Seth Whelan MD [address] [place] [address] PCP - General 07/08/23
== END 2024-09-09 10:24 | disposition home or self-care (01) ==
PROVIDERS: PCP Hospitalist; Visit Provider Internal Medicine Rheumatology
DX: I73.00 Raynaud's syndrome without gangrene (principal); Z79.899 Other long term (current) drug therapy; R29.898 Other symptoms and signs involving the musculoskeletal system; R55 Syncope and collapse
CPT/HCPCS: 99214; G2211

== ENCOUNTER → 2024-09-09 09:52 | Outpatient (BNVA) | payer MEDICARE, SELFPAY | PROVIDERS: PCP Hospitalist; Visit Provider Internal Medicine Rheumatology | DX: R55 Syncope and collapse (principal); R29.898 Other symptoms and signs involving the musculoskeletal system; I73.00 Raynaud's syndrome without gangrene; Z79.899 Other long term (current) drug therapy | CPT/HCPCS: 99212 ==

== ENCOUNTER 2024-09-16 08:34 | Outpatient (RCR) | payer MEDICARE, SELFPAY ==
--- NOTE | 2024-09-16 11:19 | MHC.OT.EP ---
[address] [phone] Occupational Therapy Plan of Care Patient Name: Partha Khan Date of Evaluation: 09/16/24 Diagnosis: Raynauds Disease Pain Location: slight discomfort in hands, comes and goes Pain Score: 2 Pain Scale Used: Numeric (0 - 10) Aggravating Factors: Alleviating Factors: Topical lotion used occasionally, oral meds, wears gloves when outside or driving Assessment: 54 yo male with hx of Raynauds presents w/ long time hx of B/L hand weakness and sensory changes/discomfort. He is undergoing rheumatology work-up currently and referred to OT for strenghtening and further management. On assessment today, he has good range and strength in both hands, but slight instability noted in both CMCs and right ulnar wrist. We have discussed activity modifications for joint strain and management techniques for hand warmth, which he has a good understanding of currently. We have also initiated CMC stabilization and wrist stabilization exercises. He is interested in UB strengthening with postural work, but at this time we will hold further threrapy due to upcoming surgical procedure. Frequency and Duration: The patient will be seen TBD Short Term Goals: Ind w/ HEP Care Home Goals: Treatment Plan: Therapeutic Exercise Therapeutic Activity Home Exercise Program Patient Education ADL Training [employer] MHP Joint Mobilization Soft Tissue Mobilization Kinesiotaping Electronically Signed By: Marjorie Dick OTR/L CHT Please Sign and return to therapist. Thank you once again for your referral.
--- NOTE | 2024-10-09 09:59 | MHC.OT.DC ---
[address] [phone] F: [phone] Occupational Therapy Discharge Note Patient Name: Partha Khan Provider: Dr Jaren Isabel Diagnosis: Raynauds Disease Date of Evaluation: 09/16/24 Date of Discharge: 10/09/24 Treatments to Date: 1 Discharge Summary: 54 yo male with hx of Raynauds and currently undergoing rheumatology work-up, was referred to OT with long time hx of B/L hand weakness and sensory changes/discomfort. He was seen for initial OT assessment with good range and strength in both hands, but slight instability noted in both CMCs and right ulnar wrist. We have discussed activity modifications for joint strain and management techniques for hand warmth, which he has a good understanding of currently. We have also initiated CMC stabilization and wrist stabilization exercises. He is interested in UB strengthening with postural work, but at this time we will hold further therapy due to upcoming surgical procedure. Please re-order OT or Pt for postural stabilization and strength when cleared post-op, thank you. Electronically Signed By: Marjorie Dick OTR/L CHT Please Sign and return to therapist, thank you for your referral.
== END 2024-10-09 10:00 | disposition home or self-care (01) ==
LOC: HO.OT 08:34
PROVIDERS: PCP Hospitalist; Visit Provider Internal Medicine Rheumatology
DX: R29.898 Other symptoms and signs involving the musculoskeletal system (principal); I73.00 Raynaud's syndrome without gangrene
CPT/HCPCS: 97110; 97166; 97535

== ENCOUNTER 2024-10-06 14:21 | Outpatient (AMB) | payer MEDICARE, SELFPAY ==
--- NOTE | 2024-10-06 14:22 | MHC.OFFVIS ---
Vital Signs 10/06/24 14:23 Height 6 ft Weight 197 lb 1.492 oz BMI 26.7 BP 150/104 H Blood Pressure Location Lt brachial Position Sitting Pulse 79 Pulse Source Pulse Oximeter Pulse Oximetry (%) 98 Oxygen Delivery Method Room Air Intake Visit Reasons: 3 mo follow up Intake Note: Patient presents for a follow up on Raynaud's. Boxcar Weigher Required: No Accompanied by: Self / Same As Patient Allergies bupropion [From WELLBUTRIN] Allergy (Severe, Verified 10/06/24 14:23) Seizure aripiprazole [From ABILIFY] Allergy (Intermediate, Verified 10/06/24 14:23) FACIAL TREMORS honey [HONEY] Allergy (Intermediate, Verified 10/06/24 14:23) HEADACHES lurasidone [From LATUDA] Adverse Reaction (Intermediate, Verified 10/06/24 14:23) GETS REALLY SICK mirtazapine [MIRTAZAPINE] Adverse Reaction (Intermediate, Verified 10/06/24 14:23) BP GOES HIGH HPI HPI 3 mo follow up: Details: Completed OT for hand strengthening. He had an episode of body weakness. Getting up was slow. No black out. Denies palpitions. Diaphoretic. He slept on the couch for a few hours. 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 [facility] Medical History Kidney disease Anemia Type II diabetes mellitus Fatty liver Hyperlipemia Urethral stricture Raynauds syndrome DALE (obstructive sleep apnea) Seizure Hypertension Anxiety PTSD (post-traumatic stress disorder) Surgical History H/O bilateral mastectomy Social History Household Members: Spouse Household Members Other:: Two puppies Housing: Condominium Do you presently have visiting nurse or other home services: No Patient Tobacco Use Status: Never used Tobacco e-Cigarette/Vaping Use: Never Used Second Hand Smoke Exposure: Yes service: No Sexual orientation: Straight/Heterosexual Physical Exam Vital Signs: Last Vital Signs Pulse 79 10/06/24 14:23 BP 150/104 H 10/06/24 14:23 Pulse Ox 98 10/06/24 14:23 Oxygen Delivery Method Room Air 10/06/24 14:23 BMI result Body Mass Index 26.7 Const Other: General: Comfortable Skin: No lesions seen. Normal capillary refill. No discoloration of fingertips. No digital ulcers. MSK: Hands are warm to touch. No synovitis of hands. 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 Assessment & Plan Assessment & Plan (1) Raynaud disease without gangrene: Comment: Controlled on nifedipine 90 mg ER daily. He is hypertensive today as he did not take his medications this morning due to episode of profound weakness and diaphoresis. Code(s): I73.00 - Raynaud's syndrome without gangrene Category: Medical Plan: Continue nifedipine 90 mg daily ER Continue to wear gloves in the cold Return to clinic in 3 months He will follow-up with PCP for evaluation and workup of recurrent episodes of profound weakness and diaphoresis ? Presyncope (2) [facility] [place] [facility] [place] drug therapy: Code(s): Z79.899 - Other [place] [facility] [place] (current[facility] drug therapy Category: Medical Plan: See above (3) Hand weakness: Comment: He completed OT but has not been compliant with doing exercises daily at home Code(s): R29.898 - Other symptoms and signs involving the musculoskeletal system Category: Medical Plan: We discussed the importance of compliance with OT exercises Return to clinic in 3 months Coding Level of Care Code Est Pt Level 4 (26860) Complex EM visit Add On G2211 Diagnoses Raynaud disease without gangrene I73.00 Other intermission coordinator (current) drug therapy Z79.899 Hand weakness R29.898
[2024-10-06 14:23] VITALS: BP 150/104; PULSE 79; O2SAT 98; BMI 26.7
--- OUTSIDE RECORDS SUMMARY | 2024-10-06 18:00 | XMS_ITS ---
Author Organization [facility] Address [address] [facility] [address] [place] [address] Care Team Providers Care Refuge Manager Name Role Phone PRICILAReed JUSTICE Primary Care Provider Blanca Doty [phone] REASON FOR VISIT Further testing to better understand my autoimmune condition & care Encounters Encounter Location Date Provider Diagnosis [facility] [address] [facility] [address] [place] [address] 09/11/2024 Blanca Doty Plan Of Treatment Next Appt Details Provider Name:RENDON Sonia VENTURA , 10/19/2024 09:45:00 AM, [address] [facility] [address], [place], [address], Progress Notes * Partha KHANDOB:1970 (54 yo M)Acc No.[id number]:09/11/2024 Patient:?BILL Partha :1970???Age:54 Y???Sex:Male Address:[address] [place], [place] [address] [address] * true * Date:? Generated for Printi jeri/Joseph/eTransmitting on:?10/06/2024 09:48 AM EST
--- OUTSIDE RECORDS SUMMARY | 2024-10-06 18:01 | XMS_ITS | Clinical Summary ---
Author Organization [address] [facility] Address [address] [place] [address] Phone Care Team Providers Care Security Incident Handler Name Role Phone Seth Whelan MD Primary Care Provider [phone] Social History Tobacco Use Types Packs/Day Years Used Date Smoking Tobacco: Never Assessed Sex and Gender Information Value Date Recorded Sex Assigned at Not on file Legal Sex Male 12:17 PM EST Gender Identity Not on file Sexual Orientation Not on file Plan of Treatment Upcoming Encounters Date Type Department Care Team ([facility] Contact Info) Description 11/04/2024 9:15 AM EDT Office Visit Orthopedic Surgery [facility] [address] [phone] Vladimir Alvarez, DPM [address] [address] Health Maintenance Due Date Last Done Comments DTaP,Tdap,and Td Vaccines (1 - Tdap) 02/10/1991 Hepatitis B Vaccines (1 of 3 - 19+ 3-dose series) 02/10/1991 Pneumococcal Vaccine: 50+ Ye ars (1 of 1 - PCV) 02/10/2022 Zoster Vaccines (1 of 2) 02/10/2022 Cholesterol Screening (Lipid Panel) 07/10/2022 Colorectal Cancer Screening: Colonoscopy 07/10/2022 Depression Screening 07/10/2022 HIV Screening 07/10/2022 Hepatitis C Screening 07/10/2022 Social Influencers of Health Screening 07/10/2022 COVID-19 Vaccine ( - 2023-2 5 season) 2024 Influenza Vaccine [...] patient's age to complete this topic Meningococcal B Vacine Aged Out No lo nger eligible based on patient's age to complete [...] age to complete this topic Care Teams Security Incident Handler Relationship Specialty Start Date End Date Seth Whelan MD [address] [place] [address] PCP - General 07/08/23
--- OUTSIDE RECORDS SUMMARY | 2024-10-06 18:01 | XMS_ITS | Data Portability ---
Author Organization [facility], [facility] Address [address] [place] [address] Assessment No assessment recorded. Plan of Treatment [...] Name and Address Organization Details Recorded Time 765235 honey preparati on food,medi cation Not available Not available Not available 10/29/2023 54837 9 [facility] 4 14:29:03 Medications Name Sig Start [...] Updated DateTime 10/29/2023 182.88 cm 28.2 kg/m2 88734.21 jair dukes [facility] 10/29/2023 14:28:50 Date Recorded Body height Body mass index (BMI) Body weight Provider Name and Address Organization Details Last Updated DateTime 12/10/2023 182.88 cm 27.9 kg/m2 35976.03 jair dukes [facility] 12/10/2023 15:05:27 Social History None recorded. Functional Status None recorded. Mental Status None recorded. Family History Nothing Reported. Medical History No medical history recorded. Past Encounters Encounter ID Performer Location Encounter Start Date Encounter Closed Date Diagnosis/Indication Diagnosis SNOMED-CT Code Diagnosis ICD10 Code Diagnosis Note [id number] BONILLA Bishop [address] [place] [address] 10/29/2023 14:11:28 10/29/2023 14:43:32 Trochanteric bursitis of right hip [id number] 07103 M70.61 Osteoarthr itis of right hip joint 0556810271 76713 M16.11 [id number] BONILLA Bishop [address] [place], [place] [address] 12/10/2023 14:52:55 12/27/2023 06:37:04 Trochanteric bursitis of right hip [id number] 05811 M70.61 Osteoarthr itis of right hip joint 3019741541 95824 M16.11 Health Concerns Section Related Observation LastModified by Organization Detai ls LastModified Time None Recorded Concern Status LastModified by Organization Details LastModified Time None Recorded Advance Directives Directive None Recorded Payers Encounter Date Sequence Insurance Name Policy Number Policy Plaza Covered Member ID Plaza Member ID Guarantor Name 10/29/2023 1 [facility] - MEDICARE PREFERRED (MEDICARE REPLACEMENT HMO) [facility] Partha Khan II [id number] 1 Partha Khan 12/10/2023 1 [facility] - MEDICARE PREFERRED (MEDICARE REPLACEMENT HMO) [facility] Partha Khan II [id number] Partha Khan Notes Date Note Type [...] occasion. Denies any radicular symptoms. He takes bmik-pmt-nhuqmrp medication intermittently for his pain. He unfortunately only had one session of physical therapy so far.PMH/PSH/MEDS/ALL/ FMH/SOC HX/ROS are reviewed in detail per my medical intake sheet. General Exam: Vital signs are as noted belowMental status: Alert and lucid. Normal insight, affect and grooming.DISABILITIES CAREGIVER: Gross motor coordination is intact. No spasticity [...] office. All of his questions have been answered.[employer] speech recognition stylist assistant software was used to create portions of this document. An attempt at proofreading has been made to minimize errors. Please call for corrections. Kay Miranda PA-C [address] [place] [address] [address] [facility], [place], [address], [facility] [place] 10/29/2023 14:43:21 12/10/2023 text/html *I am [...] Alert and lucid. Normal insight, affect and grooming.DISABILITIES CAREGIVER: Gross motor coordination is intact. No spasticity [...] needed. All of his questions have been answered.[facility] speech recognition stylist assistant software was used to create portions of this document. An attempt at proofreading has been made to minimize errors. Please call for corrections. Kay Miranda PA-C [address] [place], [place] [address] [address], [place], [address], [facility] [place] [facility] 12/10/2023 17:06:50
--- OUTSIDE RECORDS SUMMARY | 2024-10-06 18:01 | XMS_ITS ---
Author Organization [facility] Address [address] [place] [address] Care Team Providers Care Clamp Jig Assembler Name Role Phone JUSTICE VENTURA Primary Care Provider REASON FOR VISIT 09/30/24 [facility] Referral Encounters Encounter Location Date Provider Diagnosis [facility] [address] [address] 09/24/2024 JUSTICE VENTURA Plan Of Treatment Next Appt Details Provider Name:JUSTICE VENTURA , 10/19/2024 09:45:00 AM, [address] [place] [address] [address], [place], [address], Progress Notes * Partha KHANDOB:1970 (54 yo M)Acc No.[id number]:09/24/2024 Patient:?BILL Partha :1970???Age:54 Y???Sex:Male Address:[address] [place], [place] [address] [address] * true * Date:? Generated for Printi ng/Faxing/eTransmitting on:?10/06/2024 09:48 AM EST
--- OUTSIDE RECORDS SUMMARY | 2024-10-06 18:01 | XMS_ITS ---
Author Organization [facility] Address [address] [place] [address] Care Team Providers Care Supervisor Contact And Service Clerks Name Role Phone LORENZO JUSTICE Primary Care Provider [phone] Blanca Doty [phone] REASON FOR VISIT pre-op Encounters Encounter Location Date Provider Diagnosis [address] [place] [address] 08/27/2024 Blanca Doty Plan Of Treatment Next Appt Details Provider Name:RENDON A PRICILAReed , 10/19/2024 09:45:00 AM, [address] [facility] [address], [place], [address], Progress Notes * Partha KHANDOB:1970 (54 yo M)Acc No.[id number]:08/27/2024 Patient:?BILLPartha VALDOVINOS :1970???Age:54 Y???Sex:Male Address:[address] [place], [place] [address] [address] * true * Date:? Generated for Yeseniai jeri/Faivetg/eTransmitting on:?10/06/2024 06:01 PM EST
== END 2024-10-06 14:52 | disposition home or self-care (01) ==
PROVIDERS: PCP Hospitalist; Visit Provider Internal Medicine Rheumatology
DX: I73.00 Raynaud's syndrome without gangrene (principal); Z79.899 Other long term (current) drug therapy; R29.898 Other symptoms and signs involving the musculoskeletal system
CPT/HCPCS: 99214; G2211

== ENCOUNTER → 2024-10-06 14:21 | Outpatient (BNVA) | payer MEDICARE, SELFPAY | PROVIDERS: PCP Hospitalist; Visit Provider Internal Medicine Rheumatology | DX: I73.00 Raynaud's syndrome without gangrene (principal); R29.898 Other symptoms and signs involving the musculoskeletal system; Z79.899 Other long term (current) drug therapy | CPT/HCPCS: 99212 ==

== ENCOUNTER 2025-02-19 19:24 | Outpatient (REF) | payer MEDICARE, SELFPAY ==
--- NOTE | ~2025-02-19 | MR_ITS ---
EXAMINATION: MR CERVICAL SPINE WITHOUT CONTRAST CLINICAL INFORMATION: Neck pain, extremity weakness, rule out stenosis. COMPARISON: None TECHNIQUE: Multiplanar multisequence MR imaging of the cervical spine was done prior to and without the administration IV gadolinium. Examination was performed on a 1.5 Aditi Siemens unit, using standard sequences. FINDINGS: CORONAL ALIGNMENT: -There is a trace right convex scoliosis, likely positional. SAGITTAL ALIGNMENT: -Mild straightening of the normal lordosis with a minimal reversal centered at C4. -There is no significant subluxation CRANIOCERVICAL JUNCTION/C1-2 ARTICULATIONS: -Intact and aligned. VERTEBRAL BODIES/BONE MARROW: -There is no gross bone marrow edema, fracture, compression deformity, or suspicious bone lesion. DISCS: -Mild loss of disc height and signal C3-4 and C4-5. -There is loss of disc signal C5-C7 without significant loss of disc height. CERVICAL CORD: -Normal in caliber and signal throughout. No expansion or thinning. No gross cord impingement. PARAVERTEBRAL SOFT TISSUES: -Normal in appearance. -The thyroid is obscured by a saturation band. VISUALIZED INTRACRANIAL STRUCTURES: -Within normal limits. AXIAL DISC SPACE IMAGING: C2-C3: No central canal or neural foraminal narrowing. Mild degenerative facet changes bilaterally. C3-C4: There is a shallow bulging disc present slightly asymmetric to the left, in continuity with left greater than right hypertrophic uncinate changes. There are mild bilateral hypertrophic degenerative facet changes. There is mild central canal narrowing, mild left lateral recess narrowing, severe left and mild right neural foraminal narrowing. C4-C5: There is a diffuse bulging disc present with a superimposed right paracentral protrusion of disc material. This contacts and minimally flattens the right ventral aspect of the cord, without definite underlying signal abnormality within the cord. There is preserved CSF signal dorsal to the cord. There are moderate hypertrophic uncinate changes, and mild bilateral hypertrophic facet changes, with the combination of findings resulting in mild to moderate central canal narrowing, severe right and moderate to severe left neural foraminal narrowing. C5-C6: Trace disc bulge present without significant mass effect upon the thecal sac. Mild hypertrophic degenerative facet changes bilaterally. There is no central canal narrowing. There is minimal left neural foraminal narrowing. C6-C7: There is a shallow diffuse bulging disc, slightly asymmetrically prominent into the left foraminal zone. This indents upon the ventral thecal sac but does not contact the cord. There is mild central stenosis. There is bilateral uncinate spurring. There is minimal bilateral facet spurring. There is mild right and moderate to severe left neural foraminal narrowing. C7-T1: There is no significant central canal or neural foraminal narrowing. Minimal facet degeneration bilaterally. MR/MR cervical spine wo con IMPRESSION: 1. There is moderate multilevel spondylosis of the cervical spine as detailed above. There is no evidence of high-grade central canal narrowing or cord impingement. 2. Findings are most significant at C4-5, where a right paracentral protrusion of disc material contacts and minimally flattens the right ventral aspect of the cord, without underlying cord signal abnormality. There is mild to moderate central canal stenosis. There is severe right and moderate to severe left neural foraminal narrowing at this level. 3. At C3-4, there is severe left neural foraminal narrowing. 4. At C6-7, there is moderate to severe left neural foraminal narrowing. 5. See the body of the report for further details. Electronically signed by: Papo Singh MD 02/22/2025 09:15 AM EDT
--- OUTSIDE RECORDS SUMMARY | 2025-02-19 19:27 | XMS_ITS | Continuity of Care Document ---
Author Organization [facility] Address [address] [facility] [address] [place] [address] Phone [phone] Social History Type Date Description Comments Sex Male Sex Unknown Medical Devices Description No Information Available Encounters Description No Information Available Assessments Description No Information Available Plan of Treatment No Information Available Functional Status Description No Information Available Mental Status Description No Information Available Referrals Description No Information Available
--- OUTSIDE RECORDS SUMMARY | 2025-02-19 19:27 | XMS_ITS | Data Portability ---
Author Organization [facility], [facility] Address [address] [place] [address] Assessment No assessment recorded. Plan of Treatment [...] Name and Address Organization Details Recorded Time 426615 honey preparati on food,medi cation Not available Not available Not available 10/29/2023 36668 9 RxNorm natalia tinoco, [facility] 4 14:29:03 Medications Name Sig Start Date [...] Updated DateTime 10/29/2023 182.88 cm 28.2 kg/m2 22741.21 natalia dukes [facility] 10/29/2023 14:28:50 Date Recorded Body height Body mass index (BMI) Body weight Provider Name and Address Organization Details Last Updated DateTime 12/10/2023 182.88 cm 27.9 kg/m2 38326.03 natalia dukes [facility] 12/10/2023 15:05:27 Social History None recorded. Functional Status None recorded. Mental Status None recorded. Family History Nothing Reported. Medical History No medical history recorded. Past Encounters Encounter ID Performer Location Encounter Start Date Encounter Closed Date Diagnosis/Indication Diagnosis SNOMED-CT Code Diagnosis ICD10 Code Diagnosis Note [id number] BONILLA Bishop [address] [place] [address] 10/29/2023 14:11:28 10/29/2023 14:43:32 Trochanteric bursitis of right hip [id number] 08090 M70.61 Osteoarthr itis of right hip joint 7838406812 49632 M16.11 [id number] BONILLA Bishop [address] [place] [address] 12/10/2023 14:52:55 12/27/2023 06:37:04 Trochanteric bursitis of right hip 9739309894 49491 M70.61 Osteoarthr itis of right hip joint 0325314297 54368 M16.11 Health Concerns Section Related Observation LastModified by Organization Detai ls LastModified Time None Recorded Concern Status LastModified by Organization Details LastModified Time None Recorded Advance Directives Directive None Recorded Payers Insurance Date Sequence Insurance Name Policy Number Policy Plaza Covered Member ID Plaza Member ID Guarantor Name 12/27/2023 1 [facility] - MEDICARE PREFERRED (MEDICARE REPLACEMENT HMO) [employer] Partha Khan II [id number] Partha Khan Notes Date Note Type [...] occasion. Denies any radicular symptoms. He takes bgrs-pie-mjgsrnf medication intermittently for his pain. He unfortunately only had one session of physical therapy so far.PMH/PSH/MEDS/ALL/ FMH/SOC HX/ROS are reviewed in detail per my medical intake sheet. General Exam: Vital signs are as noted belowMental status: Alert and lucid. Normal insight, affect and grooming.SENIOR EXECUTIVE ASSISTANT: Gross motor coordination is intact. No spasticity or clonus noted. EXAMINATION: The patient is well appearing and in no apparent distress. Alert and oriented x3. Gait is symmetric. Right hip reveals no obvious deformity upon inspection. No edema, erythema, ecchymosis, or lesions. Neurovascularly intact. Tenderness is present over the greater trochanter. ROM full in all planes. Negative impingement sign, Ever'sKenh test, and straight leg raise. No instability. [...] office. All of his questions have been answered.[employer] speech recognition workers compensation administrator software was used to create portions of this document. An attempt at proofreading has been made to minimize errors. Please call for corrections. Kay Miranda PA-C [address] [place] [address] [address], [place], [address], [facility] 10/29/2023 14:43:21 12/10/2023 text/html *I am seeing [...] Alert and lucid. Normal insight, affect and grooming.SENIOR EXECUTIVE ASSISTANT: Gross motor coordination is intact. No spasticity [...] needed. All of his questions have been answered.[employer] speech recognition workers compensation administrator software was used to create portions of this document. An attempt at proofreading has been made to minimize errors. Please call for corrections. Kay Miranda PA-C [address] [facility] [address] [facility], [place], [address], [facility] [place] 12/10/2023 17:06:50
== END 2025-02-19 19:25 | disposition home or self-care (01) ==
LOC: HO.MRI 19:24
PROVIDERS: PCP Hospitalist; Visit Provider Psychiatry & Neurology Neurology
DX: M62.81 Muscle weakness (generalized) (principal); M54.2 Cervicalgia; M48.04 Spinal stenosis, thoracic region; M47.812 Spondylosis without myelopathy or radiculopathy, cervical region
CPT/HCPCS: 72141

== ENCOUNTER → 2025-02-19 19:38 | Outpatient (BNV) | payer MEDICARE, SELFPAY | PROVIDERS: PCP Hospitalist; Visit Provider Radiology Diagnostic Radiology | DX: M47.812 Spondylosis without myelopathy or radiculopathy, cervical region (principal); M48.02 Spinal stenosis, cervical region | CPT/HCPCS: 72141 ==

== ENCOUNTER 2025-02-26 14:06 | Outpatient (REF) | payer MEDICARE, SELFPAY ==
--- OUTSIDE RECORDS SUMMARY | 2025-02-26 14:09 | XMS_ITS | Encounter Summary ---
Author Organization [facility] Address [address] [place] [address] Phone Care Team Providers Care Loading Machine Operator Name Role Phone Tip Seth Terrazas MD Primary Care Provider [phone] Encounter Details Date Type Department Care Team ([facility] st Contact Info) Description 09/23/2024 Procedure Pass OR Admitting Dept - Virtual Department [address] [place] [address] Social History Tobacco Use Types Packs/Day Years Used Date Smoking Tobacco: Never Smokeless Tobacco: Never Alcohol Use Standard Drinks/Week Comments Never 0 (1 standard drink = 0.6 oz pur e alcohol) Education Answer Date Recorded Are you interested in more education? Not on jose roberto e 03/18/2024 Are you concerned about learning? Not on file 03/18/2024 No 03/18/2024 No 03/18/2024 Food Answer Date Recorded Within the past 6 months we worried whether our food would run out before we got money to buy more. Never True 09/24/2024 Within the past 6 months the food we bought just didn't last and we didn't have enough money to get more. Never True Residential Stability Answer Date Recor ded What is your housing situation today? I have cordell sing 09/24/2024 How many times have you move d in the past 12 months? Zero (I did not move) 09/24/2024 Paying for Meds Answer Date Recorded Do you have trouble paying for medicines? No 09/24/2024 Paying Utility Bills Answer Date Record ed Do you have trouble paying your heating or elect ricity bill? No 09/24/2024 Transportation Answer Date Recorded Has the lack of transportati on kept you from medical appointments or from getting medications? No 09/24/2024 Digital Access Answer Date Recorded No 09/24/2024 Yes 09/24/2024 Do you have reliable internet access at home? Ye s 09/24/2024 Do you have a device (e.g., phone, tablet, computer) with a working camera? Yes 09/24/2024 Intimate Partner Violence Answer Date R ecorded Are you denied basic needs s uch as food, clothing, or medical care? No 09/23/2024 In the past 12 months have y ou been in a relationship with a person who hurts, threatens, or tries to control you? No 09/23/2024 Are you denied basic needs s uch as food, clothing, or medical care? No 09/23/2024 In the past 12 months have y ou been in a relationship with a person who hurts, threatens, or tries to control you? No 09/23/2024 Sex and Gender Information Value Date Recorded Sex Assigned at Male 09/24/2024 2:39 AM EST Legal Sex Male 2:51 PM EDT Gender Identity Male 09/24/2024 2:39 AM EST Sexual Orientation Straight 09/24/2024 2 :39 AM EST documented as of this encounter Functional Status * Calculated C-SSRS Risk Score (Lifetime/Recent) Answer Date of Assessment Author No Risk Indicated 09/23/2024 11:41 PM Radha Lara RN * [place] Suicide Severity Rating Scale (Screener/Recent Self-Report) Question Answer Date of Assessment Author 1. Wish to be (Past 1 Month) No 09/23/2024 11:41 PM Zelalem Rico RN 2. Non-Specific Active Suici emely Thoughts (Past 1 Month) No 09/23/2024 11:41 PM Kim Rico RN 6. Suicidal Behavior (Lifetime) No 11:41 PM Radha Rico, MEHRAN documented as of this encounter Plan of Treatment Not on file documented as of this encounter Visit Diagnoses Not on filedocumented in this encounter Care Teams Loading Machine Operator Relationship Specialty Start Date End Date Seth Whelan MD [address] [place] [address] PCP - General Internal Medicine 03/18/24 documented as of this encounter Additional Source Comments The information contained in this document represents components of the legal health record. It is not the complete legal health record.[facility]
--- OUTSIDE RECORDS SUMMARY | 2025-02-26 14:09 | XMS_ITS | Data Portability ---
Author Organization [facility], [facility] Address [address] [place] [address] Assessment No assessment recorded. Plan of Treatment [...] Name and Address Organization Details Recorded Time 427578 honey preparati on food,medi cation Not available Not available Not available 10/29/2023 84192 9 RxNorm natalia tinoco, [facility] 4 14:29:03 Medications Name Sig Start Date [...] Updated DateTime 10/29/2023 182.88 cm 28.2 kg/m2 61804.21 natalia dukes [facility] 10/29/2023 14:28:50 Date Recorded Body height Body mass index (BMI) Body weight Provider Name and Address Organization Details Last Updated DateTime 12/10/2023 182.88 cm 27.9 kg/m2 92962.03 natalia dukes [facility] 12/10/2023 15:05:27 Social History None recorded. Functional Status None recorded. Mental Status None recorded. Family History Nothing Reported. Medical History No medical history recorded. Past Encounters Encounter ID Performer Location Encounter Start Date Encounter Closed Date Diagnosis/Indication Diagnosis SNOMED-CT Code Diagnosis ICD10 Code Diagnosis Note [id number] BONILLA Bishop [address] [place] [address] 10/29/2023 14:11:28 10/29/2023 14:43:32 Trochanteric bursitis of right hip [id number] 83591 M70.61 Osteoarthr itis of right hip joint 3672476541 36116 M16.11 [id number] BONILLA Bishop [address] [place] [address] 12/10/2023 14:52:55 12/27/2023 06:37:04 Trochanteric bursitis of right hip 7752448790 65026 M70.61 Osteoarthr itis of right hip joint 6341502299 18154 M16.11 Health Concerns Section Related Observation LastModified by Organization Detai ls LastModified Time None Recorded Concern Status LastModified by Organization Details LastModified Time None Recorded Advance Directives Directive None Recorded Payers Insurance Date Sequence Insurance Name Policy Number Policy Plaza Covered Member ID Plaza Member ID Guarantor Name 12/27/2023 1 [facility] - MEDICARE PREFERRED (MEDICARE REPLACEMENT HMO) [employer] Partha Khan II [id number] Partha Khan Notes Date Note Type [...] occasion. Denies any radicular symptoms. He takes uxns-zzt-woymgvn medication intermittently for his pain. He unfortunately only had one session of physical therapy so far.PMH/PSH/MEDS/ALL/ FMH/SOC HX/ROS are reviewed in detail per my medical intake sheet. General Exam: Vital signs are as noted belowMental status: Alert and lucid. Normal insight, affect and grooming.ECCLESIASTICAL WORKER: Gross motor coordination is intact. No spasticity [...] office. All of his questions have been answered.[employer] speech recognition face and fill packer software was used to create portions of this document. An attempt at proofreading has been made to minimize errors. Please call for corrections. Kay Miranda PA-C [address] [place] [address] [address], [place], [address], [facility] [place] [facility] 10/29/2023 14:43:21 12/10/2023 text/html *I am seeing [...] Alert and lucid. Normal insight, affect and grooming.ECCLESIASTICAL WORKER: Gross motor coordination is intact. No spasticity [...] needed. All of his questions have been answered.[employer] speech recognition face and fill packer software was used to create portions of this document. An attempt at proofreading has been made to minimize errors. Please call for corrections. Kay Miranda PA-C [address] [facility] [address] [facility], [place], [address], [facility] [place] [facility] 12/10/2023 17:06:50
--- OUTSIDE RECORDS SUMMARY | 2025-02-26 14:09 | XMS_ITS | Clinical Summary ---
Author Organization 175 [facility] Address 175 [place] [address] Phone Care Team Providers Care Specifications Writer Name Role Phone Seth Whelan MD Primary Care Provider [phone] Allergies Active Allergy Reactions Criticality Noted Date Comments Aripiprazole 11/04/2024 Bupropion 11/04/2024 Mesalamine 11/04/2024 Mirtazapine 11/04/2024 Medications silver sulfADIAZINE (Silvadene) 1 % cream Apply topically 1 (one) time each day. 50 g 5 026 Active ciclopirox (PENLAC) 8 % solution Apply topically at bedtime. Apply over nail and surrounding skin. Apply daily over previous coat. After seven (7) days, may remove with alcohol and continue cycle. 6.6 mL 3 5 025 cephalexin (KEFLEX) 500 mg capsule Take 1 capsule (500 mg total) by mouth 3 (three) times a day for 10 days. 30 each 5 025 Encounters Date Type Department Care Team Description 02/16/2025 2:45 PM EDT Office Visit [facility]opedic [facility] [address] [address] Vladimir Alvarez, DPM Dermatophytosis of nail (Primary Dx); Diabetic mononeuropathy simplex (CMS/HCC V24, CMS/HCC V28); Ingrowing nail 02/04/2025 9:30 AM EDT Office Visit [facility] [address] [phone] Vladimir Alvarez DPM Cellulitis of great toe, right (Primary Dx); Ingrowing nail; Dermatophytosis of nail; Diabetic mononeuropathy simplex (CMS/HCC V24, CMS/HCC V28) from Last 3 Months Social History Tobacco Use Types Packs/Day Years Used Date Smoking Tobacco: Never Assessed Sex and Gender Information Value Date Recorded Sex Assigned at Not on file Legal Sex Male 12:17 PM EST Gender Identity Not on file Sexual Orientation Not on file Last Filed Vital Signs Vital Sign Reading Time Taken Comments Blood Pressure - - Pulse - - Temperature - - Respiratory Rate - - Oxygen Saturation - - Inhaled Oxygen Concentration - - Weight 87.5 kg (193 lb) 11/04/2024 9:31 AM EDT Height 182.9 cm (6') 11/04/2024 9:31 AM EDT Body Mass Index 26.18 11/04/2024 9:31 AM EDT Plan of Treatment Upcoming Encounters Date Type Department Care Team (Late st Contact Info) Description 04/27/2025 2:30 PM EDT Office Visit Orthopedic [facility] - [place] [address] [phone] Vladimir Alvarez DPM [address] [address] Health Maintenance Due Date Last Done Comments Diabetes: Annual GFR (Glomerular Filtration Rate) 1972 Diabetes: Annual Foot Exam 02/10/1982 Diabetes: Annual Retina Eye Exam 02/10/1982 Hepatitis B Vaccines (1 of 3 - 19+ 3-dose series) 02/10/1991 Cholesterol Screening (Lipid Panel) 07/10/2022 Colorectal Cancer Screening: Colonoscopy 07/10/2022 Depression Screening 07/10/2022 HIV Screening 07/10/2022 Hepatitis C Screening 07/10/2022 Social Influencers of Health Screening 07/10/2022 Zoster Vaccines (2 of 2) 06/12/2023 04/17/2023 Diabetes: Annual Urine Albumin-Creatinine Ratio (uACR) 11/04/2024 Diabetes: Blood Sugar Control Test (HGBA1C) 11/04/2024 07/09/2022 Hypertension/CHF/CAD Annual BMP Blood Test 11/04/2024 Influenza Vaccine (#1) 2025 , 04/18/2023, 04/26/2022, Additional history exists DTaP,Tdap,and Td Vaccines (4 - Td or Tdap) 04/15/2034 04/15/2024, 01/15/2011, 12/10/2000 Pneumococcal Vaccine: 50+ Years Completed 04/14/2023, 11/14/2011 COVID-19 Vaccine Completed 04/15/2024, 06/2023, 04/26/2022, Additional history exists HIB Vaccines Aged Out No longer eligi [...] age to complete this topic Meningococcal B Vaccine Aged Out No l onger eligible based on patient's age to complete this topic RSV Immunization Patients Under 20 months Aged Out No longer eligible based on patient's age to complete this topic Varicella Vaccines Aged Out No longer eligible based on patient's age to complete this topic Insurance [facility] Care Teams Specifications Writer Relationship Specialty Start Date End Date Seth Whelan MD [address] [place] [address] PCP - General 07/08/23
--- OUTSIDE RECORDS SUMMARY | 2025-02-26 14:09 | XMS_ITS | Continuity of Care Document ---
Author Organization [facility] Address [address] [place] [address] Phone [phone] Social History Type Date Description Comments Sex Male Sex Unknown Medical Devices Description No Information Available Encounters Description No Information Available Assessments Description No Information Available Plan of Treatment No Information Available Functional Status Description No Information Available Mental Status Description No Information Available Referrals Description No Information Available
[2025-02-27 03:21] LABS: Syphilis Screen Nonreactive (Nonreactive)
[2025-03-01 22:23] LABS: Lyme Abs Screen <0.90 index
== END 2025-02-26 14:07 | disposition home or self-care (01) ==
LOC: HO.LAB 14:06
PROVIDERS: Internal Medicine; PCP Hospitalist; Visit Provider Psychiatry & Neurology Neurology
DX: R53.1 Weakness (principal)
CPT/HCPCS: 36415; 82390; 86041; 86617; 86618; 86780

== ENCOUNTER 2025-03-03 12:38 | Outpatient (AMB) | payer MEDICARE, SELFPAY ==
--- NOTE | 2025-03-03 12:37 | MHC.OFFVIS ---
Vital Signs 03/03/25 12:38 Height 6 ft Weight 204 lb 6 oz BMI 27.7 BP 130/80 Blood Pressure Location Rt brachial Position Sitting Pulse 83 Pulse Source Pulse Oximeter Pulse Oximetry (%) 97 Oxygen Delivery Method Room Air Intake Visit Reasons: follow up Intake Note: Patient presents for a follow up on Raynaud's. Accompanied by: Self / Same As Patient Allergies bupropion (From WELLBUTRIN) Allergy (Severe, Verified 03/03/25 12:42) Seizure aripiprazole (From ABILIFY) Allergy (Intermediate, Verified 03/03/25 12:42) FACIAL TREMORS honey (HONEY) Allergy (Intermediate, Verified 03/03/25 12:42) HEADACHES lurasidone (From LATUDA) Adverse Reaction (Intermediate, Verified 03/03/25 12:42) GETS REALLY SICK mirtazapine (MIRTAZAPINE) Adverse Reaction (Intermediate, Verified 03/03/25 12:42) BP GOES HIGH HPI HPI follow up: Details: He continues to feel hands are cold. right hand turns pale at times. Wears gloves when outside. Compared to last year he has had improvement in Raynaud's activity since being on nifedipine. He fell getting out of the car 4 months ago. He continues to have body weakness of UE and LE. He is seeing PCP and neurology who has worked him up. He is off statin with consideration of his history of rhabdomyolysis. Neurologists is ordering an MRI of his C-spine or brain. PCP did lab work, which I reviewed on his phone via patient portal access. [facility] Medical History Kidney disease Anemia Type II diabetes mellitus Fatty liver Hyperlipemia Urethral stricture Raynauds syndrome DALE (obstructive sleep apnea) Seizure Hypertension Anxiety PTSD (post-traumatic stress disorder) Surgical History H/O bilateral mastectomy Social History Household Members: Spouse Household Members Other:: Two puppies Housing: Condominium Do you presently have visiting nurse or other home services: No Patient Tobacco Use Status: Never used Tobacco e-Cigarette/Vaping Use: Never Used Second Hand Smoke Exposure: Yes service: No Sexual orientation: Straight/Heterosexual Physical Exam Vital Signs: Last Vital Signs Pulse 83 03/03/25 12:38 BP 130/80 03/03/25 12:38 Pulse Ox 97 03/03/25 12:38 Oxygen Delivery Method Room Air 03/03/25 12:38 BMI result Body Mass Index 27.7 Const Other: General: Comfortable Skin: No lesions seen. Normal capillary refill. No discoloration of fingertips. No digital ulcers. MSK: Hands are warm to touch. No synovitis of hands. Weak personal financial representative. Power 5/5 upper extremities. Bilateral Hip flexor and extensor power is 4/5. Rest of lower extremities is 5/5. Assessment & Plan Assessment & Plan (1) Raynaud disease without gangrene: Comment: Active on nifedipine 90 mg ER daily. We discussed next steps in management. History: Failed amlodipine 15mg qd. He was previously on cialis prescribed by his urologist and did not tolerate it. He does not want to try sildenafil as it is also a phosphodiesterase-5 (PDE5) inhibitor. 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 Code(s): R29.898 - Other symptoms and signs involving the musculoskeletal system Category: Medical Plan: We discussed the importance of compliance with OT exercises (4) Muscle weakness of lower extremity: Comment: Chronic weakness. He has LE proximal muscle weakness on exam. Past labs reviewed in expanse revealed mild elevation in CK with normal inflammatory markers May 2024. TSH and vitamin B12 are normal. 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 therapy NE nerve conduction velocity Today M62.81 - Muscle weakness (generalized) Creatine Kinase Total Today M62.81 - Muscle weakness (generalized) NE electromyogram (EMG) Today M62.81 - Muscle weakness (generalized) Medications: New nifedipine ER (Procardia XL) Total dose 120mg daily XL 30 mg PO DAILY 30 tabs 0RF nifedipine ER (Procardia XL) Total dose 120mg daily XL 30 mg PO DAILY 30 tabs 11RF Coding Level of Care Code Est Pt Level 4 (38767) Complex EM visit Add On G2211 Diagnoses Raynaud disease without gangrene I73.00 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
[2025-03-03 12:38] VITALS: BP 130/80; PULSE 83; O2SAT 97; BMI 27.7
--- OUTSIDE RECORDS SUMMARY | 2025-03-03 13:01 | XMS_ITS | Continuity of Care Document ---
Author Organization [facility] Address [address] [place] [address] Phone [phone] Social History Type Date Description Comments Sex Male Sex Unknown Medical Devices Description No Information Available Encounters Description No Information Available Assessments Description No Information Available Plan of Treatment No Information Available Functional Status Description No Information Available Mental Status Description No Information Available Referrals Description No Information Available
--- OUTSIDE RECORDS SUMMARY | 2025-03-03 13:01 | XMS_ITS | Data Portability ---
Author Organization [facility], [facility] Address [address] [place] [address] Assessment No assessment recorded. Plan of Treatment [...] Name and Address Organization Details Recorded Time 069900 honey preparati on food,medi cation Not available Not available Not available 10/29/2023 92292 9 RxNorm natalia tinoco, [facility] 4 14:29:03 Medications Name Sig [...] Updated DateTime 10/29/2023 182.88 cm 28.2 kg/m2 38515.21 natalia dukes [facility] 10/29/2023 14:28:50 Date Recorded Body height Body mass index (BMI) Body weight Provider Name and Address Organization Details Last Updated DateTime 12/10/2023 182.88 cm 27.9 kg/m2 04283.03 natalia dukes [facility] 12/10/2023 15:05:27 Social History None recorded. Functional Status None recorded. Mental Status None recorded. Family History Nothing Reported. Medical History No medical history recorded. Past Encounters Encounter ID Performer Location Encounter Start Date Encounter Closed Date Diagnosis/Indication Diagnosis SNOMED-CT Code Diagnosis ICD10 Code Diagnosis Note [id number] BON[facility] Bishop [address] [place] [address] 10/29/2023 14:11:28 10/29/2023 14:43:32 Trochanteric bursitis of right hip 9274768909 77962 M70.61 Osteoarthr itis of right hip joint 6415622670 13015 M16.11 [id number] BONILLA Bishop [address] [place] [address] 12/10/2023 14:52:55 12/27/2023 06:37:04 Trochanteric bursitis of right hip 5610266117 16808 M70.61 Osteoarthr itis of right hip joint 7287456500 73755 M16.11 Health Concerns Section Related Observation LastModified by Organization Detai ls LastModified Time None Recorded Concern Status LastModified by Organization Details LastModified Time None Recorded Advance Directives Directive None Recorded Payers Insurance Date Sequence Insurance Name Policy Number Policy Plaza Covered Member ID Plaza Member ID Guarantor Name 12/27/2023 1 [facility] - MEDICARE PREFERRED (MEDICARE REPLACEMENT HMO) [id number] Partha Khan II [id number] Partha Khan Notes Date Note Type [...] occasion. Denies any radicular symptoms. He takes pxzz-eud-kujvadh medication intermittently for his pain. He unfortunately only had one session of physical therapy so far.PMH/PSH/MEDS/ALL/ FMH/SOC HX/ROS are reviewed in detail per my medical intake sheet. General Exam: Vital signs are as noted belowMental status: Alert and lucid. Normal insight, affect and grooming.ANIMAL TRAINER: Gross motor coordination is intact. No spasticity [...] office. All of his questions have been answered.Snipd speech recognition fire extinguisher technician software was used to create portions of this document. An attempt at proofreading has been made to minimize errors. Please call for corrections. Kay Miranda PA-C [address] [place] [address] [address], [place], [address], [facility] 10/29/2023 14:43:21 12/10/2023 text/html *I [...] Alert and lucid. Normal insight, affect and grooming.ANIMAL TRAINER: Gross motor coordination is intact. No spasticity [...] needed. All of his questions have been answered.Snipd speech recognition fire extinguisher technician software was used to create portions of this document. An attempt at proofreading has been made to minimize errors. Please call for corrections. Kay Miranda PA-C [address] [facility], [place], [address], [facility] [place] 12/10/2023 17:06:50
--- OUTSIDE RECORDS SUMMARY | 2025-03-03 13:02 | XMS_ITS | Clinical Summary ---
Author Organization 175 [facility] Address 175 [place] [address] Phone Care Team Providers Care An/Syq 13 Nav/C2 Operator Name Role Phone Seth Whelan MD Primary Care Provider [phone] Allergies Active Allergy Reactions Criticality Noted Date [...] 02/16/2025 2:45 PM EDT Office Visit [facility] [address] [address] Vladimir Alvarez, DPM Dermatophytosis of nail (Primary Dx); Diabetic mononeuropathy simplex (CMS/HCC V24, CMS/HCC V28); Ingrowing nail 02/04/2025 9:30 AM EDT Office Visit [facility] [address] [address] Vladimir Alvarez DPM Cellulitis of great toe, [...] PM EDT Office Visit Orthopedic Surgery - [place] [address] [phone] Vladimir Alvarez DPM [address] [address] Health Maintenance Due Date Last Done Comments Diabetes: Annual GFR (Glomerular Filtration Rate) 1972 Diabetes: Annual Foot Exam 02/10/1982 Diabetes: Annual Retina Eye Exam 02/10/1982 Hepatitis B Vaccines (1 of 3 - 19+ 3-dose series) 02/10/1991 Cholesterol Screening (Lipid Panel) 07/10/2022 Colorectal Cancer Screening: Colonoscopy 07/10/2022 HIV Screening 07/10/2022 Hepatitis C Screening 07/10/2022 Social Influencers of Health Screening 07/10/2022 Zoster Vaccines (2 of 2) 06/12/2023 04/17/2023 Depression Screening 08/12/2024 Diabetes: Annual Urine Albumin-Creatinine Ratio (uACR) 11/04/2024 [...] patient's age to complete this topic Insurance [facility] Care Teams An/Syq 13 Nav/C2 Operator Relationship Specialty Start Date End Date Seth Whelan MD [address] [place] [address] PCP - General 07/08/23
--- OUTSIDE RECORDS SUMMARY | 2025-03-03 13:02 | XMS_ITS | Encounter Summary ---
Author Organization [facility] Address [address] [place] [address] Phone Care Team Providers Care Footwear Sales Representative Name Role Phone Tip Seth Terrazas MD Primary Care Provider [phone] Encounter Details Date Type Department Care Team ([facility] st Contact Info) Description 09/23/2024 Procedure Pass OR Admitting Dept - Virtual Department [address] [place] [address] Social History Tobacco Use Types Packs/Day Years [...] 09/23/2024 11:41 PM Radha Lara RN * [place] Suicide Severity Rating Scale (Screener/Recent Self-Report) Question [...] on filedocumented in this encounter Care Teams Footwear Sales Representative Relationship Specialty Start Date End Date Seth Whelan MD [address] [place] [address] PCP - General Internal Medicine 03/18/24 documented as of this encounter Additional Source Comments The information contained in this document represents components of the legal health record. It is not the complete legal health record.[facility]
== END 2025-03-03 13:13 | disposition home or self-care (01) ==
LOC: HO.RHES 12:39
PROVIDERS: PCP Hospitalist; Visit Provider Internal Medicine Rheumatology
DX: I73.00 Raynaud's syndrome without gangrene (principal); Z79.899 Other long term (current) drug therapy; R29.898 Other symptoms and signs involving the musculoskeletal system; M62.81 Muscle weakness (generalized)
CPT/HCPCS: 99214; G2211

== ENCOUNTER 2025-03-03 12:38 | Outpatient (REF) | payer MEDICARE, SELFPAY | END 2025-03-03 12:39 | disposition home or self-care (01) | LOC: HO.HKASLDS 12:38 | PROVIDERS: PCP Hospitalist; Visit Provider Internal Medicine Rheumatology | DX: I73.00 Raynaud's syndrome without gangrene (principal); R29.898 Other symptoms and signs involving the musculoskeletal system; M62.81 Muscle weakness (generalized); Z79.899 Other long term (current) drug therapy | CPT/HCPCS: 36415; 82085; 82550; 85652; 86140; 99212 ==

== ENCOUNTER 2025-03-08 19:26 | Outpatient (REF) | payer MEDICARE, SELFPAY ==
--- NOTE | ~2025-03-08 | MR_ITS ---
EXAMINATION: MR BRAIN WITHOUT IV CONTRAST HISTORY: ATAXIA, WEAKNESS TECHNIQUE: Sagittal T1, and axial T1, FLAIR, T2, gradient echo, and diffusion weighted MR images of the brain were obtained. COMPARISON: There are no prior studies available for comparison. FINDINGS: The pituitary is normal in size. The cerebellar tonsils are normally located. The brain parenchyma is unremarkable, demonstrating normal farah/white differentiation. No foci of abnormal signal intensity are identified. The ventricular system is normal in size and configuration. There is no mass effect or midline shift. There is calcification of the falx. No intra or extra-axial fluid collections are identified. There are no foci of restricted diffusion. Normal vascular flow voids are noted in the basilar and carotid arteries. The visualized paranasal sinuses are clear. MR/MR head/brain wo con IMPRESSION: Unremarkable MRI of the brain without contrast. Electronically signed by: Que Haque MD 03/09/2025 07:08 AM EDT
== END 2025-03-08 19:27 | disposition home or self-care (01) ==
LOC: HO.MRI 19:26
PROVIDERS: PCP Hospitalist; Visit Provider Internal Medicine
DX: R26.0 Ataxic gait (principal); M62.81 Muscle weakness (generalized)
CPT/HCPCS: 70551

== ENCOUNTER → 2025-03-08 22:22 | Outpatient (BNV) | payer MEDICARE, SELFPAY | PROVIDERS: PCP Hospitalist; Visit Provider Radiology Neuroradiology | DX: R27.0 Ataxia, unspecified (principal); R53.1 Weakness; R07.89 Other chest pain | CPT/HCPCS: 70551; 71046 ==

== ENCOUNTER 2025-03-08 22:52 | Emergency (ER) | payer MEDICARE, SELFPAY ==
--- NOTE | ~2025-03-08 | XR_ITS ---
CLINICAL HISTORY: chest discomfort 2 view chest x-ray Comparison: None provided Findings: Mild bibasilar atelectasis/pneumonitis. Mild emphysematous changes suggested. Cardiac silhouette at the upper limits of normal. No pneumothorax or pleural effusion. Mild vertebral height losses are age indeterminate by radiographs. Degenerative changes include imaged shoulders, AC joints, and spine. IMPRESSION: Mild bibasilar atelectasis/pneumonitis. This document has been electronically signed by: Edward Eagle MD on 03/08/2025 23:47:57
--- NOTE | 2025-03-08 22:54 | ECG_ITS ---
Test Reason : CP Blood Pressure : */* mmHG Vent. Rate : 73 BPM Atrial Rate : 73 BPM P-R Int : 172 ms QRS Dur : 88 ms QT Int : 372 ms P-R-T Axes : 43 -35 27 degrees QTcB Int : 409 ms Normal sinus rhythm Left axis deviation Abnormal ECG When compared with ECG of 09-Jun-2024 11:12, QRS axis Shifted left Referred By: Generic ED Physician Electronically Signed By: ASHLI MENDOZA MD
[2025-03-08 23:08] VITALS: BP 158/97; PULSE 80; RESP 16; TEMP 36.3; O2SAT 98; BMI 27.7
[2025-03-08 23:34] LABS: MANUAL DIFF FLAG NO
[2025-03-08 23:36] LABS: Hematocrit 35.8 % (42.0-52.0); Hemoglobin 12.6 g/dl (14.0-18.0); Imm Gran Abs Auto 0.01 X10*3/uL (0.00-0.03); Imm Gran Pct Auto 0.2 % (0.0-0.4); Lymphocytes Absolute Auto 1.8 X10*3/uL (1.2-4.9); Mean Corpuscular HGB Conc 35.2 g/dl (31.0-36.0); Mean Corpuscular Hemoglobin 28.3 pg (27.0-33.0); Mean Corpuscular Volume 80.3 fL (80.0-98.0); NRBC Abs Auto 0.000 X10*3/uL (0.0-0.012); NRBC Pct Auto 0.0 /100WBC (0.0-0.2); Platelet Count 246 X10*3/uL (160-400); Red Blood Count 4.46 X10*6/uL (4.60-5.80); White Blood Count 4.3 X10*3/uL (4.8-10.8)
[2025-03-08 23:53] LABS: Alanine Aminotransferase 28 U/L (0-40); Albumin Level 4.2 g/dL (3.5-5.0); Alkaline Phosphatase 104 U/L (39-117); Anion Gap 12 (12-20); Aspartate Amino Transferase 27 U/L (5-37); Blood Urea Nitrogen 21 mg/dL (9-16); Calcium 8.9 mg/dL (8.4-10.2); Carbon Dioxide 27 mmol/L (22-29); Chloride 105 mmol/L (96-108); Creatinine Clr Calc Pharmacy 80.8; Estimated Glomerular Filt Rate > 60; Potassium 3.7 mmol/L (3.3-5.1); Sodium 140 mmol/L (135-145); Total Protein 7.0 g/dL (6.5-8.0)
[2025-03-08 23:56] LABS: Troponin-I High Sensitivity 10.9 ng/L (<3.5-35.0)
--- OUTSIDE RECORDS SUMMARY | 2025-03-09 00:49 | XMS_ITS | Continuity of Care Document ---
Author Organization [facility] Address [address] [place] [address] Phone [phone] Social History Type Date Description Comments Sex Male Sex Unknown Medical Devices Description No Information Available Encounters Description No Information Available Assessments Description No Information Available Plan of Treatment No Information Available Functional Status Description No Information Available Mental Status Description No Information Available Referrals Description No Information Available
--- OUTSIDE RECORDS SUMMARY | 2025-03-09 00:49 | XMS_ITS | Encounter Summary ---
Author Organization [facility] Address [address] [place] [address] Phone Care Team Providers Care Gaming Host Name Role Phone Tip Seth Terrazas MD Primary Care Provider [phone] Encounter Details Date Type Department Care Team ([facility] st Contact Info) Description 09/23/2024 Procedure Pass OR Admitting Dept - Virtual Department [address] [place] [address] Social History Tobacco Use Types Packs/Day Years [...] 09/23/2024 11:41 PM Radha Lara RN * [place] Suicide Severity Rating Scale (Screener/Recent Self-Report) Question [...] on filedocumented in this encounter Care Teams Gaming Host Relationship Specialty Start Date End Date Seth Whelan MD [address] [place] [address] PCP - General Internal Medicine 03/18/24 documented as of this encounter Additional Source Comments The information contained in this document represents components of the legal health record. It is not the complete legal health record.[facility]
--- OUTSIDE RECORDS SUMMARY | 2025-03-09 00:49 | XMS_ITS | Clinical Summary ---
Author Organization [address] [place] [address] Address [address] [place] [address] Phone Care Team Providers Care Inspector Plating Name Role Phone Seth Whelan MD Primary Care Provider [phone] Allergies Active Allergy Reactions Criticality Noted Date Comments Aripiprazole 11/04/2024 Bupropion 11/04/2024 Mesalamine 11/04/2024 Mirtazapine 11/04/2024 Medications silver sulfADIAZINE (Silvadene) 1 % cream Apply topically 1 (one) time each day. 50 g 5 02/05/20 26 Active cephalexin (KEFLEX) 500 mg capsule Take 1 capsule (500 mg total) by mouth 3 (three) times a day for 10 days. 30 each 5 02/15/20 25 Encounters Date Type Department Care Team Description 02/16/2025 2:45 PM EDT Office Visit Orthopedic [address] [phone] Vladimir Alvarez DPM Dermatophytosis of nail (Primary Dx); Diabetic mononeuropathy simplex (CMS/[facility] V24, CMS/[facility] V28); Ingrowing nail 02/04/2025 9:30 AM EDT Office Visit [address] [phone] Vladimir Alvarez DPM Cellulitis of great toe, [...] PM EDT Office Visit Orthopedic [facility] - [place] [address] [phone] Vladimir Alvarez, DPM [address] [address] Health Maintenance Due Date Last Done Comments [...] patient's age to complete this topic Insurance [facility] [employer] Care Teams Inspector Plating Relationship Specialty Start Date End Date Seth Whelan MD [address] [place] [phone] PCP - General 07/08/23
[2025-03-09 00:55] VITALS: BP 149/87; PULSE 64; RESP 18; TEMP 36.8; O2SAT 97
[2025-03-09 02:01] LABS: Troponin-I High Sensitivity 10.0 ng/L (<3.5-35.0)
--- NOTE | 2025-03-09 03:18 | ED.GENADULT ---
HPI - General Adult General Chief complaint: Weakness Stated complaint: weakness,chest pain Time Seen by Provider: 03/09/25 01:11 Source: patient Limitations: no limitations History of Present Illness ED Provider: Huong Redmond PA-C HPI narrative: 55-year-old male with a history of Raynaud disease, depression, anxiety, PTSD, diabetes, hypertension, chronic kidney disease who presents with multiple complaints. Patient complains of generalized central chest tightness. Associated nausea, generalized weakness and malaise. Patient notes his blood pressure was elevated at home. Denies recent cough or cold symptoms or fevers. Denies abdominal pain. Denies new activity where he could have strained his chest wall. Related Data Home Medications ?Medication ?Instructions ?Recorded ?Confirmed insulin glargine 100 unit/mL (3 24 unit subcut BEDTIME 09/08/21 05/28/24 mL) subcutaneous pen (Lantus Solostar U-100 Insulin) dapagliflozin propanediol 10 mg 10 mg PO DAILY 09/26/21 05/28/24 tablet (Farxiga) lamotrigine 100 mg tablet 150 mg PO BEDTIME 04/22/24 05/28/24 duloxetine 30 mg capsule,delayed 30 mg PO DAILY 05/28/24 05/28/24 release evolocumab 140 mg/mL subcutaneous 140 mg subcut Q2W 09/09/24 pen injector (Patel Garick) benazepril 10 mg tablet 10 mg PO DAILY 03/03/25 Previous Rx's ?Medication ?Instructions ?Recorded clonazepam 0.5 mg tablet See Rx Instructions .Route 06/01/24 .COMPLEX 14 days #21 tabs ergocalciferol (vitamin D2) 1,250 1,250 mcg PO QWEEK #12 caps 06/10/24 mcg (50,000 unit) capsule (Vitamin D2) duloxetine 20 mg capsule,delayed 20 mg PO DAILY as directed #30 caps 06/16/24 release duloxetine 30 mg capsule,delayed 30 mg PO BEDTIME as directed #30 06/16/24 release caps nifedipine 90 mg tablet,extended 90 mg PO DAILY #90 tabs 07/02/24 release nifedipine 30 mg tablet,extended 30 mg PO DAILY #30 tabs 03/03/25 release 24 hr (Procardia XL) albuterol sulfate 90 mcg/actuation 2 puff inhalation Q4-6H PRN 03/09/25 aerosol inhaler (Ventolin HFA) shortness of breath or wheezing #8.5 grams azithromycin 250 mg tablet 250 mg PO DAILY 4 days #4 tabs 03/09/25 Allergies Allergy/AdvReac Type Severity Reaction Status Date / Time bupropion (From WELLBUTRIN) Allergy Severe Seizure Verified 03/08/25 23:10 aripiprazole (From ABILIFY) Allergy Intermediate FACIAL Verified 03/08/25 23:10 TREMORS honey (HONEY) Allergy Intermediate HEADACHES Verified 03/08/25 23:10 lurasidone (From LATUDA) AdvReac Intermediate GETS Verified 03/08/25 23:10 REALLY SICK mirtazapine (MIRTAZAPINE) AdvReac Intermediate BP GOES Verified 03/08/25 23:10 HIGH Review of Systems Review of Systems: Yes all other systems are reviewed and are negative Constitutional: Constitutional: Denies chills, Reports fatigue, Denies fever(s) and Reports malaise Cardiovascular: Cardiovascular: Reports chest pain and Denies dyspnea Respiratory: Respiratory: Denies cough and Denies dyspnea Gastrointestinal: Gastrointestinal: Denies abdominal pain, Reports nausea and Denies vomiting Endocrine: Endocrine: Reports fatigue PMFSH Past Medical History Attestation statement: The following information was validated with the patient. Medical History Kidney disease Anemia Type II diabetes mellitus Fatty liver Hyperlipemia Urethral stricture Raynauds syndrome DALE (obstructive sleep apnea) Seizure Hypertension Anxiety PTSD (post-traumatic stress disorder) Surgical History H/O bilateral mastectomy Social History Social History Household Members: Spouse Household Members Other:: Two puppies Housing: Condominium Do you presently have visiting nurse or other home services: No Patient Tobacco Use Status: Never used Tobacco e-Cigarette/Vaping Use: Never Used Second Hand Smoke Exposure: Yes service: No Sexual orientation: Straight/Heterosexual Physical Exam ED Vital Signs: Vital Signs - 24 hr 03/08/25 23:08 03/09/25 00:55 Temperature 97.3 F 98.3 F Pulse Rate 80 64 Respiratory Rate 16 18 Blood Pressure 158/97 H 149/87 H Pulse Oximetry 98 97 Oxygen Delivery Method Room Air Room Air BMI result Body Mass Index 27.7 Const Other: Alert Orientation/consciousness: patient oriented x3 Resp Other: Nonlabored respirations, lungs clear to auscultation no wheezing Cardio Other: Normal peripheral perfusion Skin Other: Warm dry no rash Neuro General: patient oriented x3, gait normal, no focal motor deficits and CN's II-XI intact bilaterally Psych Other: Cooperative Medications Administered Discontinued Medications Generic Name Dose Route Start Last Admin Trade Name Alexey PRN Reason Stop Dose Admin Azithromycin 500 mg 03/09/25 03:14 03/09/25 03:44 Azithromycin 500 Mg Tablet PO 03/09/25 03:15 Not Given ONCE ONE Medical Decision Making Medical Decision Making MDM Narrative: 55-year-old male with a history of Raynaud disease, depression, anxiety, PTSD, diabetes, hypertension, chronic kidney disease who presents with multiple complaints. Patient complains of generalized central chest tightness. Associated nausea, generalized weakness and malaise. Patient notes his blood pressure was elevated at home. Denies recent cough or cold symptoms or fevers. Denies abdominal pain. Denies new activity where he could have strained his chest wall. Problem: Psychiatric illness, diabetes History: Per patient I have considered the following differential diagnoses: ACS, viral syndrome, pneumonia, bronchitis, hypertensive urgency, hypertensive emergency, chest wall strain Plan: In regard to the blood pressure, the patient is not hypertensive here in the emergency room. ACS was considered, the patient does have some risk factors for coronary artery disease, in addition to screening labs, troponin, EKG and chest x-ray were obtained. Given generalized malaise and weakness, I am considering viral syndrome, however the patient denies cough and cold symptoms or fevers. The chest x-ray is reading bronchitis, the patient does not have an active cough, I do not hear any wheezing, he does complain of chest tightness. I have offered him albuterol and steroid, he declines a steroid, but we will take the albuterol. He has no mechanism to suggest chest wall strain. I have independently reviewed the following tests: Labs: No leukocytosis, not anemic, no electrolyte abnormality, troponin x2 are flat, EKG: Normal sinus rhythm, rate of 73, no ischemic changes no ectopy Chest x-ray:Findings: Mild bibasilar atelectasis/pneumonitis. Mild emphysematous changes suggested. Cardiac silhouette at the upper limits of normal. No pneumothorax or pleural effusion. Mild vertebral height losses are age indeterminate by radiographs. Degenerative changes include imaged shoulders, AC joints, and spine. IMPRESSION: Mild bibasilar atelectasis/pneumonitis. Lab Data 03/08/25 23:27 03/08/25 23:27 Labs: Lab Results 03/08/25 03/09/25 Range/Units 23:27 01:35 WBC 4.3 L (4.8-10.8) X10*3/uL RBC 4.46 L (4.60-5.80) X10*6/uL Hgb 12.6 L (14.0-18.0) g/dl Hct 35.8 L (42.0-52.0) % MCV 80.3 (80.0-98.0) fL MCH 28.3 (27.0-33.0) pg MCHC 35.2 (31.0-36.0) g/dl RDW 12.2 (11.0-16.0) % Plt Count 246 (160-400) X10*3/uL MPV 9.0 L (9.4-12.4) fL Immature Gran % (Auto) 0.2 (0.0-0.4) % Neut % (Auto) 45.4 (45-73) % Lymph % (Auto) 42.8 H (20-40) % [place] % (Auto) 9.2 (2-11) % Eos % (Auto) 1.9 (0-4) % Baso % (Auto) 0.5 (0-2) % Lymph # (Auto) 1.8 (1.2-4.9) X10*3/uL [place] # (Auto) 0.4 (0.1-1.2) X10*3/uL Eos # (Auto) 0.1 (0.0-0.4) X10*3/uL Baso # (Auto) 0.0 (0.0-0.2) X10*3/uL Abs Immat Gran (auto) 0.01 (0.00-0.03) X10*3/uL Absolute Neuts (auto) 1.9 L (2.0-8.3) x10*3/uL Absolute Nucleated RBC 0.000 (0.0-0.012) X10*3/uL Nucleated RBC % (auto) 0.0 (0.0-0.2) /100WBC Sodium 140 (135-145) mmol/L Potassium 3.7 (3.3-5.1) mmol/L Chloride 105 (96-108) mmol/L Carbon Dioxide 27 (22-29) mmol/L Anion Gap 12 (12-20) BUN 21 H (9-16) mg/dL Creatinine 1.16 (0.5-1.4) mg/dL Estim Creat Clear Calc 80.8 Estimated GFR > 60 Random Glucose 151 H (60-115) mg/dL Calcium 8.9 D (8.4-10.2) mg/dL Total Bilirubin 0.2 (0.0-1.0) mg/dL Direct Bilirubin < 0.2 (0.0-0.5) mg/dL AST 27 (5-37) U/L ALT 28 (0-40) U/L Alkaline Phosphatase 104 (39-117) U/L Troponin I High Sens 10.9 10.0 (<3.5-35.0) ng/L Total Protein 7.0 (6.5-8.0) g/dL Albumin 4.2 (3.5-5.0) g/dL Discharge Plan Discharge Clinical Impression: Bronchitis Patient Disposition: Home, Self-Care Instructions: Acute Bronchitis (ED) Additional Instructions: You were found to have evidence of bronchitis on the chest x-ray. The remainder of your screening labs were within normal limits, including 2 cardiac enzymes. There were no concerning changes on the EKG. See home care instructions. Take the azithromycin as directed. Use the albuterol as needed. Follow up with your primary care provider, call tomorrow to schedule an appointment. Prescriptions: New albuterol sulfate [Ventolin HFA] 90 mcg/actuation HFA aerosol inhaler 2 puff inhalation Q4-6H PRN (Reason: shortness of breath or wheezing) Qty: 8.5 0RF azithromycin 250 mg tablet 250 mg PO DAILY 4 Days Qty: 4 0RF Rx Instructions: start on day 2 of therapy No Action insulin glargine [Lantus Solostar U-100 Insulin] 100 unit/mL (3 mL) insulin pen 24 unit subcut BEDTIME Patient Comments: Patient stated his PCP increased Lantus from 20 to 24 units at HS. dapagliflozin propanediol [Farxiga] 10 mg Tablet 10 mg PO DAILY duloxetine 30 mg Capsule,Delayed Release(Dr/Ec) 30 mg PO DAILY clonazepam 0.5 mg Tablet See Rx Instructions .ROUTE .COMPLEX 14 Days Qty: 21 0RF Rx Instructions: take 1/2 tablet po daily prn anxiety; take 1 tablet po daily at bedtime (administer 30 minutes before bedtime) ergocalciferol (vitamin D2) [Vitamin D2] 1,250 mcg (50,000 unit) capsule 1,250 mcg PO QWEEK Qty: 12 0RF duloxetine 20 mg capsule,delayed release(DR/EC) 20 mg PO DAILY Qty: 30 0RF duloxetine 30 mg capsule,delayed release(DR/EC) 30 mg PO BEDTIME Qty: 30 0RF lamotrigine 100 mg tablet 150 mg PO BEDTIME Rx Instructions: Take one and a half tabs at bedtime. nifedipine 90 mg tablet extended release 90 mg PO DAILY Qty: 90 3RF Rx Instructions: Take 1 tablet daily Increase dose Repatha SureClick 140 mg/mL pen injector 140 mg subcut Q2W benazepril 10 mg tablet 10 mg PO DAILY nifedipine [Procardia XL] 30 mg tablet extended release 24hr 30 mg PO DAILY Qty: 30 11RF Rx Instructions: Total dose 120mg daily XL Interventions: ED Discharge Assessment Last Done: 03/09/25 03:43 Discharge Date/Time: 03/09/25 03:46 Print Language: Icelandic
[2025-03-09 03:43] VITALS: BP 155/99; PULSE 68; RESP 18; TEMP 36.6; O2SAT 98
--- NOTE | 2025-03-09 03:45 | PC.NURSE ---
Pt refused ABX at time of D/C, states i do not think I have Bronchitis .
== END 2025-03-09 03:46 | disposition home or self-care (01) ==
PROVIDERS: Physician Assistant Medical; Emergency Provider Emergency Medicine; PCP Hospitalist
DX: J40 Bronchitis, not specified as acute or chronic (principal); R07.9 Chest pain, unspecified; R53.1 Weakness; R53.81 Other malaise; E11.22 Type 2 diabetes mellitus with diabetic chronic kidney disease; I12.9 Hypertensive chronic kidney disease with stage 1 through stage 4 chronic kidney disease, or unspecified chronic kidney disease; N18.9 Chronic kidney disease, unspecified; E78.5 Hyperlipidemia, unspecified; Z79.4 Long term (current) use of insulin; Z79.899 Other long term (current) drug therapy
CPT/HCPCS: 36415; 71046; 80048; 80076; 84484; 85025; 93005; 99283

== ENCOUNTER → 2025-03-08 22:54 | Outpatient (BNV) | payer MEDICARE, SELFPAY | PROVIDERS: Emergency Provider Emergency Medicine; PCP Hospitalist; Visit Provider Internal Medicine Cardiovascular Disease | DX: R94.31 Abnormal electrocardiogram [ECG] [EKG] (principal); R07.9 Chest pain, unspecified | CPT/HCPCS: 93010 ==

== ENCOUNTER 2025-05-07 14:49 | Outpatient (REF) | payer MEDICARE, SELFPAY ==
--- NOTE | 2025-05-07 14:51 | EMG_ITS ---
Chief complaint: Chronic generalized weakness that comes in episodes, without any numbness or pain. Patient has history of diabetes and Raynaud's syndrome. No atrophy seen. No fasciculations seen. Reason for referral: Evaluate for muscle weakness Referred by: Dr. Isabel Procedure done: Bilateral lower extremity NCS/EMG Precautions and/or limitations: None The limb temperature was monitored continuously and remained between 32-36 degrees C during the performance of the NCS. Nerve Conduction Studies Anti Sensory Summary Table ?Stim Site NR Onset (ms) Norm Onset (ms) Peak (ms) Norm Peak (ms) O-P Amp (?V) Norm O-P Amp Site1 Site2 Delta-0 (ms) Dist (cm) Marcell (m/s) Norm Marcell (m/s) Left Sural Anti Sensory (Lat Mall) Calf ? 2.8 3.8 <4.0 3.7 >5.0 Calf Lat Mall 2.8 14.0 50 ? 2.6 3.6 0.5 Right Sural Anti Sensory (Lat Mall) Calf ? 3.1 3.9 <4.0 3.1 >5.0 Calf Lat Mall 3.1 14.0 45 Motor Summary Table ?Stim Site NR Onset (ms) Norm Onset (ms) O-P Amp (mV) Norm O-P Amp iAmp (mV) Amp (1st) (%) Site1 Site2 Delta-0 (ms) Dist (cm) Marcell (m/s) Norm Marcell (m/s) Left Peroneal Motor (Ext Dig Brev) Ankle ? 4.6 <4.0 3.1 >2.5 4.0 100.0 Ankle Ext Dig Brev 4.6 0.0 B Fib ? 13.6 2.6 3.2 83.9 B Fib Ankle 9.0 37.5 42 >40 Poplt ? 14.4 2.4 3.0 77.4 Poplt B Fib 0.8 5.0 62 >40 Right Peroneal Motor Run with post exercise Ankle ? 5.1 <4.0 1.4 >2.5 1.5 100.0 Ankle Ext Dig Brev 5.1 0.0 ? 5.1 1.4 1.5 100.0 B Fib Ankle 0.0 0.0 >40 ? 13.8 1.2 1.3 85.7 Poplt B Fib 8.7 0.0 >40 Right Peroneal Motor (Ext Dig Brev) Ankle ? 5.1 <4.0 1.4 >2.5 1.5 100.0 Ankle Ext Dig Brev 5.1 0.0 B Fib ? 13.6 1.3 1.3 92.9 B Fib Ankle 8.5 35.0 41 >40 Poplt ? 15.2 1.3 1.4 92.9 Poplt B Fib 1.6 5.0 31 >40 Left Peroneal TA Motor (Tib Ant) Fib Head ? 3.5 <4.2 3.7 4.7 100.0 Fib Head Tib Ant 3.5 0.0 Poplit ? 4.1 <5.7 3.8 4.8 102.7 Poplit Fib Head 0.6 5.0 83 >40.5 Left Tibial Motor (Abd Bey Brev) Ankle ? 4.5 <5 6.8 >2.5 10.6 100.0 Ankle Abd Bey Brev 4.5 0.0 Knee ? 16.3 5.2 6.5 76.5 Knee Ankle 11.8 44.0 37 >40 Right Tibial Motor (Abd Bey Brev) Ankle ? 3.7 <5 6.5 >2.5 8.6 100.0 Ankle Abd Bey Brev 3.7 0.0 Knee ? 14.6 3.6 5.1 55.4 Knee Ankle 10.9 45.0 41 >40 EMG ?Side Muscle Nerve Root Ins Act Fibs Psw Amp Dur Poly Recrt Int Pat Comment Right AbdHallucis MedPlantar S1-2 Nml Nml Nml Nml Nml 0 Nml Complete Right AntTibialis Dp Br Peron L4-5 Nml Nml Nml Nml Nml 0 Nml Complete Right PostTibialis Tibial L5, S1 Nml Nml Nml Nml Nml 0 Nml Complete Right MedGastroc Tibial S1-2 Nml Nml Nml Nml Nml 0 Nml Complete Right VastusMed Femoral L2-4 Nml Nml Nml Nml Nml 0 Nml Complete Left AbdHallucis MedPlantar S1-2 Nml Nml Nml Nml Nml 0 Nml Complete Left AntTibialis Dp Br Peron L4-5 Nml Nml Nml Nml Nml 0 Nml Complete Left PostTibialis Tibial L5, S1 Nml Nml Nml Nml Nml 0 Nml Complete Left MedGastroc Tibial S1-2 Nml Nml Nml Nml Nml 0 Nml Complete Left VastusMed Femoral L2-4 Nml Nml Nml Nml Nml 0 Nml Complete Paraspinal EMG ?Side Muscle Nerve Root Ins Act Fibs Psw Comment Right Cervical Lower Rami Nml Nml Nml Right Cervical Mid Rami Nml Nml Nml Right Cervical Upper Rami Nml Nml Nml Right Lumbar Upper Rami Nml Nml Nml Right Lumbar Mid Rami Nml Nml Nml Right Lumbar Lower Rami Nml Nml Nml Left Lumbar Upper Rami Nml Nml Nml Left Lumbar Mid Rami Incr 1+ 1+ Left Lumbar Lower Rami Incr 1+ 1+ Left Cervical Upper Rami Nml Nml Nml Left Cervical Mid Rami Nml Nml Nml Left Cervical Lower Rami Nml Nml Nml FINDINGS: Right peroneal nerve showed normal distal latency, small amplitude and slow conduction velocity across fibular neck. There was no post 10 seconds exercise decrement or facilitation. Left peroneal motor nerve, recording at EDB muscle, showed prolonged distal latency, normal amplitude and normal conduction velocity. No conduction block seen when recording at TA muscle. Left tibial motor nerve showed normal distal latency, normal amplitude and slow conduction velocity. Bilateral sural nerves showed normal peak latency but small amplitudes. All other nerves tested were within normal. Concentric needle EMG was performed in selected muscles of the bilateral lower extremities, lumbar paraspinals and cervical paraspinals. Study revealed signs of electric abnormalities as shown in the table above. Increased insertional activity, PSWs and fibrillations seen on left mid/lower lumbar paraspinals. None seen on cervical paraspinals. IMPRESSION: 1. This is an abnormal study. 2. 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 3. Needle EMG showed denervation only on the most proximal muscle (lumbar paraspinals). No denervation seen on cervical paraspinals. 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 Consider muscle biopsy for further evaluation.. Suggests ruling out lumbar radiculopathy with further lumbar spine imaging Thank you for your kind referral. Rita Vidal MD, MICHAEL Board Certified, [place] Board [employer] Medicine and Rehabilitation (ABPMR) Board Certified, [place] Board of Electrodiagnostic Medicine (ABEM) CODIN [id number] x 2 [phone] x 2 ALEJANDRA
--- OUTSIDE RECORDS SUMMARY | 2025-05-07 15:37 | XMS_ITS | Clinical Summary ---
Author Organization [facility] Address [address] [place] [id number] Phone Care Team Providers Care Dba Developer Name Role Phone TipSeth Mk MCKEON Primary Care Provider Allergies Active Allergy Reactions Criticality Noted Date Comments Aripiprazole Other (See Comments) Low 02/15/2022 Other Reaction(s): facial tremers Facial tremors Bupropion Medium 02/15/2022 Other Reaction(s): Other (See Comments), siezure seizure Honey 08/10/2024 Lurasidone Nausea Only Low 02/15/2022 Other Reaction(s): GI upset Metformin Hcl Low 05/30/2022 Other Reaction(s): Unknown Medications NIFEdipine (ADALAT CC) 90 MG 24 hr tablet Take 1 tablet by mouth every morning. 07/03/20 24 Active lamoTRIgine (LAMICTAL) 150 MG IMMEDIATE release tablet Take 150 mg by mouth daily. Active FARXIGA 10 mg tablet 10 mg daily. Active insulin glargine (LANTUS) 100 unit/mL injection vial Inject 20 Units under the skin daily. Active REPATHA SYRINGE 140 mg/mL subcutaneous syringe INJECT 1 SYRINGE (1 ML) SUBCUTANEOUSLY EVERY 2 WEEKS 07/07/20 24 Active DULoxetine (CYMBALTA) 60 MG capsule Take 60 mg by mouth daily. Active clonazePAM (KLONOPIN) 0.5 MG tablet TAKE ONE TABLET BY MOUTH EVERY NIGHT AND HALF TABLET DAILY IF NEEDED FOR ANXIETY Active doxazosin (CARDURA) 4 MG tablet Take 1 tablet by mouth. Active benazepril (LOTENSIN) 10 MG tablet Take 1 tablet by mouth every morning. 11/03/19 25 Active Active Problems Problem Noted Date Diagnosed Date Laryngospasm 09/25/2024 Acute pulmonary edema 09/24/2024 Assessment & Plan (09/24/2024 12:35 PM EST): Suspected noncardiogenic pulmonary edema. He is normal proBNP and troponin levels. Spoke with anesthesiology this is likely pulmonary edema related to negative pressure from intubation. Supportive management recommended --O2 as needed to keep saturations greater than 90% --As needed cough suppressants --Incentive spirometry, mobilize/out of bed every few hours Gynecomastia 09/23/2024 Assessment & Plan (09/25/2024 7:57 AM EST): Drug-induced secondary to prior Risperdal use. Now POD #1 status post bilateral mastectomy by Dr. Hahn -- Continue wound care as previously planned. Monitoring output from YOKO drains --As needed oxycodone Hypertension 09/22/2024 Assessment & Plan (09/24/2024 12:09 PM EST): He recently had an increase in nifedipine, stopped Cardura --Continue nifedipine per home regimen CKD (chronic kidney disease) 09/22/2024 Dyslipidemia 09/22/2024 Obstructive sleep apnea syndrome 09/22/2024 Posttraumatic stress disorder 09/22/2024 Raynaud's disease 09/22/2024 Urethral stricture 02/15/2022 Diabetes 07/14/2010 Assessment & Plan (09/24/2024 12:09 PM EST): Insulin-dependent diabetes. He typically uses 20 units of Lantus nightly, took 16 units prior to surgery --POC checks 3 times daily before meals and at bedtime -- Given limited p.o. intake, resume Lantus at 16 units nightly and up-titrate as p.o. intake improves -- Sliding scale insulin -- Follow POC Family History Medical History Relation Comments Diabetes Father Kidney disease Father Stroke Father Diabetes Mother Hypertension Mother Relation Status Comments Father Mother Social History Tobacco Use Types Packs/Day Years Used Date Smoking Tobacco: Never Smokeless Tobacco: Never Tobacco Cessation:Counseling Given: Not Answered Alcohol Use Standard Drinks/Week Comments Never 0 [...] 2:39 AM EST Sexual Orientation Straight 09/24/2024 2: 39 AM EST Last Filed Vital Signs Vital Sign Reading Time Taken Comments Blood Pressure 134/88 12/15/2024 9:03 AM EDT Pulse 65 12/15/2024 9:03 AM EDT Temperature 37 C (98.6 F) 09/25/2024 7:00 AM EST Respiratory Rate 18 09/24/2024 10:53 PM EST Oxygen Saturation 93% 09/24/2024 10:53 PM EST Inhaled Oxygen Concentration 2% 09/24/2024 7 :00 AM EST Weight 93 kg (205 lb) 12/15/2024 9:03 AM EDT Height 182.9 cm (6') 09/23/2024 11:42 PM EST Body Mass Index 27.8 09/23/2024 11:42 PM EST Plan of Treatment Health Maintenance Due Date Last Done Comments DEPRESSION SCREENING 1984 HEPATITIS C SCREENING 02/10/1990 HIV ONE-TIME SCREENING (18-65 YEARS) 02/10/1990 LIPID PANEL 02/10/1990 COLOGUARD 02/10/2017 COLONOSCOPY 02/10/2017 COLORECTAL CANCER SCREENING 02/10/2017 FIT TEST 02/10/2017 FOBT 02/10/2017 SIGMOIDOSCOPY 02/10/2017 VIRTUAL COLONOSCOPY 02/10/2017 HEMOGLOBIN A1C 01/06/2023 07/09/2022, 07/09/2022 ZOSTER VACCINES (2 of 2) 06/12/2023 04/17/2023 DIABETIC EYE EXAM 09/22/2024 INFLUENZA VACCINE (#1) 2025 , 04/18/2023, 04/26/2022, Additional history exists BLOOD PRESSURE 06/17/2025 12/15/2024 CREATININE LEVEL 09/25/2025 09/25/2024, 09/24/2024 POTASSIUM LEVEL 09/25/2025 09/25/2024, 09/24/2024 Adult Td,Tdap Booster 04/15/2034 04/15/2024 PNEUMOCOCCAL VACCINES (50+ years) Completed 04/14/2023 COVID-19 VACCINE Completed 04/15/2024, 06/2023, 04/26/2022, Additional history exists SMOKING STATUS SCREENING (Once After 26 Yrs) Completed 10/06/2024 HEPATITIS A VACCINES Aged Out No long er eligible based on patient's age to complete this topic HIB VACCINES Aged Out No longer eligi ble based on patient's age to complete this topic MENINGOCOCCAL VACCINES (ACWY) Aged Out No longer eligible based on patient's age to complete this topic MENINGOCOCCAL VACCINES (B) Aged Out N o longer eligible based on patient's age to complete this topic Medical Devices Not on file Procedures Procedure Name Priority Date/Time Associated Diagnosis Comments BASIC METABOLIC PANEL Routine 09/25/2024 5:19 AM EST from Last 3 Months or Most Recently Relevant to Health Maintenance Results * (ABNORMAL) Basic metabolic panel (09/25/2024 5:19 AM EST) SODIUM 136 133 - 146 mmol/L [facility] CHLORIDE 98 96 - 108 mmol/L [facility] POTASSIUM 3.9 3.3 - 5.1 mmol/L [facility] CO2 31 21 - 35 mmol/L [facility] BUN 12 6 - 19 mg/dL [facility] CREATININE 1.00 0.5 - 1.5 mg/dL [facility] GLUCOSE 159(H) 70 - 99 mg/dL [facility] CALCIUM 8.6 8.4 - 10.3 mg/dL [facility] EGFR 91 >59 mL/min/1.7 3m2 [facility] Comment:Estimated glomerular filtration rate calculated using the CKD-EPI refit equation. ANION GAP 11 10 - 20 mmol/L [facility] Blood 09/25/2024 5:19 AM EST 09/25/2024 5:39 AM EST us Venus Meyer MD LAB BLOOD ORDERABLES Final Resu lt [facility] [address] [place] [address] from Last 3 Months or Most Recently Relevant to Health Maintenance Insurance [employer] RE[employer] [address] [place] [address] [employer] [address] [place] [phone] [employer] Advance Directives For more information, please contact: [phone] (9AM - 5PM Aletha/[facility], Saturday-Saturday) Documents on File Type Date Recorded Patient Residential Carpenter Expl anation Healthcare Proxy 09/24/2024 12:01 PM * Full Code (Latest Code Status on File) Date Activated Date Inactivated Comments 09/24/2024 11:04 AM Question Answer Comments Code Status Confirmed With: Other (specify below ) Code Status Communicated To: Other (specify belo w) Code Discussion Comments: presumed * Full Code Date Activated Date Inactivated Comments 09/23/2024 9:16 AM 09/24/2024 11:04 AM Question Answer Comments Code Status Confirmed With: Other (specify below ) Code Discussion Comments: periop Care Teams Dba Developer Relationship Specialty Start Date End Date Seth Whelan MD [address] [place] [address] PCP - General Internal Medicine 03/18/24 Additional Source Comments The information contained in this document represents components of the legal health record. It is not the complete legal health record.[facility]
--- OUTSIDE RECORDS SUMMARY | 2025-05-07 15:37 | XMS_ITS | Data Portability ---
Author Organization [facility], [facility] Address [address] [place] [address] Assessment No assessment recorded. Plan of Treatment [...] Name and Address Organization Details Recorded Time 607473 honey preparati on food,medi cation Not available Not available Not available 10/29/2023 76387 9 RxNorm natalia tinoco, [facility] 4 14:29:03 Medications Name Sig Start [...] Updated DateTime 10/29/2023 182.88 cm 28.2 kg/m2 89435.21 natalia dukes [facility] 10/29/2023 14:28:50 Date Recorded Body height Body mass index (BMI) Body weight Provider Name and Address Organization Details Last Updated DateTime 12/10/2023 182.88 cm 27.9 kg/m2 22065.03 natalia dukes [facility] 12/10/2023 15:05:27 Social History None recorded. Functional Status None recorded. Mental Status None recorded. Family History Nothing Reported. Medical History No medical history recorded. Past Encounters Encounter ID Performer Location Encounter Start Date Encounter Closed Date Diagnosis/Indication Diagnosis SNOMED-CT Code Diagnosis ICD10 Code Diagnosis IMO Codes Diagnosis Note [id number] BONILLA Bishop [address] [place] [address] 10/29/2023 14:11:28 10/29/2023 14:43:32 Trochanteric bursitis of right hip [id number] 77493 M70.61 Osteoarthr itis of right hip joint 2593461588 42456 M16.11 [id number] BONILLA Bishop [address] [place] [address] 12/10/2023 14:52:55 12/27/2023 06:37:04 Trochanteric bursitis of right hip [id number] 04393 M70.61 Osteoarthr itis of right hip joint 9452903734 87419 M16.11 Health Concerns Section Related Observation LastModified by Organization Detai ls LastModified Time None Recorded Concern Status LastModified by Organization Details LastModified Time None Recorded Advance Directives Directive None Recorded Payers Insurance Date Sequence Insurance Name Policy Number Policy Plaza Covered Member ID Plaza Member ID Guarantor Name 12/27/2023 1 [facility] - MEDICARE PREFERRED (MEDICARE REPLACEMENT HMO) HAM Partha Khan II [id number] 1 Partha Khan Notes Date Note Type [...] occasion. Denies any radicular symptoms. He takes lswe-lhq-celpbbd medication intermittently for his pain. He unfortunately only had one session of physical therapy so far.PMH/PSH/MEDS/ALL/ FMH/SOC HX/ROS are reviewed in detail per my medical intake sheet. General Exam: Vital signs are as noted belowMental status: Alert and lucid. Normal insight, affect and grooming.FUR LINER: Gross motor coordination is intact. No spasticity [...] office. All of his questions have been answered.Style on Screen speech recognition lei seller software was used to create portions of this document. An attempt at proofreading has been made to minimize errors. Please call for corrections. Kay Miranda PA-C [address] [facility] [address], [place], [address], [facility] 10/29/2023 14:43:21 12/10/2023 text/html *I am [...] Alert and lucid. Normal insight, affect and grooming.FUR LINER: Gross motor coordination is intact. No spasticity [...] needed. All of his questions have been answered.Style on Screen speech recognition lei seller software was used to create portions of this document. An attempt at proofreading has been made to minimize errors. Please call for corrections. Kay Miranda PA-C [address] [place] [address] [address], [place], [address], [facility] 12/10/2023 17:06:50
--- OUTSIDE RECORDS SUMMARY | 2025-05-07 15:37 | XMS_ITS | Encounter Summary ---
Author Organization [facility] Address [address] [place] [address] Phone Care Team Providers Care Life Insurance Underwriter Name Role Phone Tip Seth Terrazas MD Primary Care Provider [phone] Encounter Details Date Type Department Care Team ([facility] st Contact Info) Description 09/23/2024 Procedure Pass OR Admitting Dept - Virtual Department [address] [place] [address] Social History Tobacco Use Types Packs/Day Years [...] Orientation Straight 09/24/2024 2: 39 AM EST documented as of this encounter Functional Status * Calculated C-SSRS Risk Score (Lifetime/Recent) Answer Date of Assessment Author No Risk Indicated 09/23/2024 11:41 PM Radha Lara RN * [place] Suicide Severity Rating Scale (Screener/Recent Self-Report) Question [...] on filedocumented in this encounter Care Teams Life Insurance Underwriter Relationship Specialty Start Date End Date Seth Whelan MD [address] [address] PCP - General Internal Medicine 03/18/24 documented as of this encounter Additional Source Comments The information contained in this document represents components of the legal health record. It is not the complete legal health record.[facility]
--- OUTSIDE RECORDS SUMMARY | 2025-05-07 15:37 | XMS_ITS | Clinical Summary ---
Author Organization [address] [place] [address] Address [address] [place] [address] Phone Care Team Providers Care Forming Yardage Control Operator Name Role Phone Seth Whelan MD Primary Care Provider [phone] Allergies Active Allergy Reactions Criticality Noted Date Comments Aripiprazole 11/04/2024 Bupropion 11/04/2024 Mesalamine 11/04/2024 Mirtazapine 11/04/2024 Medications silver sulfADIAZINE (Silvadene) 1 % cream Apply topically 1 (one) time each day. 50 g 02/05/20 Active Encounters Date Type Department Care Team Description 04/27/2025 2:30 PM EDT Office Visit [facility] [address] [phone] Vladimir Alvarez DPM Dermatophytosis of nail (Primary Dx); Diabetic mononeuropathy simplex (CMS/HCC V24, CMS/HCC V28); Ingrowing nail; Tinea pedis of both feet 02/16/2025 2:45 PM EDT Office Visit [facility] [address] [phone] Vladimir Alvarez DPM Dermatophytosis of nail (Primary Dx); Diabetic mononeuropathy simplex (CMS/HCC V24, CMS/HCC V28); Ingrowing nail 02/04/2025 9:30 AM EDT Office Visit [facility] [address] [phone] Alvarez, Christopher M, DPM Cellulitis of great toe, right (Primary Dx); Ingrowing nail; Dermatophytosis of nail; Diabetic mononeuropathy simplex ([facility]/HCC V24, [facility]/HCC V28) from Last 3 Months Social History [...] Care Team (Late st Contact Info) Description 07/27/2025 1:30 PM EST Office Visit Orthopedic Surgery - [place] [address] [phone] Vladimir Alvarez, KAL [address] [address] Health Maintenance Due Date Last Done Comments [...] patient's age to complete this topic Insurance [facility] PLAN Care Teams Forming Yardage Control Operator Relationship Specialty Start Date End Date Seth Whelan MD [address] [place] [address] PCP - General 07/08/23
--- OUTSIDE RECORDS SUMMARY | 2025-05-07 15:37 | XMS_ITS | Continuity of Care Document ---
Author Organization [facility] Address [address] [facility] [address] [place] [address] Phone [phone] Social History Type Date Description Comments Sex Male Sex Unknown Medical Devices Description No Information Available Encounters Description No Information Available Assessments Description No Information Available Plan of Treatment No Information Available Functional Status Description No Information Available Mental Status Description No Information Available Referrals Description No Information Available
== END 2025-05-07 14:50 | disposition home or self-care (01) ==
LOC: HO.NEURO 14:49
PROVIDERS: PCP Hospitalist; Visit Provider Internal Medicine Rheumatology
DX: M62.81 Muscle weakness (generalized) (principal); R94.138 Abnormal results of other function studies of peripheral nervous system; E11.9 Type 2 diabetes mellitus without complications; I65.8 Occlusion and stenosis of other precerebral arteries; I73.00 Raynaud's syndrome without gangrene
CPT/HCPCS: 95885; 95886; 95909

== ENCOUNTER → 2025-05-07 14:51 | Outpatient (BNV) | payer MEDICARE, SELFPAY | PROVIDERS: PCP Hospitalist; Visit Provider Physical Medicine & Rehabilitation | DX: E11.42 Type 2 diabetes mellitus with diabetic polyneuropathy (principal) | CPT/HCPCS: 95886; 95909 ==

== ENCOUNTER 2025-05-20 10:27 | Outpatient (AMB) | payer MEDICARE, SELFPAY ==
[2025-05-20 10:29] VITALS: BP 126/70; PULSE 77; O2SAT 98; BMI 27.7
--- NOTE | 2025-05-20 10:29 | MHC.OFFVIS ---
Vital Signs 05/20/25 10:29 Height 6 ft Weight 203 lb 14.841 oz BMI 27.7 BP 126/70 Blood Pressure Location Lt brachial Position Sitting Pulse 77 Pulse Source Pulse Oximeter Pulse Oximetry (%) 98 Oxygen Delivery Method Room Air Intake Visit Reasons: Atelectasis Electronic Gaming Device Supervisor Required: No Accompanied by: Self / Same As Patient Allergies bupropion (From WELLBUTRIN) Allergy (Severe, Verified 05/20/25 10:37) Seizure aripiprazole (From ABILIFY) Allergy (Intermediate, Verified 05/20/25 10:37) FACIAL TREMORS honey (HONEY) Allergy (Intermediate, Verified 05/20/25 10:37) HEADACHES lurasidone (From LATUDA) Adverse Reaction (Intermediate, Verified 05/20/25 10:37) GETS REALLY SICK mirtazapine (MIRTAZAPINE) Adverse Reaction (Intermediate, Verified 05/20/25 10:37) BP GOES HIGH HPI Comments Details: The patient is here for pulmonary evaluation. The patient is a 55-year-old gentleman with known history of diabetes in Raynaud's syndrome. He has been noticing worsening shortness of breath. he has been having some episodes of difficulty breathing. the episodes of moderate severity. He notices that he developed some substernal chest pressure at the same time. He is able to breathe through the pressure symptoms. He had gone to the ER over the summer. He did have a chest x-ray which I personally reviewed demonstrating some slight atelectasis of the lung bases with decreased lung expansion further questioning he has been noticing some weakness overall. He has been following closely with Rheumatology in addition to Neurology. Recently he did undergo an EMG demonstrating abnormal axonal disease suggesting a polyneuropathy. The patient is currently being evaluated for polymyositis in other connective tissue conditions. the patient also carries a diagnosis of sleep apnea. He was diagnosed back in 2016 with the abnormal sleep study then suggesting mild sleep apnea. The patient does have a CPAP although he does not use it regularly. His respiratory exam today is within normal limits. Will go ahead and request additional blood work including a blood gas to assess his gas exchange. In addition to that the patient will undergo pulmonary function studies with maximum inspiratory and expiratory pressures. Will go ahead and repeat the chest x-ray. If the findings are abnormal or nondiagnostic will request additional imaging studies. The patient will be given a short-acting beta agonist that he can use as needed if he develops another episode of substernal chest pressure in case his bronchospasms. [facility] Medical History (Updated 05/20/25 @ 20:51 by Edi Alatorre MD) Neuromuscular disease Dyspnea Kidney disease Anemia Type II diabetes mellitus Fatty liver Hyperlipemia Urethral stricture Raynauds syndrome DALE (obstructive sleep apnea) Seizure Hypertension Anxiety PTSD (post-traumatic stress disorder) Surgical History H/O bilateral mastectomy Social History Household Members: Spouse Household Members Other:: Two puppies Housing: Condominium Do you presently have visiting nurse or other home services: No Patient Tobacco Use Status: Never used Tobacco e-Cigarette/Vaping Use: Never Used Second Hand Smoke Exposure: Yes service: No Sexual orientation: Straight/Heterosexual Review of Systems Const Reports body aches, Reports fatigue and Reports weakness Eyes Denies dry eyes ENT Reports no additional complaints Card Reports chest pain and Reports dyspnea Resp Reports dyspnea and Denies wheezing GI Reports no additional complaints Musc Reports muscle weakness Skin/Breast Denies rash Neuro Reports tremor(s) and Reports weakness Psych Reports as per HPI Endo Reports fatigue Irving/Lymph Reports no additional complaints Aller/Immun Denies wheezing Physical Exam Vital Signs: Last Vital Signs Pulse 77 05/20/25 10:29 BP 126/70 05/20/25 10:29 Pulse Ox 98 05/20/25 10:29 Oxygen Delivery Method Room Air 05/20/25 10:29 BMI result Body Mass Index 27.7 Const General: comfortable HEENT Head: Yes normocephalic Neck Neck: Yes supple Chest Chest palpation & inspection: normal inspection of the chest Resp Effort & Inspection: normal respiratory effort Auscultation: clear to auscultation bilaterally Cardio Heart sounds: S1 normal heart sound present and S2 normal heart sound present GI Palpation (GI): Soft to palpation Skin General skin exam: no rashes or lesions noted Extrem General: Yes no clubbing, cyanosis or edema Results Reviewed Results Reviewed: personally reviewed CXR with hypoexpansion and minimal atelectasis Assessment & Plan Assessment & Plan (1) Raynauds syndrome: Code(s): I73.00 - Raynaud's syndrome without gangrene Category: Medical Qualifiers: Raynaud?s-associated gangrene presence: without gangrene Qualified Code(s): I73.00 - Raynaud's syndrome without gangrene (2) Dyspnea: Code(s): R06.00 - Dyspnea, unspecified Category: Medical Qualifiers: Dyspnea type: shortness of breath Qualified Code(s): R06.02 - Shortness of breath (3) Neuromuscular disease: Code(s): G70.9 - Myoneural disorder, unspecified Category: Medical (4) DALE (obstructive sleep apnea): Code(s): G47.33 - Obstructive sleep apnea (adult) (pediatric) Category: Medical Plan GRANT as needed Bloodwork PFTs with MIPs/MEPs CXR APAP therapy Consider CT chest F/U 2-3 months Orders: Orders Venous Blood Gas Today G70.9 - Myoneural disorder, unspecified, I73.00 - Raynaud's syndrome without gangrene, R06.00 - Dyspnea, unspecified Scleroderma 70 Antibody Today G70.9 - Myoneural disorder, unspecified, I73.00 - Raynaud's syndrome without gangrene, R06.00 - Dyspnea, unspecified Sjogren's Antibodies Today G70.9 - Myoneural disorder, unspecified, I73.00 - Raynaud's syndrome without gangrene, R06.00 - Dyspnea, unspecified ANCA Vasculitides Today G70.9 - Myoneural disorder, unspecified, I73.00 - Raynaud's syndrome without gangrene, R06.00 - Dyspnea, unspecified Erythrocyte Sedimentation Rate Today G70.9 - Myoneural disorder, unspecified, I73.00 - Raynaud's syndrome without gangrene, R06.00 - Dyspnea, unspecified Cyclic Citrullinated Peptide Today G70.9 - Myoneural disorder, unspecified, I73.00 - Raynaud's syndrome without gangrene, R06.00 - Dyspnea, unspecified Complete Blood Count Auto Diff Today G70.9 - Myoneural disorder, unspecified, I73.00 - Raynaud's syndrome without gangrene, R06.00 - Dyspnea, unspecified Angiotensin Converting Enzyme Today G70.9 - Myoneural disorder, unspecified, I73.00 - Raynaud's syndrome without gangrene, R06.00 - Dyspnea, unspecified XR chest 2V Today G70.9 - Myoneural disorder, unspecified, R06.00 - Dyspnea, unspecified PFT pulmonary function test Today G70.9 - Myoneural disorder, unspecified, R06.00 - Dyspnea, unspecified Medications: Changed From albuterol sulfate 90 mcg/actuation (Ventolin HFA) 2 puffs inhalation Q4-6H PRN 8.5 grams 0RF shortness of breath or wheezing To albuterol sulfate 90 mcg/actuation (Ventolin HFA) 2 puffs inhalation Q6H PRN 8.5 grams 6RF shortness of breath or wheezing Coding Level of Care Code New Pt Level 5 (37806) Diagnoses Raynaud's disease without gangrene I73.00 Raynaud?s-associated gangrene presence: without gangrene Shortness of breath R06.02 Dyspnea type: shortness of breath Neuromuscular disease G70.9 DALE (obstructive sleep apnea) G47.33 Time Spent (min) 60
== END 2025-05-20 11:06 | disposition home or self-care (01) ==
LOC: HO.HPS 10:27
PROVIDERS: PCP Hospitalist; Referring Provider Hospitalist; Visit Provider Hospitalist
DX: I73.00 Raynaud's syndrome without gangrene (principal); R06.02 Shortness of breath; G70.9 Myoneural disorder, unspecified; G47.33 Obstructive sleep apnea (adult) (pediatric)
CPT/HCPCS: 99205

== ENCOUNTER → 2025-05-20 10:27 | Outpatient (BNVA) | payer MEDICARE, SELFPAY | PROVIDERS: PCP Hospitalist; Referring Provider Hospitalist; Visit Provider Hospitalist | DX: I73.00 Raynaud's syndrome without gangrene (principal); R06.02 Shortness of breath; G70.9 Myoneural disorder, unspecified; G47.33 Obstructive sleep apnea (adult) (pediatric) | CPT/HCPCS: 99202 ==

== ENCOUNTER 2025-05-21 08:59 | Outpatient (REF) | payer MEDICARE, SELFPAY ==
--- NOTE | ~2025-05-21 | XR_ITS ---
EXAMINATION: XR CHEST 2 VIEWS HISTORY: G70.9 - Myoneural disorder, unspecified COMPARISON: Comparison is made with the prior examination dated 03/08/2025. FINDINGS: PA and lateral views of the chest are submitted. The lungs are expanded and clear. There is no pleural effusion, pneumothorax, or pulmonary vascular congestion. The heart is normal in size. There is mild degenerative disc disease of the spine. XR/XR chest 2V IMPRESSION: No acute cardiopulmonary abnormality. Electronically signed by: Que Haque MD 05/21/2025 10:30 AM EDT
--- NOTE | 2025-05-21 09:04 | PFT_ITS ---
Flows: FEV1: 108 % of predicted at 3.22 L FVC: 73 % of predicted at 3.81 L FEV1/FVC: 85 % Bronchodilator response: Present in small to medium airways only Volumes: Total lung capacity: 56 % of predicted at 4.28 L Residual volume: 24 % of predicted at 0.50 L Slow vital capacity: 67 % of predicted at 3.79 L Expiratory reserve volume: 102 % of predicted at 1.59 L Diffusion capacity: Mildly decreased, adjusts to normal after correction for alveolar ventilation. Maximum inspiratory pressure 42 cm of water at 40 % of predicted Maximum expiratory pressure of 64 cm of water at 47 % of predicted Impression: Mild restrictive ventilatory defect with bronchodilator response present in small to medium airways only. Combination of restrictive ventilatory defect with decreased diffusion capacity suggests underlying pulmonary parenchymal disease. Clinical correlation is advised. Decreased maximum inspiratory and expiratory pressure suggest underlying respiratory muscle weakness. MTDD
--- OUTSIDE RECORDS SUMMARY | 2025-05-21 09:22 | XMS_ITS | Clinical Summary ---
Author Organization [address] [facility] Address [address] [place] [address] Phone Care Team Providers Care Software Engineering Manager Name Role Phone Tip Ann A MD Primary Care Provider [phone] Allergies Active Allergy Reactions Criticality Noted Date Comments Aripiprazole 11/04/2024 Bupropion 11/04/2024 Mesalamine 11/04/2024 Mirtazapine 11/04/2024 Medications silver sulfADIAZINE (Silvadene) 1 % cream Apply topically 1 (one) time each day. 50 g 5 02/05/20 Active Encounters Date Type Department Care Team Description 04/27/2025 2:30 PM EDT Office Visit Orthopedic [facility] [address] [facility] [address] [place] [address] Vladimir Alvarez, DPM Dermatophytosis of nail (Primary Dx); Diabetic mononeuropathy simplex (CMS/HCC V24, CMS/HCC V28); Ingrowing nail; Tinea pedis of both feet from Last 3 Months Social History Tobacco [...] PM EST Office Visit Orthopedic [facility] - [place] [address] [phone] Vladimir Alvarez, DPM [address] [phone] Health Maintenance Due Date Last Done Comments Colorectal Cancer Screening: Colonoscopy 1972 Diabetes: Annual GFR (Glomerular Filtration Rate) 1972 Diabetes: Annual Foot Exam 02/10/1982 Diabetes: Annual Retina Eye Exam 02/10/1982 Hepatitis B Vaccines (1 of 3 - 19+ 3-dose series) 02/10/1991 Cholesterol Screening (Lipid Panel) 07/10/2022 HIV Screening 07/10/2022 Hepatitis C Screening [...] Td or Tdap) 04/15/2034 04/15/2024, 01/15/2011, 12/10/2000 RSV Immunization Adult Patients (1 - 1-dose 75+ series) 02/10/2047 Pneumococcal Vaccine: 50+ Years Completed 04/14/2023, 11/14/2011 [...] patient's age to complete this topic Insurance [facility] PLAN Care Teams Software Engineering Manager Relationship Specialty Start Date End Date Seth Whelan MD [address] [place] [id number] PCP - General 07/08/23
--- OUTSIDE RECORDS SUMMARY | 2025-05-21 09:23 | XMS_ITS | Data Portability ---
[facility] Organization [facility], [facility] Address [address] [place] [address] Assessment No assessment recorded. Plan of Treatment [...] Name and Address Organization Details Recorded Time 827574 honey preparati on food,medi cation Not available Not available Not available 10/29/2023 96755 9 RxNorm natalia tinoco, [facility] 4 [...] Updated DateTime 10/29/2023 182.88 cm 28.2 kg/m2 47388.21 natalia dukes [facility] 10/29/2023 14:28:50 Date Recorded Body height Body mass index (BMI) Body weight Provider Name and Address Organization Details Last Updated DateTime 12/10/2023 182.88 cm 27.9 kg/m2 17421.03 natalia dukes [facility] 12/10/2023 15:05:27 Social History None recorded. Functional Status None recorded. Mental Status None recorded. Family History Nothing Reported. Medical History No medical history recorded. Past Encounters Encounter ID Performer Location Encounter Start Date Encounter Closed Date Diagnosis/Indication Diagnosis SNOMED-CT Code Diagnosis ICD10 Code Diagnosis IMO Codes Diagnosis Note [id number] BONILLA Bishop [address] [place] [address] 10/29/2023 14:11:28 10/29/2023 14:43:32 Trochanteric bursitis of right hip [id number] 99260 M70.61 Osteoarthr itis of right hip joint 1249742452 34742 M16.11 [id number] BONILLA Bishop [address] [place] [address] 12/10/2023 14:52:55 12/27/2023 06:37:04 Trochanteric bursitis of right hip 8746343868 19233 M70.61 Osteoarthr itis of right hip joint 9900363342 97145 M16.11 Health Concerns Section Related Observation LastModified by Organization Detai ls LastModified Time None Recorded Concern Status LastModified by Organization Details LastModified Time None Recorded Advance Directives Directive None Recorded Payers Insurance Date Sequence Insurance Name Policy Number Policy Plaza Covered Member ID Plaza Member ID Guarantor Name 12/27/2023 1 [facility] - MEDICARE PREFERRED (MEDICARE REPLACEMENT HMO) HAM Partha Khan II [id number] Partha Khan Notes Date Note Type [...] occasion. Denies any radicular symptoms. He takes uuak-tey-qavvefx medication intermittently for his pain. He unfortunately only had one session of physical therapy so far.PMH/PSH/MEDS/ALL/ FMH/SOC HX/ROS are reviewed in detail per my medical intake sheet. General Exam: Vital signs are as noted belowMental status: Alert and lucid. Normal insight, affect and grooming.AUTO ADJUDICATION SPECIALIST: Gross motor coordination is intact. No spasticity [...] office. All of his questions have been answered.SimpliField speech recognition donor services technician software was used to create portions of this document. An attempt at proofreading has been made to minimize errors. Please call for corrections. Kay Miranda PA-C [address] [facility] [address], [place], [address], [facility] 10/29/2023 14:43:21 [...] Alert and lucid. Normal insight, affect and grooming.AUTO ADJUDICATION SPECIALIST: Gross motor coordination is intact. No spasticity [...] needed. All of his questions have been answered.SimpliField speech recognition donor services technician software was used to create portions of this document. An attempt at proofreading has been made to minimize errors. Please call for corrections. Kay Miranda PA-C [address] [place] [address] [address], [place], [address], [facility] 12/10/2023 17:06:50
--- OUTSIDE RECORDS SUMMARY | 2025-05-21 09:23 | XMS_ITS | Continuity of Care Document ---
Author Organization [facility] Address [address] [facility] [address] [place] [address] Phone [phone] Social History Type Date Description Comments Sex Male Sex Unknown Medical Devices Description No Information Available Encounters Description No Information Available Assessments Description No Information Available Plan of Treatment No Information Available Functional Status Description No Information Available Mental Status Description No Information Available Referrals Description No Information Available
[2025-05-21 10:14] LABS: MANUAL DIFF FLAG NO
[2025-05-21 10:23] LABS: Venous Blood Gas Refer to POC result
[2025-05-21 10:25] LABS: Hematocrit 43.2 % (42.0-52.0); Hemoglobin 14.8 g/dl (14.0-18.0); Imm Gran Abs Auto 0.01 X10*3/uL (0.00-0.03); Imm Gran Pct Auto 0.2 % (0.0-0.4); Lymphocytes Absolute Auto 1.8 X10*3/uL (1.2-4.9); Mean Corpuscular HGB Conc 34.3 g/dl (31.0-36.0); Mean Corpuscular Hemoglobin 28.0 pg (27.0-33.0); Mean Corpuscular Volume 81.8 fL (80.0-98.0); NRBC Abs Auto 0.000 X10*3/uL (0.0-0.012); NRBC Pct Auto 0.0 /100WBC (0.0-0.2); Platelet Count 310 X10*3/uL (160-400); Red Blood Count 5.28 X10*6/uL (4.60-5.80); White Blood Count 4.4 X10*3/uL (4.8-10.8)
[2025-05-21 10:29] LABS: VBG HCO3 31 mmol/L (22-26); VBG O2 % Saturation 66.0 %
[2025-05-25 23:28] LABS: Antibody to SS-A Antigen <1.0 NEG AI (<1.0 NEG); Antibody to SS-B Antigen <1.0 NEG AI (<1.0 NEG); Proteinase 3 PR3 Antibodies <1.0 AI
== END 2025-05-21 09:00 | disposition home or self-care (01) ==
LOC: HO.RESP 08:59
PROVIDERS: Absent Provider Internal Medicine Rheumatology; PCP Hospitalist; Visit Provider Hospitalist
DX: Z01.84 Encounter for antibody response examination (principal); G70.9 Myoneural disorder, unspecified; R06.00 Dyspnea, unspecified; I73.00 Raynaud's syndrome without gangrene
CPT/HCPCS: 36415; 71046; 82164; 82803; 85025; 85652; 86021; 86200; 86235; 94060; 94640; 94727; 94729

== ENCOUNTER → 2025-05-21 09:04 | Outpatient (BNV) | payer MEDICARE, SELFPAY | PROVIDERS: Absent Provider Internal Medicine Rheumatology; PCP Hospitalist; Visit Provider Internal Medicine Pulmonary Disease | DX: J98.4 Other disorders of lung (principal) | CPT/HCPCS: 94060; 94727; 94729 ==

== ENCOUNTER → 2025-05-21 10:15 | Outpatient (BNV) | payer MEDICARE, SELFPAY | PROVIDERS: Absent Provider Internal Medicine Rheumatology; PCP Hospitalist; Visit Provider Radiology Diagnostic Radiology | DX: R06.02 Shortness of breath (principal) | CPT/HCPCS: 71046 ==

== ENCOUNTER → 2025-06-04 18:29 | Outpatient (BNV) | payer MEDICARE, SELFPAY | PROVIDERS: PCP Hospitalist; Visit Provider Radiology Diagnostic Radiology | DX: M47.814 Spondylosis without myelopathy or radiculopathy, thoracic region (principal) | CPT/HCPCS: 72146 ==

== ENCOUNTER 2025-06-04 18:32 | Outpatient (REF) | payer MEDICARE, SELFPAY ==
--- NOTE | ~2025-06-04 | MR_ITS ---
CLINICAL HISTORY: LEG WEAKNESS MR thoracic spine without gadolinium Comparison: None provided Findings: No scoliosis or spondylolisthesis. No acute fracture or pathologic bone lesion. Tiny broad-based disc bulges are noted at T6-T7, T7-T8 with narrowing of the anterior thecal sac, especially at T7-T8. No evidence of cord compression at any level. Thoracic cord normal size and signal. No significant spinal canal or foraminal stenoses. No significant degenerative change. Paraspinous musculature intact. IMPRESSION: No acute findings. Cord signal is normal. Early degenerative changes as noted. This document has been electronically signed by: Mckinley Bob MD on 06/08/2025 07:36:40
--- OUTSIDE RECORDS SUMMARY | 2025-06-04 18:36 | XMS_ITS | Clinical Summary ---
Author Organization 175 [facility] Address 175 [place] [address] Phone Care Team Providers Care Freezer Worker Name Role Phone Tip Ann A MD Primary Care Provider [phone] Allergies Active Allergy Reactions Criticality Noted Date Comments Aripiprazole 11/04/2024 Bupropion 11/04/2024 Mesalamine 11/04/2024 Mirtazapine 11/04/2024 Medications silver sulfADIAZINE (Silvadene) 1 % cream Apply topically 1 (one) time each day. 50 g 5 02/05/20 Active Encounters Date Type Department Care Team Description 04/27/2025 2:30 PM EDT Office Visit Orthopedic Surgery [facility] 250 175 [facility] 250 [place] [address] Vladimir Alvarez, DPM Dermatophytosis of [...] PM EST Office Visit Orthopedic Surgery - [place] [address] [address] Vladimir Alvarez, DPM [address] [address] Health Maintenance Due Date Last Done Comments Colorectal Cancer Screening: Colonoscopy 1972 Diabetes: Annual GFR (Glomerular Filtration Rate) 1972 Diabetes: Annual Foot Exam 02/10/1982 Diabetes: Annual Retina Eye Exam 02/10/1982 Hepatitis B Vaccines (1 of 3 - 19+ 3-dose series) 02/10/1991 RSV Immunization Adult Patients (1 - Risk 50-74 years 1-dose series) 02/10/2022 Cholesterol Screening (Lipid Panel) 07/10/2022 HIV Screening [...] patient's age to complete this topic Insurance [facility] PL[facility] Care Teams Freezer Worker Relationship Specialty Start Date End Date Seth Whelan MD [address] [place] [phone] PCP - General 07/08/23
--- OUTSIDE RECORDS SUMMARY | 2025-06-04 18:36 | XMS_ITS | Encounter Summary ---
Author Organization [facility] Address [address] [place] [address] Phone Care Team Providers Care Curator Of Education Name Role Phone Tip Seth Terrazas MD Primary Care Provider [phone] Encounter Details Date Type Department Care Team ([facility] st Contact Info) Description 09/23/2024 Procedure Pass OR Admitting Dept - Virtual Department 30 [place] [address] Social History Tobacco Use Types Packs/Day Years [...] 09/23/2024 11:41 PM Radha Lara RN * Trent Suicide Severity Rating Scale (Screener/Recent Self-Report) Question [...] on filedocumented in this encounter Care Teams Curator Of Education Relationship Specialty Start Date End Date Seth Whelan MD [address] [address] PCP - General Internal Medicine 03/18/24 documented as of this encounter Additional Source Comments The information contained in this document represents components of the legal health record. It is not the complete legal health record.[facility]
--- OUTSIDE RECORDS SUMMARY | 2025-06-04 18:36 | XMS_ITS | Data Portability ---
[facility] Organization [facility], [facility] Address [address] [place] [address] Assessment No assessment recorded. Plan of Treatment [...] Name and Address Organization Details Recorded Time 688160 honey preparati on food,medi cation Not available Not available Not available 10/29/2023 12326 9 RxNorm natalia tinoco, [facility] 4 14:29:03 Medications Name [...] Updated DateTime 10/29/2023 182.88 cm 28.2 kg/m2 38684.21 natalia dukes [facility] 10/29/2023 14:28:50 Date Recorded Body height Body mass index (BMI) Body weight Provider Name and Address Organization Details Last Updated DateTime 12/10/2023 182.88 cm 27.9 kg/m2 36128.03 natalia dukes [facility] 12/10/2023 15:05:27 Social History None recorded. Functional Status None recorded. Mental Status None recorded. Family History Nothing Reported. Medical History No medical history recorded. Past Encounters Encounter ID Performer Location Encounter Start Date Encounter Closed Date Diagnosis/Indication Diagnosis SNOMED-CT Code Diagnosis ICD10 Code Diagnosis IMO Codes Diagnosis Note [id number] BONILLA Bishop [address] floor [address] [place] [address] 10/29/2023 14:11:28 10/29/2023 14:43:32 Trochanteric bursitis of right hip 8375983749 76548 M70.61 Osteoarthr itis of right hip joint 3908121276 15930 M16.11 [id number] BONILLA Bishop [address] [place] [address] 12/10/2023 14:52:55 12/27/2023 06:37:04 Trochanteric bursitis of right hip 1564974344 10510 M70.61 Osteoarthr itis of right hip joint 1051637078 57155 M16.11 Health Concerns Section Related Observation LastModified by Organization Detai ls LastModified Time None Recorded Concern Status LastModified by Organization Details LastModified Time None Recorded Advance Directives Directive None Recorded Payers Insurance Date Sequence Insurance Name Policy Number Policy Plaza Covered Member ID Plaza Member ID Guarantor Name 12/27/2023 1 [facility] - MEDICARE PREFERRED (MEDICARE REPLACEMENT HMO) HAM Partha Khan II [id number] 1 Partha Khan Notes Date Note Type [...] occasion. Denies any radicular symptoms. He takes yclm-ryh-ebqlygj medication intermittently for his pain. He unfortunately only had one session of physical therapy so far.PMH/PSH/MEDS/ALL/ FMH/SOC HX/ROS are reviewed in detail per my medical intake sheet. General Exam: Vital signs are as noted belowMental status: Alert and lucid. Normal insight, affect and grooming.MACHINE RIGGER: Gross motor coordination is intact. No spasticity [...] office. All of his questions have been answered.[employer] speech recognition stretcher and drier software was used to create portions of this document. An attempt at proofreading has been made to minimize errors. Please call for corrections. Kay Miranda PA-C [address] [facility] [address], [place], [address], [facility] 10/29/2023 14:43:21 12/10/2023 text/html [...] Alert and lucid. Normal insight, affect and grooming.MACHINE RIGGER: Gross motor coordination is intact. No spasticity [...] needed. All of his questions have been answered.[employer] speech recognition stretcher and drier software was used to create portions of this document. An attempt at proofreading has been made to minimize errors. Please call for corrections. Kay Miranda PA-C [address] [place] [address] [address], [place], [address], [facility] 12/10/2023 17:06:50
--- OUTSIDE RECORDS SUMMARY | 2025-06-04 18:37 | XMS_ITS | Clinical Summary ---
Author Organization [facility] Address [address] [facility] [facility] [address] [place] [address] Phone Care Team Providers Care Senior Media Director Name Role Phone TipSeth Mk MCEKON Primary Care Provider Allergies Active Allergy Reactions [...] FOBT 02/10/2017 SIGMOIDOSCOPY 02/10/2017 VIRTUAL COLONOSCOPY 02/10/2017 RSV VACCINE (1 - Risk 50-74 years 1-dose series) 02/10/2022 HEMOGLOBIN A1C 01/06/2023 07/09/2022, 07/09/2022 ZOSTER VACCINES (2 of 2) 06/12/2023 04/17/2023 DIABETIC EYE EXAM 09/22/2024 INFLUENZA VACCINE (#1) 2025 , 04/18/2023, 04/26/2022, Additional history exists COVID-19 VACCINE ( season) 2025 04/15/2024, 06/22/2023, 04/26/2022, Additional history exists BLOOD PRESSURE 06/17/2025 12/15/2024 CREATININE LEVEL 09/25/2025 09/25/2024, 09/24/2024 POTASSIUM LEVEL 09/25/2025 09/25/2024, 09/24/2024 Adult Td,Tdap Booster 04/15/2034 04/15/2024 PNEUMOCOCCAL VACCINES (50+ years) Completed 04/14/2023 SMOKING STATUS SCREENING (Once After 26 Yrs) [...] EST) SODIUM 136 133 - 146 mmol/L [facility] CHLORIDE 98 96 - 108 mmol/L [facility] POTASSIUM 3.9 3.3 - 5.1 mmol/L [facility] CO2 31 21 - 35 mmol/L [facility] BUN 12 6 - 19 mg/dL [facility] CREATININE 1.00 0.5 - 1.5 mg/dL [facility] GLUCOSE 159(H) 70 - 99 mg/dL [facility] CALCIUM 8.6 8.4 - 10.3 mg/dL [facility] EGFR 91 >59 mL/min/1.7 3m2 [facility] Comment:Estimated glomerular filtration rate calculated using the CKD-EPI refit equation. ANION GAP 11 10 - 20 mmol/L [facility] Blood 09/25/2024 5:19 AM EST 09/25/2024 5:39 AM EST us Venus Meyer MD LAB BLOOD ORDERABLES Final Resu lt [address] [address] from Last 3 Months or Most Recently Relevant to Health Maintenance Insurance [employer]PL[employer] REPL[employer]EMENT [address] [place] [address] [employer] H[employer] REPLACEMENT [employer] REPLACEMENT [employer] REPLACEMENT ST [address] [place] [id number] [employer] REPLACEMENT Advance Directives For more information, please contact: [phone] (9AM - 5PM [facility], Saturday-Saturday) Documents on File Type Date Recorded Patient Business Transformation Manager Expl anation Healthcare Proxy 09/24/2024 12:01 PM [...] ) Code Discussion Comments: periop Care Teams Senior Media Director Relationship Specialty Start Date End Date Seth Whelan MD [address] [address] PCP - General Internal Medicine 03/18/24 Additional Source Comments The information contained in this document represents components of the legal health record. It is not the complete legal health record.[facility]
== END 2025-06-04 18:33 | disposition home or self-care (01) ==
LOC: HO.MRI 18:32
PROVIDERS: PCP Hospitalist; Visit Provider Internal Medicine
DX: M62.81 Muscle weakness (generalized) (principal)
CPT/HCPCS: 72146

== ENCOUNTER 2025-06-11 10:26 | Outpatient (REF) | payer MEDICARE, SELFPAY ==
--- NOTE | ~2025-06-11 | XR_ITS ---
EXAMINATION: XR LUMBOSACRAL SPINE CLINICAL INFORMATION: M62.81 - Muscle weakness (generalized) COMPARISON: None available. TECHNIQUE: AP and lateral views. FINDINGS: Mild endplate sclerosis at multiple levels. Facet joint hypertrophy at L5-S1. No acute cortical disruption or gross malalignment. No lytic or blastic lesions. XR/XR lumbar spine 2-3V IMPRESSION: Mild multilevel spondylosis without acute fracture or listhesis. Electronically signed by: Bon Will MD 06/11/2025 10:58 AM EDT
--- OUTSIDE RECORDS SUMMARY | 2025-06-11 11:50 | XMS_ITS | Data Portability ---
[facility] Organization [facility], [facility] Address [address] [place] [address] Assessment No assessment recorded. Plan of Treatment [...] Name and Address Organization Details Recorded Time 919691 honey preparati on food,medi cation Not available Not available Not available 10/29/2023 57788 9 RxNorm natalia tinoco, [facility] 4 14:29:03 Medications Name Sig Start [...] Updated DateTime 10/29/2023 182.88 cm 28.2 kg/m2 48366.21 natalia dukes [facility] 10/29/2023 14:28:50 Date Recorded Body height Body mass index (BMI) Body weight Provider Name and Address Organization Details Last Updated DateTime 12/10/2023 182.88 cm 27.9 kg/m2 60864.03 natalia dukes [facility] 12/10/2023 15:05:27 Social History None recorded. Functional Status None recorded. Mental Status None recorded. Family History Nothing Reported. Medical History No medical history recorded. Past Encounters Encounter ID Performer Location Encounter Start Date Encounter Closed Date Diagnosis/Indication Diagnosis SNOMED-CT Code Diagnosis ICD10 Code Diagnosis IMO Codes Diagnosis Note [id number] BONILLA Bishop [address]nd floor [address] [place] [address] 10/29/2023 14:11:28 10/29/2023 14:43:32 Trochanteric bursitis of right hip [id number] 97031 M70.61 Osteoarthr itis of right hip joint 9606360952 94527 M16.11 [id number] BONILLA Bishop [address] [place] [address] 12/10/2023 14:52:55 12/27/2023 06:37:04 Trochanteric bursitis of right hip 5325780034 01402 M70.61 Osteoarthr itis of right hip joint 4199272829 11655 M16.11 Health Concerns Section Related Observation LastModified by Organization Detai ls LastModified Time None Recorded Concern Status LastModified by Organization Details LastModified Time None Recorded Advance Directives Directive None Recorded Payers Insurance Date Sequence Insurance Name Policy Number Policy Plaza Covered Member ID Plaza Member ID Guarantor Name 12/27/2023 1 [facility] - MEDICARE PREFERRED (MEDICARE REPLACEMENT HMO) HAM Partha Khan II [id number] 1 Partha Khan Notes Date Note Type [...] occasion. Denies any radicular symptoms. He takes gvve-tzf-fmgspoj medication intermittently for his pain. He unfortunately only had one session of physical therapy so far.PMH/PSH/MEDS/ALL/ FMH/SOC HX/ROS are reviewed in detail per my medical intake sheet. General Exam: Vital signs are as noted belowMental status: Alert and lucid. Normal insight, affect and grooming.PERSONNEL WORKER: Gross motor coordination is intact. No [...] office. All of his questions have been answered.[employer] speech recognition threshing machine operator software was used to create portions of this document. An attempt at proofreading has been made to minimize errors. Please call for corrections. Kay Miranda PA-C [address] [facility] [address], [place], [address], [facility] 10/29/2023 14:43:21 12/10/2023 text/html *I am [...] Alert and lucid. Normal insight, affect and grooming.PERSONNEL WORKER: Gross motor coordination is intact. No [...] needed. All of his questions have been answered.[employer] speech recognition threshing machine operator software was used to create portions of this document. An attempt at proofreading has been made to minimize errors. Please call for corrections. Kay Miranda PA-C [address] [place] [address] [address], [place], [address], [facility] 12/10/2023 17:06:50
--- OUTSIDE RECORDS SUMMARY | 2025-06-11 11:50 | XMS_ITS | Encounter Summary ---
Author Organization [facility] Address [address] [place] [address] Phone Care Team Providers Care Carrier Blower Name Role Phone Tip Seth Terrazas MD Primary Care Provider [phone] Encounter Details Date Type Department Care Team ([facility] st Contact Info) Description 09/23/2024 Procedure Pass OR Admitting Dept - Virtual Department [address] [place] [address] Social History Tobacco Use Types Packs/Day Years [...] 09/23/2024 11:41 PM Radha Lara RN * Many Suicide Severity Rating Scale (Screener/Recent Self-Report) Question [...] on filedocumented in this encounter Care Teams Carrier Blower Relationship Specialty Start Date End Date Seth Whelan MD [address] [address] PCP - General Internal Medicine 03/18/24 documented as of this encounter Additional Source Comments The information contained in this document represents components of the legal health record. It is not the complete legal health record.[facility]
--- OUTSIDE RECORDS SUMMARY | 2025-06-11 11:50 | XMS_ITS | Clinical Summary ---
Author Organization 175 [facility] Address [address] [place] [address] Phone Care Team Providers Care Kiln Charger Name Role Phone Tip Ann A MD Primary Care Provider [phone] Allergies Active Allergy Reactions Criticality Noted Date Comments Aripiprazole 11/04/2024 Bupropion 11/04/2024 Mesalamine 11/04/2024 Mirtazapine 11/04/2024 Medications silver sulfADIAZINE (Silvadene) 1 % cream Apply topically 1 (one) time each day. 50 g 5 02/05/20 Active Encounters Date Type Department Care Team Description 04/27/2025 2:30 PM EDT Office Visit Orthopedic Surgery [facility] 250 175 [facility] 250 [place] [address] Vladimir Alvarez, DPM Dermatophytosis of [...] PM EST Office Visit Orthopedic Surgery - [place] [address] [place] [address] Vladimir Alvarez, DPM [address] [place] [address] Health Maintenance Due Date Last Done Comments [...] patient's age to complete this topic Insurance [facility] PLAN Care Teams Kiln Charger Relationship Specialty Start Date End Date Seth Whelan MD [address] [place] [id number] PCP - General 07/08/23
--- OUTSIDE RECORDS SUMMARY | 2025-06-11 11:50 | XMS_ITS | Clinical Summary ---
Author Organization [facility] Address [address] [facility] [address] [place] [address] Phone Care Team Providers Care Tacker Elastic Band Name Role Phone TipSeth Mk MCKEON Primary [...] EST) SODIUM 136 133 - 146 mmol/L [facility] CHLORIDE 98 96 - 108 mmol/L [facility] POTASSIUM 3.9 3.3 - 5.1 mmol/L [facility] CO2 31 21 - 35 mmol/L [facility] BUN 12 6 - 19 mg/dL [facility] CREATININE 1.00 0.5 - 1.5 mg/dL [facility] GLUCOSE 159(H) 70 - 99 mg/dL [facility] CALCIUM 8.6 8.4 - 10.3 mg/dL [facility] EGFR 91 >59 mL/min/1.7 3m2 [facility] Comment:Estimated glomerular filtration rate calculated using the CKD-EPI refit equation. ANION GAP 11 10 - 20 mmol/L [facility] Blood 09/25/2024 5:19 AM EST 09/25/2024 5:39 AM EST us Venus Meyer MD LAB BLOOD ORDERABLES Final Resu lt [address] [address] from Last 3 Months or Most Recently Relevant to Health Maintenance Insurance [employer]ED [employer] REPLACEMENT [employer] REPLACEMENT [address] [place] [address] [employer] PREF[employer]ED HMO REPLACEMENT [employer]REF[employer]ED HMO REPLACEMENT [employer]REF[employer]ED HMO REPLACEMENT ST [address] [place] [phone] [employer] REPLACEMENT Advance Directives For more information, please contact: [phone] (9AM - 5PM [facility], Saturday-Saturday) Documents on File Type Date Recorded Patient Regional Loss Prevention Manager Expl anation Healthcare Proxy 09/24/2024 12:01 [...] ) Code Discussion Comments: periop Care Teams Tacker Elastic Band Relationship Specialty Start Date End Date Seth Whelan MD [address] [address] PCP - General Internal Medicine 03/18/24 Additional Source Comments The information contained in this document represents components of the legal health record. It is not the complete legal health record.[facility]
[2025-06-11 12:34] LABS: Vitamin B12 359 pg/mL (200-900)
[2025-06-24 12:08] LABS: MDA5 Ab <11; SRP Ab <11
[2025-06-24 12:11] LABS: NXP-2 (MJ) Ab <11
== END 2025-06-11 10:27 | disposition home or self-care (01) ==
LOC: HO.XRAY 10:26
PROVIDERS: PCP Hospitalist; Visit Provider Internal Medicine Rheumatology
DX: M62.81 Muscle weakness (generalized) (principal); G60.8 Other hereditary and idiopathic neuropathies; Z13.1 Encounter for screening for diabetes mellitus
CPT/HCPCS: 36415; 72100; 82085; 82550; 82607; 83036; 84182; 84443; 85652; 86140; 86235

== ENCOUNTER → 2025-06-11 10:40 | Outpatient (BNV) | payer MEDICARE, SELFPAY | PROVIDERS: PCP Hospitalist; Visit Provider Radiology Diagnostic Radiology | DX: M62.81 Muscle weakness (generalized) (principal) | CPT/HCPCS: 72100 ==

== ENCOUNTER 2025-07-15 13:28 | Outpatient (AMB) | payer MEDICARE, SELFPAY ==
[2025-07-15 13:32] VITALS: BP 134/70; PULSE 92; O2SAT 96; BMI 28.4
--- NOTE | 2025-07-15 13:32 | A.OFFVIS_ITS ---
Vital Signs 07/15/25 13:32 Height 6 ft Weight 209 lb 7.026 oz BMI 28.4 BP 134/70 Blood Pressure Location Lt brachial Position Sitting Pulse 92 Pulse Source Pulse Oximeter Pulse Oximetry (%) 96 Oxygen Delivery Method Room Air Intake Visit Reasons: Atelectasis Emergency Medicine Physician Assistant Required: No Accompanied by: Self / Same As Patient Allergies bupropion (From WELLBUTRIN) Allergy (Severe, Verified 07/15/25 13:35) Seizure aripiprazole (From ABILIFY) Allergy (Intermediate, Verified 07/15/25 13:35) FACIAL TREMORS honey (HONEY) Allergy (Intermediate, Verified 07/15/25 13:35) HEADACHES lurasidone (From LATUDA) Adverse Reaction (Intermediate, Verified 07/15/25 13:35) GETS REALLY SICK mirtazapine (MIRTAZAPINE) Adverse Reaction (Intermediate, Verified 07/15/25 13:35) BP GOES HIGH HPI Comments Details: The patient is a 55-year-old gentleman with known history of diabetes in Rayn aud's syndrome. He has been noticing worsening shortness of breath. he has been having some episodes of difficulty breathing. the episodes of moderate severity. He notices that he developed some substernal chest pressure at the same time. He is able to breathe through the pressure symptoms. He had gone to the ER over the summer. He did have a chest x-ray which I personally reviewed demonstrating some slight atelectasis of the lung bases with decreased lung expansion further questioning he has been noticing some weakness overall. He has been following closely with Rheumatology in addition to Neurology. Recently he did undergo an EMG demonstrating abnormal axonal disease suggesting a polyneuropathy. The patient is currently being evaluated for polymyositis in other connective tissue conditions. the patient also carries a diagnosis of sleep apnea. He was diagnosed back in 2016 with the abnormal sleep study then suggesting mild sleep apnea. The patient does have a CPAP although he does not use it regularly. His respiratory exam today is within normal limits. Will go ahead and request additional blood work including a blood gas to assess his gas exchange. In addition to that the patient will undergo pulmonary function studies with maximum inspiratory and expiratory pressures. Will go ahead and repeat the chest x-ray. If the findings are abnormal or nondiagnostic will request additional imaging studies. The patient will be given a short-acting beta agonist that he can use as needed if he develops another episode of substernal chest pressure in case his bronchospasms. 07/15/2025 the patient is here for pulmonary follow-up visit. Overall the patient is doing about the same. Still having issues with shortness of breath. Moderate severity. He goes low. He does use a cane. He did undergo pulmonary function studies that I personally reviewed with him. Does appear to have a moderate restrictive ventilatory defect. No evidence of obstruction. His MVV is also low. His maximum inspiratory and expiratory pressures are also significantly low. Pointing out to have an underlying neuromuscular condition. I did review his chest x-ray. No evidence of any parenchymal disease. Will go ahead and have him get a CAT scan to make sure there isn't any parenchymal disease to explain the moderate restriction. My suspicion is he has more of a neuromuscular process going on. He does follow-up with Rheumatology and also Neurology. Again, his previous EMG was consistent with polyneuropathy. In the meantime he needs to start using the CPAP. Will make an appointment with our nurse here in the office to see getting situated back to using the CPAP as this will help his lung expansion. We did do a blood gas the last visit that he was here and he has pCO2 is slightly elevated at 55 mmHg suggesting chronic hypercarbic respiratory failure. When he returns in 3 months will repeat the blood gas and also repeat spirometry cc if there is any progression of the neuromuscular disease. [facility] Medical History Chronic restrictive lung disease Neuromuscular disease Dyspnea Kidney disease Anemia Type II diabetes mellitus Fatty liver Hyperlipemia Urethral stricture Raynauds syndrome DALE (obstructive sleep apnea) Seizure Hypertension Anxiety PTSD (post-traumatic stress disorder) Surgical History H/O bilateral mastectomy Social History Household Members: Spouse Household Members Other:: Two puppies Housing: Condominium Do you presently have visiting nurse or other home services: No Patient Tobacco Use Status: Never used Tobacco e-Cigarette/Vaping Use: Never Used Second Hand Smoke Exposure: Yes service: No Sexual orientation: Straight/Heterosexual Review of Systems Const Reports body aches, Reports fatigue and Reports weakness Eyes Denies dry eyes ENT Reports no additional complaints Card Reports chest pain and Reports dyspnea Resp Reports dyspnea and Denies wheezing GI Reports no additional complaints Musc Reports muscle weakness Skin/Breast Denies rash Neuro Reports tremor(s) and Reports weakness Psych Reports as per HPI Endo Reports fatigue Irving/Lymph Reports no additional complaints Aller/Immun Denies wheezing Physical Exam Vital Signs: Last Vital Signs Pulse 92 07/15/25 13:32 BP 134/70 07/15/25 13:32 Pulse Ox 96 07/15/25 13:32 Oxygen Delivery Method Room Air 07/15/25 13:32 BMI result Body Mass Index 28.4 Const General: comfortable HEENT Head: Yes normocephalic Neck Neck: Yes supple Chest Chest palpation & inspection: normal inspection of the chest Resp Effort & Inspection: normal respiratory effort Auscultation: clear to auscultation bilaterally Cardio Heart sounds: S1 normal heart sound present and S2 normal heart sound present GI Palpation (GI): Soft to palpation Skin General skin exam: no rashes or lesions noted Extrem General: Yes no clubbing, cyanosis or edema Assessment & Plan Assessment & Plan (1) Raynauds syndrome: Code(s): I73.00 - Raynaud's syndrome without gangrene Category: Medical Qualifiers: Raynaud?s-associated gangrene presence: without gangrene Qualified Code(s): I73.00 - Raynaud's syndrome without gangrene (2) Dyspnea: Code(s): R06.00 - Dyspnea, unspecified Category: Medical Qualifiers: Dyspnea type: shortness of breath Qualified Code(s): R06.02 - Shortness of breath (3) Neuromuscular disease: Code(s): G70.9 - Myoneural disorder, unspecified Category: Medical (4) DALE (obstructive sleep apnea): Code(s): G47.33 - Obstructive sleep apnea (adult) (pediatric) Category: Medical (5) Chronic restrictive lung disease: Code(s): J98.4 - Other disorders of lung Category: Medical Plan GRANT as needed CT chest restart APAP therapy start Pulmonary rehab F/U with Rheumatology/Neurology for neuro-musculoskeletal disease F/U 3 months with reji and bloodgas to assess progression Orders: Orders CT chest wo IV con Today J98.4 - Other disorders of lung Pulmonary Rehab Today J98.4 - Other disorders of lung, R06.02 - Shortness of breath Coding Level of Care Code Complex visit Add On G2211 Diagnoses Raynaud's disease without gangrene I73.00 Raynaud?s-associated gangrene presence: without gangrene Shortness of breath R06.02 Dyspnea type: shortness of breath Neuromuscular disease G70.9 DALE (obstructive sleep apnea) G47.33 Chronic restrictive lung disease J98.4 Time Spent (min) 18
== END 2025-07-15 14:13 | disposition home or self-care (01) ==
LOC: HO.HPS 13:29
PROVIDERS: PCP Hospitalist; Visit Provider Hospitalist
DX: I73.00 Raynaud's syndrome without gangrene (principal); R06.02 Shortness of breath; G70.9 Myoneural disorder, unspecified; G47.33 Obstructive sleep apnea (adult) (pediatric); J98.4 Other disorders of lung
CPT/HCPCS: 99214; G2211

== ENCOUNTER 2025-07-15 13:28 | Outpatient (REF) | payer MEDICARE, SELFPAY ==
[2025-07-15 18:46] LABS: Erythrocyte Sedimentation Rate 17 MM/HR (0-15)
--- OUTSIDE RECORDS SUMMARY | 2025-07-15 21:33 | XMS_ITS | Encounter Summary ---
Author Organization [facility] Address [address] [place] [address] Phone Care Team Providers Care Smt Machine Operator Name Role Phone Tip Seth Terrazas MD Primary Care Provider [phone] Encounter Details Date Type Department Care Team ([facility] st Contact Info) Description 09/23/2024 Procedure Pass OR Admitting Dept - Virtual Department [address] [place] [address] Social History Tobacco Use Types Packs/Day Years [...] 09/23/2024 11:41 PM Radha Lara RN * [place] Suicide Severity Rating Scale (Screener/Recent Self-Report) Question [...] on filedocumented in this encounter Care Teams Smt Machine Operator Relationship Specialty Start Date End Date Seth Whelan MD [address] [address] PCP - General Internal Medicine 03/18/24 documented as of this encounter Additional Source Comments The information contained in this document represents components of the legal health record. It is not the complete legal health record.[facility]
--- OUTSIDE RECORDS SUMMARY | 2025-07-15 21:33 | XMS_ITS | Clinical Summary ---
Author Organization [address] [facility] Address [address] [place] [address] Phone Care Team Providers Care Hot Tamale Man Name Role Phone Gabby Whelanmarosalina Scott MD Primary Care Provider [phone] Allergies Active Allergy Reactions Criticality Noted Date Comments Aripiprazole 11/04/2024 Bupropion 11/04/2024 Mesalamine 11/04/2024 Mirtazapine 11/04/2024 Medications silver sulfADIAZINE (Silvadene) 1 % cream Apply topically 1 (one) time each day. 50 g 5 02/05/20 Active Encounters Date Type Department Care Team Description 04/27/2025 2:30 PM EDT Office Visit Orthopedic Surgery [facility] [address] [facility] [address] [place] [address] Vladimir Alvarez, DPM Dermatophytosis of [...] PM EST Office Visit Orthopedic Surgery - [place] [address] [address] Vladimir Alvarez, DPM [address] [address] Health Maintenance Due Date Last [...] 07/09/2022 Hypertension/CHF/CAD Annual BMP Blood Test 11/04/2024 COVID-19 Vaccine ( season) 2025 04/15/2024, 06/22/2023, 04/26/2022, Additional history exists Influenza Vaccine (#1) 2025 , 04/18/2023, 04/26/2022, Additional history exists DTaP,Tdap,and Td Vaccines (4 - Td or Tdap) 04/15/2034 04/15/2024, 01/15/2011, 12/10/2000 Pneumococcal Vaccine: 50+ Years Completed 04/14/2023, 11/14/2011 HIB Vaccines Aged Out No longer eligi [...] patient's age to complete this topic Insurance [facility] Care Teams Hot Tamale Man Relationship Specialty Start Date End Date Seth Whelan MD [address] [place] [id number] PCP - General 07/08/23
--- OUTSIDE RECORDS SUMMARY | 2025-07-15 21:33 | XMS_ITS | Continuity of Care Document ---
Author Organization [facility] Address [address] [place] [address] Phone [phone] Social History Type Date Description Comments Sex Male Sex Unknown Medical Devices Description No Information Available Encounters Description No Information Available Assessments Description No Information Available Plan of Treatment No Information Available Functional Status Description No Information Available Mental Status Description No Information Available Referrals Description No Information Available
--- OUTSIDE RECORDS SUMMARY | 2025-07-15 21:33 | XMS_ITS | Clinical Summary ---
Author Organization [facility] Address [address] [facility] [address] [place] [address] Phone Care Team Providers Care Hardness Tester Name Role Phone TipSteh Mk MCKEON Primary Care Provider [phone] Allergies Active Allergy Reactions Criticality Noted Date [...] Date/Time Associated Diagnosis Comments BASIC METABOLIC PANEL (BMP) Routine 09/25/2024 5:19 AM EST from Last 3 Months or Most Recently Relevant to Health Maintenance Results * (ABNORMAL) Basic metabolic panel (09/25/2024 5:19 AM EST) SODIUM 136 133 - 146 mmol/L [facility] CHLORIDE 98 96 - 108 mmol/L [facility] POTASSIUM 3.9 3.3 - 5.1 mmol/L [facility] CO2 31 21 - 35 mmol/L [facility] BUN 12 6 - 19 mg/dL [facility] CREATININE 1.00 0.5 - 1.5 mg/dL [facility] GLUCOSE 159(H) 70 - 99 mg/dL [facility] CALCIUM 8.6 8.4 - 10.3 mg/dL [facility] EGFR 91 >59 mL/min/1.7 3m2 [facility] Comment:Estimated glomerular filtration rate calculated using the CKD-EPI refit equation. ANION GAP 11 10 - 20 mmol/L [facility] Blood 09/25/2024 5:19 AM EST 09/25/2024 5:39 AM EST us Venus Meyer MD LAB BLOOD BKR ORDERABLES Final Result [address] [address] from Last 3 Months or Most Recently Relevant to Health Maintenance Insurance [employer] RE[employer] [address] [place] [address] [employer] Advance Directives For more information, please contact: [phone] (9AM - 5PM [place], Saturday-Saturday) Documents on File Type Date Recorded Patient Paving Supervisor Expl anation Healthcare Proxy 09/24/2024 12:01 PM [...] ) Code Discussion Comments: periop Care Teams Hardness Tester Relationship Specialty Start Date End Date Seth Whelan MD [address] [address] PCP - General Internal Medicine 03/18/24 Additional Source Comments The information contained in this document represents components of the legal health record. It is not the complete legal health record.[facility]
== END 2025-07-15 13:29 | disposition home or self-care (01) ==
LOC: HO.HKASLDS 13:28
PROVIDERS: Internal Medicine Rheumatology; PCP Hospitalist; Visit Provider Hospitalist
DX: M62.81 Muscle weakness (generalized) (principal); G47.33 Obstructive sleep apnea (adult) (pediatric); J98.4 Other disorders of lung; G89.29 Other chronic pain; I73.00 Raynaud's syndrome without gangrene; R06.02 Shortness of breath; Z79.899 Other long term (current) drug therapy
CPT/HCPCS: 36415; 82085; 82550; 85652; 86140; 99212

== ENCOUNTER 2025-07-15 14:40 | Outpatient (AMB) | payer MEDICARE, SELFPAY ==
[2025-07-15 15:00] VITALS: BP 130/80; PULSE 87; O2SAT 98; BMI 29.5
--- NOTE | 2025-07-15 15:00 | A.OFFVIS_ITS ---
Vital Signs 07/15/25 15:00 Height 6 ft Weight 217 lb 6.012 oz BMI 29.5 BP 130/80 Blood Pressure Location Rt brachial Position Sitting Pulse 87 Pulse Source Pulse Oximeter Pulse Oximetry (%) 98 Oxygen Delivery Method Room Air Intake Visit Reasons: 3 months/ MD approved Intake Note: Patient presents for a follow up on Raynaud's. Accompanied by: Self / Same As Patient Allergies bupropion (From WELLBUTRIN) Allergy (Severe, Verified 07/15/25 13:35) Seizure aripiprazole (From ABILIFY) Allergy (Intermediate, Verified 07/15/25 13:35) FACIAL TREMORS honey (HONEY) Allergy (Intermediate, Verified 07/15/25 13:35) HEADACHES lurasidone (From LATUDA) Adverse Reaction (Intermediate, Verified 07/15/25 13:35) GETS REALLY SICK mirtazapine (MIRTAZAPINE) Adverse Reaction (Intermediate, Verified 07/15/25 13:35) BP GOES HIGH HPI HPI 3 months/ MD approved: Details: He is having headaches. He is weak. Denies dysphagia or new rash. Walks with cane. Feels weight on my shoulders down when he wakes up. Energy in muscles is drained. He walks everyday including when he is flaring. He continues to drive. His hands feel warm. He wears gloves when he is out in the cold. [facility] Medical History Chronic restrictive lung disease Neuromuscular disease Dyspnea Kidney disease Anemia Type II diabetes mellitus Fatty liver Hyperlipemia Urethral stricture Raynauds syndrome DALE (obstructive sleep apnea) Seizure Hypertension Anxiety PTSD (post-traumatic stress disorder) Surgical History H/O bilateral mastectomy Social History Household Members: Spouse Household Members Other:: Two puppies Housing: Condominium Do you presently have visiting nurse or other home services: No Patient Tobacco Use Status: Never used Tobacco e-Cigarette/Vaping Use: Never Used Second Hand Smoke Exposure: Yes service: No Sexual orientation: Straight/Heterosexual Physical Exam Vital Signs: Last Vital Signs Pulse 87 07/15/25 15:00 BP 130/80 07/15/25 15:00 Pulse Ox 98 07/15/25 15:00 Oxygen Delivery Method Room Air 07/15/25 15:00 BMI result Body Mass Index 29.5 Const Other: General: Comfortable Skin: No lesions seen. Normal capillary refill. No discoloration of fingertips. No digital ulcers. MSK: Hands are warm to touch. No synovitis of hands. 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 Power 5/5 upper extremities. Bilateral Hip flexor and extensor power is 4/5. Rest of lower extremities is 5/5. Results Reviewed Results Reviewed: 05/07/2025: EMG of bilateral lower extremities. IMPRESSION: 1. This is an abnormal study. 2. 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 3. Needle EMG showed denervation only on the most proximal muscle (lumbar paraspinals). No denervation seen on cervical paraspinals. 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 Consider muscle biopsy for further evaluation.. 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 EMG reveals possible myopathic process. Extensive myositis specific panel has been negative. His CK is now downtrending with normal inflammatory markers. We discussed next steps of diagnostic evaluation with muscle biopsy, which will aid management. Code(s): M62.81 - Muscle weakness (generalized) Category: Medical Plan: Urgent Genergal Surgery referral for right rectus femoral muscle biopsy Labs ordered to repeat muscle enzymes and inflammatory markers Continue physical therapy for strengthening RTC 3 months or sooner if weakness worsens (2) Raynaud disease without gangrene: Comment: Controlled on nifedipine 120 mg ER daily. History: Failed amlodipine 15mg qd. He was previously on cialis prescribed by his urologist and did not tolerate it. He does not want to try sildenafil as it is also a phosphodiesterase-5 (PDE5) inhibitor. 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
== END 2025-07-15 15:19 | disposition home or self-care (01) ==
LOC: HO.RHES 14:40
PROVIDERS: PCP Hospitalist; Visit Provider Internal Medicine Rheumatology
DX: M62.81 Muscle weakness (generalized) (principal); I73.00 Raynaud's syndrome without gangrene; Z79.899 Other long term (current) drug therapy
CPT/HCPCS: 99214; G2211

== ENCOUNTER 2025-07-22 13:35 | Outpatient (AMB) | payer MEDICARE, SELFPAY ==
[2025-07-22 13:38] VITALS: BP 124/60; PULSE 82; BMI 27.8
--- NOTE | 2025-07-22 13:38 | MHC.OFFVIS ---
Vital Signs 07/22/25 13:38 Height 6 ft Weight 205 lb BMI 27.8 BP 124/60 Blood Pressure Location Rt brachial Position Sitting Pulse 82 Intake Visit Reasons: myositis/ muscle weakness Intake Note: Patient referred by Dr. Isabel for a Rt rectus femoral muscle bx. Patient c/o: muscle weakness all over. Decorating Supervisor Required: No Accompanied by: Self / Same As Patient Allergies bupropion (From WELLBUTRIN) Allergy (Severe, Verified 07/22/25 13:43) Seizure aripiprazole (From ABILIFY) Allergy (Intermediate, Verified 07/22/25 13:43) FACIAL TREMORS honey (HONEY) Allergy (Intermediate, Verified 07/22/25 13:43) HEADACHES lurasidone (From LATUDA) Adverse Reaction (Intermediate, Verified 07/22/25 13:43) GETS REALLY SICK mirtazapine (MIRTAZAPINE) Adverse Reaction (Intermediate, Verified 07/22/25 13:43) BP GOES HIGH Medication List - Last Reconciled 07/22/25 by Manohar Dean MD albuterol sulfate 90 mcg/actuation (Ventolin HFA) 2 puffs inhalation Q6H PRN benazepril 10 mg PO DAILY clonazepam take 1/2 tablet po daily prn anxiety; take 1 tablet po daily at bedtime (administer 30 minutes before bedtime) 14 days dapagliflozin propanediol (Farxiga) 10 mg PO DAILY duloxetine 20 mg PO DAILY duloxetine 30 mg PO BEDTIME ergocalciferol (vitamin D2) (Vitamin D2) 1,250 mcg PO QWEEK evolocumab (Repatha SureClick) 140 mg subcut Q2W insulin glargine (Lantus Solostar U-100 Insulin) 24 units subcut BEDTIME lamotrigine 150 mg PO BEDTIME nifedipine ER 90 mg PO DAILY nifedipine ER (Procardia XL) 30 mg PO DAILY HPI Comments Details: 55-year-old gentleman with a history of longstanding progressive muscular weakness presents for consideration of a right rectus femoris muscle biopsy. Patient reports he has had this ongoing problem for a long time and he finds it debilitating. He thinks he is not really getting any better and gradually getting worse. He is still able to ambulate with a cane and is hopeful that muscle biopsy will provide him some answers and lead him down a pathway to treatment if not outright cure. [facility] Medical History Chronic restrictive lung disease Neuromuscular disease Dyspnea Kidney disease Anemia Type II diabetes mellitus Fatty liver Hyperlipemia Urethral stricture Raynauds syndrome DALE (obstructive sleep apnea) Seizure Hypertension Anxiety PTSD (post-traumatic stress disorder) Surgical History H/O bilateral mastectomy Social History Household Members: Spouse Household Members Other:: Two puppies Housing: Condominium Do you presently have visiting nurse or other home services: No Patient Tobacco Use Status: Never used Tobacco e-Cigarette/Vaping Use: Never Used Second Hand Smoke Exposure: Yes service: No Sexual orientation: Straight/Heterosexual Review of Systems Const All systems reviewed & are unremarkable except as noted in HPI and below Physical Exam Vital Signs: Last Vital Signs Pulse 82 07/22/25 13:38 BP 124/60 07/22/25 13:38 BMI result Body Mass Index 27.8 HEENT Head: Yes normal to inspection, Yes normocephalic and Yes atraumatic Eyes Sclerae: sclerae normal Pupils: Equal, round and reactive pupils present EOM: EOMs intact bilaterally Neck Neck: Yes normal visual inspection Chest Chest palpation & inspection: normal inspection of the chest Resp Effort & Inspection: normal respiratory effort and able to speak in complete sentences Cardio Rate: regular rate Rhythm: regular rhythm GI Inspection: Yes normal to inspection Neuro Cranial nerves: Yes Equal, round and reactive pupils present Psych Appearance: grossly normal and well kempt Mental Status: mental status grossly normal Speech and movement: Normal speech and movement present Affect: normal affect Attitude: cooperative Thought process: Normal thought process present Assessment & Plan Assessment & Plan (1) Muscle weakness of lower extremity: Comment: Chronic bilateral lower extremity proximal muscle weakness with recent PFTs revealing diaphragm muscle weakness with significant decrease in MIP/MEP 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 EMG reveals possible myopathic process. Extensive myositis specific panel has been negative. His CK is now downtrending with normal inflammatory markers. We discussed next steps of diagnostic evaluation with muscle biopsy, which will aid management. Code(s): M62.81 - Muscle weakness (generalized) Category: Medical Plan: I told the patient I felt muscle biopsy was appropriate. I reviewed with him the risks are involved. These include but are not limited to the risk of bleeding the risks infection the risk of chronic pain the risk of ambiguous, equivocal, or non diagnostic biopsy in the risks that it might need to be repeated were all reviewed with him in detail. He indicated that he understood. He told me that he understood and accepted the risks of surgery and despite these potential problems indicated also that he wished to proceed with operative muscle biopsy. Orders: Referrals General Surgery Procedure Notification M62.81 - Muscle weakness (generalized) Coding Level of Care Code New Pt Level 3 (46212) Diagnoses Muscle weakness of lower extremity M62.81 Time Spent (min) 30 Comment Patient visit record review and coordination of care time
--- OUTSIDE RECORDS SUMMARY | 2025-07-22 20:48 | XMS_ITS | Clinical Summary ---
Author Organization [facility] Address [address] [facility] [address] [place] [address] Phone Care Team Providers Care Acid Supervisor Name Role Phone TipSeth Mk MCKEON Primary [...] EST) SODIUM 136 133 - 146 mmol/L [facility] CHLORIDE 98 96 - 108 mmol/L [facility] POTASSIUM 3.9 3.3 - 5.1 mmol/L [facility] CO2 31 21 - 35 mmol/L [facility] BUN 12 6 - 19 mg/dL [facility] CREATININE 1.00 0.5 - 1.5 mg/dL [facility] GLUCOSE 159(H) 70 - 99 mg/dL [facility] CALCIUM 8.6 8.4 - 10.3 mg/dL [facility] EGFR 91 >59 mL/min/1.7 3m2 [facility] Comment:Estimated glomerular filtration rate calculated using the CKD-EPI refit equation. ANION GAP 11 10 - 20 mmol/L [facility] Blood 09/25/2024 5:19 AM EST 09/25/2024 5:39 AM EST us Venus Meyer MD LAB BLOOD BKR ORDERABLES Final Result [address] [id number] from Last 3 Months or Most Recently Relevant to Health Maintenance Insurance [employer] RE[employer] [address] [place] [address] [employer] Advance Directives For more information, please contact: [phone] (9AM - 5PM [place], Saturday-Saturday) Documents on File Type Date Recorded Patient Tip Finisher Expl anation Healthcare Proxy 09/24/2024 12:01 PM [...] ) Code Discussion Comments: periop Care Teams Acid Supervisor Relationship Specialty Start Date End Date Seth Whelan MD [address] [address] PCP - General Internal Medicine 03/18/24 Additional Source Comments The information contained in this document represents components of the legal health record. It is not the complete legal health record.[facility]
--- OUTSIDE RECORDS SUMMARY | 2025-07-22 20:48 | XMS_ITS | Encounter Summary ---
Author Organization [facility] Address [address] [place] [address] Phone Care Team Providers Care Flight Radio Officer Name Role Phone Tip Seth Terrazas MD Primary Care Provider [phone] Encounter Details Date Type Department Care Team ([facility] st Contact Info) Description 09/23/2024 Procedure Pass OR Admitting Dept - Virtual Department [address] [place] [address] Social History Tobacco Use Types Packs/Day Years [...] 09/23/2024 11:41 PM Radha Lara RN * [place] Suicide Severity Rating Scale (Screener/Recent Self-Report) Question [...] on filedocumented in this encounter Care Teams Flight Radio Officer Relationship Specialty Start Date End Date Seth Whelan MD [address] [address] PCP - General Internal Medicine 03/18/24 documented as of this encounter Additional Source Comments The information contained in this document represents components of the legal health record. It is not the complete legal health record.[facility]
--- OUTSIDE RECORDS SUMMARY | 2025-07-22 20:48 | XMS_ITS | Clinical Summary ---
Author Organization [address] [facility] Address [address] [place] [address] Phone Care Team Providers Care Culinary Instructor Name Role Phone Gabby Whelanmarosalina Scott MD Primary Care Provider [phone] Allergies Active Allergy Reactions Criticality Noted Date Comments Aripiprazole 11/04/2024 Bupropion 11/04/2024 Mesalamine 11/04/2024 Mirtazapine 11/04/2024 Medications silver sulfADIAZINE (Silvadene) 1 % cream Apply topically 1 (one) time each day. 50 g 5 02/05/20 Active Encounters Date Type Department Care Team Description 04/27/2025 2:30 PM EDT Office Visit [facility] [address] [facility] [address] [place] [address] Vladimir Alvarez, DPM Dermatophytosis of [...] PM EST Office Visit Orthopedic Surgery - [place] [address] [address] Vladimir Alvarez, DPM [address] [address] Health Maintenance Due Date Last [...] patient's age to complete this topic Insurance [facility] Care Teams Culinary Instructor Relationship Specialty Start Date End Date Seth Whelan MD [address] [place] [id number] PCP - General 07/08/23
== END 2025-07-22 13:52 | disposition home or self-care (01) ==
LOC: HO.HGS 13:35
PROVIDERS: PCP Hospitalist; Visit Provider Surgery
DX: M62.81 Muscle weakness (generalized) (principal)
CPT/HCPCS: 99204

== ENCOUNTER → 2025-07-22 13:35 | Outpatient (BNVA) | payer MEDICARE, SELFPAY | PROVIDERS: PCP Hospitalist; Visit Provider Surgery | DX: M62.81 Muscle weakness (generalized) (principal) | CPT/HCPCS: 99202 ==